=== PATIENT | female | born 1990 | race Caucasian/White ===

== ENCOUNTER → 2017-09-14 08:28 | Outpatient (CLI) | payer BC, SELFPAY ==
[2017-09-21 08:03] LABS: HPV Reflexed? NOT INDICATED
== END ==
PROVIDERS: Visit Provider Obstetrics & Gynecology
DX: Z12.4 Encounter for screening for malignant neoplasm of cervix (principal)
CPT/HCPCS: 88175; G0145

== ENCOUNTER → 2017-10-07 12:00 | Outpatient (CLI) | payer BC, SELFPAY ==
--- NOTE | 2017-10-07 | IMM_PTH ---
PATIENT: XIANG MALDONADO LOC: ANUM U#:[id number] AGE/SX: 34/F ROOM: RE10/07/[address]: Dr. Jesus Ramirez MD : 1990 BED: DIS: SPEC #: [id number] RECD: 10/11/17 11:36 STATUS: JEANNIE RERenetta #: [id number] DEO: 10/07/17 00:[address]: Jesus Ramirez DEPT: IMMUNOHISTOCHEMISTRY RECD BY: Carmen Yang Tissues: A - Uterine cervix, NOS Procedures: p16 (initial) KI-67 (add) Comments: @ Specimen number changed from [id number] to [id number] @ on 10/11/17 at 1149 by [facility]GOOD. PHYSICIAN & INSTITUTION [place] [id number] SPECIMEN INFORMATION: Tissue Source: A ? Cervical biopsy at 10 o?clock Clinical Info: LUCILA Specimen Number: [id number] CPT code: 46676, 98069 METHODOLOGY: Deparaffinized sections of prefer/formalin-fixed tissue or PAP/DQ stained slides are incubated with monoclonal/polyclonal antibodies/oligonucleotide probes. Localization is made via biotin free immunoperoxidase method. Appropriate controls are performed and reacted as expected. Results on target cell population are indicated in the following table: RESULTS: ANTIBODY / CLONE RESULT Block A P16 (E6H4) positive, focal and patchy Ki-67 (30-9) positive, low These tests were developed and their performance characteristics determined by [facility]. They may not have been cleared or approved by the U.S. Food and Drug Administration. The FDA has determined that such clearance or approval is not necessary. INTERPRETATION: A. Cervix at 10 o?clock, biopsy: Mild squamous dysplasia. DANIEL:reshma 10/12/17
--- NOTE | 2017-10-07 | CER_PTH ---
PATIENT: XIANG MALDONADO LOC: ANUM U#:[id number] AGE/SX: 34/F ROOM: RE10/07/[address]: Dr. Jesus Ramirez MD : 1990 BED: DIS: SPEC #: [id number] RECD: 10/07/17 22:12 STATUS: JEANNIE JOHN #: [id number] DEO: 10/07/17 00:[address]: Jesus Ramirez DEPT: SURGICAL PATHOLOGY RECD BY: Marilin Talavera Tissues: A - Uterine cervix, NOS B - Endocervical Procedures: Surgery Specimen Level IV HEADER OPERATION: Colposcopy with biopsy PRE-OP DIAGNOSIS: LGSIL TISSUE SUBMITTED: A. Cervical biopsy at 10 o?clock, B. ECC MICROSCOPIC DIAGNOSIS A. 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 Acute and chronic inflammation and squamous metaplasia. B. ECC: Rare benign endocervical epithelial cells and mucous. A few minute fragments of benign endometrial tissue. DANIEL:reshma 10/11/17 COMMENT A. Immunohistochemistry ([id number]) for surrogate HPV marker (p16) supports the above diagnosis. MICROSCOPIC DESCRIPTION Slides are reviewed. GROSS DESCRIPTION A - Received in fixative is one container labeled with the patient's name and designated 10 o'clock. The specimen consists of one irregular fragment of light mitchell soft tissue that measures 0.5 x 0.2 x 0.1 cm. The specimen is totally submitted in one cassette. B - Received in fixative is one container labeled with the patient's name and designated ECC. The specimen consists of multiple irregular fragments of mitchell mucoid tissue that in aggregate measure 2.5 x 1 x 0.1 cm. The specimen is totally submitted in one cassette. / DANIEL:reshma 10/10/17 TC:5 CPT: 44445 x2
== END ==
PROVIDERS: Visit Provider Obstetrics & Gynecology
DX: R87.612 Low grade squamous intraepithelial lesion on cytologic smear of cervix (LGSIL) (principal)
CPT/HCPCS: 88305; 88341; 88342

== ENCOUNTER 2021-07-25 21:34 | Emergency (ER) | payer SELFPAY ==
[2021-07-25 21:35] VITALS: BP 154/86; PULSE 92; RESP 14; TEMP 36; O2SAT 96; BMI 34.6
--- NOTE | 2021-07-25 22:39 | EDS_ITS ---
HPI History of Present Illness Chief Complaint: Rash Informant: patient Onset/Context/Timing Onset: Month(s) (4) Context: Gradual Onset Timing: Continuous Quality: itchy, burning on hands Location: hands, abd, legs Current Severity: Moderate Maximum Severity: Moderate Worsened by: see below Narrative Narrative: Patient presented with a rash that has been present for 4 months. She is not sure what to do anymore. This is the first time she has been to this emergency department, but she has been to the emergency department in [place] multiple times for this, she states she has been prescribed 4 courses of prednisone to take orally, none of them have done anything. She has been prescribed creams; initially she tried what they gave her which was clobetasol cream, she tried that for 1 week. For the first couple days it seemed to improve things, and then when she stopped it, everything became extremely worse where she was putting it, mostly in her hands. For the last 2 weeks since then, her fingers been swollen, they are splitting open as a result, she is having trouble bending them, and where they are split they are really sore. She is now gotten lesions on her legs, her abdomen, they are mostly itchy but her hands are hurting. No systemic symptoms or fevers. She did go back to the ER there and was given clotrimazole that she has put on her hands but it did nothing for a week. No scalp lesions. Nothing on her face. She was referred to a layer off in [place] who is not taking any new patients until after the new year. [facility] Medical History no medical history Home Medications clotrimazole-betamethasone 1 applic TOPICAL PRN PRN 07/25/21 [History Last Taken Unknown] Allergy/AdvReac Type Severity Reaction Status Date / Time amoxicillin Allergy Rash Verified 07/25/21 21:35 cefotetan disodium Allergy Rash Verified 07/25/21 21:35 [From Cefotan] erythromycin base Allergy Rash Verified 07/25/21 21:35 Sulfa (Sulfonamide Allergy Rash Verified 07/25/21 21:35 Antibiotics) Social History Smoking Status: Never smoker ROS ROS ED Constitutional Constitutional ED: Denies chills or fever(s) Eyes Eyes: Denies change in vision or diplopia ENT ENT ED: Denies rhinorrhea or sore throat Cardiovascular Cardiovascular: Denies chest pain or palpitations Respiratory/Chest Respiratory/Chest: Denies cough or dyspnea Gastrointestinal Gastrointestinal: Denies abdominal pain, diarrhea, nausea or vomiting Genitourinary Genitourinary ED: Denies dysuria or hematuria Musculoskeletal Musculoskeletal: Denies back pain or neck pain Integumentary Reports as per HPI, rash and skin swelling; Denies abscess Neurologic Neurologic: Denies headache(s), paresthesias or weakness Psychiatric Psychiatric: Denies anxiety or suicidal thoughts EXAM Physical Exam Const Vital Signs: 07/25/21 21:35 Temperature 96.8 F L Temperature Source Temporal Pulse Rate 92 Respiratory Rate 14 Blood Pressure 154/86 H Blood Pressure Mean 108 Pulse Ox 96 Oxygen Delivery Method Room Air Positive well nourished and well developed General Appearance ED: well developed and NAD HEENT Reports moist mucous membranes normocephalic and atraumatic Eyes PERRL and EOMs intact bilaterally Neck full ROM and supple Resp normal respiratory effort and clear to auscultation bilaterally Cardio regular rate, regular rhythm and no murmurs GI non-tender and non-distended Auscultation: normoactive bowel sounds Palpation: soft Back/Spine no CVA tenderness General Back: other FROM Extremity Extremity Narrative: Hands and fingers are erythematous, her fingers are swollen, she has limited flexion because of this, and she has multiple splits in skin mostly dorsally that appears to be related to dryness and swelling, they are trying to heal and not appear to be infected but they are sore to palpate due to being open. No active discharge or bleeding from any of them. General Extremety ED: Yes tenderness; Negative for pulses abnormal General Extremity: Negative for pulses abnormal Neuro oriented x3, CN's II-XII intact bilaterally and no sensory deficits noted Sensorium / Orientation: awake and alert Motor Exam: strength 5/5 throughout Skin Skin Narrative: Scattered dried mostly well-circumscribed circular lesions on abdomen and forearms mostly, but coalescent on hands with swelling and healing open wounds on fingers, none of which appear to be infected. Positive Nikolsky sign on forearms. MDM MDM MDM Narrative Medical decision making narrative: This patient presents on on a weekend for a rash that appears to be atopic dermatitis but appears to be chronically relapsing, and I agree that she needs to see dermatology. I offered getting some labs here, they are noted as below, and of interest is the eosinophilia which has been seen commonly in atopic dermatitis which is what this rash mainly resembles. I do not think putting her on more steroids would necessarily be beneficial. She may be a candidate for targeted biologic therapy and I certainly think referred her to dermatology is appropriate. She was given contact information for dermatology here in [place], and I think the main thin g we can help her with is the painful skin splits in her fingers. I do not think she needs systemic antibiotics, but we discussed topical solutions to try to allow these to heal and prevent further injury. She is understanding, discharged in stable condition. Lab Data Attestation: I reviewed the patient's lab results. Labs: Laboratory Results - last 24 hr 07/25/21 07/25/21 22:48 22:48 WBC 8.2 RBC 4.66 Hgb 14.3 Hct 40.9 MCV 87.8 MCH 30.7 MCHC 35.0 RDW Std Deviation 38.5 RDW Coeff of Jie 12.0 Plt Count 265 MPV 9.6 Immature Gran % (Auto) 0.500 Neut % (Auto) 50.5 Lymph % (Auto) 35.5 Stanley % (Auto) 7.2 Eos % (Auto) 5.8 H Baso % (Auto) 0.5 Absolute Neuts (auto) 4.2 Absolute Lymphs (auto) 2.92 Nucleated RBC % 0 ESR 4 Sodium 140 Potassium 3.8 Chloride 110 H Carbon Dioxide 25.0 Anion Gap 5 BUN 15 Creatinine 0.80 Estim Creat Clear Calc 90.41 Est GFR (MDRD) Af Amer 110 Est GFR (MDRD) Non-Af 91 BUN/Creatinine Ratio 18.8 Glucose 95 Calcium 8.6 C-React Prot Ext Range < 2.90 Discharge Plan Triage Chief Complaint: Rash ED Provider: Rodrigo Anderson Dx/Rx/DC Orders Clinical Impression: Dermatitis, atopic Instructions: ED Atopic Dermatitis (Adult) Prescriptions: No Action clotrimazole-betamethasone 1-0.05 % cream 1 applic TOPICAL PRN PRN (Reason: Rash) RF: 0 Primary Care Provider: Care Physician,No Primary Referrals: Cornelio Vazquez MD [STAFF PHYSICIAN] - As soon as possible (Call for appointment) Care Physician,No Primary [Primary Care Provider] - Disposition Disposition: Home, Self Care
[2021-07-25 22:57] LABS: Absolute Lymphocyte Count 2.92 X10^3/uL (0.83-4.51); Absolute Neutrophil Count 4.2 X10^3/uL (2.0-7.7); Basophil# 0.04 X10^3/uL; Basophil% 0.5 % (0-1); Eosinophil# 0.48 X10^3/uL; Eosinophils% 5.8 % (0-5); Hematocrit 40.9 % (37-47); Hemoglobin 14.3 g/dL (12.0-15.0); Lymphocyte # 2.92 X10^3/ul (0.83-4.51); Lymphocyte % 35.5 % (19-41); Mean Corpuscular Hgb 30.7 pg (27.0-32.0); Mean Corpuscular Volume 87.8 fL (81-99); Mean Platelet Vol. 9.6 fl (6.2-12.0); Monocyte# 0.59 X10^3/uL; Monocyte% 7.2 % (0-10); NRBC Flagged by Analyzer 0 % (0-5); Neutrophil # 4.15 X10^3/uL (2.7-7.7); Neutrophil % 50.5 % (47-70); Platelet Count 265 K/mm3 (150-450); RBC Distribution Width SD 38.5 fl (35.1-43.9); Red Blood Count 4.66 M/mm3 (4.2-5.4); White Blood Count 8.2 K/mm3 (4.4-11.0)
[2021-07-25 23:03] LABS: Erythrocyte Sedimentation Rate 4 mm/hr (0-30)
[2021-07-25 23:16] LABS: Anion Gap 5 (5-15); BUN 15 mg/dL (7-18); BUN/Creat Ratio 18.8 RATIO (10-20); CRP < 2.90 mg/L (0.0-3.0); Calcium,Total 8.6 mg/dL (8.5-10.1); Chloride 110 mmol/L (98-107); EST Glomerular Filtration Rate 91 mL/min (>60); Est Glom Filt Rate - Afr Amer 110 mL/min (>60); Estimated Creatinine Clearance 90.41 ml/min; Glucose 95 mg/dL (74-106); Potassium 3.8 mmol/L (3.5-5.1); Sodium Level 140 mmol/L (136-145)
== END 2021-07-26 00:09 | disposition home or self-care (01) ==
PROVIDERS: Emergency Provider Emergency Medicine
DX: L20.9 Atopic dermatitis, unspecified (principal)
CPT/HCPCS: 36415; 80048; 85025; 85652; 86140; 99282

== ENCOUNTER 2023-06-29 20:23 | Emergency (ER) | payer SELFPAY ==
[2023-06-29 20:24] VITALS: BP 145/96; PULSE 97; RESP 18; TEMP 36.6; O2SAT 100; BMI 34.5
[2023-06-29] MEDS: Oxycodone/Apap 5/325 Tablet PO ×2 (20:37→21:13)
--- NOTE | 2023-06-29 21:05 | EDS_ITS ---
HPI <KATJA Watkins - Last Filed: 06/29/23 21:15> History of Present Illness Chief Complaint: Abscess Narrative Narrative: Patient is a 32-year-old female with no significant medical history presents to the emergency department with complaints of a cyst to her lower back, upper buttocks. Patient was seen for this on Tuesday, diagnosed with pilonidal cyst. Placed on clindamycin. No intervention was completed. Patient states that she is continued having fevers, chills, she states that the pain is getting worse and she is here for evaluation. PFSH <KATJA Watkins - Last Filed: 06/29/23 21:15> [facility] Home Medications clotrimazole-betamethasone 1 %-0.05 % topical cream 1 applic topical PRN PRN Rash 07/25/21 [History Last Taken Unknown] doxycycline hyclate 100 mg capsule 100 mg PO BID #20 caps 06/29/23 [Rx Last Taken Unknown] oxycodone-acetaminophen 5 mg-325 mg tablet (Percocet) 1 tab PO Q8H PRN pain 3 days #12 tabs 06/29/23 [Rx Last Taken Unknown] Allergy/AdvReac Type Severity Reaction Status Date / Time amoxicillin Allergy Rash Verified 06/29/23 20:27 cefotetan disodium Allergy Rash Verified 06/29/23 20:27 [From Cefotan] erythromycin base Allergy Rash Verified 06/29/23 20:27 Sulfa (Sulfonamide Allergy Rash Verified 06/29/23 20:27 Antibiotics) Social History Smoking Status: Never smoker ROS <KATJA Watkins - Last Filed: 06/29/23 21:15> ROS ED ROS Narrative Constitutional: Negative for fever, chills, weight loss, weakness Eyes: Negative for vision loss, vision change, double vision ENT: Negative for any sore throat, ear pain, congestion Cardiovascular: Negative for any chest pain, tightness, palpitations Respiratory: Negative for any cough, sputum production, hemoptysis, dyspnea, dyspnea on exertion, orthopnea Gastrointestinal: Negative for any abdominal pain, nausea, vomiting, diarrhea, constipation, blood in stool, blood in vomit : Negative for any urinary frequency, dysuria, retention, blood in urine Muscle skeletal: Negative for any myalgias, arthralgias, neck pain, back pain Neurological: Negative for any headache, syncope, numbness or tingling, dizziness Skin: Negative for any rashes, lumps, itching, abrasions, lacerations. Positive for abscess to the upper buttocks. Psychiatric: Negative for any depression, anxiety, stress, suicidal ideation, homicidal ideation Hematologic: Negative for any easy bruising, excessive bruising, easy bleeding Allergies: Negative for any eczema, hives, rash EXAM <KATJA Watkins - Last Filed: 06/29/23 21:15> Physical Exam Narrative Exam Narrative: Vital signs reviewed. HEET: Head normocephalic atraumatic, TMs clear bilaterally. Posterior pharynx is clear, moist mucous membranes. Nares clear bilaterally. Neck: Supple with no lymphadenopathy or tenderness. No signs of meningismus. Cardiac: Regular rate and rhythm no murmurs gallops or rubs, equal peripheral pulses bilaterally. Respiratory: Lungs clear to auscultation bilaterally. No chest tenderness. Abdomen: Soft, nontender, nondistended. No abdominal bruit or pulsatile masses. No hepatosplenomegaly Extremities: No peripheral edema, no signs of gross trauma or deformity. Active full range of motion of all extremities. Neuro: Cranial nerves II through XII intact, no focal neurological deficits. Skin: Clean dry and intact with no rash, purpura, petechiae, vesicles or pustules. Patient has erythema, cellulitis, tenderness to the upper buttocks. This is consistent with pilonidal cyst. Patient's most pain and indurated areas are to the medial upper glutes. There is significant induration at this area. Patient has minimal pain, fluctuance to the initial start of the fold. No drainage noted. There is no pain along the rectal area. Backs/flank: No CVA tenderness, no midline spinal tenderness, no deformity. Psych: Normal mood and affect. No SI, HI or acute psychosis. Const Vital Signs: 06/29/23 20:24 Temperature 97.8 F Temperature Source Temporal Pulse Rate 97 Respiratory Rate 18 Blood Pressure 145/96 H Blood Pressure Mean 112 Pulse Ox 100 Oxygen Delivery Method Room Air <Gregorio Kuo MD - Last Filed: 06/29/23 22:16> Physical Exam Const Vital Signs: 06/29/23 20:24 Temperature 97.8 F Temperature Source Temporal Pulse Rate 97 Respiratory Rate 18 Blood Pressure 145/96 H Blood Pressure Mean 112 Pulse Ox 100 Oxygen Delivery Method Room Air [facility] <KATJA Watkins - Last Filed: 06/29/23 21:15> [facility] Treatment and Re-Evaluation :: Patient appears to be in no distress, vital signs are stable, patient presents to the emergency department with complaints of upper buttock pain concerning for pilonidal cyst. Differential diagnosis includes pilonidal cyst, abscess formation, cellulitis. Patient is on clindamycin. The area was cleaned with ChloraPrep. I was able to use lidocaine with epinephrine, using 11 blade and made 1 cm incisions on each of the medial aspect of the upper gluteus. There is no significant gross drainage. I was able to use forceps to break up loculations. Patient tolerated well. Patient will continue to use warm compress. I will add doxycycline to the patient's regimen as well as Percocet. I will give her referral to surgery, she understands that she has a follow-up. She was given strict return precaution to return for any worsening pain, fever chills nausea vomiting. Patient stable for discharge. <Gregorio Kuo MD - Last Filed: 06/29/23 22:16> [facility] Narrative Medical decision making narrative: Dr. Kuo: I have personally performed a face to face assessment of the patient and have reviewed the KVNG Note. I performed a substantive portion of the visit including all aspects of the following. My milner findings include: History is bilateral buttocks pain and swelling with erythema. On clindamycin from outside facility for the last 4 days. Exam is afebrile. Vital signs noted. Nontoxic-appearing. Positive indurated area at bilateral top of gluteal fold. Medical Decision Making: Incision and drainage. No purulent return. Continue antibiotics and follow-up as an outpatient with surgery. Oral analgesics. Discharge. Other additions or changes: [None] Discharge Plan Triage Chief Complaint: Abscess ED Midlevel Provider: Myron Morse ED Provider: Gregorio Kuo Dx/Rx/DC Orders Clinical Impression: Cyst, pilonidal, with abscess Prescriptions: New doxycycline hyclate 100 mg capsule 100 mg PO BID Qty: 20 0RF oxycodone-acetaminophen [Percocet] 5-325 mg tablet 1 tab PO Q8H PRN (Reason: pain) 3 Days Qty: 12 0RF No Action clotrimazole-betamethasone 1-0.05 % cream 1 applic TOPICAL PRN PRN (Reason: Rash) Patient Comments: Apply topically to affected area 2 times a day Primary Care Provider: Care Physician,No Primary Referrals: Dawna Mcdonald MD [Med Staff - Active Staff] - Care Physician,No Primary [Primary Care Provider] - Activity Restrictions/Additional Instructions: Please use warm compresses. You may use sitz bath's. Please take the Percocet, doxycycline. You need to follow-up with surgery. Of course return here for worsening pain fever chills nausea vomiting Disposition Disposition: Home, Self Care Discharge Date/Time: 06/29/23 21:20
[2023-06-29] MEDS: Doxycycline 100 MG CAPSULE PO (21:13)
[2023-06-29] MEDS: Lidocaine 1% /Epi 1:100 (20ml) 20 ML Vial INFILT (21:14)
== END 2023-06-29 21:20 | disposition home or self-care (01) ==
PROVIDERS: Emergency Provider Emergency Medicine; Visit Provider Emergency Medicine
DX: L05.01 Pilonidal cyst with abscess (principal)
CPT/HCPCS: 99283

== ENCOUNTER 2024-02-16 18:21 | Emergency (ER) | payer SELFPAY ==
[2024-02-16 18:22] VITALS: BP 151/97; PULSE 95; RESP 16; TEMP 36.6; O2SAT 99; BMI 36.2
--- NOTE | 2024-02-16 19:01 | EDS_ITS ---
HPI History of Present Illness Chief Complaint: Abscess Informant: patient Narrative Narrative: 33-year-old female presenting to the emergency room with a chief complaint of pilonidal cyst. Patient states that this is the second recurrence of a cyst. She states she was seen in the past had incision and drainage. She notes that symptoms have been present for about 2 days. She notes a lot of pressure/pain when she goes to sit. No drainage in the area. No rectal pain PFSH PFSH Home Medications ?Medication ?Instructions ?Recorded ?Last Taken ?Type clotrimazole-betamethasone 1 1 applic topical PRN PRN Rash 07/25/21 Unknown History %-0.05 % topical cream doxycycline hyclate 100 mg capsule 100 mg PO BID #20 caps 06/29/23 Unknown Rx oxycodone-acetaminophen 5 mg-325 1 tab PO Q8H PRN pain 3 days #12 06/29/23 Unknown Rx mg tablet (Percocet) tabs doxycycline monohydrate 100 mg 100 mg PO BID #20 CAPSULES 02/16/24 Unknown Rx capsule oxycodone-acetaminophen 5 mg-325 1 tab PO Q6H PRN PRN Pain 3 days 02/16/24 Unknown Rx mg tablet #12 TABLETS Allergy/AdvReac Type Severity Reaction Status Date / Time amoxicillin Allergy Rash Verified 02/16/24 18:22 cefotetan disodium (From Allergy Rash Verified 02/16/24 18:22 Cefotan) erythromycin base Allergy Rash Verified 02/16/24 18:22 Sulfa (Sulfonamide Allergy Rash Verified 02/16/24 18:22 Antibiotics) Social History Smoking Status: Never smoker ROS ROS ED Constitutional Constitutional ED: Denies chills, fever(s) or weight loss Eyes Eyes: Denies change in vision or diplopia ENT ENT ED: Denies ear pain, rhinorrhea or sore throat Cardiovascular Cardiovascular: Denies chest pain, orthopnea, palpitations or racing heartbeat Respiratory/Chest Respiratory/Chest: Denies cough, dyspnea or orthopnea Gastrointestinal Gastrointestinal: Denies abdominal pain, diarrhea, nausea or vomiting Genitourinary Genitourinary ED: Denies dysuria, hematuria or urinary frequency Musculoskeletal Musculoskeletal: Denies arthralgias or myalgias Integumentary Reports abscess and other; Denies rash Neurologic Neurologic: Denies headache(s) or weakness Psychiatric Psychiatric: Denies anxiety, depression, suicidal ideation or suicidal thoughts Endocrine Endocrinology: Denies polydipsia, polyphagia or polyuria Allergic/Immunologic Allergic/Immunologic ED: Denies mouth swelling, tongue swelling or urticaria EXAM Physical Exam Const Vital Signs: 02/16/24 18:22 Temperature 97.8 F Temperature Source Temporal Pulse Rate 95 Respiratory Rate 16 Blood Pressure 151/97 H Blood Pressure Mean 115 Pulse Ox 99 Oxygen Delivery Method Room Air Positive well nourished and well developed General Appearance ED: well developed HEENT Reports normocephalic, head/scalp atraumatic and moist mucous membranes Eyes PERRL and EOMs intact bilaterally Neck no lymphadenopathy, supple and no JVD Resp normal respiratory effort and clear to auscultation bilaterally Cardio regular rate, regular rhythm and no murmurs GI normal to inspection, nondistended, normoactive bowel sounds and non-tender Palpation: soft Back/Spine no CVA tenderness and normal ROM Extremity normal to inspection General Extremety ED: Negative for edema General Extremity: Negative for edema Neuro oriented x3 and CN's II-XII intact bilaterally Sensorium / Orientation: alert Motor Exam: strength 5/5 throughout Psych mental status grossly normal Mood & Affect: Negative for depressed or tearful Skin Skin Narrative: There is a 2 cm area of erythema on the left medial gluteal skin fold the top of the midline. There is a well-healed incision of this area. There is also a healed incision on the right just crossed the gluteal fold from this. It has minimal erythema. MDM MDM MDM Narrative Medical decision making narrative: Differential diagnosis includes pilonidal cyst, abscess, phlegmon, developing abscess cellulitis Using bedside ultrasound I see some minimal fluid in this area and subcutaneous tissue I do not see a large collection. Let was used to locally anesthetized the skin topically. Betadine was used to wash the area and allowed to dry. Then 1% lidocaine was used to anesthetize deeper. Once adequate anesthesia was achieved an 11 blade was used to make an incision along the previous incision. The wound was probed for loculations. Minimal pus was removed. This was not a deep abscess and I did not find significant loculations. Therefore no packing was placed. Home I will be placing the patient on doxycycline and have her do warm baths and as well as some pain medication. We talked about return instruc tions as well as follow-up. She I will give her local surgery but she was advised that this becomes a recurrent issue she may need to see colorectal surgery. History & Record Review Discussion w/independent historian: Patient Discharge Plan Triage Chief Complaint: Abscess ED Provider: Jozef Ahn Dx/Rx/DC Orders Clinical Impression: Pilonidal abscess Instructions: ED Pilonidal Cyst Infec I&D Prescriptions: New oxycodone-acetaminophen 5-325 mg tablet 1 tab PO Q6H PRN PRN (Reason: Pain) 3 Days Qty: 12 0RF doxycycline monohydrate 100 mg capsule 100 mg PO BID Qty: 20 0RF No Action clotrimazole-betamethasone 1-0.05 % cream 1 applic TOPICAL PRN PRN (Reason: Rash) Patient Comments: Apply topically to affected area 2 times a day doxycycline hyclate 100 mg capsule 100 mg PO BID Qty: 20 0RF oxycodone-acetaminophen [Percocet] 5-325 mg tablet 1 tab PO Q8H PRN (Reason: pain) 3 Days Qty: 12 0RF Primary Care Provider: Care Physician,No Primary Referrals: Dawna Mcdonald MD [Med Staff - Active Staff] - 3-5 Days if not improving Care Physician,No Primary [Primary Care Provider] - Print Language: Turkish Disposition Disposition: Home, Self Care
[2024-02-16] MEDS: Lidocaine/Epi/Tetracaine 50 ML 1 APPLIC TOPICAL (19:22)
[2024-02-16] MEDS: Lidocaine 1% (20 ml mdv) 20 ML Vial INFILT (19:23)
[2024-02-16 20:28] VITALS: PULSE 68; RESP 16; TEMP 36.6; O2SAT 98
== END 2024-02-16 20:28 | disposition home or self-care (01) ==
PROVIDERS: Emergency Provider Emergency Medicine; Visit Provider Emergency Medicine
DX: L05.01 Pilonidal cyst with abscess (principal)
CPT/HCPCS: 10080; 10060; 99284

== ENCOUNTER 2024-05-10 20:41 | Emergency (ER) | payer SELFPAY ==
[2024-05-10 20:42] VITALS: BP 139/94; PULSE 74; RESP 16; TEMP 36.8; O2SAT 100; BMI 35.6
--- NOTE | 2024-05-10 20:51 | CT_ITS ---
EXAM: CT ABDOMEN AND PELVIS WITH INTRAVENOUS CONTRAST CLINICAL INDICATION: RLQ, Rovsing sign, tenderness near McBurney''s poin -- Last normal menstrual period April 20 TECHNIQUE: Helically acquired images were obtained of the abdomen and pelvis with intravenous contrast. This CT exam was performed using one or more of the following dose reduction techniques: automated exposure control, adjustment of the mA and/or kV according to patient size, and/or use of iterative reconstruction technique. CONTRAST: IV 100mL Isovue-370 RADIATION DOSE: CTDIvol = 18.01 mGy, DLP = 1221.35 mGy-cm COMPARISON: No relevant prior studies available. FINDINGS: LOWER THORAX: Unremarkable. Lung bases are clear. No cardiomegaly. No significant pericardial effusion. ABDOMEN: LIVER: Follicle homogeneously hyperdense-enhancing and subcapsular 1 cm nodule at the inferior-posterior left lobe of the liver, suspected hemangioma. Hepatomegaly and low-attenuation fatty liver, the right lobe is 20.2 cm craniocaudal. GALLBLADDER AND BILE DUCTS: Unremarkable. No calcified gallstones. No gallbladder distention or wall edema. No intra- or extrahepatic biliary ductal dilation. PANCREAS: Unremarkable. No focal cystic or solid mass. SPLEEN: Borderline splenomegaly, 12.7 cm craniocaudal. ADRENALS: Unremarkable. No nodules. KIDNEYS AND URETERS: Unremarkable. Normal renal size and position. No hydronephrosis. STOMACH AND BOWEL: Mild stool in the proximal right colon and mild scattered gas in most of the colon. No dilated small bowel loops. No focal inflammatory change. PELVIS: APPENDIX: Mildly prominent and gasless appendix. It measures 7 mm at its origin on sagittal image #69 7 mm at its midportion the right iliac vessels, with slightly smaller tapering tip, 5.3 mm on axial image #89. It is 7.3 mm maximum diameter on coronal image #63. No surrounding soft tissue stranding. BLADDER: Unremarkable. REPRODUCTIVE: Apparent dominant follicle in the left ovary, well-circumscribed and roughly 1.5 cm x 1.9 cm x 2.2 cm. ABDOMEN and PELVIS: INTRAPERITONEAL SPACE: Unremarkable. No free air. No free fluid. BONES/JOINTS: Unremarkable. No suspicious lytic or blastic abnormality. SOFT TISSUES: Unremarkable. No discrete abdominal or pelvic wall hernia. VASCULATURE: Unremarkable. Abdominal aorta is non-dilated. LYMPH NODES: Minimal mesenteric adenopathy including a right lower quadrant mesenteric lymph node of 1.3 cm x 9 cm, which chronicity. CT/Abdomen/Pelvis W IV Cont ONLY IMPRESSION: 1. Gasless and borderline thickened 7.3 mm maximum diameter appendix. Suspicious for very early acute appendicitis in the appropriate clinical setting. No surrounding soft tissue stranding or visible appendicolith. 2. No free air, free fluid or abscess. 3. Dominant 2.2 cm left ovarian follicle. 4. Minimal mesenteric adenopathy, uncertain chronicity. 5. Hepatosplenomegaly and low-attenuation fatty liver. 6. 1 cm subcapsular hyperdense-homogeneously enhancing nodule in the left lobe of liver. Considerations include benign hemangioma and multiple other hypervascular lesions such as focal nodular hyperplasia, adenoma, hypervascular metastases. 7. RECOMMENDATIONS: Prior exams would be useful if available. Otherwise consider MRI characterization for the liver lesion. Electronically Signed: Suzan Block MD at 22:34 EDT ,
--- NOTE | 2024-05-10 20:53 | EDS_ITS ---
HPI <Dr. Mayo Domingo MD - Last Filed: 05/11/24 23:32> HPI - GI History of Present Illness Chief Complaint: Abd Pain Detail of Chief Complaint: Periumbilical pain to right lower quadrant Informant: patient Abdominal Pain/Flank Pain Onset: Today Context: Sudden Onset Timing: Continuous Quality: - (Pain) Location: - (Umbilicus right lower quadrant) Current Severity: Mild Maximum Severity: Moderate Worsened by: Car ride Relieved by: Nothing Nausea/Vomiting/Emesis GI Symptom: Positive for Nausea; Negative for Vomiting Diarrhea/Melena/Hematochezia GI Symptom: Negative for Diarrhea, Melena or Hematochezia Associated Symptoms Associated Symptoms: Negative for Dysuria, Frequency, Hematuria or Urgency LMP: April 20, 2024 Narrative Narrative: Patient is a 33-year-old female whose last normal menstrual period was April 20, 2024. She does not use any form of control. She presents because of periumbilical pain that radiates to the proximity of McBurney's point. She does endorse nausea. She last ate at 1800. She had a glass of water 1 hour prior to presentation. She denies fever but does endorse chills. She does have history of ovarian cyst. She denies dysuria, frequency, urgency or hematuria. She denies any viral symptoms or upper respiratory symptoms. Prior similar symptoms: No Recent Illness/Hospitalization: No PFSH <Dr. Mayo Domingo MD - Last Filed: 05/11/24 23:32> PFSH Home Medications ?Medication ?Instructions ?Recorded ?Last Taken ?Type clotrimazole-betamethasone 1 1 applic topical PRN PRN Rash 07/25/21 Unknown History %-0.05 % topical cream doxycycline hyclate 100 mg capsule 100 mg PO BID #20 caps 06/29/23 Unknown Rx oxycodone-acetaminophen 5 mg-325 1 tab PO Q8H PRN pain 3 days #12 06/29/23 Unknown Rx mg tablet (Percocet) tabs doxycycline monohydrate 100 mg 100 mg PO BID #20 CAPSULES 02/16/24 Unknown Rx capsule oxycodone-acetaminophen 5 mg-325 1 tab PO Q6H PRN PRN Pain 3 days 02/16/24 Unknown Rx mg tablet #12 TABLETS Allergy/AdvReac Type Severity Reaction Status Date / Time amoxicillin Allergy Rash Verified 05/10/24 20:56 cefotetan disodium (From Allergy Rash Verified 05/10/24 20:56 Cefotan) erythromycin base Allergy Rash Verified 05/10/24 20:56 Sulfa (Sulfonamide Allergy Rash Verified 05/10/24 20:56 Antibiotics) Surgical History Hx of tonsillectomy Social History (Updated 05/10/24 @ 20:[address] Mayo Domingo MD) household members: significant other and children Smoking Status: Never smoker ROS <Dr. Mayo Domingo MD - Last Filed: 05/11/24 23:32> ROS ED Constitutional Constitutional ED: Reports chills; Denies fever(s), subjective or sweats ENT ENT ED: Denies ear pain, rhinorrhea or sore throat Cardiovascular Cardiovascular: Denies chest pain or palpitations Respiratory/Chest Respiratory/Chest: Denies cough, dyspnea or dyspnea on exertion Gastrointestinal Gastrointestinal: Reports abdominal pain and nausea; Denies constipation, diarrhea, melena or vomiting Genitourinary Genitourinary ED: Denies dysuria, hematuria or urinary frequency Musculoskeletal Musculoskeletal: Denies arthralgias, back pain or myalgias Integumentary Denies rash Neurologic Neurologic: Denies headache(s) Hematologic/Lymphatic Hematologic/Lymphatic: Denies easy bleeding or easy bruising EXAM <Dr. Mayo Domingo MD - Last Filed: 05/11/24 23:32> Physical Exam Const Vital Signs: 05/11/24 01:22 05/11/24 01:28 05/11/24 01:46 Temperature 97.2 F L 97.2 F L Temperature Source Oral Oral Pulse Rate 75 75 75 Respiratory Rate 18 18 18 Blood Pressure 116/75 116/75 Blood Pressure Mean 88 88 Pulse Ox 97 95 95 Oxygen Delivery Method Room Air Room Air Room Air 05/11/24 02:53 Temperature 98.7 F Temperature Source Pulse Rate 84 Respiratory Rate 16 Blood Pressure 129/77 H Blood Pressure Mean 94 Pulse Ox 99 Oxygen Delivery Method Positive well nourished and well developed General Appearance ED: well developed and NAD; Negative for pallor HEENT Reports moist mucous membranes normocephalic and atraumatic Eyes PERRL and EOMs intact bilaterally General Eye ED: Negative for pale conjunctiva or scleral icterus Neck no lymphadenopathy, supple and no JVD Resp normal respiratory effort and clear to auscultation bilaterally Cardio regular rate, regular rhythm, S1 normal heart sound, S2 normal heart sound and no murmurs GI non-distended and no masses; Negative for non-tender Inspection: Negative for abdominal distention Auscultation: hypoactive bowel sounds Palpation: soft and tender RLQ, McBurney's point and Rovsing's sign; Negative for mass, pulsatile mass or rebound tenderness present Narrative: There is no inguinal mass or augusto lymphadenopathy. Back/Spine no CVA tenderness Extremity full ROM General Extremety ED: Negative for edema or tenderness General Extremity: Negative for edema Neuro CN's II-XII intact bilaterally and moves all extremities Sensorium / Orientation: alert Psych mental status grossly normal and thought process normal Skin no wounds General Skin Exam: Negative for jaundice or pallor Lesions: no lesions Rashes: no rashes <Dr. Jozef Ahn DO - Last Filed: 05/11/24 02:48> Physical Exam Const Vital Signs: 05/11/24 01:22 05/11/24 01:28 05/11/24 01:46 Temperature 97.2 F L 97.2 F L Temperature Source Oral Oral Pulse Rate 75 75 75 Respiratory Rate 18 18 18 Blood Pressure 116/75 116/75 Blood Pressure Mean 88 88 Pulse Ox 97 95 95 Oxygen Delivery Method Room Air Room Air Room Air 05/11/24 02:53 Temperature 98.7 F Temperature Source Pulse Rate 84 Respiratory Rate 16 Blood Pressure 129/77 H Blood Pressure Mean 94 Pulse Ox 99 Oxygen Delivery Method [facility] <Dr. Mayo Domingo MD - Last Filed: 05/11/24 23:32> [facility] Narrative Medical decision making narrative: Differential diagnoses abdominal pain of unknown etiology, obstipation, mesenteric adenitis, regional enteritis, appendicitis. Will obtain test since patient is exact with no use of control. CBC, electrolyte panel and serum hCG. Will obtain CT of the abdomen since patient has tenderness in the proximity McBurney's point with a positive Rovsing sign and guarding r ight lower quadrant. Lab Data Attestation: I reviewed the patient's lab results. Lab results narrative: CBC is normal. UA is unremarkable. It is a contaminated specimen. Labs: Laboratory Results - last 24 hr 05/10/24 05/10/24 20:57 20:58 WBC 8.8 RBC 4.39 Hgb 13.2 Hct 37.9 MCV 86.3 MCH 30.1 MCHC 34.8 RDW Std Deviation 37.4 RDW Coeff of Jie 11.9 Plt Count 228 MPV 10.3 Immature Gran % (Auto) 0.200 Neut % (Auto) 53.8 Lymph % (Auto) 37.7 Loving % (Auto) 4.8 Eos % (Auto) 3.0 Baso % (Auto) 0.5 Absolute Neuts (auto) 4.7 Absolute Lymphs (auto) 3.32 Nucleated RBC % 0 Sodium 139 Potassium 3.4 L Chloride 105 Carbon Dioxide 28.0 Anion Gap 6 BUN 12 Creatinine 0.91 Estim Creat Clear Calc 99.78 Est GFR (MDRD) Af Amer 93 Est GFR (MDRD) Non-Af 77 BUN/Creatinine Ratio 13.2 Glucose 124 H Calcium 9.5 Serum , Qual NEGATIVE Urine Color Yellow Urine Clarity Sl. Cloudy Urine pH 6.0 Ur Specific [place] 1.025 Urine Protein 15 H Urine Glucose (UA) Normal Urine Ketones Negative Urine Occult Blood Negative Urine Nitrite Negative Urine Bilirubin Negative Urine Urobilinogen Normal Ur Leukocyte Esterase Negative Urine RBC 0 SEEN Urine WBC 0-5 SEEN Ur Squamous Epith Cells 5-10 SEEN Urine Bacteria RARE Urine Mucus 0 SEEN Radiography Diagnostic Testing: Clinical Impression(s) from Imaging Studies Abdomen/Pelvis CT 05/10/24 20:51 IMPRESSION: 1. Gasless and borderline thickened 7.3 mm maximum diameter appendix. Suspicious for very early acute appendicitis in the appropriate clinical setting. No surrounding soft tissue stranding or visible appendicolith. 2. No free air, free fluid or abscess. 3. Dominant 2.2 cm left ovarian follicle. 4. Minimal mesenteric adenopathy, uncertain chronicity. 5. Hepatosplenomegaly and low-attenuation fatty liver. 6. 1 cm subcapsular hyperdense-homogeneously enhancing nodule in the left lobe of liver. Considerations include benign hemangioma and multiple other hypervascular lesions such as focal nodular hyperplasia, adenoma, hypervascular metastases. 7. RECOMMENDATIONS: Prior exams would be useful if available. Otherwise consider MRI characterization for the liver lesion. Electronically Signed: Suzan Block MD at 22:34 EDT , Abdomen CT 05/11/24 23:07 IMPRESSION: Fatty infiltration of the liver. No acute abnormality of the abdomen and pelvis. Normal appendix. Electronically Signed: Hanny Peraza MD at 2:24 EDT Reading Location ID and State: [facility] / [place] Tel , Service support , CT of the abdomen pelvis IV contrast was reviewed by me at 2155. The liver and spleen appear normal. The gallbladder appears normal. Kidneys appear normal. There is no inflammatory changes noted. In my opinion the CT is unremarkable. Awaiting formal read by radiologist. Management Discussion w/another healthcare provider: Channel Lip Stiffener Insoles (Spoke with Dr. Dogulass who is on-call for surgery. She requested CT of the abdomen pelvis with p.o. contrast. She will crush them to be delayed. She would like called once results are available.) Treatment and Re-Evaluation :: Patient disposition to be made by the evening physician once CAT scan has been performed and interpreted. CT of the abdomen reveals Mildly prominent and gasless appendix measuring 7 mm at its origin and its midportion. There is slight tapering at the tip measuring 5.3 mm. Maximum diameter is 7.3 on coronal image #63. There is no surrounding soft tissue swelling. There is no surrounding stranding or visible appendicolith. <Dr. Jozef Ahn, DO - Last Filed: 05/11/24 02:48> [facility] Narrative Medical decision making narrative: Differential diagnoses abdominal pain of unknown etiology, obstipation, mesenteric adenitis, regional enteritis, appendicitis. Will obtain test since patient is exact with no use of control. CBC, electrolyte panel and serum hCG. Will obtain CT of the abdomen since patient has tenderness in the proximity McBurney's point with a positive Rovsing sign and guarding right lower quadrant. Lab Data Labs: Laboratory Results - last 24 hr 05/10/24 05/10/24 20:57 20:58 WBC 8.8 RBC 4.39 Hgb 13.2 Hct 37.9 MCV 86.3 MCH 30.1 MCHC 34.8 RDW Std Deviation 37.4 RDW Coeff of Jie 11.9 Plt Count 228 MPV 10.3 Immature Gran % (Auto) 0.200 Neut % (Auto) 53.8 Lymph % (Auto) 37.7 Loving % (Auto) 4.8 Eos % (Auto) 3.0 Baso % (Auto) 0.5 Absolute Neuts (auto) 4.7 Absolute Lymphs (auto) 3.32 Nucleated RBC % 0 Sodium 139 Potassium 3.4 L Chloride 105 Carbon Dioxide 28.0 Anion Gap 6 BUN 12 Creatinine 0.91 Estim Creat Clear Calc 99.78 Est GFR (MDRD) Af Amer 93 Est GFR (MDRD) Non-Af 77 BUN/Creatinine Ratio 13.2 Glucose 124 H Calcium 9.5 Serum , Qual NEGATIVE Urine Color Yellow Urine Clarity Sl. Cloudy Urine pH 6.0 Ur Specific [place] 1.025 Urine Protein 15 H Urine Glucose (UA) Normal Urine Ketones Negative Urine Occult Blood Negative Urine Nitrite Negative Urine Bilirubin Negative Urine Urobilinogen Normal Ur Leukocyte Esterase Negative Urine RBC 0 SEEN Urine WBC 0-5 SEEN Ur Squamous Epith Cells 5-10 SEEN Urine Bacteria RARE Urine Mucus 0 SEEN Radiography Diagnostic Testing: Clinical Impression(s) from Imaging Studies Abdomen/Pelvis CT 05/10/24 20:51 IMPRESSION: 1. Gasless and borderline thickened 7.3 mm maximum diameter appendix. Suspicious for very early acute appendicitis in the appropriate clinical setting. No surrounding soft tissue stranding or visible appendicolith. 2. No free air, free fluid or abscess. 3. Dominant 2.2 cm left ovarian follicle. 4. Minimal mesenteric adenopathy, uncertain chronicity. 5. Hepatosplenomegaly and low-attenuation fatty liver. 6. 1 cm subcapsular hyperdense-homogeneously enhancing nodule in the left lobe of liver. Considerations include benign hemangioma and multiple other hypervascular lesions such as focal nodular hyperplasia, adenoma, hypervascular metastases. 7. RECOMMENDATIONS: Prior exams would be useful if available. Otherwise consider MRI characterization for the liver lesion. Electronically Signed: Suzan Block MD at 22:34 EDT , Abdomen CT 05/11/24 23:07 IMPRESSION: Fatty infiltration of the liver. No acute abnormality of the abdomen and pelvis. Normal appendix. Electronically Signed: Hanny Peraza MD at 2:24 EDT , Treatment and Re-Evaluation :: Patient disposition to be made by the evening physician once CAT scan has been performed and interpreted. CT of the abdomen reveals Mildly prominent and gasless appendix measuring 7 mm at its origin and its midportion. There is slight tapering at the tip measuring 5.3 mm. Maximum diameter is 7.3 on coronal image #63. There is no surrounding soft tissue swelling. There is no surrounding stranding or visible appendicolith. Update 0248 hrs.: Repeat CT shows normal-appearing appendix. No other significant intra-abdominal pathology to explain her pain was noted. I again discussed the case with Dr. Mcdonald. Patient will be discharged home return if worsening or concerns or not improving in 24 to 48 hours or she can follow-up with primary care if not improving Discharge Plan Triage Chief Complaint: Abd Pain ED Provider: Mayo Domingo Dx/Rx/DC Orders Clinical Impression: Abdominal pain Instructions: Abdominal Pain Prescriptions: No Action clotrimazole-betamethasone 1-0.05 % cream 1 applic TOPICAL PRN PRN (Reason: Rash) Patient Comments: Apply topically to affected area 2 times a day doxycycline hyclate 100 mg capsule 100 mg PO BID Qty: 20 0RF oxycodone-acetaminophen [Percocet] 5-325 mg tablet 1 tab PO Q8H PRN (Reason: pain) 3 Days Qty: 12 0RF oxycodone-acetaminophen 5-325 mg tablet 1 tab PO Q6H PRN PRN (Reason: Pain) 3 Days Qty: 12 0RF doxycycline monohydrate 100 mg capsule 100 mg PO BID Qty: 20 0RF Primary Care Provider: Care Physician,No Primary Referrals: Valdo Doyle MD [Med Staff - Education Rn] - 1-2 Days if not improving Care Physician,No Primary [Primary Care Provider] - Print Language: British Disposition Disposition: Home, Self Care Discharge Date/Time: 05/11/24 02:54
[2024-05-10] MEDS: Morphine 4 MG/ML Syringe IV (21:03)
[2024-05-10] MEDS: Ondansetron 4 MG/2 ML Vial IV (21:03)
[2024-05-10 21:06] LABS: Color, Urine Yellow (Yellow); Glucose, Dipstick Normal (Normal); Ketone-Dipstick Negative (Negative); Leukocyte Esterase-Dipstick Negative /ul (Negative); Mucous, Urine 0 SEEN /hpf (<or=2+); Nitrite-Dipstick Negative (Negative); Occult Blood-Urine Negative /ul (Negative); Protein-Dipstick 15 mg/dl (Negative); Red Blood Cells-Urine 0 SEEN /hpf (0-5); Specific Gravity, Urine 1.025 (1.002-1.030); Urine Bilirubin Dipstick Negative (Negative); Urine Clarity Sl. Cloudy (Clear); Urine Urobilinogen Normal (Normal)
[2024-05-10 21:07] LABS: Absolute Lymphocyte Count 3.32 X10^3/uL (0.83-4.51); Absolute Neutrophil Count 4.7 X10^3/uL (2.0-7.7); Basophil# 0.04 X10^3/uL; Basophil% 0.5 % (0-1); Eosinophil# 0.26 X10^3/uL; Hematocrit 37.9 % (37-47); Hemoglobin 13.2 g/dL (12.0-15.0); Lymphocyte # 3.32 X10^3/ul (0.83-4.51); Lymphocyte % 37.7 % (19-41); Mean Corp Hgb Conc 34.8 g/dL (32-36); Mean Corpuscular Hgb 30.1 pg (27.0-32.0); Mean Corpuscular Volume 86.3 fL (81-99); Mean Platelet Vol. 10.3 fl (6.2-12.0); Monocyte# 0.42 X10^3/uL; Monocyte% 4.8 % (0-10); NRBC Flagged by Analyzer 0 % (0-5); Neutrophil # 4.74 X10^3/uL (2.7-7.7); Neutrophil % 53.8 % (47-70); Platelet Count 228 K/mm3 (150-450); RBC Distribution Width CV 11.9 % (11.6-14.6); RBC Distribution Width SD 37.4 fl (35.1-43.9); Red Blood Count 4.39 M/mm3 (4.2-5.4); White Blood Count 8.8 K/mm3 (4.4-11.0)
[2024-05-10 21:12] LABS: Bacteria RARE /hpf (None Seen); Squamous Epithelial Cells - UA 5-10 SEEN /hpf (5-10); White Blood Cells 0-5 SEEN /hpf (0-5)
[2024-05-10 21:21] LABS: Anion Gap 6 (5-15); BUN 12 mg/dL (7-18); BUN/Creat Ratio 13.2 RATIO (10-20); Calcium,Total 9.5 mg/dL (8.5-10.1); Chloride 105 mmol/L (98-107); Creatinine, Serum 0.91 mg/dL (0.55-1.02); EST Glomerular Filtration Rate 77 mL/min (>60); Est Glom Filt Rate - Afr Amer 93 mL/min (>60); Estimated Creatinine Clearance 99.78 ml/min; Glucose 124 mg/dL (74-106); Potassium 3.4 mmol/L (3.5-5.1); Sodium Level 139 mmol/L (136-145)
[2024-05-10 21:37] LABS: Internal QC Validated? YES +Cl - CLEAR BKGD; Pregnancy, Serum, hCG Quali. NEGATIVE Negative
[2024-05-10 22:41] VITALS: PULSE 65; RESP 18; O2SAT 97
[2024-05-11 01:22] VITALS: PULSE 75; RESP 18; O2SAT 97
[2024-05-11 01:28] VITALS: BP 116/75; PULSE 75; RESP 18; TEMP 36.2; O2SAT 95
[2024-05-11] MEDS: Morphine 4 MG/ML Syringe IV (01:31)
[2024-05-11 01:46] VITALS: BP 116/75; PULSE 75; RESP 18; TEMP 36.2; O2SAT 95
[2024-05-11 02:53] VITALS: BP 129/77; PULSE 84; RESP 16; TEMP 37.1; O2SAT 99
--- NOTE | 2024-05-11 23:07 | CT_ITS ---
INDICATION: Right lower quadrant pain with abnormal appendix EXAMINATION: CT ABDOMEN AND PELVIS WITHOUT CONTRAST - CT Abdomen And Pelvis W/O Contrast Injection TECHNIQUE: Helically acquired images were obtained of the abdomen and pelvis without oral or IV contrast. The protocol utilizes one or more of the following dose reduction techniques: automated exposure control, adjustment of mA and/or kV according to patient size,and/or use of iterative reconstruction technique. IV Contrast dosage and agent: None. Oral contrast: None. RADIATION DOSAGE (If Supplied By Facility): CTDIvol = ( 11.32 ) mGy, DLP = ( 625.23 ) mGycm COMPARISON: CT Abdomen/PelvisOct 2023 9:44pm FINDINGS: LOWER CHEST: Lung bases are clear. No cardiomegaly or pericardial effusion. LIVER: Fatty infiltration of the liver. 1 cm subcapsular hyperdense nodule in the left lobe of liver. Considerations include benign hemangioma. GALLBLADDER AND BILIARY TREE: No calcified gallstones. No gallbladder distension or wall edema. No intra- or extrahepatic biliary ductal dilation. PANCREAS: No focal cystic or solid mass. SPLEEN: Normal size without focal cystic or solid mass. ADRENAL GLANDS: No nodules. KIDNEYS AND URETERS: Normal renal size and position. No hydronephrosis. PERITONEUM: No ascites or free air. No other fluid collection. BOWEL: No evidence of acute appendicitis. No stomach or bowel distension. No focal inflammatory change. LYMPH NODES: No enlarged mesenteric or retroperitoneal lymph nodes. VESSELS: Aorta is non-dilated. URINARY BLADDER: Unremarkable. REPRODUCTIVE ORGANS: No pelvic masses. ABDOMINAL WALL: No discrete abdominal or pelvic wall hernia. BONES: No lytic or blastic abnormality. CT/Abdomen/Pel W ORAL Cont Only IMPRESSION: Fatty infiltration of the liver. No acute abnormality of the abdomen and pelvis. Normal appendix. Electronically Signed: Hanny Peraza MD at 2:24 EDT ,
== END 2024-05-11 02:54 | disposition home or self-care (01) ==
PROVIDERS: Emergency Provider Emergency Medicine; Visit Provider Emergency Medicine
DX: R10.9 Unspecified abdominal pain (principal)
CPT/HCPCS: 74176; 74177; 80048; 81001; 84703; 85025; 96374; 96375; 99283; Q9967; A4216; J2405

== ENCOUNTER 2024-10-27 21:47 | Emergency (ER) | payer BC, SELFPAY ==
[2024-10-27 21:48] VITALS: BP 140/102; PULSE 102; RESP 16; TEMP 36.4; O2SAT 99; BMI 38.1
--- NOTE | 2024-10-27 22:05 | RAD_ITS ---
EXAM: EXAM DATE: 10/27/2024 10:22 pm PROCEDURE: TIBIA FIBULA 2 VIEWS CLINICAL HISTORY: INJURY COMPARISON: None TECHNIQUE: Two views of the right tibia and fibula FINDINGS: No acute fracture or dislocation. No soft tissue abnormality. RAD/Tibia & Fibula 2 Views IMPRESSION: 1. No acute osseous abnormality. Reading Location: [facility]
--- NOTE | 2024-10-27 22:05 | RAD_ITS ---
PROCEDURE: CERV SPINE 2 OR 3 VIEWS 10/27/2024 REASON FOR EXAM: INJURY TECHNIQUE: 3 views of the cervical spine. COMPARISON: None FINDINGS: No acute fracture or malalignment.The prevertebral soft tissues are unremarkable. No significant degenerative changes are identified. RAD/Cerv Spine 2 or 3 Views IMPRESSION: 1. No acute findings of the cervical spine. Reading Location: [facility]
--- NOTE | 2024-10-27 22:06 | EX.ED.GENINJ ---
HPI History of Present Illness Chief Complaint: Head Injury Informant: patient and spouse/S.O. Narrative Narrative: Presents with significant other for evaluation injuries while playing soccer. This was recreational. Around 7 PM, soccer ball kicked and hit her in the face. She did not lose consciousness. Headache. No nausea or vomiting. No anticoagulation medicines. States half hour later she was kicked in the right hale. She is able to ambulate. Allergies to antibiotics. Reports neck pain. No chest or abdominal pain. Denies any history of concussions. Prior similar symptoms: No PFSH PFSH Medical History no medical history Home Medications ?Medication ?Instructions ?Recorded ?Last Taken ?Type NK 10/27/24 Unknown History Allergy/AdvReac Type Severity Reaction Status Date / Time amoxicillin Allergy Rash Verified 10/27/24 21:48 cefotetan disodium (From Allergy Rash Verified 10/27/24 21:48 Cefotan) erythromycin base Allergy Rash Verified 10/27/24 21:48 Sulfa (Sulfonamide Allergy Rash Verified 10/27/24 21:48 Antibiotics) Surgical History Hx of tonsillectomy Social History household members: significant other and children Smoking Status: Never smoker ROS ROS ED Constitutional Constitutional ED: Denies chills, fever(s) or sweats ENT ENT ED: Denies sore throat Cardiovascular Cardiovascular: Denies chest pain, leg edema, palpitations or racing heartbeat Respiratory/Chest Respiratory/Chest: Denies cough, dyspnea or dyspnea on exertion Gastrointestinal Gastrointestinal: Denies abdominal pain, diarrhea, nausea or vomiting Genitourinary Genitourinary ED: Denies dysuria, hematuria or urinary frequency Musculoskeletal Musculoskeletal: Reports extremity pain and neck pain; Denies back pain Integumentary Denies rash or wounds Neurologic Neurologic: Reports headache(s); Denies paresthesias or weakness EXAM Physical Exam Const Vital Signs: 10/27/24 21:48 10/27/24 22:01 Temperature 97.6 F L Temperature Source Temporal Pulse Rate 102 H Respiratory Rate 16 Respiratory Effort Normal Respiratory Pattern Normal Blood Pressure 140/102 H Blood Pressure Mean 114 Pulse Ox 99 Oxygen Delivery Method Room Air Room Air Positive well nourished and well developed Constitutional Narrative: GCS 15. General Appearance ED: well developed and NAD HEENT Reports moist mucous membranes normocephalic and atraumatic Eyes General Eye ED: Yes normal appearance of both eyes Neck full ROM Neck Narrative: Midline tenderness without any step-offs lower cervical spine. Chest Wall inspection of chest normal and palpation of chest normal Chest: Negative for tenderness Resp normal respiratory effort and normal air movement Effort and Inspection: symmetric chest movement; Negative for respiratory distress Cardio regular rate, regular rhythm and no murmurs Peripheral Pulses: pulses 2+ throughout GI normal to inspection, nondistended, normoactive bowel sounds and non-tender Palpation: Negative for guarding or rebound tenderness present Extremity normal to inspection and full ROM Extremity Narrative: Right lower extremity: There is a mid anterior hale contusion skin intact tender palpation no deformities. Soft compartments. Neuro vas intact distally. Upper extremities: Full range of motion without tenderness. General Extremety ED: Yes tenderness; Negative for edema General Extremity: Negative for edema Neuro oriented x3, CN's II-XII intact bilaterally and no sensory deficits noted Sensorium / Orientation: awake and alert Skin no rashes or lesions noted and no wounds MDM MDM MDM Narrative Medical decision making narrative: Interventions / MDM: Differential diagnosis: Concussion, neck strain, contusion Diagnosis considered but do not suspect: Intracranial hemorrhage however Nexus CT head criteria negative. Fracture however x-ray negative. My EKG interpretation: N/A Imaging independently reviewed and interpreted by myself: Right tib-fib 2 views: No fracture noted. Cervical spine 3 views: No fracture noted. Also read by radiology. External documents reviewed: N/A Test considered but not ordered:N/A ED course: Patient presented to injuries, show head injury with concussion. Nexus CT head criteria negative. Risk and benefits with radiation from CTs discussed with the patient. Shared decision made, will hold off on CT. Will start with Tylenol. X-ray cervical spine and right tib-fib for further evaluation. Ice was placed. 2300: X-rays negative. Concussion precautions discussed. Patient declines any Ke wrap for contusion. Tylenol every 6 hours as needed. Outpatient follow-up given. All questions were answered. Re-evaluation: stable Disposition discussed with patient/family/significant other: Patient and significant other Case discussed with consulting clinician: N/A This note was generated with [employer] software. It may contain incorrect words, spelling, and punctuation that were not noted in checking the note before signing. Radiography Diagnostic Testing: Clinical Impression(s) from Imaging Studies Cervical Spine X-Ray 10/27/24 22:05 IMPRESSION: 1. No acute findings of the cervical spine. Reading Location: [facility] Tibia/Fibula X-Ray 10/27/24 22:05 IMPRESSION: 1. No acute osseous abnormality. Reading Location: [facility] Discharge Plan Triage Chief Complaint: Head Injury Other Complaint: Lower Extremity Injury ED Provider: Nathan Conley Dx/Rx/DC Orders Clinical Impression: Concussion, Acute strain of neck muscle, Contusion of leg, right Instructions: Concussion Dc, ED Soft Tissue Contusion, ED Neck Sprain or Strain Prescriptions: No Action NK Primary Care Provider: Care Physician,No Primary Referrals: Care Physician,No Primary [Primary Care Provider] - Maritza aBrba DO Giovana [[facility]] - 1-2 Weeks Activity Restrictions/Additional Instructions: X-ray of your right leg and cervical spine negative. Continue Tylenol up to 1 g every 6 hours as needed. Print Language: Albanian Disposition Disposition: Home, Self Care Discharge Date/Time: 10/27/24 23:09
[2024-10-27] MEDS: Acetaminophen 500 MG Tablet 1000 MG PO (22:13)
== END 2024-10-27 23:09 | disposition home or self-care (01) ==
PROVIDERS: Emergency Provider Emergency Medicine; Visit Provider Emergency Medicine
DX: S06.0X0A Concussion without loss of consciousness, initial encounter (principal); S16.1XXA Strain of muscle, fascia and tendon at neck level, initial encounter; S80.11XA Contusion of right lower leg, initial encounter; Y93.66 Activity, soccer; W21.02XA Struck by soccer ball, initial encounter
CPT/HCPCS: 72040; 73590; 99283

== ENCOUNTER 2025-06-09 17:30 | Emergency (ER) | payer BC, SELFPAY ==
[2025-06-09 17:30] VITALS: BP 149/95; PULSE 98; RESP 16; TEMP 36.8; O2SAT 98; BMI 38.6
--- NOTE | 2025-06-09 19:22 | EDS_ITS ---
HPI History of Present Illness Chief Complaint: Abscess Narrative Narrative: Chief complaint and HPI: 34-year-old female presents for evaluation of pilonidal cyst. Patient states she has a history of a pilonidal cyst. Intermittently becomes infected in which she needs incision and drainage. Patient states she has never seen a surgeon to discuss removing the cyst. Patient states 2 days ago she developed pain and redness in the area. She denies any fever, chills, nausea, vomiting. Review of systems: See HPI Medications: As listed on the chart Allergies: As listed on the chart PFSH: Per chart Vital signs: As listed on the chart. Reviewed. Physical exam: Gen: A&O x3, NAD ENT: Moist mucous membranes CV: Regular rate Resp: Nonlabored respirations GI: Abd soft, non-distended, non-tender, no r/r/g, at the superior portion of the gluteal cleft patient has an area 0.5 cm on each side of the cleft that is mildly erythematous, warm, tender to palpation. The area is indurated without fluctuance or purulence. No drainage. You can see where the previous I&D's were performed due to scarring. Psych: Cooperative, appropriate mood and affect PFSH PFSH Medical History no medical history Home Medications Medication Instructions Recorded Last Taken Type NK 10/27/24 Unknown History Allergy/AdvReac Type Severity Reaction Status Date / Time amoxicillin Allergy Rash Verified 06/09/25 17:33 cefotetan disodium (From Allergy Rash Verified 06/09/25 17:33 Cefotan) erythromycin base Allergy Rash Verified 06/09/25 17:33 Sulfa (Sulfonamide Allergy Rash Verified 06/09/25 17:33 Antibiotics) Surgical History Hx of tonsillectomy Social History household members: significant other and children Smoking Status: Never smoker EXAM Physical Exam Const Vital Signs: 06/09/25 17:30 Temperature 98.2 F Temperature Source Oral Pulse Rate 98 Respiratory Rate 16 Blood Pressure 149/95 H Blood Pressure Mean 113 Pulse Ox 98 Oxygen Delivery Method Room Air MDM MDM MDM Narrative Medical decision making narrative: 34-year-old female presents for evaluation of pilonidal cyst. Patient states she has a history of a pilonidal cyst. Intermittently becomes infected in which she needs incision and drainage. Patient states she has never seen a surgeon to discuss removing the cyst. Patient states 2 days ago she developed pain and redness in the area. She denies any fever, chills, nausea, vomiting. On presentation, patient no acute distress. Vitals are stable. See physical exam findings. I suspect early infected pilonidal cyst. No fluctuance/abscess for incision and drainage. Area is only indurated. Will start on antibiotics and follow-up with primary care physician and general surgeon. Return precautions explained. She confirmed understand the plan. Patient has multiple allergies to penicillins and sulfa antibiotics therefore clindamycin will be ordered. First dose given here. Tylenol Motrin as needed for pain. Impression: 1. Early infected pilonidal cyst without abscess for incision and drainage Discharge Plan Triage Chief Complaint: Abscess ED Provider: Thomas Mccoy Dx/Rx/DC Orders Prescriptions: No Action NK Primary Care Provider: Care Physician,No Primary Referrals: Care Physician,No Primary [Primary Care Provider, Medical] Print Language: Kosovan
[2025-06-09 19:32] VITALS: BP 145/78; PULSE 88; RESP 16; TEMP 36.7; O2SAT 99
--- OUTSIDE RECORDS SUMMARY | 2025-06-09 19:33 | XMS RPT_ITS | CCD ---
Author Organization [facility] Care Team Providers Care Bench Scientist Name Role Phone Amanda Schmidt Unavailable [phone] Zappa, Shannon Unavailable Unavailable Zappa, Shannon Unavailable Unavailable MAO CHIU II Attending UnavailAMANDA Lares Attending Unavailable ROXANA, AMANDA BYRD Primary Care Unavailable ZAPPATTI, SHANNON KOCH Attending Unavailabl harsha SCHMIDT, AMANDA BYRD Primary Care Unavailable FAWN PEÑA Attending Unavailable AMANDA SCHMIDT Primary Care Unavailable AMANDA SCHMIDT Attending Unavailable KARISHMA OSBORNE Attending Unavailable AMANDA SCHMIDT Primary Care Unavailable DUSTIN GALLEGOS Attending Unavailable AMANDA SCHMIDT Primary Care Unavailable Amanda Schmidt Primary Care Unavailable Ivanauskas, Saulius Admitting Unavailable Ivanauskas, Saulius Attending Unavailable Zappa, Shannon Admitting Unavailable Zappa, Shannon Attending Unavailable Amanda Schmidt Primary Care Unavailable Gahlawat, Deborah Attending Unavailable Amanda Schmidt Primary Care Unavailable Gahlawat, Deborah Admitting Unavailable Gahlawat, Deborah Admitting Unavailable Gahlawat, Deborah Attending Unavailable No Doctor Assigned, Nodr Primary Care Unavail able Gahlawat, Deborah Attending Unavailable Amanda Schmidt Referring Unavailable Amanda Schmidt Primary Care Unavailable Gahlawat, Deborah Admitting Unavailable Gahlawat, Deborah Attending Unavailable Gahlawat, Deborah Admitting Unavailable No Doctor Assigned, Nodr Primary Care Unavail able Gahlawat, Deborah Admitting Unavailable Gahlawat, Deborah Attending Unavailable No Doctor Assigned, Nodr Primary Care Unavail able Gahlawat, Deborah Admitting Unavailable Gahlawat, Deborah Attending Unavailable Zappa, Shannon Primary Care Unavailable Gahlawat, Deborah Attending Unavailable Gahlawat, Deborah Admitting Unavailable Zappa, Shannon Primary Care Unavailable Shubham Garcia Attending Unavailable Shannon Aguilera Primary Care Unavailable Unavailable Primary Care Provider Unavailabl e No, Physician Primary Care Provider Unavailabl e Roxana Amanda Marquis Unavailable Wang Betancourt I Unavailable Unavailable Anette Bardales Unavailable Unavailabl e Ovidio Nichole Unavailable Amanda Ralph Unavailable Unavailable DEANA CAMARENA Attending Unavailable NO, PHYSICIAN Primary Care Unavailable LUÍS XIE Attending Unava ilable NO, PHYSICIAN Primary Care Unavailable SHEEBA CARRERO Attending Unavailab le NO, PHYSICIAN Primary Care Unavailable MAYANK CALDERON Attending Unavail able NO, PHYSICIAN Primary Care Unavailable Unavailable Primary Care Provider Unavailabl e NO, PHYSICIAN Primary Care Unavailable Generic Provider MD, No Assigned Pcp Primary Car e Provider Unavailable CLAYTON BELLO Attending Unavailable CLAYTON BELLO Referring Unavailable MERLIN RAMSEY Attending Unavailable MATHEW WADDELL Attending Unavailable Care Physician, No Primary Primary Care Provider Unavailable Dr. Nathan Conley DO Emergency Provider [phone] Jozef Ahn Attending Unavailable Care Physician, No Primary Primary Care Unava ilable Mayo Domingo Attending Unavailable Care Physician, No Primary Primary Care Unava ilable Care Physician, No Primary Primary Care Unava ilable Nathan Conley Attending Unavailable Allergies Allergy Classification Reported Allergen(s) Allergy Type Date of Onset Reaction(s) Facility Cephalosporins (antibiotic) (1 source) Cefuroxime Drug Allergy Rash [facility] Macrolides (antibiotic) (1 source) Erythromycin Drug Allergy Rash [facility] Penicillins (antibiotic) (1 source) Amoxicillin Drug Allergy Rash [facility] Sulfonamides (antibiotic) (1 source) Sulfamethoxazole Drug Allergy Rash [facility] (20 sources) amoxicillin; Translations: [AMOXICILLIN] Drug Allergy 03-03-20 16 Rash, Hives [facility] Work Phone: (7 sources) cefuroxime; Translations: [CEFUROXIME AXETIL] Drug Allergy 03-03-20 16 Rash [facility] Work Phone: (20 sources) erythromycin; Translations: [ERYTHROMYCIN] Drug Allergy 03-03-20 16 [facility] Work Phone: (12 sources) Honey; Translations: [HONEY] Propensity to adverse reactions to drug 03-03-20 [facility] Work Phone: (7 sources) Penicillins; Translations: [PENICILLINS] Propensity to adverse reactions to drug 03-03-20 [facility] Work Phone: (10 sources) Sulfonamides (Antibiotic); Translations: [SULFA (SULFONAMIDE ANTIBIOTICS)] Propensity to adverse reactions to drug 03-03-20 Hives, [facility] Work Phone: (1 source) Cefuroxime; Translations: [Ceftin] Drug Allergy [facility] (1 source) Sulfonamides (Antibiotic); Translations: [sulfa drugs] Propensity to adverse reactions to drug (disorder) [facility] Rep[facility] (4 sources) Cefuroxime Drug Allergy Rash [facility] (4 sources) Sulfamethoxazole Drug Allergy Rash [facility] (2 sources) SUMAtriptan; Translations: [SUMATRIPTAN] Drug Allergy 08-08-19 [facility] Repository (6 sources) Azithromycin; Translations: [AZITHROMYCIN] Drug Allergy 06-26-20 [facility] Work Phone: (6 sources) Sulfamethoxazole / Trimethoprim; Translations: [SULFAMETHOXAZOLE-TR IMETHOPRIM] Drug Allergy 06-26-20 [facility] Work Phone: (5 sources) Sulfonamides (Antibiotic) Propensity to adverse reactions 06-26-20 [facility] Work Phone: (3 sources) cefoTEtan; Translations: [cefotetan disodium] Drug Allergy 06-29-20 [facility] (1 source) Amoxicillin Drug Allergy 10-28-19 [facility] Repository (1 source) Erythromycin Drug Allergy 10-28-19 [facility] Rep[facility] (1 source) Sulfonamides (Antibiotic) Drug allergy (disorder) 10-28-19 [facility] Repository Medications Current Medications Medication Drug Class(es) Dates Sig (Normalized) Sig (Original) betamethasone 0.5 mg/ml topical cream (1 source) Corticosteroid Start: 02-02-2022 End: 02-15-2022 betamethasone dipropionate 0.05% topical cream ; Apply topically to affected area 2 times a day Quantity: 15 Refills: 0 Ordered: 01-Feb-2022 Ovidio Nichole Start: 01-Feb-2022 End: 14-Feb-2022 Generic Substitution Allowed Comments: For external use only. Comment on above: For external use onl y. cephalexin 500 mg oral capsule (1 source) Cephalosporin Antibacterial Start: 06-26-2023 End: 07-06-2023 take 1 capsule by mouth four times daily cephalexin (Keflex) 500 mg capsule Indications: Infected pilonidal cyst Take 1 capsule (500 mg) by mouth 4 times a day for 10 days. 40 capsule 0 06/26/2023 07/06/2023 Active dicyclomine hydrochloride 20 mg oral tablet (3 sources) Anticholinergic Start: 09-21-2023 End: 09-26-2023 take 1 tablet by mouth four times daily before mealtime dicyclomine (Bentyl) 20 mg tablet Indications: Right lower quadrant abdominal pain Take 1 tablet (20 mg) by mouth 4 times a day before meals for 5 days. 20 tablet 0 09/21/2023 09/26/2023 Active Start: 08-11-2018 End: 08-11-2019 take 1 capsule by mouth four times daily before mealtime dicyclomine (BENTYL) 10 MG capsule Indications: Irritable bowel syndrome, unspecified type , Right upper quadrant abdominal pain Take 1 (one) capsule (10 mg total) by mouth 4 (four) times a day before meals and nightly . 120 capsule 11 08/11/2018 Active fluticasone propionate 0.05 mg/actuat metered dose nasal spray (3 sources) Corticosteroid Start: 03-03-2016 take 1 spray(s) nasal route twice daily fluticasone (FLONASE) 50 mcg/actuation nasal spray 1 spray into each nostril 2 (two) times a day. 16 g 12 03/03/2016 Active gentamicin 0.003 mg/mg ophthalmic ointment (1 source) Start: 10-07-2020 End: 11-06-2020 gentamicin (GARAMYCIN) 0.3 % (3 mg/gram) ophthalmic ointment Administer 0.5 inches to the right eye 3 (three) times a day . 1 g 1 10/07/2020 11/06/2020 Active Vitamin With Calcium No.72-Iron 27 Mg-Folic Acid 1 Mg Tablet (3 sources) take 1 tablet by mouth once daily vitamin with Ca-Iron-FA 27-1 mg Tab Take 1 tablet by mouth daily. Active levoFLOXacin 500 mg oral tablet (5 sources) Quinolone Antimicrobial Start: 05-26-2020 take 1 tablet by mouth once daily levoFLOXacin 500 mg oral tablet ; 1 tab(s) orally everyday Quantity: 7 Refills: 0 Ordered: 26-May-2020 Jozef Wilkinson Start: 26-May-2020 Generic Substitution Allowed Comments: Avoid prolonged or excessive exposure to direct and/or artificial sunlight while taking this medication.Do not take dairy products, antacids, or iron preparations within one hour of this medication.Finish all this medication unless otherwise directed by prescriber.May cause drowsiness or dizziness.Medicati on should be taken with plenty of water. Comment on above: Avoid prolonged or e xcessive exposure to direct and/or artificial sunlight while taking this medication.Do not take dairy products, antacids, or iron preparations within one hour of this medication.Finish all this medication unless otherwise directed by prescriber.May cause drowsiness or dizziness.Medication should be taken with plenty of water. [place] (Nk) (1 source) Start: 10-27-2024 [place] (Nk) Active October 27, 2024 12:00am omeprazole 20 mg delayed release oral capsule (3 sources) Proton Pump Inhibitor Start: 02-23-2017 End: 02-23-2018 take 1 capsule by mouth once daily omeprazole (PRILOSEC) 20 MG capsule Take 1 (one) capsule (20 mg total) by mouth daily. 90 capsule 3 02/23/2017 02/23/2018 Active Start: 02-21-2017 End: 02-21-2018 take 1 tablet by mouth once daily omeprazole (PRILOSEC OTC) 20 MG tablet Take 1 (one) tablet (20 mg total) by mouth daily. 30 tablet 11 02/21/2017 02/21/2018 Active oseltamivir 75 mg oral capsule (4 sources) Neuraminidase Inhibitor Start: 09-20-2023 End: 09-25-2023 take 1 capsule by mouth every twelve hours oseltamivir (Tamiflu) 75 mg capsule Indications: Influenza Take 1 capsule (75 mg) by mouth every 12 hours for 5 days. 10 capsule 0 09/20/2023 09/25/2023 Active polyethylene glycol 3350 [id number] mg powder for oral solution (4 sources) Osmotic Laxative Start: 02-21-2017 polyethylene glycol (MIRALAX) 17 gram powder Take 17 (seventeen) g by mouth daily To maintain stool the consistency of toothpaste. 30 g 11 02/21/2017 Active predniSONE 10 mg oral tablet (4 sources) Start: 02-02-2022 End: 02-13-2022 take 1 tablet by mouth once daily at mealtime predniSONE 10 mg oral tablet ; 1 tab(s) orally -Take 40 mg daily for 3 days, then take 30 mg daily for 3 days, then take 20 mg daily for 3 days, then take 10 mg daily for 3 days. Quantity: 30 Refills: 0 Ordered: 01-Feb-2022 Ovidio Nichole Start: 01-Feb-2022 End: 12-Feb-2022 Generic Substitution Allowed Comments: It is very important that you take or use this exactly as directed. Do not skip doses or discontinue unless directed by your doctor.Obtain medical advice before taking any non-prescription drugs as some may affect the action of this medication.Take with food or milk. Start: 06-06-2021 End: 06-10-2021 take 2 tablets by mouth once daily at mealtime predniSONE 20 mg oral tablet ; 2 tab(s) orally once a day Quantity: 10 Refills: 0 Ordered: 06-Jun-2021 Ovidio Nichole Start: 06-Jun-2021 End: 10-Jun-2021 Generic Substitution Allowed Comments: It is very important that you take or use this exactly as directed. Do not skip doses or discontinue unless directed by your doctor.Obtain medical advice before taking any non-prescription drugs as some may affect the action of this medication.Take with food or milk. Comment on above: It is very important that you take or use this exactly as directed. Do not skip doses or discontinue unless directed by your doctor.Obtain medical advice before taking any non-prescription drugs as some may affect the action of this medication.Take with food or milk. vitamin with Ca-Iron-FA 27-1 mg Tab (1 source) take 1 tablet by mouth once daily vitamin with Ca-Iron-FA 27-1 mg Tab Take 1 tablet by mouth daily. 0 Active 1000 ml sodium chloride 9 mg/ml injection (2 sources) Start: sodium chloride 0.9% infusion Start: 09-21-2023 End: 09-21-2023 sodium chloride 0.9 % bolus 1,000 mL Completed/Discontinued Medications Medication Drug Class(es) Dates Sig (Normalized) Sig (Original) acetaminophen 325 mg oral tablet (1 source) Start: 09-20-2023 End: 09-20-2023 acetaminophen (Tylenol) tablet 650 mg acetaminophen 325 mg / oxyCODONE hydrochloride 5 mg oral tablet (3 sources) Opioid Agonist Start: 02-16-2024 End: 10-27-2024 Oxycodone-Acetaminop hen 5-325 mg tablet Discontinued 1 {tbl} PO EVERY 6 HOURS NEEDED as needed for Pain 12 February 16, 2024 October 27, 2024 10:04pm Start: 06-29-2023 End: 10-27-2024 Oxycodone-Acetaminophen (Per cocet) 5-325 mg tablet Discontinued 1 {tbl} PO Q8H as needed for pain 12 June 29, 2023 October 27, 2024 10:04pm betamethasone 0.5 mg/ml / clotrimazole 10 mg/ml topical cream (5 sources) Azole Antifungal, Corticosteroid Start: 07-25-2021 End: 10-27-2024 Clotrimazole-Betamethasone 1-0.05 % cream Discontinued 1 NMA TOPICAL NEEDED as needed for Rash July 25, 2021 1:00am October 27, 2024 10:04pm Start: 07-25-2021 Clotrimazole-B etamethasone Active 1 APPLIC TOPICAL NEEDED July 25, 2021 12:00am Start: 06-06-2021 Lotrisone 1%-0 .05% topical cream ; Apply topically to affected area 2 times a day Quantity: 1 Refills: 0 Ordered: 06-Jun-2021 Ovidio Nichole Start: 06-Jun-2021 Generic Substitution Allowed Comments: For external use only. Comment on above: For external use onl y. clindamycin 300 mg oral capsule (14 sources) Lincosamide Antibacterial Start: 03-31-20 21 End: 04-09-20 21 take 1 capsule by mouth every six hours clindamycin 300 mg oral capsule ; 1 cap(s) orally every 6 hours x 10 days Quantity: 40 Refills: 0 Ordered: 31-Mar-2021 Anette Bardales Start: 31-Mar-2021 End: 09-Apr-2021 Generic Substitution Allowed Comments: Finish all this medication unless otherwise directed by prescriber.Medicatio n should be taken with plenty of water. Start: 05-26-2020 clindamycin 30 0 mg oral capsule ; 21 cap(s) orally every 8 hours Quantity: 21 Refills: 0 Ordered: 26-May-2020 Jozef Wilkinson Start: 26-May-2020 Generic Substitution Allowed Comments: Finish all this medication unless otherwise directed by prescriber.Medication should be taken with plenty of water. Start: 05-22-2020 End: 05-31-2020 take 1 capsule by mouth every eight hours Cleocin HCl 300 mg oral capsule ; 1 cap(s) orally every 8 hours Quantity: 30 Refills: 0 Ordered: 22-May-2020 Hadley Mohan Start: 22-May-2020 End: 31-May-2020 Generic Substitution Allowed Comments: Finish all this medication unless otherwise directed by prescriber.Medication should be taken with plenty of water. Comment on above: Finish all this medi cation unless otherwise directed by prescriber.Medication should be taken with plenty of water. doxycycline monohydrate 100 mg oral capsule (3 sources) Tetracycline-class Drug Start: 024 End: 025 take 1 capsule by mouth twice daily Doxycycline Monohydrate 100 mg capsule Discontinued 100 mg PO TWICE A DAY February 16, 2024 12:00am October 27, 2024 10:04pm Start: 06-29-2023 End: 10-27-2024 take 1 capsule by mouth twice daily Doxycycline Hyclate 100 mg capsule Discontinued 100 mg PO TWICE A DAY June 29, 2023 1:00am October 27, 2024 10:04pm famotidine 40 mg oral tablet (1 source) Histamine-2 Receptor Antagonist Start: 03-03-2016 End: 03-03-2017 take 1 tablet by mouth once daily famotidine (PEPCID) 40 MG tablet Take 1 tablet (40 mg total) by mouth daily. 30 tablet 11 03/03/2016 03/03/2017 ibuprofen 600 mg oral tablet (2 sources) Nonsteroidal Anti-inflammatory Drug Start: 06-14-2021 End: 06-23-2021 take 1 tablet by mouth three times daily at mealtime IBU 600 mg oral tablet ; 1 tab(s) orally 3 times a day Quantity: 30 Refills: 0 Ordered: 14-Jun-2021 Amanda Ralph Start: 14-Jun-2021 End: 23-Jun-2021 Generic Substitution Allowed Comments: Do not take this drug if you are .It is very important that you take or use this exactly as directed. Do not skip doses or discontinue unless directed by your doctor.May cause drowsiness or dizziness.Obtain medical advice before taking any non-prescription drugs as some may affect the action of this medication.Take with food or milk. Comment on above: Do not take this jenny g if you are .It is very important that you take or use this exactly as directed. Do not skip doses or discontinue unless directed by your doctor.May cause drowsiness or dizziness.Obtain medical advice before taking any non-prescription drugs as some may affect the action of this medication.Take with food or milk. iohexol (OMNIPaque) 350 mg iodine/mL solution 69 mL (1 source) Start: 09-21-2023 End: 09-21-2023 iohexol (OMNIPaque) 350 mg iodine/mL solution 69 mL 1 ml ketorolac tromethamine 30 mg/ml injection (2 sources) Nonsteroidal Anti-inflammatory Drug, Cyclooxygenase Inhibitor Start: 06-26-2023 End: 06-26-2023 ketorolac (Toradol) injection 15 mg Start: 06-26-2023 End: 07-01-2023 take 1 tablet by mouth every six hours for pain ketorolac (Toradol) 10 mg tablet Indications: Infected pilonidal cyst Take 1 tablet (10 mg) by mouth every 6 hours if needed for moderate pain (4 - 6) for up to 5 days. 20 tablet 0 06/26/2023 07/01/2023 Active levocetirizine dihydrochloride 5 mg oral tablet (1 source) Histamine-1 Receptor Antagonist Start: 03-03-2016 End: 03-03-2017 take 1 tablet by mouth once daily in the evening levocetirizine (XYZAL) 5 MG tablet Take 1 tablet (5 mg total) by mouth every evening. 30 tablet 11 03/03/2016 03/03/2017 1 ml morphine sulfate 4 mg/ml prefilled syringe (1 source) Opioid Agonist Start: 09-21-2023 End: 09-21-2023 morphine injection 4 mg 2 ml ondansetron 2 mg/ml injection (5 sources) Serotonin-3 Receptor Antagonist Start: 09-21-2023 End: 09-21-2023 ondansetron (Zofran) injection 4 mg Start: 09-21-2023 End: 09-24-2023 take 1 tablet by mouth every eight hours for nausea ondansetron ODT (Zofran-ODT) 8 mg disintegrating tablet Indications: Right lower quadrant abdominal pain Take 1 tablet (8 mg) by mouth every 8 hours if needed for nausea or vomiting for up to 3 days. 9 tablet 0 09/21/2023 09/24/2023 Active take 1 tablet by ronald th every eight hours as needed ondansetron (ZOFRAN) 4 MG tablet Take 4 mg by mouth every 8 (eight) hours as needed for nausea. 0 Active proparacaine hydrochloride 5 mg/ml ophthalmic solution (1 source) Local Anesthetic Start: 10-07-2020 End: 10-07-2020 proparacaine (ALCAINE) 0.5 % ophthalmic solution 1 drop vancomycin in dextrose 5 % (Vancocin) IVPB 1,000 mg (1 source) Start: 06-26-2023 End: 06-26-2023 vancomycin in dextrose 5 % (Vancocin) IVPB 1,000 mg Problems Active Problems Problem Classification Problem Date Documented Da te Episodic/Chronic Allergic reactions (2 sources) Atopic dermatitis; Translations: [Atopic dermatitis, unspecified] 08-03-2021 Chronic Disorders of teeth and jaw (4 sources) Toothache; Translations: [Unspecified disorder of the teeth and supporting structures] 03-31-2021 Episodic Comment on above: DENTAL PAIN Influenza (3 sources) Influenza; Translations: [Influenza due to unidentified influenza virus with other respiratory manifestations] Onset: 09-20-2023 09-20-2023 Episodic Intracranial injury (1 source) Concussion injury of body structure; Translations: [Concussion] 10-27-2024 Episodic Mycoses (1 source) Dermal mycosis; 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, unspecified] 06-06-2021 Episodic Open wounds of extremities (2 sources) Laceration without foreign body of left hand, initial encounter; Translations: [Laceration without foreign body of left hand, initial encounter] Onset: 03-11-2023 Episodic Other gastrointestinal disorders (3 sources) Irritable bowel syndrome; Translations: [Irritable bowel syndrome, unspecified type] Onset: 08-11-2018 08-11-2018 Chronic Other gastrointestinal disorders (2 sources) Irritable bowel syndrome without diarrhea; Translations: [Irritable bowel syndrome without diarrhea] Onset: 08-11-2018 Chronic Other injuries and conditions due to external causes (1 source) Unspecified injury of head, initial encounter; Translations: [Unspecified injury of head, initial encounter] Onset: 10-31-2024 Episodic Other skin disorders (1 source) Eruption; Translations: [Rash and other nonspecific skin eruption] 02-02-2022 Episodic Other upper respiratory disease (4 sources) Allergic rhinitis; Translations: [Allergic rhinitis] Onset: 03-03-2016 03-03-2016 Chronic Ovarian cyst (2 sources) Cyst of ovary; Translations: [Other and unspecified ovarian cyst] 06-14-2021 Episodic Spondylosis; intervertebral disc disorders; other back problems (1 source) Backache Onset: 06-29-2023 Episodic Sprains and strains (2 sources) Sprain of ankle; Translations: [Sprain of ankle, unspecified site] 12-18-2020 Episodic Superficial injury; contusion (4 sources) Corneal abrasion; Translations: [Contusion of right foot, initial encounter] Onset: 08-08-2022 Episodic Unclassified (2 sources) LEFT ANKLE INJURY 12-17-2020 Comment on above: LEFT ANKLE INJURY Unclassified (1 source) Sprain of ankle, left 12-18-2020 Unclassified (2 sources) SWELLING TO LT. HAND 06-06-2021 Comment on above: SWELLING TO LT. HAND Unclassified (1 source) Fungal dermatitis 06-06-2021 Unclassified (1 source) Acute bilateral lower abdominal pain 06-14-2021 Unclassified (2 sources) BODY PHILIP, SWELLING, VERY ITCHY 02-02-2022 Comment on above: BODY PHILIP, SWELLING, VERY ITCHY Unclassified (1 source) Rash 02-02-2022 Past or Other Problems Problem Classification Problem Date Documented Da te Episodic/Chronic Abdominal pain (14 sources) Right upper quadrant pain; Translations: [Right upper quadrant pain] Onset: 08-11-2018 08-11-2018 Episodic Comment on above: LOWER ABDOMINAL PAIN Bacterial infection; unspecified site (4 sources) Methicillin resistant Staphylococcus aureus infection; Translations: [MRSA (methicillin resistant Staphylococcus aureus)] Onset: 03-03-2016 Resolved: 03-03-2016 03-03-2016 Episodic Essential hypertension (4 sources) Hypertensive disorder; Translations: [Hypertension] Onset: 03-03-2016 Resolved: 03-03-2016 03-03-2016 Chronic Gastritis and duodenitis (5 sources) Gastritis; Translations: [Gastritis] Onset: 03-03-2016 03-03-2016 Episodic Inflammation; infection of eye (except that caused by tuberculosis or sexually transmitteddisease) (2 sources) Hordeolum externum left lower eyelid; Translations: [Hordeolum externum left lower eyelid] Onset: 06-13-2022 Episodic Other gastrointestinal disorders (5 sources) Constipation; Translations: [Constipation] Onset: 02-21-2017 02-21-2017 Episodic Skin and subcutaneous tissue infections (7 sources) Pilonidal cyst; Translations: [Pilonidal cyst without abscess] Onset: 06-26-2023 06-26-2023 Episodic Unclassified (1 source) ERRONEOUS ENCOUNTER--DISREGARD Unclassified (1 source) LOWERR ADOMINAL PAINS 06-14-2021 Comment on above: LOWERR ADOMINAL PAIN S Viral infection (2 sources) Viral infection, unspecified; Translations: [Viral infection, unspecified] Onset: 07-21-2022 Episodic Results Test Name Value Interpretation Reference Range Facility Cerv Spine 2 or 3 Viewson Cerv Spine 2 or 3 Views [facility] Services [address] [place] [address] Cerv Spine 2 or 3 Views MR#: [id number] Acct: [id number] Name: UNIQUE HOGAN Rep #: [id number] : 1990 F 33 From: Eva Saleh MD PCP: Care Physician,No Primary Status: REG ER Study: Cerv Spine 2 or 3 Views Date of Exam: 10/27/24 Exam# [id number] Ordering Dr: Nathan Conley DO PROCEDURE: CERV SPINE 2 OR 3 VIEWS 10/27/2024 REASON FOR EXAM: INJURY TECHNIQUE: 3 views of the cervical spine. COMPARISON: None FINDINGS: No acute fracture or malalignment.The prevertebral soft tissues are unremarkable. No significant degenerative changes are identified. RAD/Cerv Spine 2 or 3 Views IMPRESSION: 1. No acute findings of the cervical spine. Reading Location: [facility] CC: Dr. Nathan Conley DO; No Primary Care Physician Credit Rating Checker: Signed Normal [facility] Emergency Department Summary on 10-27-2024 Emergency Department Summary [facility] [facility] Medical Records Department [address] [place] [id number] Emergency Department Summary 10/27/24 MR#: [id number] Acct: [id number] Name: UNIQUE HOGAN Rep #: [id number] : 1990 33 From: Nathan Bucio PCP: Care Physician,No Primary Status:DEP ER Location: ED HPI History of Present Illness Chief Complaint: Head Injury Informant: patient and spouse/S.O. Narrative Narrative: Presents with significant other for evaluation injuries while playing soccer. This was recreational. Around 7 PM, soccer ball kicked and hit her in the face. She did not lose consciousness.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 18:22 cefotetan disodium (From Allergy Rash Verified 02/16/24 18:22 Cefotan) erythromycin base Allergy Rash Verified 02/16/24 18:22 Sulfa (Sulfonamide Allergy Rash Verified 02/16/24 18:22 Antibiotics) Social History Smoking Status: Never smoker ROS ROS ED Constitutional Constitutional ED: Denies chills, fever(s) or weight loss Eyes Eyes: Denies change in vision or diplopia ENT ENT ED: Denies ear pain, rhinorrhea or sore throat Cardiovascular Cardiovascular: Denies chest pain, orthopnea, palpitations or racing heartbeat Respiratory/Chest Respiratory/Chest: Denies cough, dyspnea or orthopnea Gastrointestinal Gastrointestinal: Denies abdominal pain, diarrhea, nausea or vomiting Genitourinary Genitourinary ED: Denies dysuria, hematuria or urinary frequency Musculoskeletal Musculoskeletal: Denies arthralgias or myalgias Integumentary Reports abscess and other; Denies rash Neurologic Neurologic: Denies headache(s) or weakness Psychiatric Psychiatric: Denies anxiety, depression, suicidal ideation or suicidal thoughts Endocrine Endocrinology: Denies polydipsia, polyphagia or polyuria Allergic/Immunologic Allergic/Immunologic ED: Denies mouth swelling, tongue swelling or urticaria EXAM Physical Exam Const Vital Signs: 02/16/24 18:22 Temperature 97.8 F Temperature Source Temporal Pulse Rate 95 Respiratory Rate 16 Blood Pressure 151/97 H Blood Pressure Mean 115 Pulse Ox 99 Oxygen Delivery Method Room Air Positive well nourished and well developed General Appearance ED: well developed HEENT Reports normocephalic, head/scalp atraumatic and moist mucous membranes Eyes PERRL and EOMs intact bilaterally Neck no lymphadenopathy, supple and no JVD Resp normal respiratory effort and clear to auscultation bilaterally Cardio regular rate, regular rhythm and no murmurs GI normal to inspection, nondistended, normoactive bowel sounds and non-tender Palpation: soft Back/Spine no CVA tenderness and normal ROM Extremity normal to inspection General Extremety ED: Negative for edema General Extremity: Negative for edema Neuro oriented x3 and CN's II-XII intact bilaterally Sensorium / Orientation: alert Motor Exam: strength 5/5 throughout Psych mental status grossly normal Mood Affect: Negative for depressed or tearful Skin Skin Narrative: There is a 2 cm area of erythema on the left medial gluteal skin fold the top of the midline. There is a well-healed incision of this area. There is also a healed incision on the right just crossed the gluteal fold from this. It has minimal erythema. MDM MDM MDM Narrative Medical decision making narrative: Differential diagnosis includes pilonidal cyst, abscess, phlegmon, developing abscess cellulitis Using bedside ultrasound I see some minimal fluid in this area and subcutaneous tissue I do not see a large collection. Let was used to locally anesthetized the skin topically. Betadine was used to wash the area and allowed to dry. Then 1% lidocaine was used to anesthetize deeper. Once adequate anesthesia was achieved an 11 blade was used to make an incision along the previous incision. The wound was probed for loculations. Minimal pus was laurel (more content not included)... Normal [facility] CBC W Auto Differential pane l (Bld)on 09-21-2023 Basophils (Bld) [#/Vol] 0.01 x10*3/uL Normal 0.00-0.10 [facility] Comment on above: Performed By: #### 5 7021-8 #### LUCIANO LOVING ([id number]) [facility] ([facility]) [address] [place] [address]27[address] Basophils/100 WBC (Bld) 0.2 % Normal 0.0-2.0 [facility] Comment on above: Performed By: #### 5 7021-8 #### LUCIANO LOVING ([id number]) [facility] ([facility]) [facility] [place] [address] Eosinophils (Bld) [#/Vol] 0.01 x10*3/uL Normal 0.00-0.70 [facility] Comment on above: Performed By: #### 5 7021-8 #### LUCIANO LOVING ([id number]) [facility] ([facility]) [address] [place] [address] 83899 Eosinophils/100 WBC (Bld) 0.2 % Normal 0.0-6.0 [facility] Comment on above: Performed By: #### 5 7021-8 #### LUCIANO LOVING ([id number]) [facility] ([facility]) [address] [place] [address] 18504 Erythrocyte distribution width (RBC) [Ratio] 11.9 % Normal 11.5-14.5 [facility] Comment on above: Performed By: #### 5 7021-8 #### LUCIANO LOVING ([id number]) [facility] ([facility]) [address] [place] [address] 68555 Hematocrit (Bld) [Volume fraction] 40.0 % Normal 36.0-46.0 [facility] Comment on above: Performed By: #### 5 7021-8 #### LUICANO LOVING ([id number]) [facility] ([facility]) [address] [place] [address] 14721 Hemoglobin (Bld) [Mass/Vol] 14.3 g/dL Normal 12.0-16.0 [facility] Comment on above: Performed By: #### 5 7021-8 #### LUCIANO LOVING ([id number]) [facility] ([facility]) [address] [place] [address] 87805 Immature granulocytes (Bld) [#/Vol] 0.01 x10*3/uL Normal 0.00-0.70 [facility] Comment on above: Performed By: #### 5 7021-8 #### LUCIANO LOVING ([id number]) [facility] ([facility]) [address] [place] [address] 049[address] Immature granulocytes/100 WBC (Bld) 0.2 % Normal 0.0-0.9 [facility] Comment on above: Result Comment: Brooklynn ture Granulocyte Count (IG) includes promyelocytes, myelocytes and metamyelocytes but does not include bands. Percent differential counts (%) should be interpreted in the context of the absolute cell counts (cells/UL). Performed By: #### 5 7021-8 #### LUCIANO LOVING ([id number]) [facility] ([facility]) [address] [place] [address] Lymphocytes (Bld) [#/Vol] 1.24 x10*3/uL Normal 1.20-4.80 [facility] Comment on above: Performed By: #### 7021-8 #### LUCIANO LOVING ([id number]) [facility] ([facility]) [address] [place] [address] Lymphocytes/100 WBC (Bld) 21.9 % Normal 13.0-44.0 [facility] Comment on above: Performed By: #### 5 7021-8 #### LUCIANO LOVING ([id number]) [facility] ([facility]) [address] [place] [address] MCH (RBC) [Entitic mass] 30.6 pg Normal 26.0-34.0 [facility] Comment on above: Performed By: #### 5 7021-8 #### LUICANO LOVING ([id number]) [facility] ([facility]) [address] [place] [address] MCHC (RBC) [Mass/Vol] 35.8 g/dL Normal 32.0-36.0 [facility] Comment on above: Performed By: #### 5 7021-8 #### LUCIANO LOVING ([id number]) [facility] ([facility]) [address] [place] [address] MCV (RBC) [Entitic vol] 86 fL Normal 80-100 [facility] Comment on above: Performed By: #### 5 7021-8 #### LUCIANO LOVING ([id number]) [facility] ([facility]) [address] [place] [address] Monocytes (Bld) [#/Vol] 0.64 x10*3/uL Normal 0.10-1.00 [facility] Comment on above: Performed By: #### 5 7021-8 #### LUCIANO LOVING ([id number]) [facility] ([facility]) [address] [place] [address] 26090 Monocytes/100 WBC (Bld) 11.3 % Normal 2.0-10.0 [facility] Comment on above: Performed By: #### 5 7021-8 #### LUCIANO LOVING ([id number]) [facility] ([facility]) [address] [place] [address] 18515 Neutrophils (Bld) [#/Vol] 3.76 x10*3/uL Normal 1.20-7.70 [facility] Comment on above: Result Comment: Perc ent differential counts (%) should be interpreted in the context of the absolute cell counts (cells/uL). Performed By: #### 5 7021-8 #### LUCIANO LOVING ([id number]) [facility] ([facility]) [address] [place] [address] 21575 Neutrophils/100 WBC (Bld) 66.2 % Normal 40.0-80.0 [facility] Comment on above: Performed By: #### 5 7021-8 #### LUCIANO LOVING ([id number]) [facility] ([facility]) [address] [place] [address] 25773 Nucleated RBC/100 WBC (Bld) [Ratio] 0.0 /100 WBCs Normal 0.0-0.0 [facility] Comment on above: Performed By: #### 5 7021-8 #### LUCIANO LOVING ([id number]) [facility] ([facility]) [address] [place] [address] 01512 Platelets (Bld) [#/Vol] 173 x10*3/uL Normal 150-450 [facility] Comment on above: Performed By: #### 5 7021-8 #### LUCIANO LOVING ([id number]) [facility] ([facility]) [address] [place] [address] 51177 RBC (Bld) [#/Vol] 4.68 x10*6/uL Normal 4.00-5.20 [facility] Comment on above: Performed By: #### 5 7021-8 #### LUCIANO MTZLI ([id number]) [facility] ([facility]) [address] [place] [address] WBC (Bld) [#/Vol] 5.7 x10*3/uL Normal 4.4-11.3 [facility] Comment on above: Performed By: #### 5 7021-8 #### WOLF FABIENNE ([id number]) [facility] ([facility]) [address] [place] [address] Basophils (Bld) [#/Vol] 0.01 10*3/uL [facility] Basophils/100 WBC (Bld) 0.2 % 0.0 - 2.0 % [facility] Eosinophils (Bld) [#/Vol] 0.01 10*3/uL [facility] Eosinophils/100 WBC (Bld) 0.2 % 0.0 - 6.0 % [facility] Erythrocyte distribution width (RBC) [Ratio] 11.9 % 11.5 - 14.5 % [facility] Hematocrit (Bld) [Volume fraction] 40.0 % 36.0 - 46.0 % [facility] Hemoglobin (Bld) [Mass/Vol] 14.3 g/dL 12.0 - 16.0 g/dL [facility] Immature granulocytes (Bld) [#/Vol] 0.01 10*3/uL [facility] Immature granulocytes/100 WBC (Bld) 0.2 % 0.0 - 0.9 % [facility] Comment on above: Immature Granulocyte Count (IG) includes promyelocytes, myelocytes and metamyelocytes but does not include bands. Percent differential counts (%) should be interpreted in the context of the absolute cell counts (cells/UL). Lymphocytes (Bld) [#/Vol] 1.24 10*3/uL [facility] Lymphocytes/100 WBC (Bld) 21.9 % 13.0 - 44.0 % [facility] MCH (RBC) [Entitic mass] 30.6 pg 26.0 - 34.0 pg [facility] MCHC (RBC) [Mass/Vol] 35.8 g/dL 32.0 - 36.0 g/dL [facility] MCV (RBC) [Entitic vol] 86 fL 80 - 100 fL [facility] Monocytes (Bld) [#/Vol] 0.64 10*3/uL [facility] Monocytes/100 WBC (Bld) 11.3 % 2.0 - 10.0 % [facility] Neutrophils (Bld) [#/Vol] 3.76 10*3/uL [facility] Comment on above: Percent differential counts (%) should be interpreted in the context of the absolute cell counts (cells/uL). Neutrophils/100 WBC (Bld) 66.2 % 40.0 - 80.0 % [facility] Nucleated RBC/100 WBC (Bld) [Ratio] 0.0 % [facility] Platelets (Bld) [#/Vol] 173 10*3/uL [facility] RBC (Bld) [#/Vol] 4.68 10*6/uL [facility] WBC (Bld) [#/Vol] 5.7 10*3/uL [facility] CT ABDOMEN PELVIS W IV CONTR Sandra 09-21-2023 CT ABDOMEN PELVIS W IV CONTRAST Interpreted By: Emily Foster, STUDY: CT ABDOMEN PELVIS W IV CONTRAST; 09/21/2023 6:05 pm INDICATION: 32 y/o F with Signs/Symptoms:RLQ abdominal pain. LIMITATIONS: None. ACCESSION NUMBER(S): [id number] ORDERING CLINICIAN: MERLIN RAMSEY TECHNIQUE: After the administration of IV iodonated contrast, spiral axial images were obtained from the xiphoid down through the symphysis pubis. Sagittal and coronal reconstruction images were generated. COMPARISON: 06/14/2021 FINDINGS: Lower Chest: Streaky bibasilar atelectasis. Small hiatal hernia. Liver: Stable enhancing lesion in the left hepatic lobe measuring 13 mm. Gallbladder and Biliary: Unremarkable. Pancreas: No abnormality identified in the pancreas. Spleen: No abnormality identified in the spleen. Adrenals: No abnormality identified in either adrenal gland. Urinary: No parenchymal abnormality identified in either kidney. No hydronephrosis. Gastrointestinal/Peritone um: No small or large bowel obstruction in the visualized abdomen. In the abdomen, there is no extraluminal air. No significant free fluid. No evidence of acute appendicitis. Vascular: Abdominal aorta is normal in caliber. Lymphatics: No enlarged lymph nodes by size criteria. MSK/Body Wall: No aggressive bony lesion identified. IMPRESSION: No acute abnormality in the abdomen and pelvis. Signed by: Emily Foster 09/21/2023 6:29 PM Dictation workstation: [id number] [facility] CT Abdomen and Pelvis W cont rast New 09-21-2023 No acute abnormality in the abdomen and pelvis. Signed by: Emily Foster 09/21/2023 6:29 PM Dictation workstation: [id number] MMODAL Interpreted By: Emily Lopez, STUDY: CT ABDOMEN PELVIS W IV CONTRAST; 09/21/2023 6:05 pm INDICATION: 32 y/o F with Signs/Symptoms:RLQ abdominal pain. LIMITATIONS: None. ACCESSION NUMBER(S): [id number] ORDERING CLINICIAN: MERLIN RAMSEY TECHNIQUE: After the administration of IV iodonated contrast, spiral axial images were obtained from the xiphoid down through the symphysis pubis. Sagittal and coronal reconstruction images were generated. COMPARISON: 06/14/2021 FINDINGS: Lower Chest: Streaky bibasilar atelectasis. Small hiatal hernia. Liver: Stable enhancing lesion in the left hepatic lobe measuring 13 mm. Gallbladder and Biliary: Unremarkable. Pancreas: No abnormality identified in the pancreas. Spleen: No abnormality identified in the spleen. Adrenals: No abnormality identified in either adrenal gland. Urinary: No parenchymal abnormality identified in either kidney. No hydronephrosis. Gastrointestinal/Peritone um: No small or large bowel obstruction in the visualized abdomen. In the abdomen, there is no extraluminal air. No significant free fluid. No evidence of acute appendicitis. Vascular: Abdominal aorta is normal in caliber. Lymphatics: No enlarged lymph nodes by size criteria. MSK/Body Wall: No aggressive bony lesion identified. MMODAL Emily Foster MD - 09/21/2023 Interpreted By: Emily Foster, STUDY: CT ABDOMEN PELVIS W IV CONTRAST; 09/21/2023 6:05 pm INDICATION: 32 y/o F with Signs/Symptoms:RLQ abdominal pain. LIMITATIONS: None. ACCESSION NUMBER(S): [id number] ORDERING CLINICIAN: MERLIN RAMSEY TECHNIQUE: After the administration of IV iodonated contrast, spiral axial images were obtained from the xiphoid down through the symphysis pubis. Sagittal and coronal reconstruction images were generated. COMPARISON: 06/14/2021 FINDINGS: Lower Chest: Streaky bibasilar atelectasis. Small hiatal hernia. Liver: Stable enhancing lesion in the left hepatic lobe measuring 13 mm. Gallbladder and Biliary: Unremarkable. Pancreas: No abnormality identified in the pancreas. Spleen: No abnormality identified in the spleen. Adrenals: No abnormality identified in either adrenal gland. Urinary: No parenchymal abnormality identified in either kidney. No hydronephrosis. Gastrointestinal/Peritone um: No small or large bowel obstruction in the visualized abdomen. In the abdomen, there is no extraluminal air. No significant free fluid. No evidence of acute appendicitis. Vascular: Abdominal aorta is normal in caliber. Lymphatics: No enlarged lymph nodes by size criteria. MSK/Body Wall: No aggressive bony lesion identified. IMPRESSION: No acute abnormality in the abdomen and pelvis. Signed by: Emily Foster 09/21/2023 6:29 PM Dictation workstation: [id number] [facility] Work Phone: Radiology Study observation (narrative) [facility] Work Phone: CT Abdomen and Pelvis W cont rast IVOrdered By: Emily Foster on 09-21-2023 [facility] Work Phone: Choriogonadotropin.beta subu niton 09-21-2023 HCG.beta subunit Qn m[IU]/mL Normal <5 [facility] Comment on above: Order Comment: Venip uncture immediately after or during the administration of Metamizole may lead to falsely low results. Testing should be performed immediately prior to Metamizole dosing. Performed By: #### 2 524-7 #### WOLF FABIENNE ([id number]) [facility] ([facility]) [address] [place] [address] Comprehensive metabolic 2000 panelon 09-21-2023 Albumin BCP dye [Mass/Vol] 4.6 g/dL Normal 3.4-5.0 [facility] Comment on above: Performed By: #### 2 524-7 #### LUCIANO LOVING ([id number]) [facility] ([facility]) [address] [place] [address] 16528 ALP [Catalytic activity/Vol] 46 U/L Normal 33-110 [facility] Comment on above: Performed By: #### 2 524-7 #### LUCIANO LOVING ([id number]) [facility] ([facility]) [address] [place] [address] 60580 ALT With P-5'-P [Catalytic activity/Vol] 26 U/L Normal 7-45 [facility] Comment on above: Result Comment: Nedra ents treated with Sulfasalazine may generate falsely decreased results for ALT. Performed By: #### 2 524-7 #### LUCIANO LOVING ([id number]) [facility] ([facility]) [address] [place] [address] 35377 Anion gap [Moles/Vol] 12 mmol/L Normal 10-20 [facility] Comment on above: Performed By: #### 2 524-7 #### LUCIANO LOVING ([id number]) [facility] ([facility]) [address] [place] [address] 34742 AST With P-5'-P [Catalytic activity/Vol] 19 U/L Normal 9-39 [facility] Comment on above: Performed By: #### 2 524-7 #### LUCIANO LOVING ([id number]) [facility] ([facility]) [address] [place] [address] 66015 Bilirubin [Mass/Vol] 0.5 mg/dL Normal 0.0-1.2 [facility] Comment on above: Performed By: #### 2 524-7 #### LUCIANO LOVING ([id number]) [facility] ([facility]) [address] [place] [address] 56302 Calcium [Mass/Vol] 8.9 mg/dL Normal 8.6-10.3 [facility] Comment on above: Performed By: #### 2 524-7 #### LUCIANO LOVING ([id number]) [facility] ([facility]) [facility] [place] [address] Chloride [Moles/Vol] 101 mmol/L Normal 98-107 [facility] Comment on above: Performed By: #### 2 524-7 #### LUCIANO LOVING ([id number]) [facility] ([facility]) [address] [place] [address] 63861 CO2 [Moles/Vol] 27 mmol/L Normal 21-32 [facility] Comment on above: Performed By: #### 2 524-7 #### LUCIANO LOVING ([id number]) [facility] ([facility]) [address] [place] [address] 50551 Creatinine [Mass/Vol] 0.97 mg/dL Normal 0.50-1.05 [facility] Comment on above: Performed By: #### 2 524-7 #### LUCIANO LOVING ([id number]) [facility] ([facility]) [address] [place] [address] 24020 Glomerular filtration rate/1.73 sq M.predicted 81 mL/min/1.73m*2 Normal >60 [facility] Comment on above: Result Comment: Calc ulations of estimated GFR are performed using the 2020 CKD-EPI Study Refit equation without the race variable for the IDMS-Traceable creatinine methods. https://jasn.asnjournals.org/content//ASN.668177349 8 Performed By: #### 2 524-7 #### LUCIANO LOVING ([id number]) [facility] ([facility]) [address] [place] [address] 72020 Glucose [Mass/Vol] 87 mg/dL Normal 74-99 [facility] Comment on above: Performed By: #### 2 524-7 #### LUCIANO LOVING ([id number]) [facility] ([facility]) [facility] [place] [address] Potassium [Moles/Vol] 3.5 mmol/L Normal 3.5-5.3 [facility] Comment on above: Performed By: #### 2 524-7 #### LUCIANO LOVING ([id number]) [facility] ([facility]) [address] [place] [address] 52288 Protein [Mass/Vol] 7.6 g/dL Normal 6.4-8.2 [facility] Comment on above: Performed By: #### 2 524-7 #### LUCIANO LOVING ([id number]) [facility] ([facility]) [address] [place] [address] 29989 Sodium [Moles/Vol] 136 mmol/L Normal 136-145 [facility] Comment on above: Performed By: #### 2 524-7 #### LUCIANO LOVING ([id number]) [facility] ([facility]) [address] [place] [address] 15868 Urea nitrogen [Mass/Vol] 6 mg/dL Normal 6-23 [facility] Comment on above: Performed By: #### 2 524-7 #### LUCIANO LOVING ([id number]) [facility] ([facility]) [address] [place] [address] 04222 Albumin BCP dye [Mass/Vol] 4.6 g/dL 3.4 - 5.0 g/dL [facility] ALP [Catalytic activity/Vol] 46 U/L 33 - 110 U/L [facility] ALT With P-5'-P [Catalytic activity/Vol] 26 U/L 7 - 45 U/L [facility] Comment on above: Patients treated wit h Sulfasalazine may generate falsely decreased results for ALT. Anion gap [Moles/Vol] 12 mmol/L 10 - 20 mmol/L [facility] AST With P-5'-P [Catalytic activity/Vol] 19 U/L 9 - 39 U/L [facility] Bilirubin [Mass/Vol] 0.5 mg/dL 0.0 - 1.2 mg/dL [facility] Calcium [Mass/Vol] 8.9 mg/dL 8.6 - 10. 3 mg/dL [facility] Chloride [Moles/Vol] 101 mmol/L 98 - 107 mmol/L [facility] CO2 [Moles/Vol] 27 mmol/L 21 - 32 mmol/L [facility] Creatinine [Mass/Vol] 0.97 mg/dL 0.50 - 1.05 mg/dL [facility] GFR/1.73 sq M.predicted among non-blacks MDRD (S/P/Bld) [Vol rate/Area] 81 mL/min/{1.73_m2} - PINF [facility] Comment on above: Calculations of terra mated GFR are performed using the 2020 CKD-EPI Study Refit equation without the race variable for the IDMS-Traceable creatinine methods. https://jasn.asnjournals.org/content//ASN.575468569 8 Glucose [Mass/Vol] 87 mg/dL 74 - 99 mg/dL [facility] Interpretation and review of laboratory results Normal [facility] Potassium [Moles/Vol] 3.5 mmol/L 3.5 - 5.3 mmol/L [facility] Protein [Mass/Vol] 7.6 g/dL 6.4 - 8.2 g/dL [facility] Sodium [Moles/Vol] 136 mmol/L 136 - 145 mmol/L [facility] Urea nitrogen [Mass/Vol] 6 mg/dL 6 - 23 mg/dL [facility] HCG.beta subunit Qnon 2023 Interpretation and review of laboratory results Normal [facility] Total HCG measuremen t is performed using the Carly Yelena Access Immunoassay which detects intact HCG and free beta HCG subunit. This test is not indicated for use as a tumor marker. HCG testing is performed using a different test methodology at [facility] than other [facility]. Direct result comparison should only be made within the same method. [facility] Human Chorionic Gonadotropin , Serum Quantitativeon 09-21-2023 HCG.beta subunit Qn NINF [facility] Lactateon 09-21-2023 Lactate [Moles/Vol] 0.7 mmol/L Normal 0.4-2.0 [facility] Comment on above: Order Comment: Venip uncture immediately after or during the administration of Metamizole may lead to falsely low results. Testing should be performed immediately prior to Metamizole dosing. Performed By: #### 2 524-7 #### LUCIANO LOVING ([id number]) [facility] ([facility]) [facility] [place] [address] Lactate [Moles/Vol] 0.7 mmol/L 0.4 - 2.0 mmol/L [facility] Lactate [Moles/Vol]on 2023 Interpretation and review of laboratory results Normal [facility] Venipuncture immedia tely after or during the administration of Metamizole may lead to falsely low results. Testing should be performed immediately prior to Metamizole dosing. [facility] Lipaseon 09-21-2023 Lipase [Catalytic activity/Vol] 25 U/L U/L [facility] Lipase [Catalytic activity/V ol]on 09-21-2023 Interpretation and review of laboratory results Normal [facility] Venipuncture immedia tely after or during the administration of Metamizole may lead to falsely low results. Testing should be performed immediately prior to Metamizole dosing. [facility] Triacylglycerol lipaseon Lipase [Catalytic activity/Vol] 25 U/L Normal [facility] Comment on above: Order Comment: Venip uncture immediately after or during the administration of Metamizole may lead to falsely low results. Testing should be performed immediately prior to Metamizole dosing. Performed By: #### 2 524-7 #### LUCIANO LOVING ([id number]) [facility] ([facility]) [address] [place], [place] [id number] Urinalysis complete W Reflex Culture panel (U)on 09-21-2023 Appearance (U) Clear Normal Clear [facility] Comment on above: Performed By: #### 5 8077-9 #### LUCIANO LOVING ([id number]) [facility] ([facility]) [facility] [place] [address] Bilirubin (U) [Mass/Vol] Negative Normal NEGATIVE [facility] Comment on above: Performed By: #### 5 8077-9 #### LUCIANO LOVING ([id number]) [facility] ([facility]) [address] [place] [address] 96714 Color (U) Yellow Normal Straw, Yellow [facility] Comment on above: Performed By: #### 5 8077-9 #### LUCIANO LOVING ([id number]) [facility] ([facility]) [address] [place] [address] 07591 Glucose Auto test strip (U) [Mass/Vol] Negative Normal NEGATIVE [facility] Comment on above: Performed By: #### 5 8077-9 #### LUCIANO LOVING ([id number]) [facility] ([facility]) [address] [place] [address] 49571 Ketones (U) [Mass/Vol] Negative Normal NEGATIVE [facility] Comment on above: Performed By: #### 5 8077-9 #### LUCIANO LOVING ([id number]) [facility] ([facility]) [address] [place] [address] 11099 Leukocyte esterase Auto test strip Ql (U) Negative Normal NEGATIVE [facility] Comment on above: Performed By: #### 5 8077-9 #### LUCIANO LOVING ([id number]) [facility] ([facility]) [address] [place] [address] 17378 Nitrite Auto test strip Ql (U) Negative Normal NEGATIVE [facility] Comment on above: Performed By: #### 5 8077-9 #### LUCIANO LOVING ([id number]) [facility] ([facility]) [address] [place] [address] 91377 pH (U) 6.0 [pH] Normal 5.0, 5.5, 6.0, 6.5, 7.0, 7.5, 8.0 [facility] Comment on above: Performed By: #### 5 8077-9 #### LUCIANO LOVING ([id number]) [facility] ([facility]) [address] [place] [address] 07708 Protein (U) [Mass/Vol] Negative Normal NEGATIVE [facility] Comment on above: Performed By: #### 5 8077-9 #### LUCIANO LOVING ([id number]) [facility] ([facility]) [address] [place] [address] 70111 RBC (U) [#/Vol] Negative Normal NEGATIVE [facility] Comment on above: Performed By: #### 5 8077-9 #### LUCIANO LOVING ([id number]) [facility] ([facility]) [address] [place] [address] Specific gravity (U) [Rel density] 1.012 Normal 1.005-1.035 [facility] Comment on above: Performed By: #### 5 8077-9 #### LUCIANO LOVING ([id number]) [facility] ([facility]) [address] [place] [address] 56918 Urobilinogen (U) [Mass/Vol] mg/dL Normal <2.0 [facility] Comment on above: Performed By: #### 5 8077-9 #### LUCIANO LOVING ([id number]) [facility] ([facility]) [address] [place] [address] Appearance (U) Clear Clear [facility] Bilirubin (U) [Mass/Vol] Negative NEGATIVE [facility] Color (U) Yellow Straw, Yellow [facility] Glucose Auto test strip (U) [Mass/Vol] Negative NEGATIVE mg/dL [facility] Interpretation and review of laboratory results Normal [facility] Ketones (U) [Mass/Vol] Negative NEGATIVE mg/dL [facility] Leukocyte esterase Auto test strip Ql (U) Negative NEGATIVE [facility] Nitrite Auto test strip Ql (U) Negative NEGATIVE [facility] pH (U) 6.0 [pH] 5.0, 5.5, 6.0, 6.5, 7.0, 7.5, 8.0 [facility] Protein (U) [Mass/Vol] Negative NEGATIVE mg/dL [facility] RBC (U) [#/Vol] Negative NEGATIVE [facility] Specific gravity (U) [Rel density] 1.012 1.005 - 1.035 [facility] Urobilinogen (U) [Mass/Vol] mg/dL NINF - 2.0 mg/dL [facility] ECG 12-LEADon 09-20-2023 ECG 12-LEAD Ventricular Rate 100 Atrial Rate 100 P-R Interval 138 QRS Duration 76 Q-T Interval 344 QTC Calculation(Bazett) 443 P Juda 47 R Juda 73 T Juda 14 QRS Count 17 Q Onset 224 P Onset 155 P Offset 201 T Offset 396 QTC Fredericia 408 Diagnosis Normal sinus rhythm Normal ECG No previous ECGs available See ED provider note for full interpretation and clinical correlation Confirmed by Almita Fink ([id number]) on 09/24/2023 8:04:13 PM Normal [facility] FLUAV and FLUBV RNA CLIFFORD+prob e Nom (Unsp spec)on 09-20-2023 FLUAV RNA CLIFFORD+probe Ql (Resp) Not detected Normal Not Detected [facility] Comment on above: Order Comment: This assay is an in vitro diagnostic multiplex nucleic acid amplification test for the detection and discrimination of Influenza A & B from nasopharyngeal specimens, and has been validated for use at [facility]. Negative results do not preclude Influenza A/B infections, and should not be used as the sole basis for diagnosis, treatment, or other management decisions. If Influenza A/B and RSV PCR results are negative, testing for Parainfluenza virus, Adenovirus and Metapneumovirus is routinely performed for [facility] [place] and [place] in[place], and is available on other patients by placing an add-on request. Performed By: #### 4 8509-4 #### LUCIANO LOVING ([id number]) [facility] ([facility]) [address] [place] [address] FLUBV RNA CLIFFORD+probe Ql (Resp) Detected Abnormal Not Detected [facility] Comment on above: Order Comment: This assay is an in vitro diagnostic multiplex nucleic acid amplification test for the detection and discrimination of Influenza A & B from nasopharyngeal specimens, and has been validated for use at [facility]. Negative results do not preclude Influenza A/B infections, and should not be used as the sole basis for diagnosis, treatment, or other management decisions. If Influenza A/B and RSV PCR results are negative, testing for Parainfluenza virus, Adenovirus and Metapneumovirus is routinely performed for [facility] [place] and intensive care in[place], and is available on other patients by placing an add-on request. Performed By: #### 4 8509-4 #### LUCIANO LOVING ([id number]) [facility] ([facility]) [address] [place] [address] FLUAV RNA CLIFFORD+probe Ql (Resp) Not detected Not Detected [facility] FLUBV RNA CLIFFORD+probe Ql (Resp) Detected Abnormal Not Detected [facility] Interpretation and review of laboratory results Abnormal [facility] This assay is an in vitro diagnostic multiplex nucleic acid amplification test for the detection and discrimination of Influenza A & B from nasopharyngeal specimens, and has been validated for use at [facility]. Negative results do not preclude Influenza A/B infections, and should not be used as the sole basis for diagnosis, treatment, or other management decisions. If Influenza A/B and RSV PCR results are negative, testing for Parainfluenza virus, Adenovirus and Metapneumovirus is routinely performed for [facility] [place] and intensive care in[place], and is available on other patients by placing an add-on request. [facility] No Panel Informationon 09-20 Interpretation and review of laboratory results Normal [facility] RSV PCRon 09-20-2023 RSV RNA CLIFFORD+probe Ql (Resp) Not detected Not Detected [facility] RSV RNA CLIFFORD+probe Ql (Resp)o n 09-20-2023 This assay is an FDA-cleared, in vitro diagnostic nucleic acid amplification test for the detection of RSV from nasopharyngeal specimens, and has been validated for use at [facility]. Negative results do not preclude RSV infections, and should not be used as the sole basis for diagnosis, treatment, or other management decisions. If Influenza A/B and RSV PCR results are negative, testing for Parainfluenza virus, Adenovirus and Metapneumovirus is routinely performed for pediatric oncology and intensive care inpatients at [facility], and is available on other patients by placing an add-on request. [facility] Respiratory syncytial virus RNAon 09-20-2023 RSV RNA CLIFFORD+probe Ql (Resp) Not detected Normal Not Detected [facility] Comment on above: Order Comment: This assay is an FDA-cleared, in vitro diagnostic nucleic acid amplification test for the detection of RSV from nasopharyngeal specimens, and has been validated for use at [facility]. Negative results do not preclude RSV infections, and should not be used as the sole basis for diagnosis, treatment, or other management decisions. If Influenza A/B and RSV PCR results are negative, testing for Parainfluenza virus, Adenovirus and Metapneumovirus is routinely performed for pediatric oncology and intensive care inpatients at [facility], and is available on other patients by placing an add-on request. Performed By: #### 9 2131-2 #### LUCIANO LOVING ([id number]) [facility] ([facility]) [address] [place] [address] 78061 SARS coronavirus 2 RNAon SARS-CoV-2 (COVID-19) RNA CLIFFORD+probe Ql (Resp) Not detected Normal Not Detected [facility] Comment on above: Order Comment: This assay has received FDA Emergency Use Authorization (EUA) and is only authorized for the duration of time that circumstances exist to justify the authorization of the emergency use of in vitro diagnostic tests for the detection of SARS-CoV-2 virus and/or diagnosis of COVID-19 infection under section 564(b)(1) of the Act, 21 U.S.C. 360bbb-3(b)(1). This assay is an in vitro diagnostic nucleic acid amplification test for the qualitative detection of SARS-CoV-2 from nasopharyngeal specimens and has been validated for use at [facility]. Negative results do not preclude COVID-19 infections and should not be used as the sole basis for diagnosis, treatment, or other management decisions. Performed By: #### 9 4500-6 #### LUCIANO LOVING ([id number]) [facility] ([facility]) [address] [place] [address] 97369 SARS-CoV-2 (COVID-19) RNA NA A+probe Ql (Resp)on 09-20-2023 This assay has recei saurabh FDA Emergency Use Authorization (EUA) and is only authorized for the duration of time that circumstances exist to justify the authorization of the emergency use of in vitro diagnostic tests for the detection of SARS-CoV-2 virus and/or diagnosis of COVID-19 infection under section 564(b)(1) of the Act, 21 U.S.C. 360bbb-3(b)(1). This assay is an in vitro diagnostic nucleic acid amplification test for the qualitative detection of SARS-CoV-2 from nasopharyngeal specimens and has been validated for use at [facility]. Negative results do not preclude COVID-19 infections and should not be used as the sole basis for diagnosis, treatment, or other management decisions. [facility] Sars-CoV-2 PCRon 09-20-2023 SARS-CoV-2 (COVID-19) RNA CLIFFORD+probe Ql (Resp) Not detected Not Detected [facility] Streptococcus pyogenes DNAon 09-20-2023 S. pyogenes DNA CLIFFORD+probe Ql (Throat) Streptococcus pyogenes DNA Not Detected This assay is an FDA-cleared, real-time PCR test for the qualitative detection of Group A Streptococcus bacterial DNA from throat swabs that have not undergone a nucleic acid extraction. Negative results do not require confirmation by culture. [facility] Comment on above: Performed By: #### 6 0489-2 #### WOLF FABIENNE ([id number]) [facility] ([facility]) [address] [place] [address] XR CHEST 1 VIEWon 09-20-2023 XR CHEST 1 VIEW Interpreted By: Tono Bermeo, STUDY: XR CHEST 1 VIEW; 09/20/2023 6:00 pm INDICATION: Signs/Symptoms:cp. COMPARISON: June 14, 2021 CT abdomen and pelvis, and October 25, 2012 chest radiograph. ACCESSION NUMBER(S): [id number] ORDERING CLINICIAN: CLAYTON BELLO FINDINGS: AP radiograph of the chest was provided. CARDIOMEDIASTINAL SILHOUETTE: Stable cardiomediastinal silhouette allowing for difference in patient position. LUNGS: Minor platelike density left base lateral compatible with minimal platelike atelectasis. No evident consolidative pneumonia, edema, or effusion. ABDOMEN: No remarkable upper abdominal findings. Metallic density overlaps the left abdomen likely overlapping body wall although attention recommended on clinical assessment. BONES: No acute osseous changes. IMPRESSION: 1. Minor platelike atelectasis or scar left base. 2. Metallic density likely overlapping the left sided body wall. Attention recommended on clinical assessment. MACRO: None Signed by: Tono Bermeo 09/20/2023 6:23 PM Dictation workstation: [id number] [facility] XR Chest Single viewon 09-20 1. Minor platelike atelectasis or scar left base. 2. Metallic density likely overlapping the left sided body wall. Attention recommended on clinical assessment. MACRO: None Signed by: Tono Bermeo 09/20/2023 6:23 PM Dictation workstation: [id number] Interpreted By: Tono Bermeo, STUDY: XR CHEST 1 VIEW; 09/20/2023 6:00 pm INDICATION: Signs/Symptoms:cp. COMPARISON: June 14, 2021 CT abdomen and pelvis, and October 25, 2012 chest radiograph. ACCESSION NUMBER(S): [id number] ORDERING CLINICIAN: CLAYTON BELLO FINDINGS: AP radiograph of the chest was provided. CARDIOMEDIASTINAL SILHOUETTE: Stable cardiomediastinal silhouette allowing for difference in patient position. LUNGS: Minor platelike density left base lateral compatible with minimal platelike atelectasis. No evident consolidative pneumonia, edema, or effusion. ABDOMEN: No remarkable upper abdominal findings. Metallic density overlaps the left abdomen likely overlapping body wall although attention recommended on clinical assessment. BONES: No acute osseous changes. MMODAL Tono Bermeo MD - 09/20/2023 Interpreted By: Tono Bermeo, STUDY: XR CHEST 1 VIEW; 09/20/2023 6:00 pm INDICATION: Signs/Symptoms:cp. COMPARISON: June 14, 2021 CT abdomen and pelvis, and October 25, 2012 chest radiograph. ACCESSION NUMBER(S): [id number] ORDERING CLINICIAN: CLAYOTN BELLO FINDINGS: AP radiograph of the chest was provided. CARDIOMEDIASTINAL SILHOUETTE: Stable cardiomediastinal silhouette allowing for difference in patient position. LUNGS: Minor platelike density left base lateral compatible with minimal platelike atelectasis. No evident consolidative pneumonia, edema, or effusion. ABDOMEN: No remarkable upper abdominal findings. Metallic density overlaps the left abdomen likely overlapping body wall although attention recommended on clinical assessment. BONES: No acute osseous changes. IMPRESSION: 1. Minor platelike atelectasis or scar left base. 2. Metallic density likely overlapping the left sided body wall. Attention recommended on clinical assessment. MACRO: None Signed by: Tono Bermeo 09/20/2023 6:23 PM Dictation workstation: [id number] [facility] Work Phone: Radiology Study observation (narrative) [facility] Work Phone: XR Chest Single viewOrdered By: Tono Bermeo on 09-20-2023 [facility] Work Phone: CBC W Auto Differential pane l (Bld)on 06-26-2023 Basophils (Bld) [#/Vol] 0.05 x10*3/uL Normal 0.00-0.10 [facility] Comment on above: Performed By: #### 5 7021-8 #### LUCIANO LOVING ([id number]) [facility] ([facility]) [address] [place] [address] 71965 Basophils/100 WBC (Bld) 0.5 % Normal 0.0-2.0 [facility] Comment on above: Performed By: #### 5 7021-8 #### LUCIANO LOVING ([id number]) [facility] ([facility]) [address] [place] [address] 58643 Eosinophils (Bld) [#/Vol] 0.26 x10*3/uL Normal 0.00-0.70 [facility] Comment on above: Performed By: #### 5 7021-8 #### LUCIANO LOVING ([id number]) [facility] ([facility]) [address] [place] [address] 75504 Eosinophils/100 WBC (Bld) 2.5 % Normal 0.0-6.0 [facility] Comment on above: Performed By: #### 5 7021-8 #### LUCIANO LOVING ([id number]) [facility] ([facility]) [address] [place] [address] 75285 Erythrocyte distribution width (RBC) [Ratio] 11.8 % Normal 11.5-14.5 [facility] Comment on above: Performed By: #### 5 7021-8 #### LUCIANO LOVING ([id number]) [facility] ([facility]) [address] [place] [address] 07825 Hematocrit (Bld) [Volume fraction] 37.4 % Normal 36.0-46.0 [facility] Comment on above: Performed By: #### 5 7021-8 #### LUCIANO LOVING ([id number]) [facility] ([facility]) [address] [place] [address] 36639 Hemoglobin (Bld) [Mass/Vol] 13.4 g/dL Normal 12.0-16.0 [facility] Comment on above: Performed By: #### 5 7021-8 #### LUCIANO LOVING ([id number]) [facility] ([facility]) [address] [place] [address] 64773 Immature granulocytes (Bld) [#/Vol] 0.04 x10*3/uL Normal 0.00-0.70 [facility] Comment on above: Performed By: #### 5 7021-8 #### LUCIANO LOVING ([id number]) [facility] ([facility]) [address] [place] [address] 42459 Immature granulocytes/100 WBC (Bld) 0.4 % Normal 0.0-0.9 [facility] Comment on above: Result Comment: Brooklynn ture Granulocyte Count (IG) includes promyelocytes, myelocytes and metamyelocytes but does not include bands. Percent differential counts (%) should be interpreted in the context of the absolute cell counts (cells/UL). Performed By: #### 5 7021-8 #### LUCIANO LOVING ([id number]) [facility] ([facility]) [address] [place] [address] 56760 Lymphocytes (Bld) [#/Vol] 2.87 x10*3/uL Normal 1.20-4.80 [facility] Comment on above: Performed By: #### 5 7021-8 #### LUCIANO LOVING ([id number]) [facility] ([facility]) [address] [place] [address] 39254 Lymphocytes/100 WBC (Bld) 27.5 % Normal 13.0-44.0 [facility] Comment on above: Performed By: #### 5 7021-8 #### LUCIANO LOVING ([id number]) [facility] ([facility]) [address] [place] [address] 32746 MCH (RBC) [Entitic mass] 30.7 pg Normal 26.0-34.0 [facility] Comment on above: Performed By: #### 5 7021-8 #### LUCIANO LOVING ([id number]) [facility] ([facility]) [address] [place] [address] 21641 MCHC (RBC) [Mass/Vol] 35.8 g/dL Normal 32.0-36.0 [facility] Comment on above: Performed By: #### 5 7021-8 #### LUCIANO LOVING ([id number]) [facility] ([facility]) [address] [place] [address] 63229 MCV (RBC) [Entitic vol] 86 fL Normal 80-100 [facility] Comment on above: Performed By: #### 5 7021-8 #### LUCIANO LOVING ([id number]) [facility] ([facility]) [address] [place] [address] 14749 Monocytes (Bld) [#/Vol] 0.58 x10*3/uL Normal 0.10-1.00 [facility] Comment on above: Performed By: #### 5 7021-8 #### LUCIANO LOVING ([id number]) [facility] ([facility]) [address] [place] [address] 35304 Monocytes/100 WBC (Bld) 5.6 % Normal 2.0-10.0 [facility] Comment on above: Performed By: #### 5 7021-8 #### LUCIANO LOVING ([id number]) [facility] ([facility]) [address] [place] [address] 61043 Neutrophils (Bld) [#/Vol] 6.64 x10*3/uL Normal 1.20-7.70 [facility] Comment on above: Result Comment: Perc ent differential counts (%) should be interpreted in the context of the absolute cell counts (cells/uL). Performed By: #### 5 7021-8 #### LUCIANO LOVING ([id number]) [facility] ([facility]) [address] [place] [address] 26409 Neutrophils/100 WBC (Bld) 63.5 % Normal 40.0-80.0 [facility] Comment on above: Performed By: #### 5 7021-8 #### LUCIANO LOVING ([id number]) [facility] ([facility]) [address] [place] [address] 09391 Nucleated RBC/100 WBC (Bld) [Ratio] 0.0 /100 WBCs Normal 0.0-0.0 [facility] Comment on above: Performed By: #### 5 7021-8 #### LUCIANO LOVING ([id number]) [facility] ([facility]) [address] [place] [address] 28982 Platelets (Bld) [#/Vol] 221 x10*3/uL Normal 150-450 [facility] Comment on above: Performed By: #### 5 7021-8 #### LUCIANO LOVING ([id number]) [facility] ([facility]) [address] [place] [address] 79696 RBC (Bld) [#/Vol] 4.36 x10*6/uL Normal 4.00-5.20 [facility] Comment on above: Performed By: #### 5 7021-8 #### LUCIANO LOVING ([id number]) [facility] ([facility]) [address] [place] [address] 65973 WBC (Bld) [#/Vol] 10.4 x10*3/uL Normal 4.4-11.3 [facility] Comment on above: Performed By: #### 5 7021-8 #### LUCIANO LOVING ([id number]) [facility] ([facility]) [address] [place] [address] 40618 Basophils (Bld) [#/Vol] 0.05 10*3/uL [facility] Basophils/100 WBC (Bld) 0.5 % 0.0 - 2.0 % [facility] Eosinophils (Bld) [#/Vol] 0.26 10*3/uL [facility] Eosinophils/100 WBC (Bld) 2.5 % 0.0 - 6.0 % [facility] Erythrocyte distribution width (RBC) [Ratio] 11.8 % 11.5 - 14.5 % [facility] Hematocrit (Bld) [Volume fraction] 37.4 % 36.0 - 46.0 % [facility] Hemoglobin (Bld) [Mass/Vol] 13.4 g/dL 12.0 - 16.0 g/dL [facility] Immature granulocytes (Bld) [#/Vol] 0.04 10*3/uL [facility] Immature granulocytes/100 WBC (Bld) 0.4 % 0.0 - 0.9 % [facility] Comment on above: Immature Granulocyte Count (IG) includes promyelocytes, myelocytes and metamyelocytes but does not include bands. Percent differential counts (%) should be interpreted in the context of the absolute cell counts (cells/UL). Lymphocytes (Bld) [#/Vol] 2.87 10*3/uL [facility] Lymphocytes/100 WBC (Bld) 27.5 % 13.0 - 44.0 % [facility] MCH (RBC) [Entitic mass] 30.7 pg 26.0 - 34.0 pg [facility] MCHC (RBC) [Mass/Vol] 35.8 g/dL 32.0 - 36.0 g/dL [facility] MCV (RBC) [Entitic vol] 86 fL 80 - 100 fL [facility] Monocytes (Bld) [#/Vol] 0.58 10*3/uL [facility] Monocytes/100 WBC (Bld) 5.6 % 2.0 - 10.0 % [facility] Neutrophils (Bld) [#/Vol] 6.64 10*3/uL [facility] Comment on above: Percent differential counts (%) should be interpreted in the context of the absolute cell counts (cells/uL). Neutrophils/100 WBC (Bld) 63.5 % 40.0 - 80.0 % [facility] Nucleated RBC/100 WBC (Bld) [Ratio] 0.0 % [facility] Platelets (Bld) [#/Vol] 221 10*3/uL [facility] RBC (Bld) [#/Vol] 4.36 10*6/uL [facility] WBC (Bld) [#/Vol] 10.4 10*3/uL [facility] Comprehensive metabolic 2000 panelon 06-26-2023 Albumin BCP dye [Mass/Vol] 4.4 g/dL Normal 3.4-5.0 [facility] Comment on above: Performed By: #### 2 4323-8 #### LUCIANO LOVING ([id number]) [facility] ([facility]) [address] [place] [address] 00022 ALP [Catalytic activity/Vol] 45 U/L Normal 33-110 [facility] Comment on above: Performed By: #### 2 4323-8 #### LUCIANO LOVING ([id number]) [facility] ([facility]) [address] [place] [address] 97656 ALT With P-5'-P [Catalytic activity/Vol] 22 U/L Normal 7-45 [facility] Comment on above: Result Comment: Nedra ents treated with Sulfasalazine may generate falsely decreased results for ALT. Performed By: #### 2 4323-8 #### LUCIANO LOVING ([id number]) [facility] ([facility]) [facility] [place] [address] Anion gap [Moles/Vol] 12 mmol/L Normal 10-20 [facility] Comment on above: Performed By: #### 2 4323-8 #### LUCIANO LOVING ([id number]) [facility] ([facility]) [address] [place] [address] 43165 AST With P-5'-P [Catalytic activity/Vol] 13 U/L Normal 9-39 [facility] Comment on above: Performed By: #### 2 4323-8 #### LUCIANO LOVING ([id number]) [facility] ([facility]) [address] [place] [address] 75134 Bilirubin [Mass/Vol] 0.4 mg/dL Normal 0.0-1.2 [facility] Comment on above: Performed By: #### 2 4323-8 #### LUCIANO LOVING ([id number]) [facility] ([facility]) [address] [place] [address] 71272 Calcium [Mass/Vol] 9.3 mg/dL Normal 8.6-10.3 [facility] Comment on above: Performed By: #### 2 4323-8 #### LUCIANO LOVING ([id number]) [facility] ([facility]) [facility] [place] [address] Chloride [Moles/Vol] 104 mmol/L Normal 98-107 [facility] Comment on above: Performed By: #### 2 4323-8 #### LUCIANO LOVING ([id number]) [facility] ([facility]) [address] [place] [address] 71188 CO2 [Moles/Vol] 26 mmol/L Normal 21-32 [facility] Comment on above: Performed By: #### 2 4323-8 #### LUCIANO LOVING ([id number]) [facility] ([facility]) [address] [place] [address] 56210 Creatinine [Mass/Vol] 0.79 mg/dL Normal 0.50-1.05 [facility] Comment on above: Performed By: #### 2 4323-8 #### LUCIANO LOVING ([id number]) [facility] ([facility]) [address] [place] [address] 52718 GFR/1.73 sq M.predicted MDRD (S/P/Bld) [Vol rate/Area] mL/min/{1.73_m2} Normal >60 [facility] Comment on above: Result Comment: Calc ulations of estimated GFR are performed using the 2020 CKD-EPI Study Refit equation without the race variable for the IDMS-Traceable creatinine methods. https://jasn.asnjournals.org/content//ASN.548420542 8 Performed By: #### 2 4323-8 #### LUCIANO LOVING ([id number]) [facility] ([facility]) [facility] [place] [address] Glucose [Mass/Vol] 94 mg/dL Normal 74-99 [facility] Comment on above: Performed By: #### 2 4323-8 #### LUCIANO LOVING ([id number]) [facility] ([facility]) [facility] [place] [address] Potassium [Moles/Vol] 3.6 mmol/L Normal 3.5-5.3 [facility] Comment on above: Performed By: #### 2 4323-8 #### LUCIANO LOVING ([id number]) [facility] ([facility]) [address] [place] [address] 97710 Protein [Mass/Vol] 6.7 g/dL Normal 6.4-8.2 [facility] Comment on above: Performed By: #### 2 4323-8 #### LUCIANO LOVING ([id number]) [facility] ([facility]) [address] [place] [address] 42847 Sodium [Moles/Vol] 138 mmol/L Normal 136-145 [facility] Comment on above: Performed By: #### 2 4323-8 #### LUCIANO LOVING ([id number]) [facility] ([facility]) [address] [place] [address] 33674 Urea nitrogen [Mass/Vol] 13 mg/dL Normal 6-23 [facility] Comment on above: Performed By: #### 2 4323-8 #### LUCIANO LOVING ([id number]) [facility] ([facility]) [address] [place] [address] 70614 Albumin BCP dye [Mass/Vol] 4.4 g/dL 3.4 - 5.0 g/dL [facility] ALP [Catalytic activity/Vol] 45 U/L 33 - 110 U/L [facility] ALT With P-5'-P [Catalytic activity/Vol] 22 U/L 7 - 45 U/L [facility] Comment on above: Patients treated wit h Sulfasalazine may generate falsely decreased results for ALT. Anion gap [Moles/Vol] 12 mmol/L 10 - 20 mmol/L [facility] AST With P-5'-P [Catalytic activity/Vol] 13 U/L 9 - 39 U/L [facility] Bilirubin [Mass/Vol] 0.4 mg/dL 0.0 - 1.2 mg/dL [facility] Calcium [Mass/Vol] 9.3 mg/dL 8.6 - 10. 3 mg/dL [facility] Chloride [Moles/Vol] 104 mmol/L 98 - 107 mmol/L [facility] CO2 [Moles/Vol] 26 mmol/L 21 - 32 mmol/L [facility] Creatinine [Mass/Vol] 0.79 mg/dL 0.50 - 1.05 mg/dL [facility] GFR/1.73 sq M.predicted MDRD (S/P/Bld) [Vol rate/Area] - PINF [facility] Comment on above: Calculations of terra mated GFR are performed using the 2020 CKD-EPI Study Refit equation without the race variable for the IDMS-Traceable creatinine methods. https://jasn.asnjournals.org/content//ASN.278738092 8 Glucose [Mass/Vol] 94 mg/dL 74 - 99 mg/dL [facility] Interpretation and review of laboratory results Normal [facility] Potassium [Moles/Vol] 3.6 mmol/L 3.5 - 5.3 mmol/L [facility] Protein [Mass/Vol] 6.7 g/dL 6.4 - 8.2 g/dL [facility] Sodium [Moles/Vol] 138 mmol/L 136 - 145 mmol/L [facility] Urea nitrogen [Mass/Vol] 13 mg/dL 6 - 23 mg/dL [facility] Lactateon 06-26-2023 Lactate [Moles/Vol] 0.9 mmol/L Normal 0.4-2.0 [facility] Comment on above: Order Comment: Venip uncture immediately after or during the administration of Metamizole may lead to falsely low results. Testing should be performed immediately prior to Metamizole dosing. Performed By: #### 2 524-7 #### WOLF FABIENNE ([id number]) [facility] ([facility]) [address] [place] [address] Lactate [Moles/Vol] 0.9 mmol/L 0.4 - 2.0 mmol/L [facility] Lactate [Moles/Vol]on 2022 Interpretation and review of laboratory results Normal [facility] Venipuncture immedia tely after or during the administration of Metamizole may lead to falsely low results. Testing should be performed immediately prior to Metamizole dosing. [facility] XR HAND LEFT 3+ VIEWS (STAND ANTON)on 03-11-2023 XR HAND LEFT 3+ VIEWS (STANDARD) EXAMINATION: XR HAND LEFT 3+ VIEWS (STANDARD) 03/11/2023, 11:52 AM HISTORY: ORDERING SYSTEM PROVIDED HISTORY: 5th metacarpal lac/injury. TECHNOLOGIST PROVIDED HISTORY: Injury/Trauma. Reason for exam: Pt dropped a bread knife at work today and has lac over 5th metacarpal /MTP joint. Cancer History: No. Surgery, Radiation History: No. Encounter Type: Initial. Mechanism of injury: Laceration. FINDINGS: Three views of the left hand were obtained. No acute fracture or dislocation is evident. No radiopaque foreign body is identified. The laceration described in the clinical history is not well visualized radiographically. Joint spaces are maintained. There is no osseous erosion. IMPRESSION: No radiopaque foreign body or acute fracture. The laceration described in the clinical history is not well defined by radiographs. [employer] Workstation ID: [id number] Dictated by: AMANDA DOBSON on TueMar 11, 2023 1:17:47 PM EDT Transcribed by: BERKLEY MOCK on TueMar 11, 2023 1:36:39 PM EDT Finalized by: AMANDA DOBSON on TueMar 11, 2023 1:47:41 PM EDT [facility] Comment on above: Order Comment: Injur y/Trauma or Illness?:Injury/Trauma How long have you had these symptoms (acute/chronic)?:Acute Reason for exam?:Pt dropped a bread knife at work today and has lac over 5th metacarpal /MTPjoint History of cancer?:no Surgeries, chemotherapy, or radiation?:no Type of Exam?:Initial Mechanism of injury?:laceration XR FOOT RIGHT 3+ VIEWS (CAPRI DARD)on 08-08-2022 XR FOOT RIGHT 3+ VIEWS (STANDARD) EXAMINATION: XR FOOT RIGHT 3+ VIEWS (STANDARD) 08/08/2022 9:45 am HISTORY: ORDERING SYSTEM PROVIDED HISTORY: injury, TECHNOLOGIST PROVIDED HISTORY: Injury/Trauma Reason for exam: R foot pain Cancer History: no Surgery, RadiationHistory: no Encounter Type: Initial Mechanism of injury: Injured R foot playing soccer last night ORDERING SYSTEM PROVIDED DIAGNOSIS CODES: PROCEDURE: AP, lateral, oblique radiographs of the foot labeled right FINDINGS: Hallux valgus. Overlying soft tissue swelling. No acute fracture or dislocation. Normal mineralization. No radiopaque foreign body. IMPRESSION: 1. No acute osseous abnormality. 2. Hallux valgus. 3. Soft tissue swelling about the medial aspect of the foot. Workstation ID: [id number] Dictated by: EUGENIA COLORADO on TueAug 08, 2022 10:31:13 AM EST Transcribed by: EUGENIA COLORADO on TueAug 08, 2022 10:31:13 AM EST Finalized by: EUGENIA COLORADO on TueAug 08, 2022 10:31:13 AM EST [facility] Comment on above: Order Comment: Injur y/Trauma or Illness?:Injury/Trauma How long have you had these symptoms (acute/chronic)?:Acute Reason for exam?:R foot pain History of cancer?:no Surgeries, chemotherapy, or radiation?:no Type of Exam?:Initial Mechanism of injury?:Injured R foot playing soccer last night Provider Note - ED v3on 07-0 Provider Note - ED v3 Provider Note: Chart Review: ED NOTES ED NOTES: HPI: Patient is a 31-year-old female chief complaint of rash since Tuesday which was 5 days ago. It is gradually worsening. She has had this rash before. Complains of an itchy rash in both hands and left wrist. Denies any changes in soap or gloves or clothing. ROS: All systems are negative other than as noted in HPI. Physical Exam I have reviewed the triage vital signs. Const: Well nourished, well developed, appears stated age, no acute distress Eyes: PERRL, EOM intact, no conjunctival injection, vision grossly normal HENT: Neck supple without meningismus , Moist mucous membranes, no pharyengeal swelling or exudate CV: Regular rate and rhythm, Warm, well-perfused extremities. Chest non tender RESP: Lungs clear bilaterally, Unlabored respiratory effort GI: soft, non-tender, non-distended, no masses : MSK: No gross deformities appreciated Skin: Warm, dry. Patient has a rash left and right hand primarily palmar aspect in between the fingers as well as in the proximal left forearm. The left is worse than the right. Rash is identical. It is maculopapular with small papules that are pruritic. Nonvesicular. Neuro: Alert and oriented x4, GCS 15 , charge entry II-XII grossly intact. Sensation and motor function of extremities grossly intact. Psych: Appropriate mood and affect. HISTORY OF PRESENTING ILLNESS UNIQUE is a 31 year old Female and was seen by me at 01-Feb-2022 23:26 for a chief complaint of rash (Pt complaint of rash to bilateral arms starting tuesday.)(1). Triage Information: Most recent Vital Sign Value Date Temp (F): 98.1 02-01-2022 23:22 Temp (C): 36.7 02-01-2022 23:22 Heart Rate (beats/min): 85 02-01-2022 23:22 Respirations (breaths/min): 16 02-01-2022 23:22 SpO2 (%): 97 02-01-2022 23:22 BP Systolic (mm Hg): 145 02-01-2022 23:22 BP Diastolic (mm Hg): 90 02-01-2022 23:22 PAST MEDICAL HISTORY ALLERGIES/INTOLERANCES: Allergy Allergen: amoxicillin Type: Drug Reaction: Rash Allergen: erythromycin Type: Drug Reaction: Rash Allergen: sulfamethoxazole Type: Drug Reaction: Rash Allergen: cefuroxime Type: Drug Reaction: Rash Allergen: Honey Type: Food Reaction: Rash HEALTH HISTORY: No documented data. OUTPATIENT MEDICATIONS: Home Medications Review Status for Reconciliation: Not Done Med Status: Patient Currently Takes Medications Drug Name: Cleocin HCl 300 mg oral capsule Instructions: 1 cap(s) orally every 8 hours Drug Name: levoFLOXacin 500 mg oral tablet Instructions: 1 tab(s) orally everyday Drug Name: clindamycin 300 mg oral capsule Instructions: 21 cap(s) orally every 8 hours Drug Name: clindamycin 300 mg oral capsule Instructions: 1 cap(s) orally every 6 hours x 10 days Drug Name: Lotrisone 1%-0.05% topical cream Instructions: Apply topically to affected area 2 times a day Drug Name: predniSONE 20 mg oral tablet Instructions: 2 tab(s) orally once a day Drug Name: IBU 600 mg oral tablet Instructions: 1 tab(s) orally 3 times a day Drug Name: betamethasone dipropionate 0.05% topical cream Instructions: Apply topically to affected area 2 times a day SIGNIFICANT EVENTS: No documented data. DISPOSITION Diagnosis/Annotation: ED Dx Name:Rash Code:R21 Disposition: discharged Type: home CONSULT CRITICAL CARE TIME Is this a critically ill patient: no Electronic Signatures: Ovidio Nichole) (Signed 01-Feb-2022 23:44) Authored: ED Notes, HPI, PMH, PE, Clinical Impression, Attestation, Chart Review, Scores Last Updated: 01-Feb-2022 23:44 by Ovidio Nichole) References: 1. Data Referenced From "Triage - ED" 01-Feb-2022 23:22 [facility] Risk Screen - Adult Emergenc yon 02-02-2022 Risk Screen - Adult Emergency Preferred Language: Preferred Language: Preferred Language for Discussing Health Care (patient/designee)Bur[place]ian Advanced Directives: Advance Directive/DNRno Family Violence Adult: Abuse Screen: Are you or have you been threatened or abused physically, emotionally, or sexually by anyoneno Learning Assessment (Patient): Learning Assessment (Patient): Patient is Able to be Assessed for Learningyes Factors Influencing Readiness to Learnacuteness of illness Factors that Impact Ability to Learnnone Devices/Methods Used to Communicatenone Learning Preferencesaudio Cultural Considerationsnone Developmental Considerationsnone Tenriism Considerationsnone Learning Assessment (Other Learner): Learning Assessment (Other Learner): Other learner availableno Pressure Injury/TB/Substance: Pressure Injury: Pressure Injury Present on Admissionno Do you have a coughno Smoking Statusmoderate user (uses 11-30 cig/day, OR 0.5-1.5 ppd, OR 2-3 cans/pouches loose leaf tobacco per week, OR 0.5-1.5 vape pods per day) Tobacco Cessation Education (provide if tobacco use within the last 12 mos) patient declined Alcohol Usedenies Drug Usedenies Drug 2 Usedenies Admission Risk Screen: Significant IndicatorsComplete CAGE: CAGE: [place] an [place] a [place] [place]/ [place] no Electronic Signatures: Suyapa Toro) (Signed 01-Feb-2022 23:24) Authored: Preferred Language, Advanced Directives, Family Violence Adult, Learning Assessment (Patient), Learning Assessment (Other Learner), Pressure Injury/TB/Substance, Pressure Injury, CAGE Last Updated: 01-Feb-2022 23:24 by Suyapa Toro (RN) [facility] Triage - EDon 02-02-2022 Triage - ED Quick Triage: Are You no Have You Given In The Last 6 Weeksno Are You Currently Breastfeedingno Chart Review: PRIMARY ASSESSMENT UNIQUE HOGAN'skylar primary assessment is Within Defined Limits. The airway is open and patent. Breathing spontaneous and unlabored with clear breath sounds bilaterally. Circulation is normal with good peripheral pulses. Skin is warm and dry and color is normal for race. ARRIVAL INFORMATION Means of Arrival: Ambulatory Mode of Arrival: private vehicle Arrival From: home Accompanied By: self Language: Spoken Language Preferred: [place]ian Reading Language Preferred: [place] Dietitian Teacher Requested: no hourly sign language interpreter was requested MDRO: History of MDRO: no Present on Arrival: Device Present on Arrival to ED: no Pressure Ulcer Present on Arrival to ED: no CHIEF COMPLAINT UNIQUE HOGAN is a Female patient with a chief complaint of rash (Pt complaint of rash to bilateral arms starting tuesday.). Triage Date/Time: 01-Feb-2022 23:22 MOISÉS: 4 Pain Rating (0-10): 0 = None Vital Signs: Temperature: 98.1F ( 36.7C) taken forehead Blood Pressure: 145/90 Mean: Heart Rate: 85 Respiratory Rate: 16 Pulse Oximetry: 97% on room air, no respiratory support. Height: 5 feet 4.00 inches. 162.5 CM Weight: 185.1 pounds. Calculated 84.0 kg. (stated) Calculated BMI (kg/m2): 31.810 Calculated BSA (m2) 1.95 Kadi Coma Scale: Best Eye Response: (E4) spontaneous Best Motor Response: (M6) obeys commands Best Verbal Response: (V5) oriented Kadi Score: 15 Cough lasting greater than 3 weeks: no Allergies: yes Mask applied: yes Patient has homicidal thoughts: no Symptoms Are POSITIVE For: itching and redness. Symptoms Are Negative For: dyspnea, fever, blistering, headache, pain (describe) and tingling. Risk Screens Suicide Risk Screen In the Past Month: Have you wished you were or wished you could go to sleep and not wake up no In the Past Month: Have you had any actual thoughts of killing yourself no In Your Lifetime: Have you ever done anything, started to do anything, or prepared to do anything to end your life no Interventions: Feliz Fall Interventions: LOW INTERVENTIONS: *patient oriented to surroundings and call system, * patient/family falls education completed and documented, *patients fall status communicated during bedside handoff, *whiteboard updated, *mode of toileting discussed with patient, *bed in low position with brakes locked, *call light in reach, * non-skid footwear PAST MEDICAL HISTORY Immunization History: Last Known Tetanus Immunization: Unknown TRAVEL HISTORY Travel History Coronavirus Screening: no exposure or symptoms Travel Exposure History: NO travel to International locations in the past 30 days PAIN Pain Scale Used: ROBERT Pain Rating (0-10): 0 = None Past Medical History: Past Medical History Reviewedyes Electronic Signatures: Suyapa Toro (ERIKA) (Signed 01-Feb-2022 23:24) Entered: Risk Screens, Pain, Arrival, ABCD, Immunizations, Travel History, Chart Review, Scores, Past Medical History Authored: Quick Triage, Risk Screens, Pain, Arrival, ABCD, Immunizations, Travel History, Chart Review, Scores, Past Medical History Last Updated: 01-Feb-2022 23:24 by Suyapa Toro (ERIKA) Normal [facility] BASIC METABOLIC PANELon 11-1 Anion gap [Moles/Vol] 12 mmol/L Normal 10 - 20 [facility] Comment on above: Performed By: #### B MP ####[address] [address] Calcium [Mass/Vol] 9.0 mg/dL Normal 8.6 - 10.3 [facility] Comment on above: Performed By: #### B MP ####[address] [address] Chloride [Moles/Vol] 107 mmol/L Normal 98 - 107 [facility] Comment on above: Performed By: #### B MP ####[address] [address] Creatinine [Mass/Vol] 0.83 mg/dL Normal 0.50 - 1.05 [facility] Comment on above: Performed By: #### B MP ####[address] [address] GFR- AM. >60 Normal >60 [facility] Comment on above: Result Comment: CALC ULATIONS OF ESTIMATED GFR ARE PERFORMED USING THE MDRD STUDY EQUATION FOR THE IDMS-TRACEABLE CREATININE METHODS. CLIN CHEM 2007;53:766-72 Performed By: #### B MP ####[address] [address] GFR-NON AM. >60 Normal >60 [facility] Comment on above: Performed By: #### B MP ####[place] [id number] Glucose [Mass/Vol] 129 mg/dL High 74 - 99 [facility] Comment on above: Performed By: #### B MP ####[place] [id number] HCO3 (Bld) [Moles/Vol] 24 mmol/L Normal 21 - 32 [facility] Comment on above: Performed By: #### B MP ####[address] [address] Potassium [Moles/Vol] 3.7 mmol/L Normal 3.5 - 5.3 [facility] Comment on above: Performed By: #### B MP ####[address] [address] Sodium [Moles/Vol] 139 mmol/L Normal 136 - 145 [facility] Comment on above: Performed By: #### B MP ####[address] [address] Urea nitrogen [Mass/Vol] 16 mg/dL Normal 6 - 23 [facility] Comment on above: Performed By: #### B MP ####[address] [address] CBC AND DIFFERENTIALon 06-14 Basophils (Bld) [#/Vol] 0.10 10*3/uL Normal 0.00 - 0.10 [facility] Comment on above: Performed By: #### C BCDF #### [address] [address] Basophils/100 WBC (Bld) 0.9 % Normal 0.0 - 2.0 [facility] Comment on above: Performed By: #### C BCDF #### [address] [address] Eosinophils (Bld) [#/Vol] 0.30 10*3/uL Normal 0.00 - 0.70 [facility] Comment on above: Performed By: #### C BCDF #### [address] [address] Eosinophils/100 WBC (Bld) 3.6 % Normal 0.0 - 6.0 [facility] Comment on above: Performed By: #### C BCDF #### [address] [address] Erythrocyte distribution width (RBC) [Ratio] 13.0 % Normal 11.5 - 14.5 [facility] Comment on above: Performed By: #### C BCDF #### [address] [address] Hematocrit (Bld) [Volume fraction] 44.7 % Normal 36.0 - 46.0 [facility] Comment on above: Performed By: #### C BCDF #### [address] [address] Hemoglobin (Bld) [Mass/Vol] 15.1 g/dL Normal 12.0 - 16.0 [facility] Comment on above: Performed By: #### C BCDF #### [address] [address] Lymphocytes (Bld) [#/Vol] 2.30 10*3/uL Normal 1.20 - 4.80 [facility] Comment on above: Performed By: #### C BCDF #### [address] [address] Lymphocytes/100 WBC (Bld) 26.5 % Normal 13.0 - 44.0 [facility] Comment on above: Performed By: #### C BCDF #### [address] [address] MCHC (RBC) [Mass/Vol] 33.8 g/dL Normal 32.0 - 36.0 [facility] Comment on above: Performed By: #### C BCDF #### [address] [address] MCV (RBC) [Entitic vol] 90 fL Normal 80 - 100 [facility] Comment on above: Performed By: #### C BCDF #### [address] [address] Monocytes (Bld) [#/Vol] 0.40 10*3/uL Normal 0.10 - 1.00 [facility] Comment on above: Performed By: #### C BCDF #### [address] [address] Monocytes/100 WBC (Bld) 4.4 % Normal 2.0 - 10.0 [facility] Comment on above: Performed By: #### C BCDF #### [address] [address] Neutrophils (Bld) [#/Vol] 5.50 10*3/uL Normal 1.20 - 7.70 [facility] Comment on above: Result Comment: Perc ent differential counts (%) should be interpreted in the context of the absolute cell counts (cells/L). Performed By: #### C BCDF #### [address] [address] Neutrophils/100 WBC (Bld) 64.6 % Normal 40.0 - 80.0 [facility] Comment on above: Performed By: #### C BCDF #### [address] [address] Platelets (Bld) [#/Vol] 253 10*3/uL Normal 150 - 450 [facility] Comment on above: Performed By: #### C BCDF #### [address] [address] RBC 4.95 x10E12/L Normal 4.00 - 5.20 [facility] Comment on above: Performed By: #### C BCDF #### [facility] [address] [place] [address] WBC (Bld) [#/Vol] 8.6 10*3/uL Normal 4.4 - 11.3 [facility] Comment on above: Performed By: #### C BCDF #### [place] [id number] [place] [address] CT ABDOMEN AND PELVIS W IV C [facility] 06-14-2021 CT ABDOMEN AND PELVIS W IV CONTRAST Patient Name: UNIQUE HOGAN STUDY: CT ABDOMEN AND PELVIS W IV CONTRAST; 06/14/2021 10:56 am INDICATION: LOWER ABD PAIN R/O APPENDICITIS/OVARIAN CYST . COMPARISON: CT abdomen pelvis 11/08/2018 ACCESSION NUMBER(S): [id number] ORDERING CLINICIAN: AMANDA RALPH TECHNIQUE: CT of the abdomen and pelvis was performed. Standard contiguous axial images were obtained at 3 mm slice thickness through the abdomen and pelvis. Coronal and sagittal reconstructions at 3 mm slice thickness were performed. 90 ml of contrast Omnipaque 350 were administered intravenously without immediate complication. FINDINGS: LOWER CHEST: Streaky dependent bilateral airspace opacities suggestive atelectatic change. Similar distribution of findings from CT abdomen pelvis 11/08/2018. ABDOMEN: LIVER: Mild relative low attenuation liver suggestive of hepatic steatosis. Region of presumed focal fatty infiltration adjacent to the falciform ligament. BILE DUCTS: No significant biliary dilatation. GALLBLADDER: No calcified gallstone. PANCREAS: Unremarkable SPLEEN: Unremarkable. ADRENAL GLANDS: Unremarkable. KIDNEYS AND URETERS: The bilateral kidneys enhance symmetrically. No hydroureteronephrosis or nephroureterolithiasis is identified. PELVIS: BLADDER: Unremarkable. REPRODUCTIVE ORGANS: Intrauterine device present. Probable 2.7 x 1.4 cm right ovarian cyst or follicle. Mild right adnexal varices, nonspecific. BOWEL: No abnormal bowel wall thickening no pathologic distention of large or small bowel. Imaged portions of the appendix are unremarkable in caliber (series 5 images 38-46) without evidence of adjacent inflammation. VESSELS: Atherosclerotic calcifications noted about the aortoiliac axis without evidence of aneurysm. PERITONEUM/RETROPERITONEU M/LYMPH NODES: No ascites or free air, no fluid collection. No enlarged mesenteric lymph nodes. BONES AND ABDOMINAL WALL: No acute osseous abnormality. Multilevel spondylosis throughout the imaged spine. IMPRESSION: 1. Unremarkable appendix. 2. Probable small cyst or prominent follicle the right ovary measuring up to 1.4 cm in short axis. 3. Mild right adnexal varices, nonspecific. Findings may be seen with sequela of pelvic congestion syndrome. 4. Intrauterine device present. 5. Dependent bibasilar airspace opacification likely reflecting atelectatic change. Electronically signed by: PAULO HART MD Normal [facility] HCG,URINEon 06-14-2021 Beta HCG ( test) Ql (U) Negative Normal Negative [facility] Comment on above: Performed By: #### H CGU ####[place] [address] HEPATIC FUNCTION PANELon Albumin [Mass/Vol] 4.4 g/dL Normal 3.4 - 5.0 [facility] Comment on above: Performed By: #### H EPFP #### [place] [address] ALP [Catalytic activity/Vol] 57 U/L Normal 33 - 110 [facility] Comment on above: Performed By: #### H EPFP #### [address] [address] ALT [Catalytic activity/Vol] 29 U/L Normal 7 - 45 [facility] Comment on above: Result Comment: Nedra ents treated with Sulfasalazine may generate falsely decreased results for ALT. Performed By: #### H EPFP #### [place] [address] AST [Catalytic activity/Vol] 16 U/L Normal 9 - 39 [facility] Comment on above: Performed By: #### H EPFP #### [address] [address] Bilirubin [Mass/Vol] 0.7 mg/dL Normal 0.0 - 1.2 [facility] Comment on above: Performed By: #### H EPFP #### [address] [address] Bilirubin.indirect [Mass/Vol] 0.1 mg/dL Normal 0.0 - 0.3 [facility] Comment on above: Performed By: #### H EPFP #### [address] [address] Protein [Mass/Vol] 7.0 g/dL Normal 6.4 - 8.2 [facility] Comment on above: Performed By: #### H EPFP #### [address] [address] LIPASEon 06-14-2021 Lipase [Catalytic activity/Vol] 20 U/L Normal 9 - 82 [facility] Comment on above: Result Comment: Marilia puncture immediately after or during the administration of Metamizole may lead to falsely low results. Testing should be performed immediately prior to Metamizole dosing. A-lcvgkf-u-benzoquinone imine (metabolite of Acetaminophen) will generate erroneously low results in samples for patients that have taken toxic doses of acetaminophen. Performed By: #### L IPAS #### [address] [address] Provider Note - ED v2on 06-01 Provider Note - ED v2 Provider Note - ED v2: Chart Review: ED NOTES ED NOTES: CC=ABD PAIN HPI= this the patient complains of lower abdominal pain is rather sharp that woke her up at 5 AM. She complains of some nausea but no vomiting she denies any fever chills denies any vaginal discharge or bleeding. Her last period was in September but she is on IUD currently and has irregular periods. She is a is a 8-year-old at home. She denies any dysuria frequency flank pain otherwise. SH-denies smoking or alcohol consumption PM HX-also for in the past HISTORY OF PRESENTING ILLNESS UNIQUE is a 30 year old Female and was seen by me at 14-Jun-2021 08:53 for a chief complaint of abdominal pain (Pt C/c of lower abdominal pain since this AM. Pt woke with pain. Pt denies urinary or bowel symptoms.)(1). Triage Information: Most recent Vital Sign Value Date Temp (F): 97.9 06-14-2021 09:03 Temp (C): 36.6 06-14-2021 09:03 Heart Rate (beats/min): 81 06-14-2021 09:03 Respirations (breaths/min): 15 06-14-2021 09:03 SpO2 (%): 98 06-14-2021 09:03 BP Systolic (mm Hg): 128 06-14-2021 09:03 BP Diastolic (mm Hg): 91 06-14-2021 09:03 PAST MEDICAL HISTORY ATTESTATION: I have reviewed and confirmed nurse's/medic's notes for patient's medications, allergies, and medical, surgical, family and social history ALLERGIES/INTOLERANCES: Allergy Allergen: amoxicillin Type: Drug Reaction: Rash Allergen: erythromycin Type: Drug Reaction: Rash Allergen: sulfamethoxazole Type: Drug Reaction: Rash Allergen: cefuroxime Type: Drug Reaction: Rash Allergen: Honey Type: Food Reaction: Rash HEALTH HISTORY: No documented data. OUTPATIENT MEDICATIONS: Home Medications Review Status for Reconciliation: N/A Med Status: Patient Currently Takes Medications Drug Name: Cleocin HCl 300 mg oral capsule Instructions: 1 cap(s) orally every 8 hours Drug Name: levoFLOXacin 500 mg oral tablet Instructions: 1 tab(s) orally everyday Drug Name: clindamycin 300 mg oral capsule Instructions: 21 cap(s) orally every 8 hours Drug Name: clindamycin 300 mg oral capsule Instructions: 1 cap(s) orally every 6 hours x 10 days Drug Name: Lotrisone 1%-0.05% topical cream Instructions: Apply topically to affected area 2 times a day Drug Name: predniSONE 20 mg oral tablet Instructions: 2 tab(s) orally once a day SIGNIFICANT EVENTS: No documented data. WIRE FRAME LAMP SHADE MAKER: Is : no(1) Is : no(1) REVIEW OF SYSTEMS CONSTITUTIONAL: POSITIVE for: malaise Negative for: chills and fever EYES: Negative for: redness ENMT Ears: Negative for: pain Nose: Negative for: congestion and discharge Throat/Neck: Negative for: throat lesions, neck pain and neck stiffness CARDIOVASCULAR: Negative for: chest pain and edema RESPIRATORY: Negative for: cough and dyspnea GASTROINTESTINAL: POSITIVE for: abdominal pain and nausea; Negative for: vomiting; hematochezia and melena GENITOURINARY: Negative for: dysuria, frequency and hematuria; MUSCULOSKELETAL: Negative for: back pain and neck pain INTEGUMENTARY: Negative for: rash NEUROLOGICAL: Negative for: dizziness and headache; HEME/LYMPH: Negative for: anemia and easy bleeding All other systems reviewed and are negative RESULTS/VITAL SIGNS RESULTS: Recent Lab Results: I have reviewed these laboratory results: Hepatic Function Panel 14-Jun-2021 09:29:00 ResultValue Aspartate Transaminase, Serum 16 ALB 4.4 T Bili 0.7 Bilirubin, Serum Direct - Conjugated 0.1 ALKP 57 Alanine Aminotransferase, Serum 29 T Pro 7.0 Complete Blood Count + Differential 14-Jun-2021 09:29:00 ResultValue White Blood Cell Count 8.6 Red Blood Cell Count 4.95 HGB 15.1 HCT 44.7 MCV 90 MCHC 33.8 PLT 253 RDW-CV 13.0 Neutrophil % 64.6 Lymphocyte % 26.5 Monocyte % 4.4 Eosinophil % 3.6 Basophil % 0.9 Neutrophil Count 5.50 Lymphocyte Count 2.30 Monocyte Count 0.40 Eosinophil Count 0.30 Basophil Count 0.10 Basic Metabolic Panel 14-Jun-2021 09:29:00 ResultValue Glucose, Serum 129 H NA 139 K 3.7 CL 107 Bicarbonate, Serum 24 Anion Gap, Serum 12 BUN 16 CREAT 0.83 GFR-Non >60 GFR- >60 Calcium, Serum 9.0 Lipase, Serum 14-Jun-2021 09:29:00 ResultValue Lipase, Serum 20 Urine Test 14-Jun-2021 09:08:00 ResultValue HCG, Urine NEGATIVE Urinalysis 14-Jun-2021 09:08:00 ResultValue Color, Urine Yellow Reference Range: STRAW,YELLOW Appearance, Urine CLEAR Specific [place], Urine 1.020 pH, Urine 5.0 Protein, Urine NEGATIVE Glucose, Urine NEGATIVE Blood, Urine NEGATIVE Ketones, Urine NEGATIVE Bilirubin, Urine NEGATIVE Urobilinogen, Urine <2.0 Nitrite, Urine Negative Leukocyte Esterase, Urine NEGATIVE Radiology Results: Impression: 1. Unremarkable appendix. 2. Probablesmall cyst or prominent folli (more content not included)... Normal [facility] Triage - EDon 06-14-2021 Triage - ED Quick Triage: Are You no Have You Given In The Last 6 Weeksno Are You Currently Breastfeedingno The patient and/or guardian verbally acknowledges placement for services into the following (when Urgent Care Service hours are operating):emergency department Chart Review: ARRIVAL INFORMATION Mode of Arrival: private vehicle CHIEF COMPLAINT UNIQUE HOGAN is a Female patient with a chief complaint of abdominal pain (Pt C/c of lower abdominal pain since this AM. Pt woke with pain. Pt denies urinary or bowel symptoms.). Triage Date/Time: 14-Jun-2021 09:03 MOISÉS: 3 Pain location: lower abdomen Vital Signs: Temperature: 97.9F ( 36.6C) taken temporal Blood Pressure: 128/91 Mean: Heart Rate: 81 Respiratory Rate: 15 Pulse Oximetry: 98% on room air, no respiratory support. Height: 5 feet 4.00 inches. 162.5 CM Weight: 196.4 pounds. Calculated 89.1 kg. (stated) Calculated BMI (kg/m2): 33.742 Calculated BSA (m2) 2.01 Kadi Coma Scale: Best Eye Response: (E4) spontaneous Best Motor Response: (M6) obeys commands Best Verbal Response: (V5) oriented Kadi Score: 15 Cough lasting greater than 3 weeks: no Allergies: yes Mask applied: yes Patient has homicidal thoughts: no Symptoms Are Negative For: anorexia, constipation, diaphoresis, diarrhea, distention, fever, nausea, rectal blood and vomiting. Risk Screens Suicide Risk Screen In the Past Month: Have you wished you were or wished you could go to sleep and not wake up no In the Past Month: Have you had any actual thoughts of killing yourself no In Your Lifetime: Have you ever done anything, started to do anything, or prepared to do anything to end your life no Feliz Fall Scale Screening Has the patient fallen before (or is the patient in the ED as a result of a fall) has not had a fall Does the patient have an impaired gait does not have impaired gait Is the patient cognitively impaired not cognitively impaired Interventions: Feliz Fall Interventions: LOW INTERVENTIONS: *patient oriented to surroundings and call system, * patient/family falls education completed and documented, *patients fall status communicated during bedside handoff, *whiteboard updated, *mode of toileting discussed with patient, *bed in low position with brakes locked, *call light in reach, * non-skid footwear TRAVEL HISTORY Travel History Coronavirus Screening: no exposure or symptoms Travel Exposure History: NO travel to International locations in the past 30 days PAIN Pain Scale Used: ROBERT Past Medical History: Past Medical History Reviewedyes Electronic Signatures: Sherry Maldonado (ERIKA) (Signed 14-Jun-2021 09:14) Authored: Quick Triage, Chart Review Hadley Louis (EMT-P) (Signed 14-Jun-2021 09:08) Entered: Risk Screens, Pain, Travel History, Chart Review, Scores, Past Medical History Authored: Quick Triage, Risk Screens, Pain, Travel History, Chart Review, Scores, Past Medical History Last Updated: 14-Jun-2021 09:14 by Sherry Maldonado (ERIKA) Normal [facility] URINALYSISon 06-14-2021 Appearance (U) CLEAR Normal CLEAR [facility] Comment on above: Performed By: #### U A ####[place] [address] Bilirubin Ql (U) Negative Normal NEGATIVE [facility] Comment on above: Performed By: #### U A ####[place] [address] Color (U) Yellow Normal STRAW,YELLOW [facility] Comment on above: Performed By: #### U A ####[place] [address] Glucose Ql (U) Negative Normal NEGATIVE [facility] Comment on above: Performed By: #### U A ####[place] [address] Hemoglobin Ql (U) Negative [facility] Comment on above: Performed By: #### U A ####[place] [address] Ketones Ql (U) Negative Normal NEGATIVE [facility] Comment on above: Performed By: #### U A ####[place] [address] Leukocyte esterase Test strip Ql (U) Negative Normal NEGATIVE [facility] Comment on above: Performed By: #### U A ####[place] [address] Nitrite Ql (U) Negative Normal NEGATIVE [facility] Comment on above: Performed By: #### U A ####[place] [address] pH (U) 5.0 [pH] Normal 5.0 - 8.0 [facility] Comment on above: Performed By: #### U A ####[address] [address] Protein Ql (U) Negative Normal NEGATIVE [facility] Comment on above: Performed By: #### U A ####[address] [address] Specific gravity (U) [Rel density] 1.020 Normal 1.005 - 1.035 [facility] Comment on above: Performed By: #### U A ####[address] [address] Urobilinogen (U) [Mass/Vol] mg/dL Normal 0.0 - 1.9 [facility] Comment on above: Performed By: #### U A ####[address] [address] Provider Note - ED v2on 11-0 Provider Note - ED v2 Provider Note - ED v2: Chart Review: ED NOTES ED NOTES: HPI: Patient is a 30-year-old female complains of a rash primarily on her left hand but now since is starting to be on the right hand as well. Started on the right hand just a couple days ago. The left hand it started approximately 4 weeks ago. She was using a Benadryl cream and it started to clear up. And then it gradually returned. It progressed to the point where her left hand primarily dorsal in the areas of the fifth and sixth rays and those same digits are starting to swell flake and become painful. ROS: All systems are negative other than as noted in HPI. Physical Exam I have reviewed the triage vital signs. Const: Well nourished, well developed, appears stated age, no acute distress Eyes: PERRL, EOM intact, no conjunctival injection, vision grossly normal HENT: Neck supple without meningismus , Moist mucous membranes, no pharyengeal swelling or exudate CV: Regular rate and rhythm, Warm, well-perfused extremities. Chest non tender RESP: Lungs clear bilaterally, Unlabored respiratory effort GI: soft, non-tender, non-distended, no masses : MSK: No gross deformities appreciated Skin: Patient has a dry flaky cracked skin in rash with some swelling primarily on the fifth digit of the left hand but also on the fourth digit and then going up into the hand in the same area with some redness and swelling. She has some increased redness as well between all of the digits of the left hand. And some redness kind of diffusely throughout as well. Small patch of the rash is also made its way to the right hand. Believe this rash is most consistent with a fungal skin rash. Neuro: Alert and oriented x4, GCS 15 , charge entry II-XII grossly intact. Sensation and motor function of extremities grossly intact. Psych: Appropriate mood and affect. HISTORY OF PRESENTING ILLNESS UNIQUE is a 30 year old Female and was seen by me at 06-Jun-2021 20:10 for a chief complaint of swelling . Other complaints include: pt c/o right hand rash and swelling for a couple of days, today, it is difficult to bend her finger and fluid is leaking from her fingers. (1). Triage Information: Most recent Vital Sign Value Date Temp (F): 97.7 06-06-2021 20:08 Temp (C): 36.5 06-06-2021 20:08 Heart Rate (beats/min): 99 06-06-2021 20:08 Respirations (breaths/min): 16 06-06-2021 20:08 SpO2 (%): 88 06-06-2021 20:08 BP Systolic (mm Hg): 135 06-06-2021 20:08 BP Diastolic (mm Hg): 86 06-06-2021 20:08 PAST MEDICAL HISTORY ATTESTATION: I have reviewed and confirmed nurse's/medic's notes for patient's medications, allergies, and medical, surgical, family and social history ALLERGIES/INTOLERANCES: Allergy Allergen: amoxicillin Type: Drug Reaction: Rash Allergen: erythromycin Type: Drug Reaction: Rash Allergen: sulfamethoxazole Type: Drug Reaction: Rash Allergen: cefuroxime Type: Drug Reaction: Rash Allergen: Honey Type: Food Reaction: Rash HEALTH HISTORY: No documented data. OUTPATIENT MEDICATIONS: Home Medications Review Status for Reconciliation: N/A Med Status: Patient Currently Takes Medications Drug Name: Cleocin HCl 300 mg oral capsule Instructions: 1 cap(s) orally every 8 hours Drug Name: levoFLOXacin 500 mg oral tablet Instructions: 1 tab(s) orally everyday Drug Name: clindamycin 300 mg oral capsule Instructions: 21 cap(s) orally every 8 hours Drug Name: clindamycin 300 mg oral capsule Instructions: 1 cap(s) orally every 6 hours x 10 days SIGNIFICANT EVENTS: No documented data. WIRE FRAME LAMP SHADE MAKER: Is : no(1) Is : no(1) RESULTS/VITAL SIGNS VITAL SIGNS: T PRBP SpO2O2(LPM) %FiO2 Method 06-Jun-2021 20:08:[id number] 88 room air, no respiratory support MEDICAL DECISION MAKING/ED COURSE MDM/ED COURSE: We will treat with a short course of oral steroids and an antifungal steroid cream as well. CLINICAL IMPRESSION Diagnosis/Annotation: ED Dx Name:Fungal dermatitis Code:B36.9 Disposition: discharged Type: home ATTESTATION CRITICAL CARE TIME Is this a critically ill patient: no Electronic Signatures: Ovidio Nichole) (Signed 06-Jun-2021 20:50) Authored: ED Notes, HPI, PMH, PE, Results/Vital Signs, MDM/ED Course, Clinical Impression, Attestation, Chart Review, Scores Last Updated: 06-Jun-2021 20:50 by Ovidio Nichole () References: 1. Data Referenced From "Triage - ED" 06-Jun-2021 20:08 [facility] Triage - EDon 06-06-2021 Triage - ED Quick Triage: Are You no Have You Given In The Last 6 Weeksno Are You Currently Breastfeedingno Chart Review: ARRIVAL INFORMATION Mode of Arrival: private vehicle CHIEF COMPLAINT UNIQUE HOGAN is a Female patient with a chief complaint of swelling. Other Complaints: pt c/o right hand rash and swelling for a couple of days, today, it is difficult to bend her finger and fluid is leaking from her fingers. Triage Date/Time: 06-Jun-2021 20:08 MOISÉS: 3V Vital Signs: Temperature: 97.7F ( 36.5C) Blood Pressure: 135/86 Mean: Heart Rate: 99 Respiratory Rate: 16 Pulse Oximetry: 88% on room air, no respiratory support. Height: 5 feet 7.00 inches. 170.1 CM Weight: 180.7 pounds. Calculated 82.0 kg. (stated) Calculated BMI (kg/m2): 28.340 Calculated BSA (m2) 1.97 Holstein Coma Scale: Best Eye Response: (E4) spontaneous Best Motor Response: (M6) obeys commands Best Verbal Response: (V5) oriented Kadi Score: 15 Allergies: yes Last menstrual period: unknown [employer] History: control Patient has homicidal thoughts: no Risk Screens Suicide Risk Screen In the Past Month: Have you wished you were or wished you could go to sleep and not wake up no In the Past Month: Have you had any actual thoughts of killing yourself no In Your Lifetime: Have you ever done anything, started to do anything, or prepared to do anything to end your life no Feliz Fall Scale Screening Has the patient fallen before (or is the patient in the ED as a result of a fall) has not had a fall Does the patient have an impaired gait does not have impaired gait Is the patient cognitively impaired not cognitively impaired Interventions: Feliz Fall Interventions: LOW INTERVENTIONS: *patient oriented to surroundings and call system, * patient/family falls education completed and documented, *patients fall status communicated during bedside handoff, *whiteboard updated, *mode of toileting discussed with patient, *bed in low position with brakes locked, *call light in reach, * non-skid footwear TRAVEL HISTORY Travel History Coronavirus Screening: no exposure or symptoms Travel Exposure History: NO travel to International locations in the past 30 days PAIN Pain Scale Used: ROBERT Past Medical History: Past Medical History Reviewedyes Electronic Signatures: Charo Gimenez (ERIKA) (Signed 06-Jun-2021 20:15) Entered: Risk Screens, Pain, Travel History, Chart Review, Past Medical History Authored: Quick Triage, Risk Screens, Pain, Travel History, Chart Review, Past Medical History Last Updated: 06-Jun-2021 20:15 by Charo Gimenez (ERIKA) [facility] Provider Note - ED v3on 08-3 Provider Note - ED v3 Provider Note: Chart Review: HISTORY OF PRESENTING ILLNESS UNIQUE is a 30 year old Female and was seen by me at 31-Mar-2021 21:16 for a chief complaint of dental pain/injury (PT TO ED WITH C/O "I BROKE A TOOTH ON MY LEFT LOWER JAW ON TUESDAY AND NOW I HAVE SOME SWELLING AND INCREASED PAIN")(1). Triage Information: Most recent Vital Sign Value Date Temp (F): 98.7 03-31-2021 21:19 Temp (C): 37 03-31-2021 21:19 Heart Rate (beats/min): 73 03-31-2021 21:19 Respirations (breaths/min): 16 03-31-2021 21:19 SpO2 (%): 98 03-31-2021 21:19 BP Systolic (mm Hg): 173 03-31-2021 21:19 BP Diastolic (mm Hg): 109 03-31-2021 21:19 PAST MEDICAL HISTORY ALLERGIES/INTOLERANCES: Allergy Allergen: amoxicillin Type: Drug Reaction: Rash Allergen: erythromycin Type: Drug Reaction: Rash Allergen: sulfamethoxazole Type: Drug Reaction: Rash Allergen: cefuroxime Type: Drug Reaction: Rash Allergen: Honey Type: Food Reaction: Rash HEALTH HISTORY: No documented data. OUTPATIENT MEDICATIONS: Home Medications Review Status for Reconciliation: Not Done Med Status: Patient Currently Takes Medications Drug Name: Cleocin HCl 300 mg oral capsule Instructions: 1 cap(s) orally every 8 hours Drug Name: levoFLOXacin 500 mg oral tablet Instructions: 1 tab(s) orally everyday Drug Name: clindamycin 300 mg oral capsule Instructions: 21 cap(s) orally every 8 hours Drug Name: clindamycin 300 mg oral capsule Instructions: 1 cap(s) orally every 6 hours x 10 days SIGNIFICANT EVENTS: No documented data. MDM MDM/ED COURSE: PMH: Reviewed PSH: Reviewed Social History: Reviewed. Allergies reviewed. HPI: This is a 30 year old female history of dental abscess who presents to the ED today with complaints of dental pain. She states that she had recently broken her left lower front tooth and has a dental appointment in 5 days. States the pain worsened today after she took a bite and think she broke it some more. She has been using Orajel without relief. PHYSICAL EXAM: GENERAL: Vitals noted, no distress. Alert and oriented x 3. Non-toxic. HEAD: Normocephalic, atraumatic. Pupils equally round and reactive to light. EOMI. overall poor dentition with multiple fractured teeth. No gumline abscess. No trismus noted. NECK: Supple. No midline or paraspinal tenderness through full range of motion. CARDIAC: Regular rate, rhythm. No murmurs or rubs. RESPIRATORY: Lungs clear and equal bilaterally. No respiratory distress. MUSCULOSKELETAL & SKIN: Warm, dry, and intact. No rash/lesions. No peripheral edema. NEURO: No focal neurologic deficits, acting appropriately. ED COURSE: This patient was seen and examined by myself independently. Patient will be started on clindamycin. Referred to her dentist which she has an appointment in 5 days. Continue to use Orajel as needed. She is discharged home in a stable condition with computer instructions given and is encouraged to return to the ER for any new or worsening symptoms. DIAGNOSTIC IMPRESSION: #1 dental pain DISPOSITION Diagnosis/Annotation: ED Dx Name:Toothache Code:K08.89 Disposition: discharged Type: home CONSULT CRITICAL CARE TIME Is this a critically ill patient: no Electronic Signatures: Anette Bardales (RUBBER INSULATOR-CARTRIDGE FEEDER) (Signed 31-Mar-2021 21:39) Authored: HPI, PMH, MDM/ED Course, Clinical Impression, Attestation, Chart Review, Scores Last Updated: 31-Mar-2021 21:39 by Anette Bardales (RUBBER INSULATOR-CARTRIDGE FEEDER) References: 1. Data Referenced From "Triage - ED" 31-Mar-2021 21:19 [facility] Risk Screen - Adult Emergenc yon 03-31-2021 Risk Screen - Adult Emergency Preferred Language: Preferred Language: Preferred Language for Discussing Health Care (patient/designee)Burundian Advanced Directives: Advance Directive/DNRno Family Violence Adult: Abuse Screen: Are you or have you been threatened or abused physically, emotionally, or sexually by anyoneno Learning Assessment (Patient): Learning Assessment (Patient): Patient is Able to be Assessed for Learningyes Factors Influencing Readiness to Learnacuteness of illness; information requested Factors that Impact Ability to Learnnone Devices/Methods Used to Communicatenone Learning Preferencesverbal instruction; written material Cultural Considerationsnone Developmental Considerationsnone Tenriism Considerationsnone Learning Assessment (Other Learner): Learning Assessment (Other Learner): Other learner availableno Pressure Injury/TB/Substance: Pressure Injury: Do you have a coughno Smoking Statuslight user (uses <10 cig/day, OR <0.5 ppd, OR 1 can/pouch loose leaf tobacco per week, OR <0.5 vape pods per day) Tobacco Cessation Education (provide if tobacco use within the last 12 mos) patient declined Alcohol Usedenies Drug Usedenies Drug 2 Usedenies Admission Risk Screen: Significant IndicatorsComplete CAGE: CAGE: [place] an [place] [place]/ [place] no Electronic Signatures: Erika Alanis (RN) (Signed 31-Mar-2021 21:23) Authored: Preferred Language, Advanced Directives, Family Violence Adult, Learning Assessment (Patient), Learning Assessment (Other Learner), Pressure Injury/TB/Substance, Pressure Injury, CAGE Last Updated: 31-Mar-2021 21:23 by Erika Alanis (RN) [facility] Triage - EDon 03-31-2021 Triage - ED Quick Triage: Are You no Have You Given In The Last 6 Weeksno Are You Currently Breastfeedingno The patient and/or guardian verbally acknowledges placement for services into the following (when Urgent Care Service hours are operating):emergency department Chart Review: PRIMARY ASSESSMENT UNIQUE HOGAN'skylar primary assessment is Within Defined Limits. The airway is open and patent. Breathing spontaneous and unlabored with clear breath sounds bilaterally. Circulation is normal with good peripheral pulses. Skin is warm and dry and color is normal for race. ARRIVAL INFORMATION Means of Arrival: Ambulatory Mode of Arrival: private vehicle Arrival From: home Accompanied By: self Language: Spoken Language Preferred: Burundian Reading Language Preferred: Burundian Dietitian Teacher Requested: no hourly sign language interpreter was requested MDRO: History of MDRO: no Present on Arrival: Device Present on Arrival to ED: no CHIEF COMPLAINT UNIQUE HOGAN is a Female patient with a chief complaint of dental pain/injury (PT TO ED WITH C/O "I BROKE A TOOTH ON MY LEFT LOWER JAW ON TUESDAY AND NOW I HAVE SOME SWELLING AND INCREASED PAIN"). Triage Date/Time: 31-Mar-2021 21:10 MOISÉS: 4 Pain Rating (0-10): 9 = Severe Pain location: JAW Vital Signs: Temperature: 98.7F ( 37.0C) taken oral Blood Pressure: 173/109 Mean: Heart Rate: 73 Respiratory Rate: 16 Pulse Oximetry: 98% on room air, no respiratory support. Height: 5 feet 4 inches. 162.5 CM Weight: 200.6 pounds. Calculated 91.0 kg. Calculated BMI (kg/m2): 34.461 Calculated BSA (m2) 2.03 Holstein Coma Scale: Best Eye Response: (E4) spontaneous Best Motor Response: (M6) obeys commands Best Verbal Response: (V5) oriented Kadi Score: 15 Cough lasting greater than 3 weeks: no Patient immunocompromised related to: N/A Allergies: yes W[employer]KER History: control Patient has homicidal thoughts: no Symptoms Are POSITIVE For: jaw pain, pain (describe) and toothache. Symptoms Are Negative For: bleeding, earache, facial pain, fever, headache, mouth sores and tooth loss. Risk Screens Suicide Risk Screen In the Past Month: Have you wished you were or wished you could go to sleep and not wake up no In the Past Month: Have you had any actual thoughts of killing yourself no In Your Lifetime: Have you ever done anything, started to do anything, or prepared to do anything to end your life no Feliz Fall Scale Screening Has the patient fallen before (or is the patient in the ED as a result of a fall) has not had a fall Does the patient have an impaired gait does not have impaired gait Is the patient cognitively impaired not cognitively impaired Interventions: Feliz Fall Interventions: LOW INTERVENTIONS: *patient oriented to surroundings and call system, * patient/family falls education completed and documented, *patients fall status communicated during bedside handoff, *whiteboard updated, *mode of toileting discussed with patient, *bed in low position with brakes locked, *call light in reach, * non-skid footwear PAST MEDICAL HISTORY Immunization History: Last Known Tetanus Immunization: Unknown TRAVEL HISTORY Travel History Coronavirus Screening: no exposure or symptoms Travel Exposure History: NO travel to International locations in the past 30 days PAIN Pain Scale Used: ROBERT Pain Rating (0-10): 9 = Severe Past Medical History: Past Medical History Reviewedyes Electronic Signatures: Erika Alanis (ERIKA) (Signed 31-Mar-2021 21:22) Entered: Risk Screens, Pain, Arrival, ABCD, Immunizations, Travel History, Chart Review, Scores, Past Medical History Authored: Quick Triage, Risk Screens, Pain, Arrival, ABCD, Immunizations, Travel History, Chart Review, Scores, Past Medical History Last Updated: 31-Mar-2021 21:22 by Erika Alanis (RN) [facility] CT Abdomen/Pelvis w/ Contras ton 11-08-2018 CT Abdomen/Pelvis w/ Contrast Exam Date/Time: 11/08/2018 08:47 EDT Reason for Exam: ABD PAIN;Pain Report STUDY: CT Abdomen/Pelvis w/ Contrast; 11/08/2018 8:47 am INDICATION: Pain COMPARISON: No available comparisons. ACCESSION NUMBER(S): [id number] ORDERING CLINICIAN: Deborah Loaiza TECHNIQUE: CT of the abdomen and pelvis was performed with IV contrast. 119 mL of Omnipaque was administered intravenously. Coronal and sagittal reformatted images were obtained. FINDINGS: ABDOMEN: LIVER: Hepatic steatosis. SPLEEN: No focal splenic lesions. PANCREAS: No focal pancreatic lesions. ADRENALS: Within normal limits. GALLBLADDER: No gallbladder wall thickening. BILE DUCTS: No biliary ductal dilation KIDNEYS/URETERS: Symmetric nephrograms bilaterally without hydronephrosis. VESSELS: Aorta and IVC are normal in caliber. BOWEL: No bowel obstruction. Normal appendix. Small hiatal hernia. PERITONEUM/RETROPERITONEU M/LYMPH NODES: No lymphadenopathy by CT size criteria. No ascites or free air. PELVIS: REPRODUCTIVE ORGANS: IUD within the endometrial canal. BLADDER: Within normal limits. Exam Date/Time: 11/08/2018 08:47 EDT Report ABDOMINAL WALL: Within normal limits. BONES: No aggressive osseous lesions. LOWER CHEST: Linear bands of atelectasis in the lower lobes. IMPRESSION: No acute process in the abdomen or pelvis. Hepatic steatosis. FINAL REPORT Dictated: 11/08/2018 6:42 pm Marv Bright MD Signed (Electronic Signature): 11/08/2018 6:42 pm Signed by: Marv Bright MD Technologist: [facility] Miscellaneouson 10-20-19 19 Status See Ref Lab Report [facility] Comment on above: Performed By: #### [id number] #### [employer] [address] [place] [address] NM Hepatobiliary Duct System Imaging w/EFon 10-18-2018 NM Hepatobiliary Duct System Imaging w/EF Exam Date/Time: 10/18/2018 13:06 EDT Reason for Exam: RIGHT UPPER QUADRANT PAIN;Abdominal pain Report STUDY: NM Hepatobiliary Duct System Imaging w/EF; 10/18/2018 1:06 pm INDICATION: Abdominal pain. 5.6 COMPARISON: ACCESSION NUMBER(S): [id number] ORDERING CLINICIAN: Deborah Loaiza TECHNIQUE: DIVISION OF NUCLEAR MEDICINE HEPATOBILIARY SCAN (HIDA), QUANTITATIVE The patient received an intravenous dose of 5.6 mCi of Tc-99m mebrofenin (Choletec). Sequential images of the upper abdomen were then acquired over the next 60 minutes. An intravenous infusion of the cholecystokinin (CCK) analogue, Sincalide, was then administered followed by an additional period of imaging. Computer quantification of gallbladder emptying was also performed FINDINGS: There is prompt accumulation of activity within the liver and normal subsequent excretion via the biliary ductal system into the small bowel. The gallbladder first visualizes at about 18 minutes after radiopharmaceutical injection and progressively fills. After Sincalide administration, there is prompt contraction of the gallbladder with further anterograde transit of activity into the small bowel. The gallbladder ejection fraction is calculated to be 72 % (normal above 38%). IMPRESSION: Normal hepatobiliary imaging with no sign of cystic duct obstruction or biliary dyskinesia. This study was interpreted at [facility]. FINAL REPORT Dictated: 10/18/2018 1:36 pm Scarlet Howe MD Signed (Electronic Signature): 10/18/2018 1:36 pm Signed by: Scarlet Howe MD Technologist: CORDELIA Normal [facility] Lab Miscellaneouson 10-17-19 Test Name Celiac panel [facility] Comment on above: Performed By: #### 2 [id number] #### [employer] [address] [place] [address] PROGRESSon 09-25-2018 Protein mass conc HNO ID: [id number] Author: Mao Chiu II Service: (none) Author Type: REGISTRAR MUSEUM Type: Progress Notes Filed: 09/25/2018 4:27 PM Note Text: Assessment and Plan H52.03 Hyperopia, bilateral (primary encounter diagnosis) H52.223 Regular astigmatism, bilateral Comment: Recommend update of glasses strength. Eyestrain from uncorrected refractive error most likely cause of vision complaints. Otherwise good ocular health. Recheck in one year. I have confirmed and edited as necessary the relevant ophthalmic history, ROS, and the neuro exam findings as obtained by others. I have seen and examined Unique Hogan. I have discussed the case and the management of this patient's care with the Resident/Fellow, if applicable. I also have reviewed and agree with the assessment and plan as stated above and agree with all of its relevant components. Mao Chiu, II, OD Normal [facility] US Abdomen, Limitedon 2018 US Abdomen, Limited Exam Date/Time: 08/14/2018 07:26 EST Reason for Exam: BILIARY COLIC Report STUDY: US Abdomen, Limited 08/14/2018 7:26 am INDICATION: 27 y/o F with BILIARY COLIC. COMPARISON: None. ACCESSION NUMBER(S): [id number] ORDERING CLINICIAN: Shannon Aguilera TECHNIQUE: Routine ultrasound of the right upper quadrant was performed. Static images were obtained for remote interpretation. FINDINGS: LIVER: The hepatic parenchyma is coarsened and hyperechoic. It is difficult to penetrate the liver with the ultrasound beam. Liver appears enlarged, measuring up to 18.8 cm in greatest sagittal dimension. No focal intrahepatic mass lesion is identified on the provided images. BILE DUCTS: No intrahepatic biliary dilatation. Common bile duct is within normal limits, measuring 5 mm in diameter. GALLBLADDER: No gallbladder wall thickening or pericholecystic fluid is observed. No shadowing gallstones are identified. PANCREAS: The pancreas is inadequately evaluated secondary to significant shadowing from overlying bowel gas. RIGHT KIDNEY: Visible portions of the right kidney appears sonographically unremarkable. PERITONEAL FLUID: None seen in the right upper quadrant. IMPRESSION: Exam Date/Time: 08/14/2018 07:26 EST Report Coarsened and hyperechoic hepatic parenchyma, compatible with steatosis or hepatocellular disease. Unremarkable sonographic appearance of the gallbladder. FINAL REPORT Dictated: 08/14/2018 8:32 am Huber Peña MD Signed (Electronic Signature): 08/14/2018 8:32 am Signed by: Huber Peña MD Technologist: ROBINSON [facility] Amylaseon 08-11-2018 Amylase enzyme act/vol 32 U/L Normal 25-115 [facility] Comment on above: Performed By: #### L IPASE, CBCDIF, ERIKA, CMET ####Unless otherwise noted, all testing performed by [address], [place] [phone]: [id number] Director: Natanael Martin M.D. CBC with Diffon 08-11-2018 Basophils Auto #/vol (Bld) 0.1 K/mcL Normal 0-0.2 [facility] Comment on above: Performed By: #### L IPASE, CBCDIF, ERIKA, CMET ####Unless otherwise noted, all testing performed by [address] [phone]: [id number] Director: Natanael Martin M.D. Basophils/100 WBC Auto (Bld) 1.4 % Normal [facility] Comment on above: Performed By: #### L IPASE, CBCDIF, ERIKA, CMET ####Unless otherwise noted, all testing performed by [address] [phone]: [id number] Director: Natanael Martin M.D. Eosinophils Auto #/vol (Bld) 0.4 K/mcL Normal 0-0.5 [facility] Comment on above: Performed By: #### L IPASE, CBCDIF, ERIKA, CMET ####Unless otherwise noted, all testing performed by [address] [phone]: [id number] Director: Natanael Martin M.D. Eosinophils/100 WBC Auto (Bld) 6.7 % Normal [facility] Comment on above: Performed By: #### L IPASE, CBCDIF, ERIKA, CMET ####Unless otherwise noted, all testing performed by [address] [phone]: [id number] Director: Natanael Martin M.D. Erythrocyte distribution width Auto Ratio (RBC) 12.7 % Normal 10.0-14.4 [facility] Comment on above: Performed By: #### L IPASE, CBCDIF, ERIKA, CMET ####Unless otherwise noted, all testing performed by [address] [phone]: [id number] Director: Natanael Martin M.D. Hematocrit Auto Volume Fraction (Bld) 45.3 % High 34.4-44.8 [facility] Comment on above: Performed By: #### L IPASE, CBCDIF, ERIKA, CMET ####Unless otherwise noted, all testing performed by [address] [phone]: [id number] Director: Natanael Martin M.D. Hemoglobin mass conc (Bld) 15.6 g/dL High 11.6-15.4 [facility] Comment on above: Performed By: #### L IPASE, CBCDIF, ERIKA, CMET ####Unless otherwise noted, all testing performed by [address] [phone]: [id number] Director: Natanael Martin M.D. Lymphocytes Auto #/vol (Bld) 2.0 K/mcL Normal 1.0-3.7 [facility] Comment on above: Performed By: #### L IPASE, CBCDIF, ERIKA, CMET ####Unless otherwise noted, all testing performed by [address] [phone]: [id number] Director: Natanael Martin M.D. Lymphocytes/100 WBC Auto (Bld) 33.4 % Normal [facility] Comment on above: Performed By: #### L IPASE, CBCDIF, ERIKA, CMET ####Unless otherwise noted, all testing performed by [address] [phone]: [id number] Director: Natanael Martin M.D. MCH Auto Entitic mass (RBC) 30.5 pg Normal 27.9-33.9 [facility] Comment on above: Performed By: #### L IPASE, CBCDIF, ERIKA, CMET ####Unless otherwise noted, all testing performed by [place] [phone]: [id number] Director: Natanael Martin M.D. MCHC Auto mass conc (RBC) 34.3 g/dL Normal 33.1-35.1 [facility] Comment on above: Performed By: #### L IPASE, CBCDIF, ERIKA, CMET ####Unless otherwise noted, all testing performed by [place] [phone]: [id number] Director: Natanael Martin M.D. MCV Auto Entitic volume (RBC) 88.8 fL Normal 82.6-98.9 [facility] Comment on above: Performed By: #### L IPASE, CBCDIF, ERIKA, CMET ####Unless otherwise noted, all testing performed by [address] [phone]: [id number] Director: Natanael Martin M.D. Monocytes Auto #/vol (Bld) 0.4 K/mcL Normal 0.1-0.6 [facility] Comment on above: Performed By: #### L IPASE, CBCDIF, ERIKA, CMET ####Unless otherwise noted, all testing performed by [address] [phone]: [id number] Director: Natanael Martin M.D. Monocytes/100 WBC Auto (Bld) 6.1 % Normal [facility] Comment on above: Performed By: #### L IPASE, CBCDIF, ERIKA, CMET ####Unless otherwise noted, all testing performed by [address]: [id number] Director: Natanael Martin M.D. Neutrophils Auto #/vol (Bld) 3.2 K/mcL Normal 1.2-6.9 [facility] Comment on above: Performed By: #### L IPASE, CBCDIF, ERIKA, CMET ####Unless otherwise noted, all testing performed by [address]8509[address]IA: [id number] Director: Natanael Martin M.D. Platelet mean volume Auto Entitic volume (Bld) 9.3 fL Normal 7.0-10.6 [facility] Comment on above: Performed By: #### L IPASE, CBCDIF, ERIKA, CMET ####Unless otherwise noted, all testing performed by [address]8509[address]: [id number] Director: Natanael Martin M.D. Platelets Auto #/vol (Bld) 229 K/mcL Normal 162-402 [facility] Comment on above: Performed By: #### L IPASE, CBCDIF, ERIKA, CMET ####Unless otherwise noted, all testing performed by [address] [phone]: [id number] Director: Natanael Martin M.D. RBC Auto #/vol (Bld) 5.11 M/mcL High 3.7-5.0 [facility] Comment on above: Performed By: #### L IPASE, CBCDIF, ERIKA, CMET ####Unless otherwise noted, all testing performed by [address] [phone]: [id number] Director: Natanael Martin M.D. Segmented Neut % 52.4 % Normal [facility] Comment on above: Performed By: #### L IPASE, CBCDIF, ERIKA, CMET ####Unless otherwise noted, all testing performed by [address] [phone]: [id number] Director: Natanael Martin M.D. WBC Auto #/vol (Bld) 6.1 K/mcL Normal 3.4-10.6 [facility] Comment on above: Performed By: #### L IPASE, CBCDIF, ERIKA, CMET ####Unless otherwise noted, all testing performed by [address] [phone]: [id number] Director: Natanael Martin M.D. Comprehensive Metabolic Pane [facility] 08-11-2018 Albumin mass conc 4.1 g/dL Normal 3.2-5.2 [facility] Comment on above: Performed By: #### L IPASE, CBCDIF, ERIKA, CMET ####Unless otherwise noted, all testing performed by [address] [phone]: [id number] Director: Natanael Martin M.D. ALP enzyme act/vol 82 U/L Normal 40-140 [facility] Comment on above: Performed By: #### L IPASE, CBCDIF, ERIKA, CMET ####Unless otherwise noted, all testing performed by [phone]: [id number] Director: Natanael Martin M.D. ALT enzyme act/vol 53 U/L Normal 14-65 [facility] Comment on above: Result Comment: This test result might be falsely depressed or falsely elevated onsamples drawn from patients taking Sulfasalazine and Sulfapyridine.Venipuncture should occur prior to taking either of these drugs. Performed By: #### L IPASE, CBCDIF, ERIKA, CMET ####Unless otherwise noted, all testing performed by [address] [phone]: [id number] Director: Natanael Martin M.D. AST enzyme act/vol 21 U/L Normal 0-45 [facility] Comment on above: Result Comment: This test result might be falsely depressed or falsely elevated onsamples drawn from patients taking Sulfasalazine and Sulfapyridine.Venipuncture should occur prior to taking either of these drugs. Performed By: #### L IPASE, CBCDIF, ERIKA, CMET ####Unless otherwise noted, all testing performed by [address] [phone]: [id number] Director: Natanael Martin M.D. Bilirubin mass conc 0.9 mg/dL Normal 0.3-1.2 [facility] Comment on above: Performed By: #### L IPASE, CBCDIF, ERIKA, CMET ####Unless otherwise noted, all testing performed by [address]8509CLIA: [id number] Director: Natanael Martin M.D. Calcium mass conc 9.2 mg/dL Normal 8.4-10.2 [facility] Comment on above: Performed By: #### L IPASE, CBCDIF, ERIKA, CMET ####Unless otherwise noted, all testing performed by [address]8509CLIA: [id number] Director: Natanael Martin M.D. Chloride molar conc 106 mmol/L Normal 98-108 [facility] Comment on above: Performed By: #### L IPASE, CBCDIF, ERIKA, CMET ####Unless otherwise noted, all testing performed by [address]8509CLIA: [id number] Director: Natanael Martin M.D. CO2 molar conc 30 mmol/L Normal 21-32 [facility] Comment on above: Performed By: #### L IPASE, CBCDIF, ERIKA, CMET ####Unless otherwise noted, all testing performed by [address]8509CLIA: [id number] Director: Natanael Martin M.D. Creatinine mass conc 0.97 mg/dL Normal 0.40-1.10 [facility] Comment on above: Performed By: #### L IPASE, CBCDIF, ERIKA, CMET ####Unless otherwise noted, all testing performed by [address] [phone]: [id number] Director: Natanael Martin M.D. GFR/1.73 sq M predicted among blacks MDRD vol rate/area (S/P/Bld) mL/min/{1.73_m2} Normal [facility] Comment on above: Result Comment: Afri can Romanian GFR Calc Performed By: #### L IPASE, CBCDIF, ERIKA, CMET ####Unless otherwise noted, all testing performed by [address] [phone]: [id number] Director: Natanael Martin M.D. GFR/1.73 sq M predicted among non-blacks MDRD vol rate/area (S/P/Bld) mL/min/{1.73_m2} Normal [facility] Comment on above: Result Comment: Non- GFR CalceGFR is an estimated Glomerular Filtration Rate based on the valueof the patient's serum creatinine. In outpatients, eGFR should be usedas a helpful tool in screening for CKD. In inpatients or patients withacute renal failure, eGFR represents the GFR at the moment of the drawand should be used with caution. Performed By: #### L IPASE, CBCDIF, ERIKA, CMET ####Unless otherwise noted, all testing performed by [address] [phone]: [id number] Director: Natanael Martin M.D. Glucose mass conc 81 mg/dL Normal 70-99 [facility] Comment on above: Result Comment: This test result might be falsely depressed or falsely elevated onsamples drawn from patients taking Sulfasalazine and Sulfapyridine.Venipuncture should occur prior to taking either of these drugs. Performed By: #### L IPASE, CBCDIF, ERIKA, CMET ####Unless otherwise noted, all testing performed by [address] [phone]: [id number] Director: Natanael Martin M.D. Potassium molar conc 4.5 mmol/L Normal 3.5-5.1 [facility] Comment on above: Performed By: #### L IPASE, CBCDIF, ERIKA, CMET ####Unless otherwise noted, all testing performed by [address] [phone]: [id number] Director: Natanael Martin M.D. Protein mass conc 7.7 g/dL Normal 6.0-8.0 [facility] Comment on above: Performed By: #### L IPASE, CBCDIF, ERIKA, CMET ####Unless otherwise noted, all testing performed by [address] [phone]: [id number] Director: Natanael Martin M.D. Sodium molar conc 139 mmol/L Normal 135-145 [facility] Comment on above: Performed By: #### L IPASE, CBCDIF, ERIKA, CMET ####Unless otherwise noted, all testing performed by [address] [phone]: [id number] Director: Natanael Martin M.D. Urea nitrogen mass conc 11 mg/dL Normal 8-25 [facility] Comment on above: Performed By: #### L IPASE, CBCDIF, ERIKA, CMET ####Unless otherwise noted, all testing performed by [address], [place] [phone]: [id number] Director: Natanael Martin M.D. Culture, Urineon 08-11-2018 Culture, Urine Test Name: Culture, Urine Culture Status: Final Culture Report: No significant growth. Micro Source: Urine Normal [facility] Comment on above: Performed By: #### U RCUL ####Unless otherwise noted, all testing performed by [address] [phone]: [id number] Director: Natanael Martin M.D. Lipaseon 08-11-2018 Lipase enzyme act/vol 88 U/L Normal 73-393 [facility] Comment on above: Performed By: #### L IPASE, CBCDIF, ERIKA, CMET ####Unless otherwise noted, all testing performed by [address] [phone]: [id number] Director: Natanael Martin M.D. POC , Urineon 08-11 HCG ( test) Ql (U) Negative Invalid Interpretation Code Negative [facility] Internal Control Pass Invalid Interpretation Code [facility] Interpretation and review of laboratory results Normal Invalid Interpretation Code [facility] Specific gravity Relative Density (U) Invalid Interpretation Code [facility] POC Urinalysis Dipstickon Bilirubin Ql (U) Small Abnormal Negative [facility] th Glucose Ql (U) Negative Invalid Interpretation Code Normal, Negative mg/dL [facility] Hemoglobin Test strip Ql (U) Negative Invalid Interpretation Code Negative [facility] Interpretation and review of laboratory results Abnormal Invalid Interpretation Code [facility] Ketones Ql (U) Negative Invalid Interpretation Code Negative mg/dL [facility] Leukocyte esterase Test strip Ql (U) Negative Invalid Interpretation Code Negative [facility] Nitrite Test strip Ql (U) Negative Invalid Interpretation Code Negative [facility] pH Test strip (U) 6.0 [pH] Invalid Interpretation Code [facility] Protein Test strip Ql (U) 100 Abnormal Negative mg/dL [facility] Specific gravity Relative Density (U) 1.030 Abnormal [facility] Urobilinogen Test strip Qn (U) 0.2 mg/dL Invalid Interpretation Code <2.0, 0.2, Normal, Negative, 1.0, 2.0, <1.0 [facility] .Manual Abson 07-17-2018 Basophil Abs Man 0.0 10x3/ Normal 0.0-0.2 [facility] Comment on above: Order Comment: Order Added by Discern Expert. Performed By: #### 3 [id number] #### [facility] [address] [place] [address] Eos Abs Man 0.1 10x3/ Normal 0.0-0.5 [facility] Comment on above: Order Comment: Order Added by Dagoberto Expert. Performed By: #### 3 [id number] #### [facility] Rem[facility]emo [address] [place] [address] Lymphocytes #/vol (Bld) 0.6 10x3/ Low 1.2-3.4 [facility] Comment on above: Order Comment: Order Added by Dagoberto Expert. Performed By: #### 3 [id number] #### [facility] Rem[facility] [address] [place] [address] O[place] Abs Man 0.1 10x3/ Normal 0.0-0.7 [facility] Comment on above: Order Comment: Order Added by Dagoberto Expert. Performed By: #### 3 [id number] #### [facility] Rem[facility] [address] [place] [address] Segs Abs Man 10.3 10x3/ High 1.4-6.5 [facility] Comment on above: Order Comment: Order Added by Dagoberto Expert. Performed By: #### 3 [id number] #### [facility] Rem[facility]emo [address] [place] [address] BMPon 07-17-2018 Anion gap molar conc 10 mmol/L Normal 10-20 [facility] Comment on above: Performed By: #### 2 [id number] #### [facility] [employer] [address] [place] [address] Calcium mass conc 9.7 mg/dL Normal 8.6-10.3 [facility] Comment on above: Performed By: #### 2 [id number] #### [facility] [employer] [address] [place] [address] Chloride molar conc 104 mmol/L Normal 98-107 [facility] Comment on above: Performed By: #### 2 [id number] #### [facility] [employer] [address] [place] [address] CO2 molar conc 27.0 mmol/L Normal 21.0-32.0 [facility] Comment on above: Performed By: #### 2 [id number] #### [facility] [employer] [address] [place] [address] Creatinine mass conc 0.8 mg/dL Normal 0.5-1.1 [facility] Comment on above: Performed By: #### 2 [id number] #### [facility] [employer] [address] [place] [address] Glucose mass conc 88 mg/dL Normal 70-99 [facility] Comment on above: Performed By: #### 2 [id number] #### [facility] [employer] [address] [place] [address] Potassium molar conc 4.0 mmol/L Normal 3.5-5.3 [facility] Comment on above: Performed By: #### 2 757718 #### [facility] [employer] [address] [place] [address] Sodium molar conc 137 mmol/L Normal 136-145 [facility] Comment on above: Performed By: #### 2 984249 #### [facility] [employer] [address] [place] [address] Urea nitrogen mass conc 11 mg/dL Normal 6-23 [facility] Comment on above: Performed By: #### 2 [id number] #### [facility] [employer] [address] [place] [address] Urea nitrogen/Creatinin e mass ratio 13.8 ratio Normal 5.4-30.0 [facility] Comment on above: Performed By: #### 2 865001 #### [facility] [employer] [address] [place] [address] CBC w/ Auto Diffon 8 Erythrocyte distribution width Ratio (RBC) 12.4 % Normal 11.5-14.5 [facility] Comment on above: Performed By: #### 2 949290 #### [facility] [address] [place] [address] Hematocrit Volume Fraction (Bld) 46.8 % Normal 36.0-48.0 [facility] Comment on above: Performed By: #### 2 285510 #### [facility] [address] [place] [address] Hemoglobin mass conc (Bld) 16.3 g/dL High 12.0-16.0 [facility] Comment on above: Performed By: #### 2 282972 #### [facility] [address] [place] [address] MCH Entitic mass (RBC) 31.1 pg High 27.0-31.0 [facility] Comment on above: Performed By: #### 2 [id number] #### [facility] [address] [place] [id number] MCHC mass conc (RBC) 34.8 g/dL Normal 33.0-37.0 [facility] Comment on above: Performed By: #### 2 [id number] #### [facility] [employer] [address] [place], [place] [address] MCV Entitic volume (RBC) 89.5 fL Normal 78.0-100.0 [facility] Comment on above: Performed By: #### 2 057888 #### [facility] Nogueira[facility]emo [address] [place] [address] Platelet mean volume Entitic volume (Bld) 8.6 fL Normal 7.4-11.0 [facility] Comment on above: Performed By: #### 2 604117 #### [facility] [address] [place] [address] Platelets #/vol (Bld) 241 E3/mcL Normal 130-400 [facility] Comment on above: Performed By: #### 2 752757 #### [facility] [address] [place] [address] RBC #/vol (Bld) 5.24 E6/mcL Normal 3.90-5.40 [facility] Comment on above: Performed By: #### 2 433205 #### [facility] [address] [place] [address] WBC #/vol (Bld) 11.3 E3/mcL High 3.6-11.0 [facility] Comment on above: Performed By: #### 2 639164 #### [facility] [employer] [address] [place], [place] [address] Hep Func Panelon 07-17-2018 Albumin mass conc 5.0 g/dL Normal 3.4-5.0 [facility] Comment on above: Performed By: #### 2 109973 #### [facility] [employer] [address] [place], [place] [address] Albumin/Globulin mass ratio 2.1 {ratio} High 1.1-1.9 [facility] Comment on above: Performed By: #### 2 226787 #### [facility] [employer] [address] [place], [place] [address] Alk Phos 84 Int._Unit/L Normal 33-110 [facility] Comment on above: Performed By: #### 2 [id number] #### [facility] [employer] [address] [place] [address] ALT enzyme act/vol 36 Int._Unit/L Normal 7-[address] [facility] Comment on above: Performed By: #### 2 905338 #### [facility] [employer] [address] [place] [address] AST enzyme act/vol 16 Int._Unit/L Normal 9-[address] [facility] Comment on above: Performed By: #### 2 033425 #### [facility] [employer] [address] [place] [address] Bili Direct 0.08 mg/dL Normal 0.00-0.30 [facility] Comment on above: Performed By: #### 2 940235 #### [facility] [employer] [address] [place] [address] Bili Indirect 0.76 mg/dL Normal [facility] Comment on above: Result Comment: No e stablished ranges available for the indirect bilirubin Performed By: #### 2 978622 #### [facility] [employer] [address] [place] [address] Bili Total 0.84 mg/dL Normal 0.00-1.20 [facility] Comment on above: Performed By: #### 2 189009 #### [facility] [employer] [address] [place] [address] Globulin mass conc (S) 2.0 g/dL Normal 2.0-4.0 [facility] Comment on above: Performed By: #### 2 993292 #### [facility] [employer] [address] [place] [address] Protein mass conc 7.4 g/dL Normal 6.4-8.2 [facility] Comment on above: Performed By: #### 2 794361 #### [facility] [employer] [address] [place] [address] Lipase Levelon 07-17-2018 Lipase Lvl 10 Int._Unit/L Normal 9-82 [facility] Comment on above: Performed By: #### 2 [id number] #### [facility] [employer] [address] [place] [address] Manual Diffon 07-17-2018 Band form neutrophils/100 WBC (Bld) 2 High 0-1 [facility] Comment on above: Order Comment: Order Added by Discern Expert. Performed By: #### 2 [id number] #### [facility] [employer] [address] [place] [address] Basophils/100 WBC (Bld) 0 % Normal 0-1 [facility] Comment on above: Order Comment: Order Added by Discern Expert. Performed By: #### 2 326394 #### [facility] [address] [place] [address] Eosinophils/100 WBC (Bld) 1 % Normal 0-5 [facility] Comment on above: Order Comment: Order Added by Discern Expert. Performed By: #### 2 237974 #### [facility] [address] [place] [address] Lymphocytes/100 WBC (Bld) 5 % Low 14-48 [facility] Comment on above: Order Comment: Order Added by Discern Expert. Performed By: #### 2 512091 #### [facility] [address] [place] [address] Monocytes/100 WBC (Bld) 1 % Normal 1-11 [facility] Comment on above: Order Comment: Order Added by Discern Expert. Performed By: #### 2 980081 #### [facility] [address] [place] [address] RBC morphology finding Nom (Bld) NORMAL Normal [facility] Comment on above: Order Comment: Order Added by Discern Expert. Performed By: #### 2 910781 #### [facility] [address] [place] [address] Segs Man 91 % High 37-75 [facility] Comment on above: Order Comment: Order Added by Discern Expert. Performed By: #### 2 981249 #### [facility] [address] [place] [address] UA Completeon 07-17-2018 Color Nom (U) Yellow Normal Yellow [facility] Comment on above: Performed By: #### 8 [id number] #### [facility] Urinal[facility] [place] [address] Glucose mass conc (U) Negative Normal Negative [facility] Comment on above: Performed By: #### 8 [id number] #### [facility]inal[facility] [place] [address] Ketones Ql (U) Negative Normal Negative [facility] Comment on above: Performed By: #### 8 [id number] #### [facility]inal[facility] [place] [address] UA Blood Negative Normal Negative [facility] Comment on above: Performed By: #### 8 [id number] #### [facility] [place] [address] UA Amorph Shannan 3+ /HPF Abnormal None [facility] Comment on above: Performed By: #### 8 [id number] #### [facility]inal[facility] [place] [address] UA Clarity SltCloudy Abnormal Clear [facility] Comment on above: Performed By: #### 8 [id number] #### [facility] [place] [address] UA Leuk Est Negative Normal Negative [facility] Comment on above: Performed By: #### 8 [id number] #### [facility]inal[facility] [place] [address] UA Nitrite Negative Normal Negative [facility] Comment on above: Performed By: #### 8 [id number] #### [facility] Urinalysis [facility] [place] [address] UA pH 5.5 Normal 4.6-8.0 [facility] Comment on above: Performed By: #### 8 [id number] #### [facility] Urinalysis [facility] [place] [address] UA Protein 1+ Abnormal Negative [facility] Comment on above: Performed By: #### 8 [id number] #### [facility] Urinal[facility] [place] [address] UA Spec Grav >1.030 Normal 1.003-1.030 [facility] Comment on above: Performed By: #### 8 [id number] #### [facility]inal[facility] [employer] [employer] [address] [place] [address] UA Squam Epithelial 0-5 Normal 0-5 [facility] Comment on above: Performed By: #### 8 [id number] #### [facility]inal[facility] [employer] [employer] [address] [place] [address] UA Urobilinogen Negative Normal [facility] Comment on above: Result Comment: Due to a manufacturing issue, low positive urobilinogen results may be fasely positive. Correlate with urine bilirubin and additional clinical/laboratory findings to assess the risk of hemolytic anemia or liver disease. If clinically indicated, repeat testing with an alternate method is available by contacting the laboratory within 24 hours. Performed By: #### 8 [id number] #### [facility] [address] [place] [address] Urobilinogen Qn (U) Negative Normal Negative [facility] Comment on above: Performed By: #### 8 [id number] #### [facility] [employer] [employer] [address] [place] [address] eGFRon 07-17-2018 GFR/1.73 sq M predicted among non-blacks MDRD vol rate/area (S/P/Bld) mL/min/{1.73_m2} Normal [facility] Comment on above: Order Comment: Order added by Discern Expert. Performed By: #### 1 [id number] #### [facility] [employer] [address] [place] [address] zzplt morphon 07-17-2018 Platelet morphology finding Nom (Bld) NORMAL Normal [facility] Comment on above: Performed By: #### 9 [id number] #### [facility] [address] [place] [address] Platelets #/vol (Bld) NORMAL Normal [facility] Comment on above: Performed By: #### 9 [id number] #### [facility] [address] [place] [id number] POC Urinalysis Dipstickon Bilirubin Ql (U) Negative Negative mg/dL [employer] Work Phone: Glucose Ql (U) Negative Normal, Negative mg/dL [employer] Work Phone: Hemoglobin Ql (U) Negative Negative RBC/uL [employer] Work Phone: Interpretation and review of laboratory results Abnormal [employer] Work Phone: Ketones Ql (U) Negative Negative mg/dL [employer] Work Phone: Leukocyte esterase Test strip Ql (U) Negative Negative WBC/uL [employer] Work Phone: Nitrite Ql (U) Negative Negative [employer] Work Phone: pH (U) 6.0 [pH] 5.0 - 7.0 [employer] Work Phone: Protein Ql (U) Negative Negative mg/dL [employer] Work Phone: Specific gravity Relative Density (U) 1.030 1 Abnormal 1.005 - 1.025 [employer] Work Phone: Urobilinogen Qn (U) 0.2 mg/dL <2.0, 0.2, Normal, Negative, 1.0, 2.0, <1.0 [employer] Work Phone: Vital Signs Date Time Vital Sign Value Performing Clinician Facility 10-27-2024 21:48-0400 Body height 162.56 cm No Primary Care Physician [facility] 10-27-2024 21:48-0400 Body mass index (BMI) [Ratio] 38.1 kg/m2 No Primary Care Physician [facility] 10-27-2024 21:48-0400 Body temperature 97.6 [degF] No Primary Care Physician [facility] 10-27-2024 21:48-0400 Body weight 100.74 kg No Primary Care Physician [facility] 10-27-2024 21:48-0400 Diastolic blood pressure 102 mm[Hg] No Primary Care Physician [facility] 10-27-2024 21:48-0400 Heart rate 102 /min No Primary Care Physician [facility] 10-27-2024 21:48-0400 Respiratory rate 16 /min No Primary Care Physician [facility] 10-27-2024 21:48-0400 SaO2% (BldA) [Mass fraction] 99 % No Primary Care Physician [facility] 10-27-2024 21:48-0400 Systolic blood pressure 140 mm[Hg] No Primary Care Physician [facility] 09-21-2023 18:30-0500 Diastolic blood pressure 87 mm[Hg] Merlin Ramsey DO Work Phone: [facility] 09-21-2023 18:30-0500 Heart rate 80 /min Merlin Ramsey DO Work Phone: [facility] 09-21-2023 18:30-0500 Respiratory rate 17 /min Merlin Ramsey DO Work Phone: [facility] 09-21-2023 18:30-0500 SaO2% (BldA) [Mass fraction] 97 % Merlin Ramsey DO Work Phone: [facility] 09-21-2023 18:30-0500 Systolic blood pressure 121 mm[Hg] Merlin Ramsey DO Work Phone: [facility] 09-21-2023 16:00-0500 Body height 162.6 cm Merlin Ramsey DO Work Phone: [facility] 09-21-2023 16:00-0500 Body mass index (BMI) [Ratio] 31.76 kg/m2 Merlin Ramsey DO Work Phone: [facility] 09-21-2023 16:00-0500 Body temperature 98.71 [degF] Merlin Ramsey DO Work Phone: [facility] 09-21-2023 16:00-0500 Body weight 83.92 kg Merlin Ramsey DO Work Phone: [facility] 09-20-2023 17:43-0500 SaO2% (BldA) [Mass fraction] 99 % Clayton Bello DO Work Phone: [facility] [facility] 09-20-2023 17:39-0500 Body height 162.6 cm Clayton Bello DO Work Phone: [facility] 09-20-2023 17:39-0500 Body mass index (BMI) [Ratio] 31.76 kg/m2 Clayton Bello DO Work Phone: [facility] 09-20-2023 17:39-0500 Body temperature 99 [degF] Clayton Bello DO Work Phone: [facility] 09-20-2023 17:39-0500 Body weight 83.92 kg Clayton Bello DO Work Phone: [facility] 09-20-2023 17:39-0500 Diastolic blood pressure 85 mm[Hg] Clayton Bello DO Work Phone: [facility] 09-20-2023 17:39-0500 Heart rate 109 /min Clayton Bello DO Work Phone: [facility] 09-20-2023 17:39-0500 Respiratory rate 16 /min Clayton Bello DO Work Phone: [facility] 09-20-2023 17:39-0500 Systolic blood pressure 152 mm[Hg] Clayton Bello DO Work Phone: [facility] 06-29-2023 20:24-0500 Body height 162.56 cm [facility] 06-29-2023 20:24-0500 Body mass index (BMI) [Ratio] 34.5 kg/m2 [facility] 06-29-2023 20:24-0500 Body temperature 97.8 [degF] [facility] 06-29-2023 20:24-0500 Body weight 91.31 kg [facility] 06-29-2023 20:24-0500 Diastolic blood pressure 96 mm[Hg] [facility] 06-29-2023 20:24-0500 Heart rate 97 /min [facility] 06-29-2023 20:24-0500 Respiratory rate 18 /min [facility] 06-29-2023 20:24-0500 SaO2% (BldA) [Mass fraction] 100 % [facility] 06-29-2023 20:24-0500 Systolic blood pressure 145 mm[Hg] [facility] 06-26-2023 21:33-0500 Diastolic blood pressure 72 mm[Hg] Mathew Waddell DO Work Phone: 7(679)340-212948 [place] [address] 06-26-2023 21:33-0500 Heart rate 70 /min Mathew Waddell DO Work Phone: 2(686)772-243448 [place] [address] 06-26-2023 21:33-0500 Respiratory rate 16 /min Mathew Waddell DO Work Phone: 5(736)[phone] [place] [address] 06-26-2023 21:33-0500 SaO2% (BldA) [Mass fraction] 98 % Mathew Waddell DO Work Phone: 5(431)744-162948 [place] [address] 06-26-2023 21:33-0500 Systolic blood pressure 132 mm[Hg] Mathew Waddell DO Work Phone: 8(837)[phone] [place] [address] 06-26-2023 19:46-0500 Body height 162.6 cm Mathew Waddell DO Work Phone: 9(112)967-031548 [place] [address] 06-26-2023 19:46-0500 Body mass index (BMI) [Ratio] 31.76 kg/m2 Mathew Waddell DO Work Phone: 3(152)[phone] [place] [address] 06-26-2023 19:46-0500 Body temperature 98.2 [degF] Mathew Waddell DO Work Phone: [facility] 06-26-2023 19:46-0500 Body weight 83.92 kg Mathew Waddell DO Work Phone: [facility] 02-02-2022 01:22-0400 Body height 162.5 cm Amanda Roxana Other Phone: [facility] 02-02-2022 01:22-0400 Body temperature 98.06 [degF] Amanda Roxana Other Phone: [facility] 02-02-2022 01:22-0400 Body weight 84 kg Amanda Roxana Other Phone: [facility] 02-02-2022 01:22-0400 Diastolic blood pressure 90 mm[Hg] Amanda Schmidt Other Phone: [facility] 02-02-2022 01:22-0400 Heart rate 85 /min Amanda Roxana Other Phone: [facility] 02-02-2022 01:22-0400 Respiratory rate 16 /min Amanda Roxana Other Phone: [facility] 02-02-2022 01:22-0400 SaO2% (BldA) [Mass fraction] 97 % Amanda Roxana Other Phone: [facility] 02-02-2022 01:22-0400 Systolic blood pressure 145 mm[Hg] Amanda Schmidt Other Phone: [facility] 06-14-2021 13:53-0500 Diastolic blood pressure 97 mm[Hg] Amanda Schmidt Other Phone: [facility] 06-14-2021 13:53-0500 Heart rate 71 /min Amanda Schmidt Other Phone: [facility] 06-14-2021 13:53-0500 Respiratory rate 16 /min Amanda Schmidt Other Phone: [facility] 06-14-2021 13:53-0500 SaO2% (BldA) [Mass fraction] 96 % Amanda Schmidt Other Phone: [facility] 06-14-2021 13:53-0500 Systolic blood pressure 119 mm[Hg] Amanda Schmidt Other Phone: [facility] 06-14-2021 11:03-0500 Body height 162.5 cm Amanda Schmidt Other Phone: [facility] 06-14-2021 11:03-0500 Body temperature 97.88 [degF] Amanda Schmidt Other Phone: [facility] 06-14-2021 11:03-0500 Body weight 89.1 kg Amanda Schmidt Other Phone: [facility] 06-06-2021 22:08-0400 Body height 170.1 cm Amanda Schmidt Other Phone: [facility] 06-06-2021 22:08-0400 Body temperature 97.7 [degF] Amanda Schmidt Other Phone: [facility] 06-06-2021 22:08-0400 Body weight 82 kg Amanda Schmidt Other Phone: [facility] 06-06-2021 22:08-0400 Diastolic blood pressure 86 mm[Hg] Amanda Schmidt Other Phone: [facility] 06-06-2021 22:08-0400 Heart rate 99 /min Amanda Schmidt Other Phone: [facility] 06-06-2021 22:08-0400 Respiratory rate 16 /min Amanda Schmidt Other Phone: [facility] 06-06-2021 22:08-0400 SaO2% (BldA) [Mass fraction] 88 % Amanda Schmidt Other Phone: [facility] 06-06-2021 22:08-0400 Systolic blood pressure 135 mm[Hg] Amanda Schmidt Other Phone: [facility] 03-31-2021 23:19-0400 Body height 162.5 cm Amanda Schmidt Other Phone: [facility] 03-31-2021 23:19-0400 Body temperature 98.6 [degF] Amanda Schmidt Other Phone: [facility] 03-31-2021 23:19-0400 Body weight 91 kg Amanda Schmidt Other Phone: [facility] 03-31-2021 23:19-0400 Diastolic blood pressure 109 mm[Hg] Amanda Schmidt Other Phone: [facility] 03-31-2021 23:19-0400 Heart rate 73 /min Amanda Schmidt Other Phone: [facility] 03-31-2021 23:19-0400 Respiratory rate 16 /min Amanda Schmidt Other Phone: [facility] 03-31-2021 23:19-0400 SaO2% (BldA) [Mass fraction] 98 % Amanda Schmidt Other Phone: [facility] 03-31-2021 23:19-0400 Systolic blood pressure 173 mm[Hg] Amanda Schmidt Other Phone: [facility] 12-18-2020 00:40-0400 Diastolic blood pressure 82 mm[Hg] Amanda Schmidt Other Phone: [facility] 12-18-2020 00:40-0400 Heart rate 90 /min Amanda Roxana Other Phone: [facility] 12-18-2020 00:40-0400 Respiratory rate 18 /min Amanda Salgadona Other Phone: [facility] 12-18-2020 00:40-0400 SaO2% (BldA) [Mass fraction] 97 % Amanda Schmidt Other Phone: [facility] 12-18-2020 00:40-0400 Systolic blood pressure 128 mm[Hg] Amanda Schmidt Other Phone: [facility] 12-17-2020 23:26-0400 Body height 154.9 cm Amanda Salgadona Other Phone: [facility] 12-17-2020 23:26-0400 Body temperature 98.42 [degF] Amanda Schmidt Other Phone: [facility] 12-17-2020 23:26-0400 Body weight 93 kg Amanda Schmidt Other Phone: [facility] 10-07-2020 10:30-0500 BMI (Body Mass Index) 36.05 kg/m2 [facility] 10-07-2020 10:30-0500 Body Temperature 98.1 [degF] [facility] 10-07-2020 10:30-0500 Body weight 95.25 kg [facility] 10-07-2020 10:30-0500 BP Diastolic 107 mm[Hg] [facility] 10-07-2020 10:30-0500 BP Systolic 146 mm[Hg] [facility] 10-07-2020 10:30-0500 Height 162.6 cm [facility] 10-07-2020 10:30-0500 Pulse (Heart Rate) 83 /min [facility] 10-07-2020 10:30-0500 Pulse Oximetry 98 % [facility] 10-07-2020 10:30-0500 Respiratory Rate 15 /min [facility] 08-11-2018 08:04-0500 BMI (Body Mass Index) 29.6 kg/m2 Shannon Aguilera [facility] 08-11-2018 08:04-0500 Body Temperature 98.29 [degF] Shannon Aguilera [facility] 08-11-2018 08:04-0500 BP Diastolic 86 mm[Hg] Shannon Aguilera [facility] 08-11-2018 08:04-0500 BP Systolic 117 mm[Hg] Shannon Aguilera [facility] 08-11-2018 08:04-0500 Height 170.2 cm Shannon Aguilera [facility] 08-11-2018 08:04-0500 Pulse (Heart Rate) 88 /min Shannon Aguilera [facility] 08-11-2018 08:04-0500 Pulse Oximetry 97 % Shannon Aguilera [facility] 08-11-2018 08:04-0500 Respiratory Rate 18 /min Shannon Aguilera [facility] 08-11-2018 08:04-0500 Weight 85.73 kg Shannon Aguilera [facility] 02-21-2017 13:08-0400 BMI (Body Mass Index) 31.01 kg/m2 Amanda Schmidt [facility] Work Phone: 02-21-2017 13:08-0400 Body Temperature 98.6 [degF] Amanda Schmidt [facility] Work Phone: 02-21-2017 13:08-0400 BP Diastolic 94 mm[Hg] Amanda Schmidt [facility] Work Phone: 02-21-2017 13:08-0400 BP Systolic 132 mm[Hg] Amanda Schmidt [facility] Work Phone: 02-21-2017 13:08-0400 Height 170.2 cm Amanda Schmidt [facility] Work Phone: 02-21-2017 13:08-0400 Pulse (Heart Rate) 79 /min Amanda Schmidt [facility] Work Phone: 02-21-2017 13:08-0400 Pulse Oximetry 98 % Amanda Schmidt [facility] Work Phone: 02-21-2017 13:08-0400 Respiratory Rate 16 /min Amanda Schmidt [facility] Work Phone: 02-21-2017 13:08-0400 Weight 89.81 kg Amanda Schmidt [facility] Work Phone: Encounters Encounter Date Encounter Type Care Provider Facility Start: 10-27-2024 End: 10-27-2024 Emergency department patient visit No Primary Care Physician -Emergency Department Work Phone: Start: 05-10-2024 End: 05-11-2024 Emergency department patient visit Mayo Domingo Facility:[facility] Start: 02-16-2024 End: 02-16-2024 Emergency department patient visit Jozef Ahn Facility:[facility] Start: 09-21-2023 End: 09-21-2023 Emergency department patient visit MERLIN RAMSEY [facility] Start: 09-21-2023 End: 09-21-2023 Emergency department patient visit Merlin Ramsey DO Work Phone: [facility] Comment on above: Right lower quadrant abdominal pain (Primary Dx) Start: 09-21-2023 End: 09-21-2023 ambulatory CLAYTON Wills [facility] Start: 09-20-2023 End: 09-20-2023 Emergency department patient visit LCAYTON Wills [facility] Start: 09-20-2023 End: 09-20-2023 Subsequent hospital visit by physician Jonnie Castañeda [facility] Comment on above: Arrived Start: 09-20-2023 End: 09-20-2023 Emergency department patient visit Clayton Bello DO Work Phone: [facility] Comment on above: Influenza (Primary D x) Start: 06-29-2023 End: 06-29-2023 Emergency department patient visit [facility] Work Phone: Start: 06-26-2023 End: 06-26-2023 Emergency department patient visit MATHEW WADDELL [facility] Start: 06-26-2023 End: 06-26-2023 Emergency department patient visit Mathew Waddell DO Work Phone: [facility] Comment on above: Infected pilonidal c yst (Primary Dx) Start: 03-11-2023 End: 03-11-2023 Emergency department patient visit MAYANK CALDERON [facility] Start: 08-08-2022 End: 08-08-2022 Emergency department patient visit SHEEBA CARRERO [facility] Start: 07-21-2022 End: 07-21-2022 Emergency department patient visit DEANA CAMARENA [facility] Start: 06-13-2022 End: 06-13-2022 Emergency department patient visit LUÍS LAWSON ANNE-MARIE [facility] Start: 02-02-2022 End: 02-02-2022 Emergency department patient visit Ovidio Nichole [facility] Emergency 10 Start: 06-14-2021 End: 06-14-2021 Emergency department patient visit Amanda Ralph [facility] Emergency 14 Start: 06-06-2021 End: 06-06-2021 Emergency department patient visit Ovidio Nichole [facility] Emergency 13 Start: 03-31-2021 End: 04-01-2021 Emergency department patient visit Anette Jeffy [facility] Emergency 07 Start: 12-17-2020 End: 12-18-2020 Emergency department patient visit Wang Betancourt [facility] Emergency 11 Start: 10-07-2020 End: 10-07-2020 Emergency department patient visit Marleen Nikki Gonsalez Work Phone: [facility] Emergency Department Start: 11-15-2018 End: 11-16-2018 [facility] Start: 11-08-2018 End: 11-09-2018 Patient encounter procedure [facility] Facility:[facility] Start: 10-19-2018 End: 10-20-2018 Patient encounter procedure [facility] Facility:[facility] Start: 10-18-2018 End: 10-19-2018 Patient encounter procedure [facility] Facility:[facility] Start: 10-16-2018 End: 10-17-2018 Patient encounter procedure [facility] Facility:[facility] Start: 10-11-2018 Patient encounter procedure DUSTIN GALLEGOS [facility] Start: 10-10-2018 End: 10-10-2018 [facility] Facility[facility] Start: 09-25-2018 Encounter for genera l adult medical examination without abnormal findings MAO CHIU II [facility] Start: 09-25-2018 End: 09-26-2018 Patient encounter procedure MAO CHIU II [facility] Start: 09-21-2018 End: 09-22-2018 Patient encounter procedure Deborah Loaiza Facility:[facility] Start: 08-25-2018 Patient encounter procedure KARISHMA OSBORNE [facility] Start: 08-21-2018 Patient encounter procedure FAWN PEÑA [facility] Start: 08-14-2018 End: 08-15-2018 Patient encounter procedure Shannon Aguilera Facility:[facility] Start: 08-11-2018 End: 08-15-2018 Patient encounter procedure Shannon Aguilera Facility:[place] Start: 08-11-2018 End: 08-11-2018 Office outpatient visit 25 minutes Shannon Aguilera Work Phone: [facility] Primary Care Physicians Comment on above: Right upper quadrant abdominal pain (Primary Dx); Irritable bowel syndrome, unspecified type Start: 07-18-2018 Patient encounter procedure AMANDA SCHMIDT [facility] Start: 07-17-2018 End: 07-17-2018 Emergency department patient visit Amanda Schmidt Facility:[facility] Start: 05-24-2017 ERRONEOUS ENCOUNTER-DISREGARD Amanda Schmidt Work Phone: [facility] Primary Care Physicians Start: 02-21-2017 End: 02-21-2017 Office outpatient visit 25 minutes Amanda Schmidt Work Phone: [facility] Primary Care Physicians Comment on above: Abdominal pain, unsp ecified location (Primary Dx);Gastritis, presence of bleeding unspecified, unspecified chronicity, unspecified gastritis type;Constipation, unspecified constipation type Procedures Date Procedure Procedure Detail Performing Clinician Start: 10-27-2024 Plain X-ray of tibia and fibula No Primary Care Physician Start: 10-27-2024 X-ray of cervical spine No Primary Care Physician Start: 09-21-2023 DISCHARGE PATIENT CLAYTON BELLO Start: 09-21-2023 CT ABDOMEN PELVIS W IV CONTRAST CLAYTON BELLO Start: 09-21-2023 EXTRA URINE LEMONS TUBE CLAYTON BELLO Start: 09-21-2023 URINALYSIS WITH REFLEX CULTURE AND MICROSCOPIC CLAYTON BELLO Start: 09-21-2023 CBC W Auto Differential panel - Blood CLAYTON BELLO Start: 09-21-2023 Comprehensive metabolic 2000 panel - Serum or Plasma CLAYTON BELLO Start: 09-21-2023 HUMAN CHORIONIC GONADOTROPIN, SERUM QUANTITATIVE CLAYTON BELLO Start: 09-21-2023 Lactate [Moles/volume] in Serum or Plasma CLAYTON BELLO Start: 09-21-2023 Lipase [Enzymatic activity/volume] in Serum or Plasma CLAYTON BELLO Start: 09-21-2023 Ct abdomen & pelvis w/contrast material Merlin Ramsey DO Work Phone: Start: 09-21-2023 Urnls dip stick/tablet rgnt auto w/o microscopy Merlin Ramsey DO Work Phone: Start: 09-21-2023 Comprehensive metabolic panel Merlin Ramsey DO Work Phone: Start: 09-20-2023 ECG 12-LEAD CLAYTON BELLO Start: 09-20-2023 XR CHEST 1 VIEW CLAYTON BELLO Start: 09-20-2023 GROUP A STREPTOCOCCUS, PCR CLAYTON Tim Start: 09-20-2023 INFLUENZA A AND B PCR CLAYTON BELLO Start: 09-20-2023 RSV PCR CLAYTON BELLO Start: 09-20-2023 SARS-COV-2 PCR CLAYTON BELLO Start: 09-20-2023 INITIATE DROPLET PLUS ISOLATION CLAYTON BELLO Start: 09-20-2023 Ecg routine ecg w/least 12 lds trcg only w/o i&r Clayton Bello DO Work Phone: Start: 09-20-2023 Radiologic exam chest single view Clayton Bello DO Work Phone: Start: 09-20-2023 Influenza virus A and B RNA [Identifier] in Unspecified specimen by CLIFFORD with probe detection Clayton Bello DO Work Phone: Start: 09-20-2023 Respiratory syncytial virus RNA [Presence] in Respiratory specimen by CLIFFORD with probe detection Clayton Bello DO Work Phone: Start: 09-20-2023 SARS-CoV-2 (COVID-19) RNA [Presence] in Respiratory specimen by CLIFFORD with probe detection Clayton Bello DO Work Phone: Start: 06-26-2023 CBC W Auto Differential panel - Blood CLAYTON BELLO Start: 06-26-2023 Comprehensive metabolic 2000 panel - Serum or Plasma CLAYTON BELLO Start: 06-26-2023 Lactate [Moles/volume] in Serum or Plasma CLAYTON BELLO Start: 06-26-2023 Comprehensive metabolic panel Mathew Temple Swi ft DO Work Phone: Start: 09-25-2018 Ophthalmic examination and evaluation Marleen Gonsalez Start: 08-11-2018 End: 08-11-2018 Choriogonadotropin ( test) [Presence] in Urine Shannon Aguilera Work Phone: Start: 08-11-2018 End: 08-11-2018 Urinalysis macro (dipstick) panel - Urine Shannon Aguilera Work Phone: Plan of Treatment Date Care Activity Detail Author Start: 2042 Zoster Vaccines (1 of 2) Zoste r Vaccines (1 of 2) [facility] Start: 10-27-2024 [facility] Start: 04-01-2023 Influenza vaccination Influenza Vacc ine (#1) [facility] Start: 04-01-2020 Influenza vaccinatio n given Sequential Influenza Vaccine (#1) [facility] Start: 02-12-2020 DTaP/Tdap/Td Vaccine s (6 - Td or Tdap) DTaP/Tdap/Td Vaccines (6 - Td or Tdap) [facility] Start: 02-12-2020 [facility] Work Phone: Start: 09-25-2019 Ophthalmic examinati on and evaluation Ophthalmology Exam [facility] Start: 04-01-2018 Influenza vaccinatio n given SEQUENTIAL INFLUENZA VACCINE (#1) [facility] Start: 05-24-2017 Ambulatory 05/24/2017 Off ice Visit Primary Care Amanda Schmidt MD [address] [place] [id number] [phone] [facility] Primary Care Physicians Start: 04-01-2017 Influenza vaccination SEQUENTI AL INFLUENZA VACCINE (#1) [facility] Work Phone: Start: 04-01-2017 SEQUENTIAL INFLUENZA VACCINE (#1) SEQUENTIAL INFLUENZA VACCINE (#1) [facility] Work Phone: Start: 2013 Screening for malign ant neoplasm of cervix [facility] Start: 2010 Hepatitis C antibody , confirmatory test Hepatitis C Screening [facility] Start: 2010 Hepatitis C screening Hepatitis C [facility] Start: 04-08-2010 HPV VACCINES (2 of 3 - Female 3 Dose Series) HPV VACCINES (2 of 3 - Female 3 Dose Series) [facility] Work Phone: Start: 04-08-2010 Vaccination for prince n papillomavirus [facility] Work Phone: Start: 03-11-2010 HPV Vaccines (2 - 3- dose series) HPV Vaccines (2 - 3-dose series) [facility] Start: 2008 COVID-19 Vaccine (1 of 2) COVID-19 Vaccine (1 of 2) [facility] Start: 12-16-2007 HIV screening HIV Screening [facility] Start: 2004 Adolescent depressio n screening assessment Depression Screening (PHQ9) [facility] Start: 12-16-1995 History and physical examination, annual for health maintenance Wellness Visit [facility] Start: 07-07-1994 Varicella vaccination Varicell a Vaccines (1 of 2 - 2-dose childhood series) [facility] Start: 06-17-1993 COVID-19 Vaccine (#1) COVID-19 Vacci ne (#1) [facility] Start: 1992 HIV screening HIV Screening [facility] Start: 1992 Lipid panel Lipid Panel [facility] Start: 1992 Microscopic observat ion Cyto stain Nom (Cvx) PAP SMEAR [facility] Work Phone: Start: 1992 Screening for malign ant neoplasm of cervix PAP SMEAR [facility] Work Phone: Start: 1992 TETANUS EVERY 10 YR TETANUS EVERY 10 YR [facility] Work Phone: Start: 1992 Yearly Adult Physical Yearly Adult P hysical [facility] End: 08-11-2019 Amylase measurement, body fluid Amylase Routine Right upper quadrant abdominal pain 1 Occurrences starting 08/11/2018 until 08/11/2019 [facility] Comment on above: 1 Occurrences starti ng 08/11/2018 until 08/11/2019 End: 08-11-2019 Bacteria identified Aer cx Nom (Unsp spec) Urine Aerobic Culture Routine Right upper quadrant abdominal pain 1 Occurrences starting 08/11/2018 until 08/11/2019 [facility] Comment on above: 1 Occurrences starti ng 08/11/2018 until 08/11/2019 End: 08-11-2019 Complete blood count with white cell differential, manual CBC and Differential Routine Right upper quadrant abdominal pain 1 Occurrences starting 08/11/2018 until 08/11/2019 [facility] Comment on above: 1 Occurrences starti ng 08/11/2018 until 08/11/2019 End: 08-11-2019 Comprehensive metabolic 2000 panel Comprehensive Metabolic Panel Routine Right upper quadrant abdominal pain 1 Occurrences starting 08/11/2018 until 08/11/2019 [facility] Comment on above: 1 Occurrences starti ng 08/11/2018 until 08/11/2019 End: 09-20-2023 ECG 12 [facility] Work Phone: Comment on above: Once for 1 Occurrenc es starting 09/20/2023 until 09/20/2023 End: 09-21-2023 Extra Urine Lemons Tube [facility] Work Phone: Comment on above: Once for 1 Occurrenc es starting 09/21/2023 until 09/21/2023 End: 08-11-2019 Lipase enzyme act/vol Lipase Routine Right upper quadrant abdominal pain 1 Occurrences starting 08/11/2018 until 08/11/2019 [facility] Comment on above: 1 Occurrences starti ng 08/11/2018 until 08/11/2019 Patient Education Concussion Dc ED Soft Tissue Contusion ED Neck Sprain or Strain [facility] Work Phone: Patient referral [facility] Work Phone: End: 09-20-2023 Streptococcus pyogenes [Presence] in Throat by Organism specific culture [facility] Service Area Work Phone: Comment on above: STAT (Lab) for 1 Occ urrences starting 09/20/2023 until 09/20/2023 End: 09-21-2023 Urinalysis complete W Reflex Culture panel - Urine [facility] Service Area Work Phone: Comment on above: STAT (Lab) for 1 Occ urrences starting 09/21/2023 until 09/21/2023 Immunizations Immunization Date Immunization Notes Care Provider Claudette sánchez 02-11-2010 human papilloma viru s vaccine, quadrivalent [facility] Work Phone: 02-11-2010 meningococcal ACWY vaccine, unspecified formulation [facility] Work Phone: 02-11-2010 meningococcal polysaccharide (groups A, C, Y and W-135) diphtheria toxoid conjugate vaccine (MCV4P) [facility] 02-11-2010 tetanus toxoid, redu eduard diphtheria toxoid, and acellular pertussis vaccine, adsorbed [facility] Work Phone: 02-11-2010 HPV, unspecified formulation [facility] Work Phone: 03-14-1996 diphtheria, tetanus toxoids and acellular pertussis vaccine [facility] Work Phone: 03-14-1996 trivalent poliovirus vaccine, live, oral [facility] Work Phone: 06-09-1994 haemophilus influenz ae type b vaccine, PRP-T conjugate [facility] Work Phone: 06-09-1994 measles, mumps and r ubella virus vaccine [facility] Work Phone: 03-24-1994 hepatitis B vaccine, pediatric or pediatric/adolescent dosage [facility] Work Phone: 07-08-1993 diphtheria, tetanus toxoids and acellular pertussis vaccine [facility] Work Phone: 07-08-1993 haemophilus influenz ae type b vaccine, PRP-T conjugate [facility] Work Phone: 06-17-1993 hepatitis B vaccine, pediatric or pediatric/adolescent dosage [facility] Work Phone: 04-29-1993 diphtheria, tetanus toxoids and acellular pertussis vaccine [facility] Work Phone: 04-29-1993 haemophilus influenz ae type b vaccine, PRP-T conjugate [facility] Work Phone: 04-29-1993 trivalent poliovirus vaccine, live, oral [facility] Work Phone: 03-25-1993 hepatitis B vaccine, pediatric or pediatric/adolescent dosage [facility] Work Phone: 02-25-1993 diphtheria, tetanus toxoids and acellular pertussis vaccine [facility] Work Phone: 02-25-1993 haemophilus influenz ae type b vaccine, PRP-T conjugate [facility] Work Phone: 02-25-1993 trivalent poliovirus vaccine, live, oral [facility] Work Phone: Payers Date Payer Category Payer Self-pay [id number] 2023 Worker's Compensation [id number] 2018 Unknown 2016 Medicaid [id number] 2.16. [id number] 2015 Unknown [id number] 2. [id number] 2015 Unknown [id number] 1992 Unknown [id number] 2.16.8 40.1.633091.3.579.2. 1992 Unknown [id number] 2.16.8 40.1.486223.3.579.2. 1992 Unknown [id number] 2.16.8 40.1.815506.3.579.2. 1992 Unknown [id number] 2.16.8 40.1.336640.3.579.2. 1992 Unknown [id number] 2.16.8 40.1.196481.3.579.2.903 1992 Unknown [id number] 2.16.8 40.1.313401.3.579.2.903 1992 Unknown [id number] 2.16.84 0.1.658946.3.579.2. 1992 Unknown [id number] 2.16.84 0.1.517652.3.579.2. 1992 Unknown [id number] 2.16.84 0.1.323643.3.579.2. 1992 Unknown [id number] 2.16.84 0.1.422375.3.579.2. 1992 Unknown [id number] 2.16.84 0.1.309153.3.579.2. 1992 Unknown [id number] 2.16.84 0.1.155592.3.579.2. 1992 Unknown [id number] 2.16.84 0.1.110460.3.579.2. 1992 Unknown [id number] 2.16.84 0.1.457765.3.579.2. 1992 Unknown [id number] 2.16.84 0.1.294572.3.579.2. 1992 Unknown [id number] 2.16.84 0.1.839366.3.579.2. 1992 Unknown [id number] 2.16. 840.1.051923.3.579.2.902 Unknown [id number] 2.16.8 40.1.521597.3.579.2.462 Unknown [id number] 2.16.8 40.1.978052.3.579.2.462 Unknown [id number] 2.16.8 40.1.197159.3.579.2.462 Social History Date Type Detail Facility Start: 07-10-2017 End: 12-17-2020 Tobacco smoking status PRIS Current every day smoker [employer] Phone: History of tobacco use Cigarette Smoker [facility] Work Phone: Start: 07-10-2017 End: 06-26-2023 Cigarettes smoked current (pack per day) - Reported [facility] Work Phone: Start: 1990 Sex Assigned At Not on file [facility] Work Phone: Start: 10-07-2020 End: 06-26-2023 Tobacco use and exposure Never used [facility] Start: 10-07-2020 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) [facility] Start: 06-16-2023 End: 09-21-2023 Exposure to SARS-CoV-2 (event) Not sure [facility] Start: 06-29-2023 Tobacco smokin g consumption unknown [facility] Start: 06-26-2023 End: 10-27-2024 Tobacco smoking status NHIS Never smoked tobacco [facility] Work Phone: Start: 06-26-2023 Alcohol intake Lifetime non-d shauna (finding) [facility] Work Phone: Start: 06-26-2023 Tobacco use panel [facility] Work Phone: Start: 1990 Sex Assigned At Female [facility] Start: 10-27-2024 Sex Female (finding) [facility] Medical Equipment Procedure Code Equipment Code Equipment Origin al Text Equipment Identifier Dates fluorescein ophthalmic strip 1 strip [id number] Start: 10-07-2020 End: 10-07-2020 Clinical Notes 06-26-2023 to 10-27-2024 Consultation (Routine) - Authorized Note Date & Type Note Facility 10-27-2024 Radiology Diagnostic study note [facility] Imaging Services [address] [address] Cerv Spine 2 or 3 Views MR#: [id number] Acct: [id number] Name: JOELUNIQUE FOFANAE Rep #: [id number] : 1990 F 33 From: Lisandra Saleh MD PCP: Care Physician,No Primary Status: REG ER Study:Cerv Spine 2 or 3 Views Date of Exam: 10/27/24 Exam# [id number] Ordering Dr: Nathan Conley DO PROCEDURE: CERV SPINE 2 OR 3 VIEWS 10/27/2024 REASON FOR EXAM: INJURY TECHNIQUE: 3 views of the cervical spine. COMPARISON: None FINDINGS: No acute fracture or malalignment.The prevertebral soft tissues are unremarkable. No significant degenerative changes are identified. RAD/Cerv Spine 2 or 3 Views IMPRESSION: 1. No acute findings of the cervical spine. Reading Location: [facility] CC: Dr. Nathan Conley DO; No Primary Care Physician ~ Credit Rating Checker: Signed [facility] 10-27-2024 Radiology Diagnostic study note [facility] Imaging Services [address] [place], [place] [id number] Tibia & Fibula 2 Views MR#: [id number] Acct: [id number] Name: UNIQUE HOGAN Rep #: [id number] : 1990 F 33 From: Lisandra Saleh MD PCP: Care Physician,No Primary Status: REG ER Study:Tibia & Fibula 2 Views Date of Exam: 10/27/24 Exam# [id number] Ordering Dr: Nathan Conley DO EXAM: EXAM DATE: 10/27/2024 10:22 pm PROCEDURE: TIBIA FIBULA 2 VIEWS CLINICAL HISTORY: INJURY COMPARISON: None TECHNIQUE: Two views of the right tibia and fibula FINDINGS: No acute fracture or dislocation. No soft tissue abnormality. RAD/Tibia & Fibula 2 Views IMPRESSION: 1. No acute osseous abnormality. Reading Location: [facility] CC: Dr. Nathan Conley DO; No Primary Care Physician ~ Credit Rating Checker: Signed [facility] 09-21-2023 Reason for referr al (narrative) Specialty Diagnoses / Procedures Referred By Marga t Referred To Contact Family Medicine / Primary Care Merlin Ramsey, [address] [place] [address] Referral ID Status Reason Start Date Expiration Date Visits Requested Visits Authorized [id number] Authorized Specialty Services Required 09/21/2023 09/20/2024 1 1 [facility] Work Phone: 1(105) 140-963902-20-2024 Emergency department Note* Clayton Bello DO - 09/20/2023 5:32 PM EST HPI Chief Complaint Patient presents with Sore Throat Sore throat, cough, sore ears, chest pain when coughing and talking, 01/08 Patient presents to the emergency department with a chief complaint of sore throat. Secondary complaints include bilateral ear pain, nasal congestion, fatigue, malaise, cough, shortness of breath, and chest pain. History provided by: Patient educational interpreter used: No No data recorded Patient History No past medical history on file. No past surgical history on file. No family history on file. Social History Tobacco Use Smoking status: Never Smokeless tobacco: Never Vaping Use Vaping Use: Never used Substance Use Topics Alcohol use: Never Drug use: Not Currently Physical Exam ED Triage Vitals [09/20/23 1739] Temperature Heart Rate Respirations BP 37.2 C (99 F) (!) 109 16 152/85 Pulse Ox Temp Source Heart Rate Source Patient Position 99 % Temporal Monitor Sitting BP Location FiO2 (%) Left arm -- Physical Exam Vitals and nursing note reviewed. Constitutional: General: She is not in acute distress. Appearance: Normal appearance. She is normal weight. She is not ill-appearing, toxic-appearing or diaphoretic. Comments: Patient has a slightly hoarse voice but is able to speak in full sentences. She is not tripoding or drooling and she appears well. HENT: Head: Normocephalic and atraumatic. Right Ear: Tympanic membrane and ear canal normal. Left Ear: Tympanic membrane and ear canal normal. Nose: Nose normal. No rhinorrhea. Mouth/Throat: Mouth: Mucous membranes are moist. No oral lesions. Pharynx: Oropharynx is clear. No pharyngeal swelling, oropharyngeal exudate, posterior oropharyngeal erythema or uvula swelling. Neck: Comments: Trachea is midline Cardiovascular: Rate and Rhythm: Regular rhythm. Tachycardia present. Heart sounds: No murmur heard. Pulmonary: Effort: Pulmonary effort is normal. Breath sounds: Normal breath sounds. No wheezing. Abdominal: General: Abdomen is flat. Bowel sounds are normal. There is no distension. Palpations: Abdomen is soft. Tenderness: There is no abdominal tenderness. Musculoskeletal: General: Normal range of motion. Cervical back: Normal range of motion. Skin: General: Skin is warm and dry. Findings: No rash. Neurological: General: No focal deficit present. Mental Status: She is alert and oriented to person, place, and time. Mental status is at baseline. Psychiatric: Mood and Affect: Mood normal. Behavior: Behavior normal. Thought Content: Thought content normal. Judgment: Judgment normal. ED Course & MDM Diagnoses as of 09/20/231846 Influenza Medical Decision Making Twelve-lead EKG was interpreted by myself and this was noted to contribute directly to patient care. Studies noted reveal normal sinus rhythm at 100 bpm, normal axis, normal R wave progression, no acute ischemic changes, no S1 Q3 T3 is identified. Patient symptoms have been present for 2 days therefore I will start her on Tamiflu. She was educated about supportive care measures and instructed to follow-up with her private physician. Return at anytime if worse. Procedure Procedures Clayton Bello DO 09/20/231846 [facility] Work Phone: 1(674) 971-109802-20-2024 Physician Emergency department Note* Clayton Bello DO - 09/20/2023 5:32 PM EST HPI Chief Complaint Patient presents with Sore Throat Sore throat, cough, sore ears, chest pain when coughing and talking, 01/08 Patient presents to the emergency department with a chief complaint of sore throat. Secondary complaints include bilateral ear pain, nasal congestion, fatigue, malaise, cough, shortness of breath, and chest pain. History provided by: Patient educational interpreter used: No No data recorded Patient History No past medical history on file. No past surgical history on file. No family history on file. Social History Tobacco Use Smoking status: Never Smokeless tobacco: Never Vaping Use Vaping Use: Never used Substance Use Topics Alcohol use: Never Drug use: Not Currently Physical Exam ED Triage Vitals [09/20/23 1739] Temperature Heart Rate Respirations BP 37.2 C (99 F) (!) 109 16 152/85 Pulse Ox Temp Source Heart Rate Source Patient Position 99 % Temporal Monitor Sitting BP Location FiO2 (%) Left arm -- Physical Exam Vitals and nursing note reviewed. Constitutional: General: She is not in acute distress. Appearance: Normal appearance. She is normal weight. She is not ill-appearing, toxic-appearing or diaphoretic. Comments: Patient has a slightly hoarse voice but is able to speak in full sentences. She is not tripoding or drooling and she appears well. HENT: Head: Normocephalic and atraumatic. Right Ear: Tympanic membrane and ear canal normal. Left Ear: Tympanic membrane and ear canal normal. Nose: Nose normal. No rhinorrhea. Mouth/Throat: Mouth: Mucous membranes are moist. No oral lesions. Pharynx: Oropharynx is clear. No pharyngeal swelling, oropharyngeal exudate, posterior oropharyngeal erythema or uvula swelling. Neck: Comments: Trachea is midline Cardiovascular: Rate and Rhythm: Regular rhythm. Tachycardia present. Heart sounds: No murmur heard. Pulmonary: Effort: Pulmonary effort is normal. Breath sounds: Normal breath sounds. No wheezing. Abdominal: General: Abdomen is flat. Bowel sounds are normal. There is no distension. Palpations: Abdomen is soft. Tenderness: There is no abdominal tenderness. Musculoskeletal: General: Normal range of motion. Cervical back: Normal range of motion. Skin: General: Skin is warm and dry. Findings: No rash. Neurological: General: No focal deficit present. Mental Status: She is alert and oriented to person, place, and time. Mental status is at baseline. Psychiatric: Mood and Affect: Mood normal. Behavior: Behavior normal. Thought Content: Thought content normal. Judgment: Judgment normal. ED Course & MDM Diagnoses as of 09/20/231846 Influenza Medical Decision Making Twelve-lead EKG was interpreted by myself and this was noted to contribute directly to patient care. Studies noted reveal normal sinus rhythm at 100 bpm, normal axis, normal R wave progression, no acute ischemic changes, no S1 Q3 T3 is identified. Patient symptoms have been present for 2 days therefore I will start her on Tamiflu. She was educated about supportive care measures and instructed to follow-up with her private physician. Return at anytime if worse. Procedure Procedures Clayton Bello DO 09/20/231846 [facility] Work Phone: 1(122) 873-110811-26-2023 Emergency department Note* Mathew WaddellDO - 06/26/2023 7:42 PM EST HPI Chief Complaint Patient presents with Back Pain Pt comes in for pain on her tail bone x 3 days 32-year-old female presents with lesion upper buttocks on the left for the last several days. Patient states this is her third time this is occurred. Patient states 2 previous times it went away on its own. I have indicated to her that she has early signs of a pilonidal cyst. Patient will be given a gram of IV vancomycin. The patient will be given Toradol 15 mg IV. Patient will be instructed to follow-up with Dr. Elias this week and if symptoms worsen return to ED. History provided by: Patient Holstein Coma Scale Score: 15 Patient History History reviewed. No pertinent past medical history. History reviewed. No pertinent surgical history. No family history on file. Social History Tobacco Use Smoking status: Never Smokeless tobacco: Never Vaping Use Vaping Use: Never used Substance Use Topics Alcohol use: Never Drug use: Not Currently Physical Exam ED Triage Vitals [06/26/231945] Temp Heart Rate Resp BP 36.8 C (98.2 F) 84 18 133/88 SpO2 Temp Source Heart Rate Source Patient Position 99 % Temporal Monitor Sitting BP Location FiO2 (%) Left arm -- Physical Exam Vitals and nursing note reviewed. Constitutional: General: She is not in acute distress. Appearance: She is well-developed. HENT: Head: Normocephalic and atraumatic. Eyes: Conjunctiva/sclera: Conjunctivae normal. Cardiovascular: Rate and Rhythm: Normal rate and regular rhythm. Heart sounds: No murmur heard. Pulmonary: Effort: Pulmonary effort is normal. No respiratory distress. Breath sounds: Normal breath sounds. Abdominal: Palpations: Abdomen is soft. Tenderness: There is no abdominal tenderness. Musculoskeletal: General: No swelling. Cervical back: Neck supple. Skin: General: Skin is warm and dry. Capillary Refill: Capillary refill takes less than 2 seconds. Comments: Small subcutaneous erythematous area consistent with pilonidal cyst proximal medial aspect of left buttocks. Area is tender to touch but no active flocculence or drainage. Neurological: Mental Status: She is alert. Psychiatric: Mood and Affect: Mood normal. Labs Reviewed COMPREHENSIVE METABOLIC PANEL - Normal Result Value Glucose 94 Sodium 138 Potassium 3.6 Chloride 104 Bicarbonate 26 Anion Gap 12 Urea Nitrogen 13 Creatinine 0.79 eGFR >90 Calcium 9.3 Albumin 4.4 Alkaline Phosphatase 45 Total Protein 6.7 AST 13 Bilirubin, Total 0.4 ALT 22 LACTATE - Normal Lactate 0.9 Narrative: Venipuncture immediately after or during the administration of Metamizole may lead to falsely low results. Testing should be performed immediately prior to Metamizole dosing. CBC WITH AUTO DIFFERENTIAL WBC 10.4 nRBC 0.0 RBC 4.36 Hemoglobin 13.4 Hematocrit 37.4 MCV 86 MCH 30.7 MCHC 35.8 RDW 11.8 Platelets 221 Neutrophils % 63.5 Immature Granulocytes %, Automated 0.4 Lymphocytes % 27.5 Monocytes % 5.6 Eosinophils % 2.5 Basophils % 0.5 Neutrophils Absolute 6.64 Immature Granulocytes Absolute, Automated 0.04 Lymphocytes Absolute 2.87 Monocytes Absolute 0.58 Eosinophils Absolute 0.26 Basophils Absolute 0.05 ED Course & MDM Diagnoses as of 06/26/232103 Infected pilonidal cyst Medical Decision Making Take medication as prescribed. Warm moist compresses to the area. Follow-up with in 1-2days, if worse return to the ED. Follow-up with 1 to 2 days. Procedure Procedures Mathew Waddell DO 06/26/232103 * NIDA Saenz - 06/26/2023 7:42 PM EST Pt comes in for pain at her tail bone region. Pt states that she has been having this pain for the last 3-4 days. Pt denies any injury to the area, but states that this happened a few weeks ago and went away on its own. Pt state that it seem to correlate with the start of her menstrual cycle. [facility]: 1(969) 435-532911-26-2023 Emergency department Triage note* Shubham Aguero, EMT - 06/26/2023 7:42 PM EST Pt comes in for pain at her tail bone region. Pt states that she has been having this pain for the last 3-4 days. Pt denies any injury to the area, but states that this happened a few weeks ago and went away on its own. Pt state that it seem to correlate with the start of her menstrual cycle. [facility] Work Phone: 1(508) 282-857811-26-2023 Physician Emergency department Note* Mathew Temple Chantale, - 06/26/2023 7:42 PM EST HPI Chief Complaint Patient presents with Back Pain Pt comes in for pain on her tail bone x 3 days 32-year-old female presents with lesion upper buttocks on the left for the last several days. Patient states this is her third time this is occurred. Patient states 2 previous times it went away on its own. I have indicated to her that she has early signs of a pilonidal cyst. Patient will be given a gram of IV vancomycin. The patient will be given Toradol 15 mg IV. Patient will be instructed to follow-up with Dr. Elias this week and if symptoms worsen return to ED. History provided by: Patient Holstein Coma Scale Score: 15 Patient History History reviewed. No pertinent past medical history. History reviewed. No pertinent surgical history. No family history on file. Social History Tobacco Use Smoking status: Never Smokeless tobacco: Never Vaping Use Vaping Use: Never used Substance Use Topics Alcohol use: Never Drug use: Not Currently Physical Exam ED Triage Vitals [06/26/231945] Temp Heart Rate Resp BP 36.8 C (98.2 F) 84 18 133/88 SpO2 Temp Source Heart Rate Source Patient Position 99 % Temporal Monitor Sitting BP Location FiO2 (%) Left arm -- Physical Exam Vitals and nursing note reviewed. Constitutional: General: She is not in acute distress. Appearance: She is well-developed. HENT: Head: Normocephalic and atraumatic. Eyes: Conjunctiva/sclera: Conjunctivae normal. Cardiovascular: Rate and Rhythm: Normal rate and regular rhythm. Heart sounds: No murmur heard. Pulmonary: Effort: Pulmonary effort is normal. No respiratory distress. Breath sounds: Normal breath sounds. Abdominal: Palpations: Abdomen is soft. Tenderness: There is no abdominal tenderness. Musculoskeletal: General: No swelling. Cervical back: Neck supple. Skin: General: Skin is warm and dry. Capillary Refill: Capillary refill takes less than 2 seconds. Comments: Small subcutaneous erythematous area consistent with pilonidal cyst proximal medial aspect of left buttocks. Area is tender to touch but no active flocculence or drainage. Neurological: Mental Status: She is alert. Psychiatric: Mood and Affect: Mood normal. Labs Reviewed COMPREHENSIVE METABOLIC PANEL - Normal Result Value Glucose 94 Sodium 138 Potassium 3.6 Chloride 104 Bicarbonate 26 Anion Gap 12 Urea Nitrogen 13 Creatinine 0.79 eGFR >90 Calcium 9.3 Albumin 4.4 Alkaline Phosphatase 45 Total Protein 6.7 AST 13 Bilirubin, Total 0.4 ALT 22 LACTATE - Normal Lactate 0.9 Narrative: Venipuncture immediately after or during the administration of Metamizole may lead to falsely low results. Testing should be performed immediately prior to Metamizole dosing. CBC WITH AUTO DIFFERENTIAL WBC 10.4 nRBC 0.0 RBC 4.36 Hemoglobin 13.4 Hematocrit 37.4 MCV 86 MCH 30.7 MCHC 35.8 RDW 11.8 Platelets 221 Neutrophils % 63.5 Immature Granulocytes %, Automated 0.4 Lymphocytes % 27.5 Monocytes % 5.6 Eosinophils % 2.5 Basophils % 0.5 Neutrophils Absolute 6.64 Immature Granulocytes Absolute, Automated 0.04 Lymphocytes Absolute 2.87 Monocytes Absolute 0.58 Eosinophils Absolute 0.26 Basophils Absolute 0.05 ED Course & MDM Diagnoses as of 06/26/232103 Infected pilonidal cyst Medical Decision Making Take medication as prescribed. Warm moist compresses to the area. Follow-up with in 1-2days, if worse return to the ED. Follow-up with 1 to 2 days. Procedure Procedures Mathew Waddell DO 06/26/232103 [facility] Work Phone: Evaluation note* Diagnosis Infected pilonidal cyst- Primary Pilonidal cyst without mention of abscess documented in this encounter [facility] Work Phone: Evaluation noteNo assessment information available [facility] Work Phone: Evaluation note* Diagnosis Influenza- Primary Influenza with other respiratory manifestations documented in this encounter [facility] Work Phone: Evaluation note* Diagnosis Right lower quadrant abdominal pain- Primary documented in this encounter [facility] Work Phone: Hospital Discharge instructions Additional Instructions Please use warm compresses. You may use sitz bath's. Please take the Percocet, doxycycline. You need to follow-up with surgery. Of course return here for worsening pain fever [facility]ills [facility] Work Phone: Hospital Discharge instructions Additional Instructions X-ray of your right leg and cervical spine negative. Continue Tylenol up to 1 g every 6 hours as needed.[facility] Work Phone: Reason for referral (narrative)No reason for referral information availableWMar[facility] Work Phone: Assessments Diagnosis ERRONEOUS ENCOUNTER--DISREGA RD - Primary Diagnosis Right upper quadrant abdominal pain- Primary Irritable bowel syndrome, unspecified type Diagnosis Abdominal pain, unspecified location - Primary Gastritis, presence of bleed ing unspecified, unspecified chronicity, unspecified gastritis type Constipation, unspecified co nstipation type Diagnosis Corneal abrasion, unspecified laterality, initial encounter- Primary Instructions * Patient Instructions - Shannon Aguilera PA-C - 08/11/2018 8:49 AM EST Formatting of this note may be different from the original. Abdominal Pain: Care Instructions Your Care Instructions Abdominal pain has many possible causes. Some aren't serious and get better on their own in a few days. Others need more testing and treatment. If your pain continues or gets worse, you need to be rechecked and may need more tests to find out what is wrong. You may need surgery to correct the problem. Don't ignore new symptoms, such as fever, nausea and vomiting, urination problems, pain that gets worse, and dizziness. These may be signs of a more serious problem. Your doctor may have recommended a follow-up visit in the next 8 to 12 hours. If you are not getting better, you may need more tests or treatment. The doctor has checked you carefully, but problems can develop later. If you notice any problems ornew symptoms, get medical treatment right away. Follow-up care is a milner part of your treatment and safety. Be sure to make and go to all appointments, and call your doctor if you are having problems. It's also a good idea to know your test resultsand keep a list of the medicines you take. How can you care for yourself at home? Rest until you feel better. To prevent dehydration, drink plenty of fluids, enough so that your urine is light yellow or clear like water. Choose water and other caffeine-free clear liquids until you feel better. If you have kidney, heart, or liver disease and have to limit fluids, talk with your doctor before you increase the amount of fluids you drink. If your stomach is upset, eat mild foods, such as rice, dry toast or crackers, bananas, and applesauce. Try eating several small meals instead of two or three large ones. Wait until 48 hours after all symptoms have gone away before you have spicy foods, alcohol, and drinks that contain caffeine. Do not eat foods that are high in fat. Avoid anti-inflammatory medicines such as aspirin, ibuprofen (Advil, Motrin), and naproxen (Aleve).These can cause stomach upset. Talk to your doctor if you take daily aspirin for another health problem. When should you call for help? Call 911 anytime you think you may need emergency care. For example, call if: You passed out (lost consciousness). You pass maroon or very bloody stools. You vomit blood or what looks like coffee grounds. You have new, severe belly pain. Call your doctor now or seek immediate medical care if: Your pain gets worse, especially if it becomes focused in one area of your belly. You have a new or higher fever. Your stools are black and look like tar, or they have streaks of blood. You have unexpected vaginal bleeding. You have symptoms of a urinary tract infection. These may include: ? Pain when you urinate. ? Urinating more often than usual. ? Blood in your urine. You are dizzy or lightheaded, or you feel like you may faint. Watch closely for changes in your health, and be sure to contact your doctor if: You are not getting better after 1 day (24 hours). Where can you learn more? Log into your personal health record on [email or web address] and enter E907 in the "Education" box to learn more about "Abdominal Pain: Care Instructions." Current as of: April 23, 2018 Content Version: .20052803-7898 [employer]. Care instructions adapted under license by your healthcare professional. If you have questions about a medical condition or this instruction, always ask your healthcare professional. [employer] disclaims any warranty or liability for your use of this information. Constipation: Care Instructions Your Care Instructions Constipation means that you have a hard time passing stools (bowel movements). People pass stools from 3 times a day to once every 3 days. What is normal for you may be different. Constipation may occur with pain in the rectum and cramping. The pain may get worse when you try to pass stools. Sometimes there are small amounts of bright red blood on toilet paper or the surface of stools. This is because of enlarged veins near the rectum (hemorrhoids). A few changes in your diet and lifestyle may help you avoid ongoing constipation. Your doctor may also prescribe medicine to help loosen your stool. Some medicines can cause constipation. These include pain medicines and antidepressants. Tell your doctor about all the medicines you take. Your doctor may want to make a medicine change to ease yoursymptoms. Follow-up care is a milner part of your treatment and safety. Be sure to make and go to all appointments, and call your doctor if you are having problems. It's also a good idea to know your test resultsand keep a list of the medicines you take. How can you care for yourself at home? Drink plenty of fluids, enough so that your urine is light yellow or clear like water. If you have kidney, heart, or liver disease and have to limit fluids, talk with your doctor before you increase the amount of fluids you drink. Include high-fiber foods in your diet each day. These include fruits, vegetables, beans, and whole grains. Get at least 30 minutes of exercise on most days of the week. Walking is a good choice. You also may want to do other activities, such as running, swimming, cycling, or playing tennis or team sports. Take a fiber supplement, such as Citrucel or Metamucil, every day. Read and follow all instructionson the label. Schedule time each day for a bowel movement. A daily routine may help. Take your time having your bowel movement. Support your feet with a small step stool when you sit on the toilet. This helps flex your hips andplaces your pelvis in a squatting position. Your doctor may recommend an aveg-ida-wxwqlsd laxative to relieve your constipation. Examples are Milk of Magnesia and MiraLax. Read and follow all instructions on the label. Do not use laxatives on a long-term basis. When should you call for help? Call your doctor now or seek immediate medical care if: You have new or worse belly pain. You have new or worse nausea or vomiting. You have blood in your stools. Watch closely for changes in your health, and be sure to contact your doctor if: Your constipation is getting worse. You do not get better as expected. Where can you learn more? Log into your personal health record on [email or web address] and enter P343 in the "Education" box to learn more about "Constipation: Care Instructions." Current as of: April 23, 2018 Content Version: 06.09-2018 [employer]. Care instructions adapted under license by your healthcare professional. If you have questions about a medical condition or this instruction, always ask your healthcare professional. [employer] disclaims any warranty or liability for your use of this information. Gastritis: Care Instructions Your Care Instructions Gastritis is a sore and upset stomach. It happens when something irritates the stomach lining. Manythings can cause it. These include an infection such as the flu or something you ate or drank. Medicines or a sore on the lining of the stomach (ulcer) also can cause it. Your belly may bloat and ache. You may belch, vomit, and feel sick to your stomach. You should be able to relieve the problem by taking medicine. And it may help to change your diet. If gastritis lasts, your doctor may prescribe medicine. Follow-up care is a milner part of your treatment and safety. Be sure to make and go to all appointments, and call your doctor if you are having problems. It's also a good idea to know your test resultsand keep a list of the medicines you take. How can you care for yourself at home? If your doctor prescribed antibiotics, take them as directed. Do not stop taking them just because you feel better. You need to take the full course of antibiotics. Be safe with medicines. If your doctor prescribed medicine to decrease stomach acid, take it as directed. Call your doctor if you think you are having a problem with your medicine. Do not take any other medicine, including iupc-irr-militpf pain relievers, without talking to your doctor first. If your doctor recommends uxlq-jqq-idadnbc medicine to reduce stomach acid, such as Pepcid AC, Prilosec, Tagamet HB, or Zantac 75, follow the directions on the label. Drink plenty of fluids (enough so that your urine is light yellow or clear like water) to prevent dehydration. Choose water and other caffeine-free clear liquids. If you have kidney, heart, or liver disease and have to limit fluids, talk with your doctor before you increase the amount of fluids youdrink. Limit how much alcohol you drink. Avoid coffee, tea, cola drinks, chocolate, and other foods with caffeine. They increase stomach acid. When should you call for help? Call 911 anytime you think you may need emergency care. For example, call if: You vomit blood or what looks like coffee grounds. You pass maroon or very bloody stools. Call your doctor now or seek immediate medical care if: You start breathing fast and have not produced urine in the last 8 hours. You cannot keep fluids down. Watch closely for changes in your health, and be sure to contact your doctor if: You do not get better as expected. Where can you learn more? Log into your personal health record on [email or web address] and enter Z536 in the "Education" box to learn more about "Gastritis: Care Instructions." Current as of: October 25, 2017 Content Version: 11.9 0039-2355 [employer]. Care instructions adapted under license by your healthcare professional. If you have questions about a medical condition or this instruction, always ask your healthcare professional. [employer] disclaims any warranty or liability for your use of this information. Learning About Acute Cholecystitis What is cholecystitis? Cholecystitis (say "lsq-ooe-gja-TY-tus") is inflammation of the gallbladder. The gallbladder storesbile. Bile helps the body digest food. Normally, the bile flows from the gallbladder to the small intestine. A gallstone stuck in the cystic duct is most often the cause of sudden (acute) cholecystitis. The cystic duct is the tube that carries the bile out of the gallbladder. The gallstone blocks the bile from leaving the gallbladder. This results in an irritated and swollen gallbladder. The disease can also be caused by infection or trauma, such as an injury from a car accident. Cholecystitis has to be treated right away. You will probably have to go to the hospital. Surgery is the usual treatment. What are the symptoms? Symptoms include: Steady and severe pain in the upper right part of belly. This is the most common symptom. The pain can sometimes move to your back or right shoulder blade. It may last for more than 6 hours. Nausea or vomiting. A fever. How is it treated? The main way to treat this disease is surgery to remove the gallbladder. This surgery can often be done through small cuts (incisions) in the belly. This is called a laparoscopic cholecystectomy. In some cases, you may need a more extensive surgery. You may need surgery as soon as possible. The doctor may try to reduce swelling and irritation in the gallbladder before removing it. You may be given fluids and antibiotics through an IV. You may also be given pain medicine. Follow-up care is a milner part of your treatment and safety. Be sure to make and go to all appointments, and call your doctor if you are having problems. It's also a good idea to know your test resultsand keep a list of the medicines you take. Where can you learn more? Log into your personal health record on [email or web address] and enter T940 in the "Education" box to learn more about "Learning About Acute Cholecystitis." Current as of: October 25, 2017 Content Version: .20058960-5269 [employer]. Care instructions adapted under license by your healthcare professional. If you have questions about a medical condition or this instruction, always ask your healthcare professional. [employer] disclaims any warranty or liability for your use of this information. Low-Fat Diet for Gallbladder Disease: Care Instructions Your Care Instructions When you eat, the gallbladder releases bile, which helps you digest the fat in food. If you have aninflamed gallbladder, this may cause pain. A low-fat diet may give your gallbladder a rest so you can start to heal. Your doctor and dietitian can help you make an eating plan that does not irritate your digestive system. Always talk with your doctor or dietitian before you make changes in your diet. Follow-up care is a milner part of your treatment and safety. Be sure to make and go to all appointments, and call your doctor if you are having problems. It's also a good idea to know your test resultsand keep a list of the medicines you take. How can you care for yourself at home? Eat many small meals and snacks each day instead of three large meals. Choose lean meats. ? Eat no more than 5 to 6 ounces of meat a day. ? Cut off all fat you can see. ? Eat chicken and turkey without the skin. ? Many types of fish, such as salmon, horne trout, tuna, and jacobo, provide healthy omega-3 fat. But, avoid fish canned in oil, such as sardines in olive oil. ? Bake, broil, or grill meats, poultry, or fish instead of frying them in butter or fat. Drink or eat nonfat or low-fat milk, yogurt, cheese, or other milk products each day. ? Read the labels on cheeses, and choose those with less than 5 grams of fat an ounce. ? Try fat-free sour cream, cream cheese, or yogurt. ? Avoid cream soups and cream sauces on pasta. ? Eat low-fat ice cream, frozen yogurt, or sorbet. Avoid regular ice cream. Eat whole-grain cereals, breads, crackers, rice, or pasta. Avoid high-fat foods such as croissants,scones, biscuits, waffles, doughnuts, muffins, granola, and high-fat breads. Flavor your foods with herbs and spices (such as basil, tarragon, or mint), fat- free sauces, or lemon juice instead of butter. You can also use butter substitutes, fat-free mayonnaise, or fat-free dressing. Try applesauce, prune puree, or mashed bananas to replace some or all of the fat when you bake. Limit fats and oils, such as butter, margarine, mayonnaise, and salad dressing, to no more than 1 tablespoon a meal. Avoid high-fat foods, such as: ? Chocolate, whole milk, ice cream, and processed cheese. ? Fried or buttered foods. ? Sausage, salami, and asencio. ? Cinnamon rolls, cakes, pies, cookies, and other pastries. ? Prepared snack foods, such as potato chips, nut and granola bars, and mixed nuts. ? Coconut and avocado. Learn how to read food labels for serving sizes and ingredients. Fast-food and convenience-food meals often have lots of fat. Where can you learn more? Log into your personal health record on [email or web address] and enter Z797 in the "Education" box to learn more about "Low-Fat Diet for Gallbladder Disease: Care Instructions." Current as of: October 26, 2017 Content Version: .20058556-8156 [employer]. Care instructions adapted under license by your healthcare professional. If you have questions about a medical condition or this instruction, always ask your healthcare professional. [employer] disclaims any warranty or liability for your use of this information. Problem List Items Addressed This Visit Digestive Irritable bowel syndrome You are also experiencing some variation in bowel habits. I would like to start you on Bentyl to help with this as well. We will continue to monitor this. Again, education was provided on ways Note: Antacids lower the absorption of dicyclomine. Do not take this medication at the same time asantacids. If you are taking an antacid, take it after meals and take dicyclomine before meals.to help with IBS. Please do not increase dose without consulting our office. Relevant Medications dicyclomine (BENTYL) 10 MG capsule Other Right upper quadrant abdominal pain - Primary Today we discussed a few of the possibilities that could be causing your weight loss and abdominal pain. The most likely cause is gallbladder disease. You have a strong family history of this and your symptoms fit almost perfectly. Today we will do some blood work to evaluate a little further and we will continue to monitor. After blood work, we will likely proceed with imaging to get a good lookat the gallbladder. In the meantime, I have included some patient education on a low-fat diet to help with the abdominal pain and nausea. I would like to see you back in one week to see how things are progressing. Should anything new arise, I would like to see you back sooner. Relevant Medications dicyclomine (BENTYL) 10 MG capsule Other Relevant Orders POC Urinalysis Dipstick (Completed) POC , Urine (Completed) CBC and Differential Comprehensive Metabolic Panel Amylase Lipase Urine Aerobic Culture Irritable Bowel Syndrome: Care Instructions Your Care Instructions Irritable bowel syndrome, or IBS, is a problem with the intestines that causes belly pain, bloating, gas, constipation, and diarrhea. The cause of IBS is not well known. IBS can last for many years, but it does not get worse over time or lead to serious disease. Most people can control their symptoms by changing their diet and reducing stress. Follow-up care is a milner part of your treatment and safety. Be sure to make and go to all appointments, and call your doctor if you are having problems. It's also a good idea to know your test resultsand keep a list of the medicines you take. How can you care for yourself at home? For constipation: ? Include fruits, vegetables, beans, and whole grains in your diet each day. These foods are high in fiber. ? Drink plenty of fluids, enough so that your urine is light yellow or clear like water. If you have kidney, heart, or liver disease and have to limit fluids, talk with your doctor before you increase the amount of fluids you drink. ? Get some exercise every day. Build up slowly to 30 to 60 minutes a day on 5 or more days of the week. ? Take a fiber supplement, such as Citrucel or Metamucil, every day if needed. Read and follow all instructions on the label. ? Schedule time each day for a bowel movement. Having a daily routine may help. Take your time and do not strain when having a bowel movement. If you often have diarrhea, limit foods and drinks that make it worse. These are different for eachperson but may include caffeine (found in coffee, tea, chocolate, and cola drinks), alcohol, fatty foods, gas-producing foods (such as beans, cabbage, and broccoli), some dairy products, and spicy foods. Do not eat candy or gum that contains sorbitol. Keep a daily diary of what you eat and what symptoms you have. This may help find foods that cause you problems. Eat slowly. Try to make mealtime relaxing. Find ways to reduce stress. Get at least 30 minutes of exercise on most days of the week. Exercise can help reduce tension and prevent constipation. Walking is a good choice. You also may want to do other activities, such as running, swimming, cycling, or playing tennis or team sports. When should you call for help? Call your doctor now or seek immediate medical care if: Your pain is different than usual or occurs with fever. You lose weight without trying, or you lose your appetite and you do not know why. Your symptoms often wake you from sleep. Your stools are black and tarlike or have streaks of blood. Watch closely for changes in your health, and be sure to contact your doctor if: Your IBS symptoms get worse or begin to disrupt your day-to-day life. You become more tired than usual. Your home treatment stops working. Where can you learn more? Log into your personal health record on [email or web address] and enter Y447 in the "Education" box to learn more about "Irritable Bowel Syndrome: Care Instructions." Current as of: October 25, 2017 Content Version: 11.9 6594-9468 [employer]. Care instructions adapted under license by your healthcare professional. If you have questions about a medical condition or this instruction, always ask your healthcare professional. [employer] disclaims any warranty or liability for your use of this information. in this encounter* Patient Instructions - Amanda Schmidt MD - 02/21/2017 2:00 PM EDT Formatting of this note may be different from the original. Problem List Items Addressed This Visit Digestive Gastritis Believe the stomach issue is related to the constipation allowing reflux of the acid up. Need to get moving with the bowel and will also increase the acid suppression. Change to Omeprazole in am am, continue with the famotidine for 5 days and stop. Constipation Constipation is defined by the consistentcy of stool firmer than toothpaste. Add MIralax 1 cap fullonce a day to maintain the frequenxy of stool enough to have the consistentcy of toothpaste Other Visit Diagnoses Abdominal pain, unspecified location - Primary Relevant Orders POC Urinalysis Dipstick (Completed) in this encounter History of Present Illness * Shannon Aguilera PA-C - 08/11/2018 8:12 AM EST Formatting of this note may be different from the original. Subjective Patient ID: Unique Hogan is a 27 y.o. female. Emesis This is a chronic problem. The current episode started more than 1 year ago. The problem occurs 2 to 4 times per day. The problem has been gradually worsening. The emesis has an appearance of stomachcontents and bile. The maximum temperature recorded prior to her arrival was 100.4 - 100.9 F. The fever has been present for less than 1 day. Associated symptoms include abdominal pain, diarrhea and dizziness. Pertinent negatives include no chest pain, coughing, fever or headaches. Associated symptoms comments: Right upper quadrant to epigastric area. Treatments tried: tried zofran with no relief. The treatment provided no relief. The following portions of the patient's history were reviewed and updated as appropriate: allergies, current medications, past family history, past medical history, past social history, past surgicalhistory and problem list. Vitals: 08/11/18 0804 BP: 117/86 BP Location: Left arm Patient Position: Sitting BP Cuff Size: Adult Pulse: 88 Resp: 18 Temp: 98.3 F (36.8 C) TempSrc: Oral SpO2: 97% Weight: 85.7 kg (189 lb) Height: 5' 7" Past Medical History: Diagnosis Date Abdominal pain 05/17/2017 [facility]Asuncion Young MD Contusion, forearm [facility]Trena Coon MD History of hepatomegaly 05/17/2017 [facility]Asuncion Young MD Hypertension During ; childhood MRSA (methicillin resistant Staphylococcus aureus) Has MRSA/staff Retroverted uterus 05/17/2017 [facility]/Asuncion Young MD Ureteral dilatation 05/17/2017 [facility]/Asuncion Young MD Calcification/dilatation Vomiting 05/17/2017 [facility] Asuncion Young MD Past Surgical History: Procedure Laterality Date Glass removal 2011 Has glass removed from head GROWTH PLATE SURGERY Bilateral Left and right hand Staff infection 2010 TONSILLECTOMY Patient's Medications New Prescriptions DICYCLOMINE (BENTYL) 10 MG CAPSULE Take 1 (one) capsule (10 mg total) by mouth 4 (four) times a daybefore meals and nightly . Previous Medications FLUTICASONE (FLONASE) 50 MCG/ACTUATION NASAL SPRAY 1 spray into each nostril 2 (two) times a day. ONDANSETRON (ZOFRAN) 4 MG TABLET Take 4 mg by mouth every 8 (eight) hours as needed for nausea. POLYETHYLENE GLYCOL (MIRALAX) 17 GRAM POWDER Take 17 (seventeen) g by mouth daily To maintain stoolthe consistency of toothpaste. VITAMIN WITH CA-IRON-FA 27-1 MG TAB Take 1 tablet by mouth daily. Modified Medications No medications on file Discontinued Medications No medications on file Allergies as of 08/11/2018 - Reviewed 08/11/2018 Allergen Reaction Noted Honey Rash 03/03/2016 Amoxicillin Hives and Rash 03/03/2016 Ceftin [cefuroxime axetil] Rash 03/03/2016 Erythromycin Rash 03/03/2016 Penicillins Rash 03/03/2016 Sulfa (sulfonamide antibiotics) Hives and Rash 03/03/2016 Review of Systems Constitutional: Positive for appetite change and unexpected weight change. Negative for activity change, diaphoresis, fatigue and fever. HENT: Negative for ear discharge, ear pain, postnasal drip, sinus pain and sinus pressure. Eyes: Negative for pain and discharge. Respiratory: Negative for cough, chest tightness and shortness of breath. Cardiovascular: Negative for chest pain. Gastrointestinal: Positive for abdominal pain, constipation, diarrhea, nausea and vomiting. Neurological: Positive for dizziness. Negative for weakness, numbness and headaches. Objective Physical Exam Constitutional: She is oriented to person, place, and time. She appears well- developed and well-nourished. HENT: Head: Normocephalic and atraumatic. Right Ear: Hearing and tympanic membrane normal. Left Ear: Hearing and tympanic membrane normal. Nose: Nose normal. Mouth/Throat: Uvula is midline, oropharynx is clear and moist and mucous membranes are normal. Eyes: Conjunctivae and EOM are normal. Right eye exhibits no discharge. Left eye exhibits no discharge. Neck: Normal range of motion. Neck supple. Cardiovascular: Normal rate, regular rhythm and normal heart sounds. Pulmonary/Chest: Effort normal and breath sounds normal. Abdominal: Soft. She exhibits no distension and no mass. There is tenderness. There is no rebound and no guarding. Positive Yanes sign, hypoactive bowel sounds in all 4 quadrants. Tenderness over the right upper quadrant and epigastric region, otherwise remarkable Musculoskeletal: Normal range of motion. Neurological: She is alert and oriented to person, place, and time. She has normal reflexes. She exhibits normal muscle tone. Coordination normal. Skin: Skin is warm and dry. Psychiatric: She has a normal mood and affect. Judgment and thought content normal. Assessment/Plan: Problem List Items Addressed This Visit Digestive Irritable bowel syndrome You are also experiencing some variation in bowel habits. I would like to start you on Bentyl to help with this as well. We will continue to monitor this. Again, education was provided on ways Note: Antacids lower the absorption of dicyclomine. Do not take this medication at the same time asantacids. If you are taking an antacid, take it after meals and take dicyclomine before meals.to help with IBS. Please do not increase dose without consulting our office. Relevant Medications dicyclomine (BENTYL) 10 MG capsule Other Right upper quadrant abdominal pain - Primary Today we discussed a few of the possibilities that could be causing your weight loss and abdominal pain. The most likely cause is gallbladder disease. You have a strong family history of this and your symptoms fit almost perfectly. Today we will do some blood work to evaluate a little further and we will continue to monitor. After blood work, we will likely proceed with imaging to get a good lookat the gallbladder. In the meantime, I have included some patient education on a low-fat diet to help with the abdominal pain and nausea. I would like to see you back in one week to see how things are progressing. Should anything new arise, I would like to see you back sooner. Relevant Medications dicyclomine (BENTYL) 10 MG capsule Other Relevant Orders POC Urinalysis Dipstick (Completed) POC , Urine (Completed) CBC and Differential Comprehensive Metabolic Panel Amylase Lipase Urine Aerobic Culture For any new medications prescribed today, patient was educated about indications for the medication, how to take the medication and potential side effects of the medications. .me in this encounter* Amanda Schmidt MD - 02/21/2017 1:09 PM EDT Formatting of this note may be different from the original. Problem List Items Addressed This Visit Digestive Constipation Constipation is defined by the consistentcy of stool firmer than toothpaste. Add MIralax 1 cap fullonce a day to maintain the frequenxy of stool enough to have the consistentcy of toothpaste Gastritis Believe the stomach issue is related to the constipation allowing reflux of the acid up. Need to get moving with the bowel and will also increase the acid suppression. Change to Omeprazole in am am, continue with the famotidine for 5 days and stop. Other Visit Diagnoses Abdominal pain, unspecified location - Primary Relevant Orders POC Urinalysis Dipstick (Completed) Subjective: Patient ID: Unique Hogan is a 26 y.o. female. HPI with abdominal pain. Typically left upper quadrant but also epigastric and right upper quadrantas well. She states she is having increased gas as well as heartburn. The famotidine is helping somewhat but not always effective. She is also having episodes of firm stool may be a relationship between the firmer stool and the belly pain. Denies any burning with urination any fever chills. Sometimes the pain feels like it is mobile. She denies any mucus or blood per stool. The following portions of the patient's history were reviewed and updated as appropriate: allergies, current medications, past family history, past medical history, past social history, past surgicalhistory and problem list. Review of Systems Constitutional: Negative for activity change, appetite change, chills and fever. HENT: Positive for congestion and sinus pressure. Negative for ear discharge, ear pain, hearing loss, tinnitus and trouble swallowing. Tonsillectomy Eyes: Positive for photophobia and visual disturbance. Negative for pain. Episode of visual blurriness in the right eye associated with night driving. Headache is one sided and follws the visual disturbance. Respiratory: Negative for cough and wheezing. Cardiovascular: Negative for chest pain and palpitations. Gastrointestinal: Positive for abdominal pain. Negative for constipation and diarrhea. Left sided sharp in nature, LUQ. Can occur with eating as well as on empty stomach. Episode of increase flatulence. Endocrine: Negative for cold intolerance and heat intolerance. Genitourinary: Negative for dysuria, pelvic pain, vaginal bleeding and vaginal discharge. Musculoskeletal: Negative for arthralgias, back pain and joint swelling. Left lower back and right SI pain. Skin: Negative for color change and rash. Allergic/Immunologic: Negative for environmental allergies. Neurological: Positive for headaches. Negative for dizziness, seizures and syncope. Right sided migraine triggered by night driving, and bright lights. Hematological: Negative for adenopathy. Does not bruise/bleed easily. Psychiatric/Behavioral: Negative for dysphoric mood and suicidal ideas. The patient is not nervous/anxious. Objective: Vitals: 02/21/17 1308 BP: (!) 132/94 BP Location: Left arm Patient Position: Sitting BP Cuff Size: Adult Pulse: 79 Resp: 16 Temp: 98.6 F (37 C) TempSrc: Oral SpO2: 98% Weight: 89.8 kg (198 lb) Height: 5' 7" Physical Exam Constitutional: She is oriented to person, place, and time. She appears well- developed and well-nourished. No distress. HENT: Head: Normocephalic and atraumatic. Right Ear: External ear normal. Left Ear: External ear normal. Mouth/Throat: Oropharynx is clear and moist. No oropharyngeal exudate. Boggy nasal mucosa with turbinate hypertrophy noted 70% or greater obstruction bilaterally. Eyes: EOM are normal. Pupils are equal, round, and reactive to light. Right eye exhibits no discharge. Left eye exhibits no discharge. No scleral icterus. Neck: Normal range of motion. Neck supple. No JVD present. No tracheal deviation present. No thyromegaly present. Cardiovascular: Normal rate, regular rhythm and normal heart sounds. No murmur heard. Pulmonary/Chest: Effort normal and breath sounds normal. No stridor. Abdominal: Soft. There is tenderness. Tenderness in the epigastric region bowel sounds are somewhat hyperactive she is not tender over the gallbladder but more so the gastroesophageal junction. No abnormal masses no hepatosplenomegaly noted. Musculoskeletal: She exhibits no edema or tenderness. Lymphadenopathy: She has no cervical adenopathy. Neurological: She is alert and oriented to person, place, and time. No cranial nerve deficit. Skin: Skin is warm and dry. No rash noted. Psychiatric: She has a normal mood and affect. Her behavior is normal. Judgment and thought contentnormal. Assessment/Plan: Problem List Items Addressed This Visit Digestive Constipation Constipation is defined by the consistentcy of stool firmer than toothpaste. Add MIralax 1 cap fullonce a day to maintain the frequenxy of stool enough to have the consistentcy of toothpaste Gastritis Believe the stomach issue is related to the constipation allowing reflux of the acid up. Need to get moving with the bowel and will also increase the acid suppression. Change to Omeprazole in am am, continue with the famotidine for 5 days and stop. Other Visit Diagnoses Abdominal pain, unspecified location - Primary Relevant Orders POC Urinalysis Dipstick (Completed) in this encounter Summary Purpose Family History No Family History Records FoundNo Family History Records FoundNo Family History Records FoundNo Family History Records FoundNo Family History Records FoundNo Family History Records FoundNo Family History Records FoundNo Family History Records FoundNo Family History Records FoundNo Family History Records Found Advance Directives No Advanced Directives Records FoundDocuments on File Type Date Recorded Patient Programming Coordinator Expl anation Advance Directives and Livin g Will 10/07/2020 10:45 AM Advance Directive Response Recorded Date/ Time Living Will No June 29, 023 8:44pm Power of Media Promoter No June 29, 2023 8:44pm Advance Directive Response Recorded Date/ Time Living Will No October 27, 2024 10:03pm Do you have a Healthcare Power of Media Promoter? No October 27, 2024 10:03pm Discharge Instructions * Instructions* Marleen Gonsalez MD - 10/07/2020 Please go and see and eye doctor today for further evaluation of your symptoms also get the eye ointment and use it to aid with symptoms. Return to the ED if any worsening symptoms for further management. * Attachments The following attachments cannot be sent through Care Everywhere. * Corneal Scratches (Burundian) documented in this encounter Chief Complaint and Reason for Visit Chief Complaint ABSCESS Chief Complaint Admit Date HEADACHE AND HALE PAIN October 27, 2024 9:47pm Additional Source Comments Reason for Visit (unrecogniz ed section and content) Reason Comments Emesis > 2months after eati ng Nausea all the time Diarrhea reports having irreg ular patterns every couple days along with constipation Weight Loss continues to lose we ight since June no appetite Reason Comments Abdominal Pain Reason Comments Eye Problem Reason Comments Back Pain Pt comes in for pain on her tail bone x 3 days Reason Comments Sore Throat Sore throat, cough, sore ears, chest pain when coughing and talking, 6/10 Reason Comments Abdominal Pain Patient to ED refere alexys right sided lower abdominal pain with nausea, body aches, sore throat and hot flashes that started this afternoon, she was at ED last night and tested positive for Flu A & B Assessment & Plan Note - Shannon Aguilera PA-C - 08/11/2018 8:42 AM ESTAssessment & Plan Note - Shannon Aguilera PA-C - 08/11/2018 8:37 AM EST Miscellaneous Notes (unrecog nized section and content) Associated Problem(s): Irritable bowel syndrome You are also experiencing some variation in bowel habits. I would like to start you on Bentyl to help with this as well. We will continue to monitor this. Again, education was provided on ways Note: Antacids lower the absorption of dicyclomine. Do not take this medication at the same time as antacids. If you are taking an antacid, take it after meals and take dicyclomine before meals.to help with IBS. Please do not increase dose without consulting our office. Associated Problem(s): Right upper quadrant abdominal pain Today we discussed a few of the possibilities that could be causing your weight loss and abdominal pain. The most likely cause is gallbladder disease. You have a strong family history of this and your symptoms fit almost perfectly. Today we will do some blood work to evaluate a little further and we will continue to monitor. After blood work, we will likely proceed with imaging to get a good look at the gallbladder. In the meantime, I have included some patient education on a low-fat diet to help with the abdominal pain and nausea. I would like to see you back in one week to see how things are progressing. Should anything new arise, I would like to see you back sooner.in this encounter INFORMATION SOURCE (unrecogn ized section and content) DATE CREATED AUTHOR 08/16/2018 [facility] DATE CREATED AUTHOR AUTHOR'S ORGANIZ ATION 09/26/2018 [facility] DATE CREATED AUTHOR AUTHOR'S ORGANIZ ATION 10/12/2018 [facility] DATE CREATED AUTHOR AUTHOR'S ORGANIZ ATION 11/16/2018 [facility] DATE CREATED AUTHOR AUTHOR'S ORGANIZ ATION 02/05/2022 [facility] DATE CREATED AUTHOR AUTHOR'S ORGANIZ ATION 03/17/2023 [facility] DATE CREATED AUTHOR AUTHOR'S ORGANIZ ATION 07/02/2023 [facility] DATE CREATED AUTHOR AUTHOR'S ORGANIZ ATION 09/28/2023 [facility] DATE CREATED AUTHOR AUTHOR'S ORGANIZ ATION 09/28/2023 [facility] DATE CREATED AUTHOR AUTHOR'S ORGANIZ ATION 11/03/2024 [facility] WallaceMarleen melissa MD - 10/07/2020 10:59 AM Kayla Orellana, CHRISTINE - 10/07/2020 10:33 AM EST ED Notes (unrecognized secti on and content) ED PROVIDER NOTE [facility] EMERGENCY DEPARTMENT NAME: Unique Hogan AGE: 29 y.o. : 1990 VISIT DATE: 10/07/2020 CSN: [id number] PCP: Physician No Chief Complaint Patient presents with Eye Problem HPI Patient present with irritation, tearing to right eye while driving. Does not wear contact lens and no trauma or falls. No loss of vision, no headaches and nausea or vomiting. Vitals in ED blood pressure of 146/107, pulse of 83, pulse ox of 98% on room air and she is afebrile at 98.1 fahrenheit and non-toxic looking. Past Medical History: Diagnosis Date Abdominal pain 05/17/2017 [facility]/Asuncion Young MD Contusion, forearm [facility]/Trena Coon MD Enlarged liver 08/14/2018 [facility]/Huber Peña MD 18.8cm Eye exam, routine 09/25/2018 Info Gained From : [facility] --- Mao Chiu, II, OD History of hepatomegaly 05/17/2017 [facility]/Asuncion Young MD Hyperopia, bilateral 09/25/2018 Info Gained From : [facility] --- Mao Chiu, II, OD (eye exam) Hypertension During ; childhood MRSA (methicillin resistant Staphylococcus aureus) Has MRSA/staff Regular astigmatism, bilateral 09/25/2018 Info Gained From : [facility] --- Mao Chiu, II, OD (eye exam) Retroverted uterus 05/17/2017 [facility]/Asuncion Young MD Ureteral dilatation 05/17/2017 [facility] COELLO/Asuncion Young MD Calcification/dilatation Vomiting 05/17/2017 [facility] Asuncion Young MD Past Surgical History: Procedure Laterality Date COLONOSCOPY 10/10/2018 Dr Cabrera- ESOPHAGOGASTRODUODENOSCOPY [facility] 2011 Has glass removed from head GROWTH PLATE SURGERY Bilateral Left and right hand Staff infection 2010 TONSILLECTOMY Family History Problem Relation Age of Onset Diabetes Mother Cancer Father Asthma Sister Stroke Maternal Grandmother Social History Socioeconomic History Marital status: Single Spouse name: Not on file Number of children: Not on file Years of education: Not on file Highest education level: Not on file Occupational History Not on file Social Needs Financial resource strain: Not on file Food insecurity Worry: Not on file Inability: Not on file Transportation needs Medical: Not on file Non-medical: Not on file Tobacco Use Smoking status: Current Every Day Smoker Packs/day: 0.25 Types: Cigarettes Smokeless tobacco: Never Used Substance and Sexual Activity Alcohol use: No Drug use: No Sexual activity: Not on file Lifestyle Physical activity Days per week: Not on file Minutes per session: Not on file Stress: Not on file Relationships Social connections Talks on phone: Not on file Gets together: Not on file Attends scientology service: Not on file Active member of club or organization: Not on file Attends meetings of clubs or organizations: Not on file Relationship status: Not on file Other Topics Concern Not on file Social History Narrative Not on file Previous Medications Medication Sig dicyclomine (BENTYL) 10 MG capsule Take 1 (one) capsule (10 mg total) by mouth 4 (four) times a day before meals and nightly . fluticasone (FLONASE) 50 mcg/actuation nasal spray 1 spray into each nostril 2 (two) times a day. ondansetron (ZOFRAN) 4 MG tablet Take 4 mg by mouth every 8 (eight) hours as needed for nausea. polyethylene glycol (MIRALAX) 17 gram powder Take 17 (seventeen) g by mouth daily To maintain stool the consistency of toothpaste. vitamin with Ca-Iron-FA 27-1 mg Tab Take 1 tablet by mouth daily. Allergies Allergen Reactions Honey Rash Facial swelling/rash Amoxicillin Hives and Rash Ceftin [Cefuroxime Axetil] Rash Erythromycin Rash Penicillins Rash Sulfa (Sulfonamide Antibiotics) Hives and Rash Review of Systems All other systems reviewed and are negative. Patient Vitals for the past 24 hrs: BP Temp Temp src Pulse Resp SpO2 Height Weight 10/07/20 1030 (!) 146/107 98.1 F (36.7 C) Oral 83 15 98 % 5' 4" 95.3 kg (210 lb) Physical Exam Vitals signs and nursing note reviewed. Constitutional: Appearance: Normal appearance. She is well-developed. HENT: Head: Normocephalic and atraumatic. Eyes: General: Lids are normal. No scleral icterus. Right eye: Discharge present. Left eye: No discharge. Extraocular Movements: Extraocular movements intact. Conjunctiva/sclera: Right eye: Right conjunctiva is injected. No exudate or hemorrhage. Left eye: Left conjunctiva is not injected. No hemorrhage. Comments: Positive uptake on fluorescin stain with eye lashes noted. Neck: Musculoskeletal: Normal range of motion and neck supple. No neck rigidity or muscular tenderness. Cardiovascular: Rate and Rhythm: Normal rate and regular rhythm. Pulmonary: Effort: Pulmonary effort is normal. Breath sounds: Normal breath sounds. Abdominal: General: Bowel sounds are normal. Palpations: Abdomen is soft. Skin: General: Skin is warm and dry. Neurological: General: No focal deficit present. Mental Status: She is alert and oriented to person, place, and time. Psychiatric: Mood and Affect: Mood normal. Laboratory & Radiographic Imaging (if done): No results found for this visit on 10/07/20. No orders to display Procedures MDM Patient with corneal abrasion to right eye. Proparacaine with fluorescin stain with positive uptake, small corneal abrasion with no hemorrhage and no purulent discharge noted. gentamicin ointments prescription outpatient follow-up with ophthalmology today for further evaluation and return to the ED if any worsening symptoms and she express understanding. . Clinical Impression: No diagnosis found. ED Disposition None Follow-up Information Follow-up information has not been specified. Contact information for after-discharge care Follow-up information has not been specified. Marleen Gonsalez MD 10/07/20 9317 Pt c/o right eye irritation, swelling, and tearing starting 2 hours ago while driving home from [place]. Pt denies any injury or trauma. documented in this encounter <item><item><item><item><item> Privacy Markings (unrecogniz ed section and content) Section Author: Alexia Bryan PROHIBITION ON REDISCLOSURE OF CONFIDENTIAL INFORMATION This notice accompanies a disclosure of information concerning a client made to you with the consent of such client. Section Author: Alexia Bryan PROHIBITION ON REDISCLOSURE OF CONFIDENTIAL INFORMATION This notice accompanies a disclosure of information concerning a client made to you with the consent of such client. Section Author: Alexia Bryan PROHIBITION ON REDISCLOSURE OF CONFIDENTIAL INFORMATION This notice accompanies a disclosure of information concerning a client made to you with the consent of such client. Section Author: Alexia Bryan PROHIBITION ON REDISCLOSURE OF CONFIDENTIAL INFORMATION This notice accompanies a disclosure of information concerning a client made to you with the consent of such client. Section Author: Alexia Bryan PROHIBITION ON REDISCLOSURE OF CONFIDENTIAL INFORMATION This notice accompanies a disclosure of information concerning a client made to you with the consent of such client. Scheduled Active and Recently Administ ered Medications (unrecognized section and content) Medication Order 06/24/2023 06/25/2023 06/26/2023 ketorolac (Toradol) injection 15 mg (COMPLETED) 15 mg, intravenous, Once, On 06/26/23 at 0, For 1 dose 2126 (Given - Provid er: Charo Gimenez RN) vancomycin in dextrose 5 % (Vancocin) IVPB 1,000 mg (COMPLETED) 1,000 mg, intravenous, at 250 mL/hr, Administer over 60 Minutes, Once, On 06/26/23 at 2015, For 1 dose, premix bag, Dosing of this medication varies based on severity of illness. Does this patient have sepsis or concern for sepsis (probable or documented infection plus systemic manifestations of infection)? No, Suspected Indication (Select all that apply): Cellulitis, Skin and Soft Tissue 2030 (New Bag - Prov ider: Charo Gimenez RN)2130 (Stopped - Provider: Charo Gimenez RN) Scheduled Medication Order 09/18/2023 09/19/2023 09/20/2023 acetaminophen (Tylenol) tablet 650 mg (COMPLETED) 650 mg, oral, Once, On Tue09/20/23 at 1750, For 1 dose, If ordered PRN for pain, nurse is permitted to administer this medication for higher pain scores based on patient preference? Yes 1813 (Given - Provid er: Tracy Mohan) Scheduled Medication Order 09/19/2023 09/20/2023 09/21/2023 iohexol (OMNIPaque) 350 mg iodine/mL solution 69 mL (COMPLETED) 69 mL, intravenous, Once in imaging, Starting on Tue09/21/23 at 1805, For 1 dose 1756 (Given - Provid er: Jonnie Peter) morphine injection 4 mg (COMPLETED) 4 mg, intravenous, Once, On Tue09/21/23 at 1625, For 1 dose 1655 (Given - Provid er: Phyllis Anderson RN) ondansetron (Zofran) injection 4 mg (COMPLETED) 4 mg, intravenous, Once, On Tue09/21/23 at 1625, For 1 dose, When administering via IV Push, administer over 3-5 minutes. 1655 (Given - Provid er: Phyllis Anderson RN) sodium chloride 0.9 % bolus 1,000 mL (COMPLETED) 1,000 mL, intravenous, at 1,000 mL/hr, Administer over 1 Hours, Once, On Tue09/21/23 at 1625, For 1 dose 1654 (New Bag - Prov ider: Phyllis Anderson RN)1820 (Stopped - Provider: Phyllis Anderson RN) Continuous Medication Order 09/19/2023 09/20/2023 09/21/2023 sodium chloride 0.9% infusion 150 mL/hr, intravenous, Continuous, Starting on Tue09/21/23 at 1625 1820 (New Bag - Prov ider: Phyllis Anderson RN)1856 (Stopped - Provider: Phyllis Anderson RN) Care Teams (unrecognized sec tion and content) Team Status: Active Member Role Status Dates No Primary Care Physician Family Provider Active No Primary Care Physician Primary Care Provider Active Team Status: Inactive Member Role Status Dates No Primary Care Physician Primary Care Provider Active Gregorio Kuo MD Emergency Provider Active Bench Scientist Relationship Specialty Start Date End Date Generic Provider, No Assigned Pcp, MD [address] [place] [address] PCP - General 09/20/23 Bench Scientist Relationship Specialty Start Date End Date Generic Provider, No Assigned PcpMD [address] [place] [address] PCP - General 09/20/23 Bench Scientist Relationship Specialty Start Date End Date Generic Provider, No Assigned PcpMD [address] [place] [address] PCP - General 09/20/23 Team Status: Active Member Role Status Dates No Primary Care Physician Primary Care Provider Active Team Status: Inactive Member Role Status Dates No Primary Care Physician Primary Care Provider Active Start: October 27, 2024 End: October 27, 2024 Dr. Nathan Conley , DO Emergency Provider Active Start : October 27, 2024 End: October 27, 2024 Goals (unrecognized section and content) Goals may be documented in a n alternate sectionGoals may be documented in an alternate section FOR RECORDS PERTAINING TO PATIENTS WHO ARE OR HAVE BEEN ENROLLED IN A CHEMICAL DEPENDENCY/SUBSTANCEABUSE PROGRAM, SOME INFORMATION MAY BE OMITTED. This clinical summary was aggregated from multiple sources. Caution should be exercised in using it in the provision of clinical care. This summary normalizes information from multiple sources, and as a consequence, information in this document may materially change the coding, format and clinical context of patient data. In addition, data may be omitted in some cases. CLINICAL DECISIONS SHOULD BE BASED ON THE PRIMARY CLINICAL RECORDS. [facility]. provides no warranty or guarantee of the accuracy or completeness of information in this document.
== END 2025-06-09 19:33 | disposition home or self-care (01) ==
PROVIDERS: Emergency Provider Surgery; Visit Provider Surgery
DX: L05.91 Pilonidal cyst without abscess (principal)
CPT/HCPCS: 99282

== ENCOUNTER 2025-06-25 07:16 | Day surgery (SDC) | payer BC, SELFPAY ==
[2025-06-25] VITALS (9 sets, daily range): BP systolic 100–132; BP diastolic 61–95; PULSE 75–107; RESP 16–20; TEMP 36.1–36.2; O2SAT 92–97; BMI 38.7
--- OUTSIDE RECORDS SUMMARY | 2025-06-25 07:21 | XMS RPT_ITS | CCD ---
Author Organization [facility] Care Team Providers Care Plumbing Mechanic Name Role Phone Amanda Schmidt Unavailable Zappa, Shannon Unavailable Unavailable Zappa, Shannon Unavailable Unavailable MAO CHIU II Attending UnavailAMANDA Lares Attending Unavailable AMANDA SCHMIDT Primary Care Unavailable ZAPSHANNON ARMSTRONG Attending UnavailAMANDA Lares Primary Care Unavailable FAWN PEÑA Attending Unavailable AMANDA SCHMIDT Primary Care Unavailable AMANDA SCHMIDT Attending Unavailable KARISHMA OSBORNE Attending Unavailable AMANDA SCHMIDT Primary Care Unavailable DUSTIN GALLEGOS Attending Unavailable ROXANA, AMANDA BYRD Primary Care Unavailable Amanda Schmidt Primary Care Unavailable Ivanauskas, Saulius Admitting Unavailable Ivrandi, Saulius Attending Unavailable Zapnyasia, Shannon Admitting Unavailable Zapnyasia Shannon Attending Unavailable Amanda Schmidt Primary Care Unavailable Majorawat, Deborah Attending Unavailable Amanda Schmidt Primary Care [...] Deborah Admitting Unavailable Gahlawat, Deborah Attending Unavailable Zappa Shannon Primary Care Unavailable Gahlawat, Deborah Attending Unavailable Gahlawat, Deborah Admitting Unavailable Zappa, Shannon Primary Care Unavailable Shubham Garcia Attending Unavailable Zappa, Shannon Primary Care Unavailable Unavailable Primary Care Provider Unavailabl e No, Physician Primary Care Provider Unavailabl e RoxanaAmanda Marquis Unavailable Wang Betancourt I Unavailable Unavailable [...] Unavailable Dr. Nathan Conley DO Emergency Provider Nathan Conley Attending Unavailable Care Physician, No Primary Primary Care Unava ilable Thomas Mccoy Attending Unavailabl e Care Physician, No Primary Primary Care Unava ilable Care Physician, No Primary Primary Care Unava ilable Elmer Burdick Attending Unavailable Care Physician, No Primary Primary Care Unava ilable Elmer Burdick Attending Unavailable Care Physician, No Primary Referring Unava ilable Allergies Allergy Classification Reported Allergen(s) Allergy Type Date of Onset Reaction(s) Facility Cephalosporins (antibiotic) (1 source) Cefuroxime Drug Allergy Rash [facility] Macrolides (antibiotic) (1 source) Erythromycin Drug Allergy Rash [facility] Penicillins (antibiotic) (1 source) Amoxicillin Drug Allergy Rash [facility] Sulfonamides (antibiotic) (1 source) Sulfamethoxazole Drug Allergy Rash [facility] (20 sources) amoxicillin; Translations: [AMOXICILLIN] Drug Allergy 03-03-20 16 Elmer Truong [facility] Work Phone: (7 sources) cefuroxime; Translations: [CEFUROXIME AXETIL] Drug Allergy 03-03-20 16 [facility] Work Phone: (20 sources) erythromycin; Translations: [ERYTHROMYCIN] Drug Allergy 03-03-20 [facility] Work Phone: (12 sources) Honey; Translations: [HONEY] Propensity to adverse reactions to drug 03-03-20 [facility] Work Phone: (7 sources) Penicillins; Translations: [PENICILLINS] Propensity to adverse reactions to drug 03-03-20 [facility] Work Phone: (10 sources) Sulfonamides (Antibiotic); Translations: [SULFA (SULFONAMIDE ANTIBIOTICS)] Propensity to adverse reactions to drug 03-03-20 Hives, [facility] Work Phone: (1 source) Cefuroxime; Translations: [Ceftin] Drug Allergy [facility] Repository (1 source) Sulfonamides (Antibiotic); Translations: [sulfa drugs] Propensity to adverse reactions to drug (disorder) [facility] Rep[facility] (4 sources) Cefuroxime Drug Allergy Rash [facility] (4 sources) Sulfamethoxazole Drug Allergy Rash [facility] (2 sources) SUMAtriptan; Translations: [SUMATRIPTAN] Drug Allergy 08-08-19 23 [facility] Repository (6 sources) Azithromycin; Translations: [AZITHROMYCIN] Drug Allergy 06-26-20 [facility] Work Phone: (6 sources) Sulfamethoxazole / Trimethoprim; Translations: [SULFAMETHOXAZOLE-TR IMETHOPRIM] Drug Allergy 06-26-20 [facility] Work Phone: (5 sources) Sulfonamides (Antibiotic) Propensity to adverse reactions 06-26-20 [facility] Work Phone: (3 sources) cefoTEtan; Translations: [cefotetan disodium] Drug Allergy 06-29-20 [facility] (1 source) Amoxicillin Drug Allergy 06-10-20 [facility] Repository (1 source) Erythromycin Drug Allergy 06-10-20 [facility] Repository (1 source) Sulfonamides (Antibiotic) Drug allergy (disorder) 06-10-20 25 [facility] Repository Medications Current Medications Medication Drug Class(es) [...] should be taken with plenty of water. [place] (Nk) (1 source) Start: 10-27-2024 [place] (Nk) Active October 27, 2024 12:00am omeprazole [...] 0 09/20/2023 09/25/2023 Active polyethylene glycol 3350 95232 mg powder for oral solution (4 sources) [...] only. Comment on above: For external use onwin y. clindamycin 300 mg oral capsule (14 sources) Lincosamide Antibacterial Start: 03-31-20 End: 04-09-20 take 1 capsule by mouth every six hours clindamycin 300 mg oral capsule ; 1 cap(s) orally every 6 hours x 10 days Quantity: 40 Refills: 0 Ordered: 31-Mar-2021 [facility] carrine Start: 31-Mar-2021 End: 09-Apr-2021 Generic Substitution Allowed [...] (3 sources) Tetracycline-class Drug Start: 024 End: take 1 capsule by mouth twice daily [...] Date Documented Da te Episodic/Chronic Abdominal pain (13 sources) Right upper quadrant pain; Translations: [Right upper quadrant pain] Onset: 08-11-2018 08-11-2018 Episodic Comment on above: LOWER ABDOMINAL PAIN Allergic reactions (2 sources) Atopic dermatitis; Translations: [...] syndrome without diarrhea] Onset: 08-11-2018 Chronic Other skin disorders (1 source) Eruption; Translations: [Rash and other nonspecific skin eruption] 02-02-2022 Episodic Other upper respiratory disease (4 sources) Allergic rhinitis; Translations: [Allergic rhinitis] Onset: 03-03-2016 03-03-2016 Chronic Ovarian cyst (2 sources) Cyst of ovary; Translations: [Other and unspecified ovarian cyst] 06-14-2021 Episodic Skin and subcutaneous tissue infections (6 sources) Pilonidal cyst; Translations: [Pilonidal cyst without abscess] Onset: 06-26-2023 06-26-2023 Episodic Spondylosis; intervertebral disc disorders; other back [...] Classification Problem Date Documented Da te Episodic/Chronic Bacterial infection; unspecified site (4 sources) Methicillin [...] Constipation; Translations: [Constipation] Onset: 02-21-2017 02-21-2017 Episodic Other injuries and conditions due to external causes (1 source) Unspecified injury of head, initial encounter; Translations: [Unspecified injury of head, initial encounter] Onset: 10-31-2024 Episodic Unclassified (1 source) ERRONEOUS ENCOUNTER--DISREGARD Unclassified (1 source) LOWERR ADOMINAL PAINS 06-14-2021 Comment on above: LOWERR ADOMINAL PAIN S Viral infection (2 sources) Viral infection, unspecified; Translations: [Viral infection, unspecified] Onset: 07-21-2022 Episodic Results Test Name Value Interpretation Reference Range Facility Surgery Visit Reporton 06-10 Surgery Visit Report [facility] [address] [place] [address] OFFICE VISIT Date of Service: 06/10/25 MR#: [id number] Acct: [id number] Name: UNIQUE HOGAN Rep #: [id number] : 1990 Provider: Dr. Elmer garcias MD Age/Sex: 34/F Location: [facility] Status: Signed Intake Vital Signs 06/09/25 17:30 06/10/25 09:59 Height 5 ft 4 in 5 ft 4 in Weight: 230 lb BMI 39.4 BP 123/91 H Blood Pressure Location Lt brachial Position Standing Respiration 18 Pulse 97 Pulse Source Monitor Temp 97.6 F L Temp Source Temporal Pulse Oximetry (%) 99 Oxygen Delivery Method room air Intake Visit Reasons: pilonidal, discuss sx Chief Complaint: pilonidal, discuss surgery Is patient in pain?: Yes (pilonidal area, hurts to sit) Allergies amoxicillin Allergy (Verified 06/10/25 10:00) Rash cefotetan disodium (From Cefotan) Allergy (Verified 06/10/25 10:00) Rash erythromycin base Allergy (Verified 06/10/25 10:00) Rash Sulfa (Sulfonamide Antibiotics) Allergy (Verified 06/10/25 10:00) Rash Medications ???Medication ???Instructions ???Recorded ???Confirmed ???Type clindamycin HCl 300 mg capsule 300 mg PO Q8H 7 days #21 caps 04/2506/10/25 Rx (Cleocin HCl) eltheanine PO 06/10/25 06/10/25 History mecobalamin (vitamin B12) 500 mcg mcg PO 06/10/25 06/10/25 History chewable tablet PFSH Medical History no medical history Surgical History Hx of tonsillectomy Family History (Updated 06/10/25 @ 09:59 by Siria Mcgee) Mother Asthma Diabetes Daughter Asthma Social History (Updated 06/10/25 @ 09:59 by Siria Mcgee) household members: significant other and children Smoking Status: Never smoker alcohol intake: never HPI HPI HPI: The patient is a 34-year-old female who presents today for evaluation of a pilonidal cyst. She has a history of recurring pilonidal cysts with abscesses. She has required multiple prior I D's. She began having pain in the region of the pilonidal cyst and presented to the emergency department yesterday. She was seen evaluate by the ER staff. They did not feel that an abscess was present and prescribed antibiotics. Patient presents today. She states that she still having quite a bit of pain. She is interested in definitive surgery to prevent this from recurring in the future ROS General General: No weight change, appetite, fatigue, colon cancer, breast cancer or weakness HEENT HEENT: No difficulty swallowing, eye injury, eye surgery, swollen glands or hoarseness Endo Endocrine: No thyroid disease, diabetes mellitus, thyroid cancer, Hair loss, heat intolerance or cold intolerance Skin Skin: No rash or changing moles Additional Details: pilonidal cyst Musc Musculoskeletal: No back problems, arthritis, rheumatoid arthritis, gout or joint pain Cardio Cardiovascular: No murmur, pacemaker, heart disease, atrial fibrillation, high blood pressure, heart attack, heart stent, palpitations, shortness of breath with exertion or chest pain Psych Psychiatric: No depression, anxiety or hearing voices Resp Respiratory: No shortness of breath, No sleep apnea, No cough, No COPD, No asthma, No emphysema and No wheezing Gastro Gastrointestinal: No abdominal pain, Yes nausea or vomiting, No diarrhea, Yes constipation, No blood in stool, Yes acid reflux, No hemorrhoids, No ulcers, Yes gallbladder problem and No black,tarry stools Wale Hematologic: No blood thinners, No blood disorders, No bleeding, No anemia and No blood clots Neuro Neurologic: No system reviewed and no additional complaints, except as documented, No as per HPI, No abnormal gait, No abnormal hearing, No abnormal movements, No abnormal speech, No behavioral changes, No burning sensations, No confusion, No convulsions, No disequilibrium, No dizziness, No localized weakness, No frequent falls, No headache(s), No lack of coordination, No loss of vision, No memory loss, No numbness, No other visual disturbances, No radicular pain, No restless legs, No sensory deficit, No syncope, No tingling, No tremor(s), No weakness and No other Exam Const General: cooperative and comfortable HENMT Head: normal to inspection Eyes General: appearance normal, both eyes and all related structures GI Other: Examination of the pilonidal region reveals induration both on the left as well as on the right side of midline. There appears to be some fluctuance on the right side. This seems to be the area of maximal tenderness. I suspect that abscess is more than likely present. I offered I D and she agreed to proceed. This was successfully performed. Please see separate procedure note for details Office Procedures I D Provider Documentation (more content not included)... Normal [facility] Emergency Department Summary on 06-09-2025 Emergency Department Summary [facility] Medical Records Department [address] [place] [address] Emergency Department Summary 06/09/25 MR#: [id number] Acct: [id number] Name: UNIQUE HOGAN Rep #: [id number] : 1990 34 From: Thomas Mccoy DO PCP: Care Physician,No Primary Status:PRE ER Location: ED HPI History of Present Illness Chief Complaint: Abscess Narrative Narrative: Chief complaint and HPI: 34-year-old female presents for evaluation of pilonidal cyst. Patient states she has a history of a pilonidal cyst. Intermittently becomes infected in which she needs incision and drainage. Patient states she has never seen a surgeon to discuss removing the cyst. Patient states 2 days ago she developed pain and redness in the area. She denies any fever, chills, nausea, vomiting. Review of systems: See HPI Medications: As listed on the chart Allergies: As listed on the chart PFSH: Per chart Vital signs: As listed on the chart. Reviewed. Physical exam: Gen: A O x3, NAD ENT: Moist mucous membranes CV: Regular rate Resp: Nonlabored respirations GI: Abd soft, non-distended, non-tender, no r/r/g, at the superior portion of the gluteal cleft patient has an area 0.5 cm on each side of the cleft that is mildly erythematous, warm, tender to palpation. The area is indurated without fluctuance or purulence. No drainage. You can see where the previous I D's were performed due to scarring. Psych: Cooperative, appropriate mood and affect PFSH PFSH Medical History no medical history Home Medications ???Medication ???Instructions ???Recorded ???Last Taken ???Type NK 10/27/24 Unknown History Allergy/AdvReac Type Severity Reaction Status Date / Time amoxicillin Allergy Rash Verified 06/09/25 17:33 cefotetan disodium (From Allergy Rash Verified 06/09/25 17:33 Cefotan) erythromycin base Allergy Rash Verified 06/09/25 17:33 Sulfa (Sulfonamide Allergy Rash Verified 06/09/25 17:33 Antibiotics) Surgical History Hx of tonsillectomy Social History household members: significant other and children Smoking Status: Never smoker EXAM Physical Exam Const Vital Signs: 06/09/25 17:30 Temperature 98.2 F Temperature Source Oral Pulse Rate 98 Respiratory Rate 16 Blood Pressure 149/95 H Blood Pressure Mean 113 Pulse Ox 98 Oxygen Delivery Method Room Air MDM MDM MDM Narrative Medical decision making narrative: 34-year-old female presents for evaluation of pilonidal cyst. Patient states she has a history of a pilonidal cyst. Intermittently becomes infected in which she needs incision and drainage. Patient states she has never seen a surgeon to discuss removing the cyst. Patient states 2 days ago she developed pain and redness in the area. She denies any fever, chills, nausea, vomiting. On presentation, patient no acute distress. Vitals are stable. See physical exam findings. I suspect early infected pilonidal cyst. No fluctuance/abscess for incision and drainage. Area is only indurated. Will start on antibiotics and follow-up with primary care physician and general surgeon. Return precautions explained. She confirmed understand the plan. Patient has multiple allergies to penicillins and sulfa antibiotics therefore clindamycin will be ordered. First dose given here. Tylenol Motrin as needed for pain. Impression: 1. Early infected pilonidal cyst without abscess for incision and drainage Discharge Plan Triage Chief Complaint: Abscess ED Provider: Thomas Mccoy Dx/Rx/DC Orders Prescriptions: No Action NK Primary Care Provider: Care Physician,No Primary Referrals: Care Physician,No Primary [Primary Care Provider, Medical] Print Language: Bhutanese What to do if you have Problems For any increased pain, shortness of breath, bleeding, nausea or vomiting, chest pain, or any unexpected problems, contact your Primary Care Provider. Call [facility] ([phone]) or report to the closest Emergency Room. Call 911 if necessary. 06/09/251923 Cosigner Signature (if applicable): CC: No Primary Care Physician Signed Normal [facility] Cerv Spine 2 or 3 Viewson Cerv Spine 2 or 3 Views [facility] Imaging Services [address] [place] [address] Cerv Spine 2 or 3 Views MR#: [id number] Acct: [id number] Name: UNIQUE HOGAN Rep #: [id number] : 1990 F 33 From: Eva Saleh MD PCP: Care Physician,No Primary Status: REG ER Study: Cerv Spine 2 or 3 Views Date of Exam: 10/27/24 Exam# [id number] Ordering Dr: Nathan Conley DO PROCEDURE: CERV [...] Nathan Conley DO; No Primary Care Physician Project Manager/Team Coach: Signed Normal [facility] Emergency Department Summary on 10-27-2024 Emergency Department Summary [facility] Medical Records Department [address] [place] [address] Emergency Department Summary 10/27/24 MR#: [id number] Acct: [id number] Name: UNIQUE HOGAN Rep #: [id number] : 1990 33 From: Nathan Bucio PCP: [...] the patie (more content not included)... Normal [facility] Tibia Fibula 2 Viewson 10-27 Tibia Fibula 2 Views [facility] Imaging Services [address] [place] [address] Tibia Fibula 2 Views MR#: [id number] Acct: [id number] Name: UNIQUE HOGAN Rep #: [id number] : 1990 F 33 From: Eva Saleh MD PCP: Care Physician,No Primary Status: REG ER Study: Tibia Fibula 2 Views Date of Exam: 10/27/24 Exam# [id number] Ordering Dr: Nathan Conley DO EXAM: EXAM DATE: 10/27/2024 10:22 pm PROCEDURE: TIBIA FIBULA 2 VIEWS CLINICAL HISTORY: INJURY COMPARISON: None TECHNIQUE: Two views of the right tibia and fibula FINDINGS: No acute fracture or dislocation. No soft tissue abnormality. RAD/Tibia Fibula 2 Views IMPRESSION: 1. No acute osseous abnormality. Reading Location: [facility] CC: Dr. Nathan Conley, DO; No Primary Care Physician Project Manager/Team Coach: Signed Normal [facility] CBC W Auto Differential pane l (Bld)on 09-21-2023 Basophils (Bld) [#/Vol] 0.01 x10*3/uL Normal 0.00-0.10 [facility] Comment on above: Performed By: #### 5 7021-8 #### LUCIANO LOVING ([id number]) [facility] ([facility]) [address] [place] [address]32 Basophils/100 WBC (Bld) 0.2 % Normal 0.0-2.0 [facility] Comment on above: Performed By: #### 5 7021-8 #### LUCIANO LOVING ([id number]) [facility] ([facility]) [address] [place] [address] 13564 Eosinophils (Bld) [#/Vol] 0.01 x10*3/uL Normal 0.00-0.70 [facility] Comment on above: Performed By: #### 5 7021-8 #### LUCIANO LOVING ([id number]) [facility] ([facility]) [address] [place] [address] 30588 Eosinophils/100 WBC (Bld) 0.2 % Normal 0.0-6.0 [facility] Comment on above: Performed By: #### 5 7021-8 #### LUCIANO LOVING ([id number]) [facility] ([facility]) [address] [place] [address] 53092 Erythrocyte distribution width (RBC) [Ratio] 11.9 % Normal 11.5-14.5 [facility] Comment on above: Performed By: #### 5 7021-8 #### LUCIANO LOVING ([id number]) [facility] ([facility]) [address] [place] [address] 41548 Hematocrit (Bld) [Volume fraction] 40.0 % Normal 36.0-46.0 [facility] Comment on above: Performed By: #### 5 7021-8 #### LUCIANO LOVING ([id number]) [facility] ([facility]) [address] [place] [address] 10197 Hemoglobin (Bld) [Mass/Vol] 14.3 g/dL Normal 12.0-16.0 [facility] Comment on above: Performed By: #### 5 7021-8 #### LUCIANO LOVING ([id number]) [facility] ([facility]) [address] [place] [address] 53691 Immature granulocytes (Bld) [#/Vol] 0.01 x10*3/uL Normal 0.00-0.70 [facility] Comment on above: Performed By: #### 5 7021-8 #### LUCIANO LOVING ([id number]) [facility] ([facility]) [address] [place] [address] 73812 Immature granulocytes/100 WBC (Bld) 0.2 % Normal 0.0-0.9 [facility] Comment on above: Result Comment: Brooklynn ture Granulocyte Count (IG) includes promyelocytes, myelocytes and metamyelocytes but does not include bands. Percent differential counts (%) should be interpreted in the context of the absolute cell counts (cells/UL). Performed By: #### 5 7021-8 #### LUCIANO LOVING ([id number]) [facility] ([facility]) [address] [place] [address] 59794 Lymphocytes (Bld) [#/Vol] 1.24 x10*3/uL Normal 1.20-4.80 [facility] Comment on above: Performed By: #### 5 7021-8 #### LUCIANO LOVING ([id number]) [facility] ([facility]) [address] [place] [address] 72973 Lymphocytes/100 WBC (Bld) 21.9 % Normal 13.0-44.0 [facility] Comment on above: Performed By: #### 5 7021-8 #### LUCIANO LOVING ([id number]) [facility] ([facility]) [address] [place] [address] 97851 MCH (RBC) [Entitic mass] 30.6 pg Normal 26.0-34.0 [facility] Comment on above: Performed By: #### 5 7021-8 #### LUCIANO LOVING ([id number]) [facility] ([facility]) [address] [place] [address] 28903 MCHC (RBC) [Mass/Vol] 35.8 g/dL Normal 32.0-36.0 [facility] Comment on above: Performed By: #### 5 7021-8 #### LUCIANO LOVING ([id number]) [facility] ([facility]) [address] [place] [address] MCV (RBC) [Entitic vol] 86 fL Normal 80-100 [facility] Comment on above: Performed By: #### 5 7021-8 #### LUCIANO LOVING ([id number]) [facility] ([facility]) [address] [place] [address] 69683 Monocytes (Bld) [#/Vol] 0.64 x10*3/uL Normal 0.10-1.00 [facility] Comment on above: Performed By: #### 5 7021-8 #### LUCIANO LOVING ([id number]) [facility] ([facility]) [address] [place] [address] 62816 Monocytes/100 WBC (Bld) 11.3 % Normal 2.0-10.0 [facility] Comment on above: Performed By: #### 5 7021-8 #### LUCIANO LOVING ([id number]) [facility] ([facility]) [address] [place] [address] 68609 Neutrophils (Bld) [#/Vol] 3.76 x10*3/uL Normal 1.20-7.70 [facility] Comment on above: Result Comment: Perc ent differential counts (%) should be interpreted in the context of the absolute cell counts (cells/uL). Performed By: #### 5 7021-8 #### LUCIANO LOVING ([id number]) [facility] ([facility]) [address] [place] [address] 97610 Neutrophils/100 WBC (Bld) 66.2 % Normal 40.0-80.0 [facility] Comment on above: Performed By: #### 5 7021-8 #### LUCIANO LOVING ([id number]) [facility] ([facility]) [address] [place] [address] 15605 Nucleated RBC/100 WBC (Bld) [Ratio] 0.0 /100 WBCs Normal 0.0-0.0 [facility] Comment on above: Performed By: #### 5 7021-8 #### LUCIANO LOVING ([id number]) [facility] ([facility]) [address] [place] [address] 60024 Platelets (Bld) [#/Vol] 173 x10*3/uL Normal 150-450 [facility] Comment on above: Performed By: #### 5 7021-8 #### LUCIANO LOVING ([id number]) [facility] ([facility]) [address] [place] [address] 51202 RBC (Bld) [#/Vol] 4.68 x10*6/uL Normal 4.00-5.20 [facility] Comment on above: Performed By: #### 5 7021-8 #### LUCIANO LOVING ([id number]) [facility] ([facility]) [address] [place] [address] 13165 WBC (Bld) [#/Vol] 5.7 x10*3/uL Normal 4.4-11.3 [facility] Comment on above: Performed By: #### 5 7021-8 #### LUCIANO LOVING ([id number]) [facility] ([facility]) [address] [place] [address] 78856 Basophils (Bld) [#/Vol] 0.01 10*3/uL [facility] Basophils/100 WBC (Bld) 0.2 % 0.0 - 2.0 % [facility] Eosinophils (Bld) [#/Vol] 0.01 10*3/uL [facility] Eosinophils/100 WBC (Bld) 0.2 % 0.0 - 6.0 % [facility] Erythrocyte distribution width (RBC) [Ratio] 11.9 % 11.5 - 14.5 % [facility] Hematocrit (Bld) [Volume fraction] 40.0 % 36.0 - 46.0 % [facility] Hemoglobin (Bld) [Mass/Vol] 14.3 g/dL 12.0 - 16.0 g/dL [facility] Immature granulocytes (Bld) [#/Vol] 0.01 10*3/uL [facility] Immature granulocytes/100 WBC (Bld) 0.2 % 0.0 - 0.9 % [facility] Comment on above: Immature Granulocyte Count (IG) includes promyelocytes, myelocytes and metamyelocytes but does not include bands. Percent differential counts (%) should be interpreted in the context of the absolute cell counts (cells/UL). Lymphocytes (Bld) [#/Vol] 1.24 10*3/uL [facility] Lymphocytes/100 WBC (Bld) 21.9 % 13.0 - 44.0 % [facility] MCH (RBC) [Entitic mass] 30.6 pg 26.0 - 34.0 pg [facility] MCHC (RBC) [Mass/Vol] 35.8 g/dL 32.0 - 36.0 g/dL [facility] MCV (RBC) [Entitic vol] 86 fL 80 - 100 fL [facility] Monocytes (Bld) [#/Vol] 0.64 10*3/uL [facility] Monocytes/100 WBC (Bld) 11.3 % 2.0 - 10.0 % [facility] Neutrophils (Bld) [#/Vol] 3.76 10*3/uL [facility] Comment on above: Percent differential counts (%) should be interpreted in the context of the absolute cell counts (cells/uL). Neutrophils/100 WBC (Bld) 66.2 % 40.0 - 80.0 % [facility] Nucleated RBC/100 WBC (Bld) [Ratio] 0.0 % [facility] Platelets (Bld) [#/Vol] 173 10*3/uL [facility] RBC (Bld) [#/Vol] 4.68 10*6/uL [facility] WBC (Bld) [#/Vol] 5.7 10*3/uL [facility] CT ABDOMEN PELVIS W IV CONTR Sandra 09-21-2023 CT ABDOMEN PELVIS W IV CONTRAST Interpreted By: Emily Foster, STUDY: CT ABDOMEN PELVIS W IV CONTRAST; 09/21/2023 6:05 pm INDICATION: 32 y/o F with Signs/Symptoms:RLQ abdominal pain. LIMITATIONS: None. ACCESSION NUMBER(S): [id number] ORDERING CLINICIAN: MERLIN RAMSEY TECHNIQUE: After the [...] Emily Foster 09/21/2023 6:29 PM Dictation workstation: [id number] [facility] CT Abdomen and Pelvis W cont rast New 09-21-2023 No acute abnormality in the abdomen and pelvis. Signed by: Emily Foster 09/21/2023 6:29 PM Dictation workstation: [id number] Interpreted By: Emily Lopez, STUDY: CT ABDOMEN PELVIS W IV CONTRAST; 09/21/2023 6:05 pm INDICATION: 32 y/o F with Signs/Symptoms:RLQ abdominal pain. LIMITATIONS: None. ACCESSION NUMBER(S): [id number] ORDERING CLINICIAN: MERLIN RAMSEY TECHNIQUE: After the [...] Signs/Symptoms:RLQ abdominal pain. LIMITATIONS: None. ACCESSION NUMBER(S): [id number] ORDERING CLINICIAN: MERLIN RAMSEY TECHNIQUE: After the [...] Emily Foster 09/21/2023 6:29 PM Dictation workstation: [id number] [facility] Work Phone: Radiology Study observation (narrative) [facility] Work Phone: CT Abdomen and Pelvis W cont rast IVOrdered By: Emily Foster on 09-21-2023 [facility] Work Phone: Choriogonadotropin.beta subu niton 09-21-2023 HCG.beta subunit Qn m[IU]/mL Normal <5 [facility] Comment on above: Order Comment: Venip uncture immediately after or during the administration of Metamizole may lead to falsely low results. Testing should be performed immediately prior to Metamizole dosing. Performed By: #### 2 524-7 #### LUCIANO LOVING ([id number]) [facility] ([facility]) [address] [place] [address] Comprehensive metabolic 2000 panelon 09-21-2023 Albumin BCP dye [Mass/Vol] 4.6 g/dL Normal 3.4-5.0 [facility] Comment on above: Performed By: #### 2 524-7 #### LUCIANO LOVING ([id number]) [facility] ([facility]) [address] [place] [address]63 ALP [Catalytic activity/Vol] 46 U/L Normal 33-110 [facility] Comment on above: Performed By: #### 2 524-7 #### LUCIANO LOVING ([id number]) [facility] ([facility]) [address] [place] [address] ALT With P-5'-P [Catalytic activity/Vol] 26 U/L Normal 7-45 [facility] Comment on above: Result Comment: Nedra ents treated with Sulfasalazine may generate falsely decreased results for ALT. Performed By: #### 2 524-7 #### LUCIANO LOVING ([id number]) [facility] ([facility]) [address] [place] [address] Anion gap [Moles/Vol] 12 mmol/L Normal 10-20 [facility] Comment on above: Performed By: #### 2 524-7 #### LUCIANO LOVING ([id number]) [facility] ([facility]) [address] [place] [address] AST With P-5'-P [Catalytic activity/Vol] 19 U/L Normal 9-39 [facility] Comment on above: Performed By: #### 2 524-7 #### LUCIANO LOVING ([id number]) [facility] ([facility]) [address] [place] [address]185 Bilirubin [Mass/Vol] 0.5 mg/dL Normal 0.0-1.2 [facility] Comment on above: Performed By: #### 2 524-7 #### LUCIANO LOVING ([id number]) [facility] ([facility]) [address] [place] [address] Calcium [Mass/Vol] 8.9 mg/dL Normal 8.6-10.3 [facility] Comment on above: Performed By: #### 2 524-7 #### LUCIANO LOVING ([id number]) [facility] ([facility]) [address] [place] [address] Chloride [Moles/Vol] 101 mmol/L Normal 98-107 [facility] Comment on above: Performed By: #### 2 524-7 #### LUCIANO LOVING ([id number]) [facility] ([facility]) [address] [place] [address] CO2 [Moles/Vol] 27 mmol/L Normal 21-32 [facility] Comment on above: Performed By: #### 2 524-7 #### LUCIANO LOVING ([id number]) [facility] ([facility]) [address] [place] [address] Creatinine [Mass/Vol] 0.97 mg/dL Normal 0.50-1.05 [facility] Comment on above: Performed By: #### 2 524-7 #### LUCIANO LOVING ([id number]) [facility] ([facility]) [address] [place] [address] 64236 Glomerular filtration rate/1.73 sq M.predicted 81 mL/min/1.73m*2 Normal >60 [facility] Comment on above: Result Comment: Calc ulations of estimated GFR are performed using the 2020 CKD-EPI Study Refit equation without the race variable for the IDMS-Traceable creatinine methods. https://jasn.asnjournals.org/content/early//ASN.919720508 8 Performed By: #### 2 524-7 #### LUCIANO LOVING ([id number]) [facility] ([facility]) [address] [place] [address] 26512 Glucose [Mass/Vol] 87 mg/dL Normal 74-99 [facility] Comment on above: Performed By: #### 2 524-7 #### LUCIANO LOVING ([id number]) [facility] ([facility]) [address] [place] [address] 94712 Potassium [Moles/Vol] 3.5 mmol/L Normal 3.5-5.3 [facility] Comment on above: Performed By: #### 2 524-7 #### LUCIANO LOVING ([id number]) [facility] ([facility]) [address] [place] [address] 54255 Protein [Mass/Vol] 7.6 g/dL Normal 6.4-8.2 [facility] Comment on above: Performed By: #### 2 524-7 #### LUCIANO LOVING ([id number]) [facility] ([facility]) [address] [place] [address] 28378 Sodium [Moles/Vol] 136 mmol/L Normal 136-145 [facility] Comment on above: Performed By: #### 2 524-7 #### LUCIANO LOVING ([id number]) [facility] ([facility]) [address] [place] [address] 68636 Urea nitrogen [Mass/Vol] 6 mg/dL Normal 6-23 [facility] Comment on above: Performed By: #### 2 524-7 #### WOLF FABIENNE ([id number]) [facility] ([facility]) [address] [place] [address] Albumin BCP dye [Mass/Vol] 4.6 g/dL 3.4 - 5.0 g/dL [facility] ALP [Catalytic activity/Vol] 46 U/L 33 - 110 U/L [facility] ALT With P-5'-P [Catalytic activity/Vol] 26 U/L 7 - 45 U/L [facility] Comment on above: Patients treated wit h Sulfasalazine may generate falsely decreased results for ALT. Anion gap [Moles/Vol] 12 mmol/L 10 - 20 mmol/L [facility] AST With P-5'-P [Catalytic activity/Vol] 19 U/L 9 - 39 U/L [facility] Bilirubin [Mass/Vol] 0.5 mg/dL 0.0 - 1.2 mg/dL [facility] Calcium [Mass/Vol] 8.9 mg/dL 8.6 - 10. 3 mg/dL [facility] Chloride [Moles/Vol] 101 mmol/L 98 - 107 mmol/L [facility] CO2 [Moles/Vol] 27 mmol/L 21 - 32 mmol/L [facility] Creatinine [Mass/Vol] 0.97 mg/dL 0.50 - 1.05 mg/dL [facility] GFR/1.73 sq M.predicted among non-blacks MDRD (S/P/Bld) [Vol rate/Area] 81 mL/min/{1.73_m2} - PINF [facility] Comment on above: Calculations of terra mated GFR are performed using the 2020 CKD-EPI Study Refit equation without the race variable for the IDMS-Traceable creatinine methods. https://jasn.asnjournals.org/content//ASN.228894009 8 Glucose [Mass/Vol] 87 mg/dL 74 - 99 mg/dL [facility] Interpretation and review of laboratory results Normal [facility] Potassium [Moles/Vol] 3.5 mmol/L 3.5 - 5.3 mmol/L [facility] Protein [Mass/Vol] 7.6 g/dL 6.4 - 8.2 g/dL [facility] Sodium [Moles/Vol] 136 mmol/L 136 - 145 mmol/L [facility] Urea nitrogen [Mass/Vol] 6 mg/dL 6 - 23 mg/dL [facility] HCG.beta subunit Qnon 2023 Interpretation and review of laboratory results Normal [facility] Total HCG measuremen t is performed using the Carly Yelena Access Immunoassay which detects intact HCG and free beta HCG subunit. This test is not indicated for use as a tumor marker. HCG testing is performed using a different test methodology at [facility] than other [facility]. Direct result comparison should only be made within the same method. [facility] Human Chorionic Gonadotropin , Serum Quantitativeon 09-21-2023 HCG.beta subunit Qn NINF [facility] Lactateon 09-21-2023 Lactate [Moles/Vol] 0.7 mmol/L Normal 0.4-2.0 [facility] Comment on above: Order Comment: Venip uncture immediately after or during the administration of Metamizole may lead to falsely low results. Testing should be performed immediately prior to Metamizole dosing. Performed By: #### 2 524-7 #### WOLF FABIENNE ([id number]) [facility] ([facility]) [address] [place] [address] Lactate [Moles/Vol] 0.7 mmol/L 0.4 - 2.0 mmol/L [facility] Lactate [Moles/Vol]on 2023 Interpretation and review of laboratory results Normal [facility] Venipuncture immedia tely after or during the administration of Metamizole may lead to falsely low results. Testing should be performed immediately prior to Metamizole dosing. [facility] Lipaseon 09-21-2023 Lipase [Catalytic activity/Vol] 25 U/L 9 - 82 U/L [facility] Lipase [Catalytic activity/V ol]on 02-21-2024 Interpretation and review of laboratory results Normal [facility] Venipuncture immedia tely after or during the administration of Metamizole may lead to falsely low results. Testing should be performed immediately prior to Metamizole dosing. [facility] Triacylglycerol lipaseon Lipase [Catalytic activity/Vol] 25 U/L Normal 82 [facility] Comment on above: Order Comment: Venip uncture immediately after or during the administration of Metamizole may lead to falsely low results. Testing should be performed immediately prior to Metamizole dosing. Performed By: #### 2 524-7 #### LUCIANO LOVING ([id number]) [facility] ([facility]) [address] [place] [address] 99519 Urinalysis complete W Reflex Culture panel (U)on 09-21-2023 Appearance (U) Clear Normal Clear [facility] Comment on above: Performed By: #### 5 8077-9 #### LUCIANO LOVING ([id number]) [facility] ([facility]) [address] [place] [address] 81873 Bilirubin (U) [Mass/Vol] Negative Normal NEGATIVE [facility] Comment on above: Performed By: #### 5 8077-9 #### LUCIANO LOVING ([id number]) [facility] ([facility]) [address] [place] [address] 72464 Color (U) Yellow Normal Straw, Yellow [facility] Comment on above: Performed By: #### 5 8077-9 #### LUCIANO LOVING ([id number]) [facility] ([facility]) [address] [place] [address] 00215 Glucose Auto test strip (U) [Mass/Vol] Negative Normal NEGATIVE [facility] Comment on above: Performed By: #### 5 8077-9 #### LCUIANO LOVING ([id number]) [facility] ([facility]) [address] [place] [address] 01763 Ketones (U) [Mass/Vol] Negative Normal NEGATIVE [facility] Comment on above: Performed By: #### 5 8077-9 #### LUCIANO LOVING ([id number]) [facility] ([facility]) [address] [place] [address] Leukocyte esterase Auto test strip Ql (U) Negative Normal NEGATIVE [facility] Comment on above: Performed By: #### 5 8077-9 #### LUCIANO LOVING ([id number]) [facility] ([facility]) [address] [place] [address] 48357 Nitrite Auto test strip Ql (U) Negative Normal NEGATIVE [facility] Comment on above: Performed By: #### 5 8077-9 #### LUCIANO LOVING ([id number]) [facility] ([facility]) [address] [place] [address] pH (U) 6.0 [pH] Normal 5.0, 5.5, 6.0, 6.5, 7.0, 7.5, 8.0 [facility] Comment on above: Performed By: #### 5 8077-9 #### LUCIANO LOVING ([id number]) [facility] ([facility]) [address] [place] [address] Protein (U) [Mass/Vol] Negative Normal NEGATIVE [facility] Comment on above: Performed By: #### 5 8077-9 #### LUCIANO LOVING ([id number]) [facility] ([facility]) [address] [place] [address] RBC (U) [#/Vol] Negative Normal NEGATIVE [facility] Comment on above: Performed By: #### 5 8077-9 #### LUCIANO LOVING ([id number]) [facility] ([facility]) [address] [place], [place] [address] Specific gravity (U) [Rel density] 1.012 Normal 1.005-1.035 [facility] Comment on above: Performed By: #### 5 8077-9 #### LUCIANO LOVING ([id number]) [facility] ([facility]) [address] [place], [place] [address] Urobilinogen (U) [Mass/Vol] mg/dL Normal <2.0 [facility] Comment on above: Performed By: #### 5 8077-9 #### LUCIANO BIBICLEMENT ([id number]) [facility] ([facility]) [address] [place] [address] Appearance (U) Clear Clear [facility] Bilirubin (U) [Mass/Vol] Negative NEGATIVE [facility] Color (U) Yellow Straw, Yellow [facility] Glucose Auto test strip (U) [Mass/Vol] Negative NEGATIVE mg/dL [facility] Interpretation and review of laboratory results Normal [facility] Ketones (U) [Mass/Vol] Negative NEGATIVE mg/dL [facility] Leukocyte esterase Auto test strip Ql (U) Negative NEGATIVE [facility] Nitrite Auto test strip Ql (U) Negative NEGATIVE [facility] pH (U) 6.0 [pH] 5.0, 5.5, 6.0, 6.5, 7.0, 7.5, 8.0 [facility] Protein (U) [Mass/Vol] Negative NEGATIVE mg/dL [facility] RBC (U) [#/Vol] Negative NEGATIVE [facility] Specific gravity (U) [Rel density] 1.012 1.005 - 1.035 [facility] Urobilinogen (U) [Mass/Vol] mg/dL NINF - 2.0 mg/dL [facility] ECG 12-LEADon 09-20-2023 ECG 12-LEAD Ventricular Rate 100 Atrial Rate 100 P-R Interval 138 QRS Duration 76 Q-T Interval 344 QTC Calculation(Bazett) 443 P Ozan 47 R Ozan 73 T Ozan 14 QRS Count 17 Q Onset 224 P Onset 155 P Offset 201 T Offset 396 QTC Fredericia 408 Diagnosis Normal sinus rhythm Normal ECG No previous ECGs available See ED provider note for full interpretation and clinical correlation Confirmed by Almita Fink ([id number]) on 09/24/2023 8:04:13 PM Normal [facility] FLUAV and FLUBV RNA CLIFFORD+prob e Nom (Unsp spec)on 09-20-2023 FLUAV RNA CLIFFORD+probe Ql (Resp) Not detected Normal Not Detected [facility] Comment on above: Order Comment: This assay is an in vitro diagnostic multiplex nucleic acid amplification test for the detection and discrimination of Influenza A & B from nasopharyngeal specimens, and has been validated for use at [facility]. Negative results do not preclude Influenza A/B infections, and should not be used as the sole basis for diagnosis, treatment, or other management decisions. If Influenza A/B and RSV PCR results are negative, testing for Parainfluenza virus, Adenovirus and Metapneumovirus is routinely performed for [facility] pediatric oncology and intensive care inpatients, and is available on other patients by placing an add-on request. Performed By: #### 4 8509-4 #### LUCIANO LOVING ([id number]) [facility] ([facility]) [address] [place], [place] [address] FLUBV RNA CLIFFORD+probe Ql (Resp) Detected Abnormal Not Detected [facility] Comment on above: Order Comment: This assay is an in vitro diagnostic multiplex nucleic acid amplification test for the detection and discrimination of Influenza A & B from nasopharyngeal specimens, and has been validated for use at [facility]. Negative results do not preclude Influenza A/B infections, and should not be used as the sole basis for diagnosis, treatment, or other management decisions. If Influenza A/B and RSV PCR results are negative, testing for Parainfluenza virus, Adenovirus and Metapneumovirus is routinely performed for [facility] pediatric oncology and intensive care inpatients, and is available on other patients by placing an add-on request. Performed By: #### 4 8509-4 #### LUCIANO LOVING ([id number]) [facility] ([facility]) [address] [place] [address] 77568 FLUAV RNA CLIFFORD+probe Ql (Resp) Not detected Not Detected [facility] FLUBV RNA CLIFFORD+probe Ql (Resp) Detected Abnormal Not Detected [facility] Interpretation and review of laboratory results Abnormal [facility] This assay is an in vitro diagnostic multiplex nucleic acid amplification test for the detection and discrimination of Influenza A & B from nasopharyngeal specimens, and has been validated for use at [facility]. Negative results do not preclude Influenza A/B infections, and should not be used as the sole basis for diagnosis, treatment, or other management decisions. If Influenza A/B and RSV PCR results are negative, testing for Parainfluenza virus, Adenovirus and Metapneumovirus is routinely performed for [facility] pediatric oncology and intensive care inpatients, and is available on other patients by placing an add-on request. [facility] No Panel Informationon 09-20 Interpretation and review of laboratory results Normal [facility] RSV PCRon 09-20-2023 RSV RNA CLIFFORD+probe Ql (Resp) Not detected Not Detected [facility] RSV RNA CLIFFORD+probe Ql (Resp)o n 09-20-2023 This assay is an FDA-cleared, in vitro diagnostic nucleic acid amplification test for the detection of RSV from nasopharyngeal specimens, and has been validated for use at [facility]. Negative results do not preclude RSV infections, and should not be used as the sole basis for diagnosis, treatment, or other management decisions. If Influenza A/B and RSV PCR results are negative, testing for Parainfluenza virus, Adenovirus and Metapneumovirus is routinely performed for pediatric oncology and intensive care inpatients at [facility], and is available on other patients by placing an add-on request. [facility] Respiratory syncytial virus RNAon 09-20-2023 RSV RNA CLIFFORD+probe Ql (Resp) Not detected Normal Not Detected [facility] Comment on above: Order Comment: This assay is an FDA-cleared, in vitro diagnostic nucleic acid amplification test for the detection of RSV from nasopharyngeal specimens, and has been validated for use at [facility]. Negative results do not preclude RSV infections, and should not be used as the sole basis for diagnosis, treatment, or other management decisions. If Influenza A/B and RSV PCR results are negative, testing for Parainfluenza virus, Adenovirus and Metapneumovirus is routinely performed for pediatric oncology and intensive care inpatients at [facility], and is available on other patients by placing an add-on request. Performed By: #### 9 2131-2 #### WOLF FABIENNE ([id number]) [facility] ([facility]) [address] [place] [address] SARS coronavirus 2 RNAon SARS-CoV-2 (COVID-19) RNA CLIFFORD+probe Ql (Resp) Not detected Normal Not Detected [facility] Comment on above: Order Comment: This assay [...] and has been validated for use at [facility]. Negative results do not preclude COVID-19 infections and should not be used as the sole basis for diagnosis, treatment, or other management decisions. Performed By: #### 9 4500-6 #### LUCIANO LOVING ([id number]) [facility] ([facility]) [address] [place] [address] SARS-CoV-2 (COVID-19) RNA NA A+probe Ql (Resp)on [...] and has been validated for use at [facility]. Negative results do not preclude COVID-19 infections and should not be used as the sole basis for diagnosis, treatment, or other management decisions. [facility] Sars-CoV-2 PCRon 09-20-2023 SARS-CoV-2 (COVID-19) RNA CLIFFORD+probe Ql (Resp) Not detected Not Detected [facility] Streptococcus pyogenes DNAon 09-20-2023 S. pyogenes DNA CLIFFORD+probe Ql (Throat) Streptococcus pyogenes DNA Not Detected This assay is an FDA-cleared, real-time PCR test for the qualitative detection of Group A Streptococcus bacterial DNA from throat swabs that have not undergone a nucleic acid extraction. Negative results do not require confirmation by culture. Normal [facility] Comment on above: Performed By: #### 6 0489-2 #### LUCIANO LOVING ([id number]) [facility] [facility] ([facility]) [address] [place] [address] XR CHEST 1 VIEWon 09-20-2023 XR CHEST 1 VIEW Interpreted By: Tono Bermeo, STUDY: XR CHEST 1 VIEW; 09/20/2023 6:00 pm INDICATION: Signs/Symptoms:cp. COMPARISON: June 14, 2021 CT abdomen and pelvis, and October 25, 2012 chest radiograph. ACCESSION NUMBER(S): [id number] ORDERING CLINICIAN: CLAYTON BELLO FINDINGS: AP radiograph [...] Tono Bermeo 09/20/2023 6:23 PM Dictation workstation: [id number] [facility] XR Chest Single viewon 09-20 1. Minor platelike atelectasis or scar left base. 2. Metallic density likely overlapping the left sided body wall. Attention recommended on clinical assessment. MACRO: None Signed by: Tono Bermeo 09/20/2023 6:23 PM Dictation workstation: [id number] Interpreted By: Tono Bermeo, STUDY: XR CHEST 1 VIEW; 09/20/2023 6:00 pm INDICATION: Signs/Symptoms:cp. COMPARISON: June 14, 2021 CT abdomen and pelvis, and October 25, 2012 chest radiograph. ACCESSION NUMBER(S): [id number] ORDERING CLINICIAN: CLAYTON BELLO FINDINGS: AP radiograph [...] clinical assessment. BONES: No acute osseous changes. [facility]ODAL Tono Bermeo MD - 09/20/2023 Interpreted By: Tono Bermeo, STUDY: XR CHEST 1 VIEW; 09/20/2023 6:00 pm INDICATION: Signs/Symptoms:cp. COMPARISON: June 14, 2021 CT abdomen and pelvis, and October 25, 2012 chest radiograph. ACCESSION NUMBER(S): [id number] ORDERING CLINICIAN: CLAYTON BELLO FINDINGS: AP radiograph [...] Tono Bermeo 09/20/2023 6:23 PM Dictation workstation: [id number] [facility] Work Phone: Radiology Study observation (narrative) [facility] Work Phone: XR Chest Single viewOrdered By: Tono Bermeo on 09-20-2023 [facility] Work Phone: CBC W Auto Differential pane l (Bld)on 06-26-2023 Basophils (Bld) [#/Vol] 0.05 x10*3/uL Normal 0.00-0.10 [facility] Comment on above: Performed By: #### 5 7021-8 #### WOLF FABIENNE ([id number]) [facility] ([facility]) [address] [place] [address] Basophils/100 WBC (Bld) 0.5 % Normal 0.0-2.0 [facility] Comment on above: Performed By: #### 5 7021-8 #### LUCIANO LOVING ([id number]) [facility] ([facility]) [address] [place] [address] Eosinophils (Bld) [#/Vol] 0.26 x10*3/uL Normal 0.00-0.70 [facility] Comment on above: Performed By: #### 5 7021-8 #### LUCIANO LOVING ([id number]) [facility] ([facility]) [address] [place] [address] Eosinophils/100 WBC (Bld) 2.5 % Normal 0.0-6.0 [facility] Comment on above: Performed By: #### 7021-8 #### LUCIANO LOVING ([id number]) [facility] ([facility]) [address] [place] [address] Erythrocyte distribution width (RBC) [Ratio] 11.8 % Normal 11.5-14.5 [facility] Comment on above: Performed By: #### 5 7021-8 #### LUCIANO LOVING ([id number]) [facility] ([facility]) [address] [place] [address] Hematocrit (Bld) [Volume fraction] 37.4 % Normal 36.0-46.0 [facility] Comment on above: Performed By: #### 5 7021-8 #### LUCIANO LOVING ([id number]) [facility] ([facility]) [address] [place], [place] [id number] Hemoglobin (Bld) [Mass/Vol] 13.4 g/dL Normal 12.0-16.0 [facility] Comment on above: Performed By: #### 5 7021-8 #### LUCIANO LOVING ([id number]) [facility] ([facility]) [address] [place] [address] Immature granulocytes (Bld) [#/Vol] 0.04 x10*3/uL Normal 0.00-0.70 [facility] Comment on above: Performed By: #### 5 7021-8 #### LUCIANO LOVING ([id number]) [facility] ([facility]) [address] [place] [address] Immature granulocytes/100 WBC (Bld) 0.4 % Normal 0.0-0.9 [facility] Comment on above: Result Comment: Brooklynn ture Granulocyte Count (IG) includes promyelocytes, myelocytes and metamyelocytes but does not include bands. Percent differential counts (%) should be interpreted in the context of the absolute cell counts (cells/UL). Performed By: #### 5 7021-8 #### LUCIANO LOVING ([id number]) [facility] ([facility]) [address] [place] [address] Lymphocytes (Bld) [#/Vol] 2.87 x10*3/uL Normal 1.20-4.80 [facility] Comment on above: Performed By: #### 5 7021-8 #### LUCIANO LOVING ([id number]) [facility] ([facility]) [address] [place], [place] [address] Lymphocytes/100 WBC (Bld) 27.5 % Normal 13.0-44.0 [facility] Comment on above: Performed By: #### 5 7021-8 #### LUCIANO LOVING ([id number]) [facility] ([facility]) [address] [place] [address] MCH (RBC) [Entitic mass] 30.7 pg Normal 26.0-34.0 [facility] Comment on above: Performed By: #### 5 7021-8 #### LUCIANO LOVING ([id number]) [facility] ([facility]) [address] [place] [address]654 MCHC (RBC) [Mass/Vol] 35.8 g/dL Normal 32.0-36.0 [facility] Comment on above: Performed By: #### 5 7021-8 #### LUCIANO LOVING ([id number]) [facility] ([facility]) [address] [place] [address] 12754 MCV (RBC) [Entitic vol] 86 fL Normal 80-100 [facility] Comment on above: Performed By: #### 5 7021-8 #### LUCIANO LOVING ([id number]) [facility] ([facility]) [address] [place] [address] Monocytes (Bld) [#/Vol] 0.58 x10*3/uL Normal 0.10-1.00 [facility] Comment on above: Performed By: #### 5 7021-8 #### LUCIANO LOVING ([id number]) [facility] ([facility]) [address] [place] [address] 6[address] Monocytes/100 WBC (Bld) 5.6 % Normal 2.0-10.0 [facility] Comment on above: Performed By: #### 5 7021-8 #### LUCIANO LOVING (19756) [facility] ([facility]) [address] [place] [address] 85234 Neutrophils (Bld) [#/Vol] 6.64 x10*3/uL Normal 1.20-7.70 [facility] Comment on above: Result Comment: Perc ent differential counts (%) should be interpreted in the context of the absolute cell counts (cells/uL). Performed By: #### 5 7021-8 #### LUCIANO LOVING ([id number]) [facility] ([facility]) [address] [place] [address] Neutrophils/100 WBC (Bld) 63.5 % Normal 40.0-80.0 [facility] Comment on above: Performed By: #### 5 7021-8 #### LUCIANO LOVING ([id number]) [facility] ([facility]) [address] [place] [address] 29410 Nucleated RBC/100 WBC (Bld) [Ratio] 0.0 /100 WBCs Normal 0.0-0.0 [facility] Comment on above: Performed By: #### 5 7021-8 #### LUCIANO LOVING ([id number]) [facility] ([facility]) [address] [place] [address] 47626 Platelets (Bld) [#/Vol] 221 x10*3/uL Normal 150-450 [facility] Comment on above: Performed By: #### 5 7021-8 #### LUCIANO LOVING ([id number]) [facility] ([facility]) [address] [place] [address] RBC (Bld) [#/Vol] 4.36 x10*6/uL Normal 4.00-5.20 [facility] Comment on above: Performed By: #### 5 7021-8 #### LUCIANO LOVING ([id number]) [facility] ([facility]) [address] [place] [address] WBC (Bld) [#/Vol] 10.4 x10*3/uL Normal 4.4-11.3 [facility] Comment on above: Performed By: #### 5 7021-8 #### LUCIANO LOVING ([id number]) [facility] ([facility]) [address] [place] [address]26[address] Basophils (Bld) [#/Vol] 0.05 10*3/uL [facility] Basophils/100 WBC (Bld) 0.5 % 0.0 - 2.0 % [facility] Eosinophils (Bld) [#/Vol] 0.26 10*3/uL [facility] Eosinophils/100 WBC (Bld) 2.5 % 0.0 - 6.0 % [facility] Erythrocyte distribution width (RBC) [Ratio] 11.8 % 11.5 - 14.5 % [facility] Hematocrit (Bld) [Volume fraction] 37.4 % 36.0 - 46.0 % [facility] Hemoglobin (Bld) [Mass/Vol] 13.4 g/dL 12.0 - 16.0 g/dL [facility] Immature granulocytes (Bld) [#/Vol] 0.04 10*3/uL [facility] Immature granulocytes/100 WBC (Bld) 0.4 % 0.0 - 0.9 % [facility] Comment on above: Immature Granulocyte Count (IG) includes promyelocytes, myelocytes and metamyelocytes but does not include bands. Percent differential counts (%) should be interpreted in the context of the absolute cell counts (cells/UL). Lymphocytes (Bld) [#/Vol] 2.87 10*3/uL [facility] Lymphocytes/100 WBC (Bld) 27.5 % 13.0 - 44.0 % [facility] MCH (RBC) [Entitic mass] 30.7 pg 26.0 - 34.0 pg [facility] MCHC (RBC) [Mass/Vol] 35.8 g/dL 32.0 - 36.0 g/dL [facility] MCV (RBC) [Entitic vol] 86 fL 80 - 100 fL [facility] Monocytes (Bld) [#/Vol] 0.58 10*3/uL [facility] Monocytes/100 WBC (Bld) 5.6 % 2.0 - 10.0 % [facility] Neutrophils (Bld) [#/Vol] 6.64 10*3/uL [facility] Comment on above: Percent differential counts (%) should be interpreted in the context of the absolute cell counts (cells/uL). Neutrophils/100 WBC (Bld) 63.5 % 40.0 - 80.0 % [facility] Nucleated RBC/100 WBC (Bld) [Ratio] 0.0 % [facility] Platelets (Bld) [#/Vol] 221 10*3/uL [facility] RBC (Bld) [#/Vol] 4.36 10*6/uL [facility] WBC (Bld) [#/Vol] 10.4 10*3/uL [facility] metabolic 2000 panelon 06-26-2023 Albumin BCP dye [Mass/Vol] 4.4 g/dL Normal 3.4-5.0 [facility] Comment on above: Performed By: #### 2 4323-8 #### LUCIANO LOVING ([id number]) [facility] ([facility]) [address] [place] [address] 30713 ALP [Catalytic activity/Vol] 45 U/L Normal 33-110 [facility] Comment on above: Performed By: #### 2 4323-8 #### LUCIANO LOVING ([id number]) [facility] ([facility]) [address] [place] [address] 33396 ALT With P-5'-P [Catalytic activity/Vol] 22 U/L Normal 7-45 [facility] Comment on above: Result Comment: Nedra ents treated with Sulfasalazine may generate falsely decreased results for ALT. Performed By: #### 2 4323-8 #### LUCIANO LOVING ([id number]) [facility] ([facility]) [address] [place] [address] Anion gap [Moles/Vol] 12 mmol/L Normal 10-20 [facility] Comment on above: Performed By: #### 2 4323-8 #### LUCIANO LOVING ([id number]) [facility] ([facility]) [address] [place] [address] AST With P-5'-P [Catalytic activity/Vol] 13 U/L Normal 9-39 [facility] Comment on above: Performed By: #### 2 432-8 #### LUCIANO LOVING ([id number]) [facility] ([facility]) [address] [place] [address] Bilirubin [Mass/Vol] 0.4 mg/dL Normal 0.0-1.2 [facility] Comment on above: Performed By: #### 2 4322-8 #### LUCIANO LOVING ([id number]) [facility] ([facility]) [address] [place] [address] Calcium [Mass/Vol] 9.3 mg/dL Normal 8.6-10.3 [facility] Comment on above: Performed By: #### 2 4323-8 #### LUCIANO LOVING ([id number]) [facility] ([facility]) [address] [place] [address] Chloride [Moles/Vol] 104 mmol/L Normal 98-107 [facility] Comment on above: Performed By: #### 2 4323-8 #### LUCIANO LOVING ([id number]) [facility] ([facility]) [address] [place] [address] CO2 [Moles/Vol] 26 mmol/L Normal 21-32 [facility] Comment on above: Performed By: #### 2 4323-8 #### LUCIANO LOVING ([id number]) [facility] ([facility]) [address] [place] [address] Creatinine [Mass/Vol] 0.79 mg/dL Normal 0.50-1.05 [facility] Comment on above: Performed By: #### 2 4323-8 #### LUCIANO LOVING ([id number]) [facility] ([facility]) [facility] [place] [address] GFR/1.73 sq M.predicted MDRD (S/P/Bld) [Vol rate/Area] mL/min/{1.73_m2} Normal >60 [facility] Comment on above: Result Comment: Calc ulations of estimated GFR are performed using the 2020 CKD-EPI Study Refit equation without the race variable for the IDMS-Traceable creatinine methods. https://jasn.asnjournals.org/content/early/ASN.469981102 8 Performed By: #### 2 4323-8 #### LUCIANO LOVING ([id number]) [facility] ([facility]) [facility] [place] [address] Glucose [Mass/Vol] 94 mg/dL Normal 74-99 [facility] Comment on above: Performed By: #### 2 4323-8 #### LUCIANO LOVING ([id number]) [facility] ([facility]) [address] [place] [address] 65[address] Potassium [Moles/Vol] 3.6 mmol/L Normal 3.5-5.3 [facility] Comment on above: Performed By: #### 2 4323-8 #### LUCIANO LOVING ([id number]) [facility] ([facility]) [address] [place] [address] 16139 Protein [Mass/Vol] 6.7 g/dL Normal 6.4-8.2 [facility] Comment on above: Performed By: #### 2 4323-8 #### LUCIANO LOVING ([id number]) [facility] ([facility]) [address] [place] [address] 95784 Sodium [Moles/Vol] 138 mmol/L Normal 136-145 [facility] Comment on above: Performed By: #### 2 4323-8 #### LUCIANO FABIENNE ([id number]) [facility] ([facility]) [facility] [place] [address] Urea nitrogen [Mass/Vol] 13 mg/dL Normal 6-23 [facility] Comment on above: Performed By: #### 2 4323-8 #### WOLF FABIENNE ([id number]) [facility] ([facility]) [address] [place] [address] Albumin BCP dye [Mass/Vol] 4.4 g/dL 3.4 - 5.0 g/dL [facility] ALP [Catalytic activity/Vol] 45 U/L 33 - 110 U/L [facility] ALT With P-5'-P [Catalytic activity/Vol] 22 U/L 7 - 45 U/L [facility] Comment on above: Patients treated wit h Sulfasalazine may generate falsely decreased results for ALT. Anion gap [Moles/Vol] 12 mmol/L 10 - 20 mmol/L [facility] AST With P-5'-P [Catalytic activity/Vol] 13 U/L 9 - 39 U/L [facility] Bilirubin [Mass/Vol] 0.4 mg/dL 0.0 - 1.2 mg/dL [facility] Calcium [Mass/Vol] 9.3 mg/dL 8.6 - 10. 3 mg/dL [facility] Chloride [Moles/Vol] 104 mmol/L 98 - 107 mmol/L [facility] CO2 [Moles/Vol] 26 mmol/L 21 - 32 mmol/L [facility] Creatinine [Mass/Vol] 0.79 mg/dL 0.50 - 1.05 mg/dL [facility] GFR/1.73 sq M.predicted MDRD (S/P/Bld) [Vol rate/Area] - PINF [facility] Comment on above: Calculations of terra mated GFR are performed using the 2020 CKD-EPI Study Refit equation without the race variable for the IDMS-Traceable creatinine methods. https://jasn.asnjournals.org/content/early//ASN.064620129 8 Glucose [Mass/Vol] 94 mg/dL 74 - 99 mg/dL [facility] Interpretation and review of laboratory results Normal [facility] Potassium [Moles/Vol] 3.6 mmol/L 3.5 - 5.3 mmol/L [facility] Protein [Mass/Vol] 6.7 g/dL 6.4 - 8.2 g/dL [facility] Sodium [Moles/Vol] 138 mmol/L 136 - 145 mmol/L [facility] Urea nitrogen [Mass/Vol] 13 mg/dL 6 - 23 mg/dL [facility] Lactateon 06-26-2023 Lactate [Moles/Vol] 0.9 mmol/L Normal 0.4-2.0 [facility] Comment on above: Order Comment: Venip uncture immediately after or during the administration of Metamizole may lead to falsely low results. Testing should be performed immediately prior to Metamizole dosing. Performed By: #### 2 524-7 #### WOLF FABIENNE ([id number]) [facility] ([facility]) [address] [place] [address] Lactate [Moles/Vol] 0.9 mmol/L 0.4 - 2.0 mmol/L [facility] Lactate [Moles/Vol]on 2022 Interpretation and review of laboratory results Normal [facility] Venipuncture immedia tely after or during the administration of Metamizole may lead to falsely low results. Testing should be performed immediately prior to Metamizole dosing. [facility] XR HAND LEFT 3+ VIEWS (STAND [...] history is not well defined by radiographs. ROWAN/orquidea Workstation ID: [id number] Dictated by: AAMNDA DOBSON on TueMar 11, 2023 1:17:47 PM EDT Transcribed by: BERKLEY MOCK on TueMar 11, 2023 1:36:39 PM EDT Finalized by: AMANDA DOBSON on TueMar 11, 2023 1:47:41 PM EDT [facility] Comment on above: Order Comment: Injur y/Trauma or Illness?:Injury/Trauma How long have you had these symptoms (acute/chronic)?:Acute Reason for exam?:Pt dropped a bread knife at work today and has lac over 5th metacarpal /MTPjoint History of cancer?:no Surgeries, chemotherapy, or radiation?:no Type of Exam?:Initial Mechanism of injury?:laceration XR FOOT RIGHT 3+ VIEWS (CAPRI QUINTERO)on 08-08-2022 XR FOOT RIGHT 3+ VIEWS (STANDARD) [...] AM EST Transcribed by: EUGENIA COLORADO on Erwin Aug 08, 2022 10:31:13 AM EST Finalized by: EUGENIA COLORADO on Erwin Aug 08, 2022 10:31:13 AM EST [facility] Comment on above: Order Comment: Injur y/Trauma [...] Alert and oriented x4, GCS 15 , transitional care manager II-XII grossly intact. Sensation and motor function [...] Ovidio Nichole) References: 1. Data Referenced From Triage - ED 01-Feb-2022 23:[address] [facility] Risk Screen - Adult Emergenc yon 02-02-2022 Risk Screen - Adult Emergency Preferred Language: Preferred Language: Preferred Language for Discussing Health Care (patient/designee)Bhutanese Advanced Directives: Advance Directive/DNRno Family Violence Adult: Abuse Screen: Are you or have you been threatened or abused physically, emotionally, or sexually by anyoneno Learning Assessment (Patient): Learning Assessment (Patient): Patient is Able to be Assessed for Learningyes Factors Influencing Readiness to Learnacuteness of illness Factors that Impact Ability to Learnnone Devices/Methods Used to Communicatenone Learning Preferencesaudio Cultural Considerationsnone Developmental Considerationsnone Faith Considerationsnone Learning Assessment (Other Learner): Learning Assessment [...] an injured patient at a Trauma Center ([facility]/[place]/ [place]): no Electronic Signatures: Suyapa Toro (ERIKA) (Signed 01-Feb-2022 23:24) Authored: Preferred Language, Advanced Directives, Family Violence Adult, Learning Assessment (Patient), Learning Assessment (Other Learner), Pressure Injury/TB/Substance, Pressure Injury, CAGE Last Updated: 01-Feb-2022 23:24 by Suyapa Toro (ERIKA) Normal [facility] Triage - EDon 02-02-2022 Triage - ED Quick Triage: Are You no Have You Given In The Last 6 Weeksno Are You Currently Breastfeedingno Chart Review: PRIMARY ASSESSMENT UNIQUE HOGAN's primary assessment is Within Defined Limits. The airway is open and patent. Breathing spontaneous and unlabored with clear breath sounds bilaterally. Circulation is normal with good peripheral pulses. Skin is warm and dry and color is normal for race. ARRIVAL INFORMATION Means of Arrival: Ambulatory Mode of Arrival: private vehicle Arrival From: home Accompanied By: self Language: Spoken Language Preferred: Bhutanese Reading Language Preferred: Bhutanese Roof Service Technician Requested: no manager cardiac was requested MDRO: History of MDRO: no [...] 01-Feb-2022 23:24 by Suyapa Toro (ERIKA) Normal [facility] BASIC METABOLIC PANELon 11-1 Anion gap [Moles/Vol] 12 mmol/L Normal 10 - 20 [facility] Comment on above: Performed By: #### B MP ####[place] [address] Calcium [Mass/Vol] 9.0 mg/dL Normal 8.6 - 10.3 [facility] Comment on above: Performed By: #### B MP ####[place] [address] Chloride [Moles/Vol] 107 mmol/L Normal 98 - 107 [facility] Comment on above: Performed By: #### B MP ####[place] [address] Creatinine [Mass/Vol] 0.83 mg/dL Normal 0.50 - 1.05 [facility] Comment on above: Performed By: #### B MP ####[place] [address] GFR- AM. >60 Normal >60 [facility] Comment on above: Result Comment: CALC ULATIONS OF ESTIMATED GFR ARE PERFORMED USING THE MDRD STUDY EQUATION FOR THE IDMS-TRACEABLE CREATININE METHODS. CLIN CHEM 2007;53:766-72 Performed By: #### B MP ####[place] [address] GFR-NON AM. >60 Normal >60 [facility] Comment on above: Performed By: #### B MP ####[place] [address] Glucose [Mass/Vol] 129 mg/dL High 74 - 99 [facility] Comment on above: Performed By: #### B MP ####[address] [address] HCO3 (Bld) [Moles/Vol] 24 mmol/L Normal 21 - 32 [facility] Comment on above: Performed By: #### B MP ####[address] [address] Potassium [Moles/Vol] 3.7 mmol/L Normal 3.5 - 5.3 [facility] Comment on above: Performed By: #### B MP ####[address] [address] Sodium [Moles/Vol] 139 mmol/L Normal 136 - 145 [facility] Comment on above: Performed By: #### B MP ####[address] [address] Urea nitrogen [Mass/Vol] 16 mg/dL Normal 6 - 23 [facility] Comment on above: Performed By: #### B MP ####[address] [address] CBC AND DIFFERENTIALon 06-14 Basophils (Bld) [#/Vol] 0.10 10*3/uL Normal 0.00 - 0.10 [facility] Comment on above: Performed By: #### C BCDF #### [address] [address] Basophils/100 WBC (Bld) 0.9 % Normal 0.0 - 2.0 [facility] Comment on above: Performed By: #### C BCDF #### [address] [address] Eosinophils (Bld) [#/Vol] 0.30 10*3/uL Normal 0.00 - 0.70 [facility] Comment on above: Performed By: #### C BCDF #### [address] [address] Eosinophils/100 WBC (Bld) 3.6 % Normal 0.0 - 6.0 [facility] Comment on above: Performed By: #### C BCDF #### [address] [address] Erythrocyte distribution width (RBC) [Ratio] 13.0 % Normal 11.5 - 14.5 [facility] Comment on above: Performed By: #### C BCDF #### [address] [address] Hematocrit (Bld) [Volume fraction] 44.7 % Normal 36.0 - 46.0 [facility] Comment on above: Performed By: #### C BCDF #### [address] [address] Hemoglobin (Bld) [Mass/Vol] 15.1 g/dL Normal 12.0 - 16.0 [facility] Comment on above: Performed By: #### C BCDF #### [address] [address] Lymphocytes (Bld) [#/Vol] 2.30 10*3/uL Normal 1.20 - 4.80 [facility] Comment on above: Performed By: #### C BCDF #### [address] [address] Lymphocytes/100 WBC (Bld) 26.5 % Normal 13.0 - 44.0 [facility] Comment on above: Performed By: #### C BCDF #### [address] [address] MCHC (RBC) [Mass/Vol] 33.8 g/dL Normal 32.0 - 36.0 [facility] Comment on above: Performed By: #### C BCDF #### [address] [address] MCV (RBC) [Entitic vol] 90 fL Normal 80 - 100 [facility] Comment on above: Performed By: #### C BCDF #### [address] [address] Monocytes (Bld) [#/Vol] 0.40 10*3/uL Normal 0.10 - 1.00 [facility] Comment on above: Performed By: #### C BCDF #### [address] [address] Monocytes/100 WBC (Bld) 4.4 % Normal 2.0 - 10.0 [facility] Comment on above: Performed By: #### C BCDF #### [address] [address] Neutrophils (Bld) [#/Vol] 5.50 10*3/uL Normal 1.20 - 7.70 [facility] Comment on above: Result Comment: Perc ent differential counts (%) should be interpreted in the context of the absolute cell counts (cells/L). Performed By: #### C BCDF #### [address] [address] Neutrophils/100 WBC (Bld) 64.6 % Normal 40.0 - 80.0 [facility] Comment on above: Performed By: #### C BCDF #### [address] [address] Platelets (Bld) [#/Vol] 253 10*3/uL Normal 150 - 450 [facility] Comment on above: Performed By: #### C BCDF #### [address] [address] RBC 4.95 x10E12/L Normal 4.00 - 5.20 [facility] Comment on above: Performed By: #### C BCDF #### [address] [address] WBC (Bld) [#/Vol] 8.6 10*3/uL Normal 4.4 - 11.3 [facility] Comment on above: Performed By: #### C BCDF #### [address] [address] [address] ABDOMEN AND PELVIS W IV C [facility] 06-14-2021 CT ABDOMEN AND PELVIS W IV CONTRAST Patient Name: UNIQUE HOGAN STUDY: CT ABDOMEN AND PELVIS W IV CONTRAST; 06/14/2021 10:56 am INDICATION: LOWER ABD PAIN R/O APPENDICITIS/OVARIAN CYST . COMPARISON: CT abdomen pelvis 11/08/2018 ACCESSION NUMBER(S): [id number] ORDERING CLINICIAN: AMANDA RALPH TECHNIQUE: CT of [...] Electronically signed by: PAULO HART MD Normal [facility] HCG,URINEon 06-14-2021 Beta HCG ( test) Ql (U) Negative Normal Negative [facility] Comment on above: Performed By: #### H CGU ####[address] [place] [address] HEPATIC FUNCTION PANELon Albumin [Mass/Vol] 4.4 g/dL Normal 3.4 - 5.0 [facility] Comment on above: Performed By: #### H EPFP #### [address] [address] ALP [Catalytic activity/Vol] 57 U/L Normal 33 - 110 [facility] Comment on above: Performed By: #### H EPFP #### [address] [address] ALT [Catalytic activity/Vol] 29 U/L Normal 7 - 45 [facility] Comment on above: Result Comment: Nedra ents treated with Sulfasalazine may generate falsely decreased results for ALT. Performed By: #### H EPFP #### [address] [address] AST [Catalytic activity/Vol] 16 U/L Normal 9 - 39 [facility] Comment on above: Performed By: #### H EPFP #### [address] [address] Bilirubin [Mass/Vol] 0.7 mg/dL Normal 0.0 - 1.2 [facility] Comment on above: Performed By: #### H EPFP #### [address] [address] Bilirubin.indirect [Mass/Vol] 0.1 mg/dL Normal 0.0 - 0.3 [facility] Comment on above: Performed By: #### H EPFP #### [address] [address] Protein [Mass/Vol] 7.0 g/dL Normal 6.4 - 8.2 [facility] Comment on above: Performed By: #### H EPFP #### [address] [address] LIPASEon 06-14-2021 Lipase [Catalytic activity/Vol] 20 U/L Normal 9 - 82 [facility] Comment on above: Result Comment: Marilia puncture immediately after or during the administration of Metamizole may lead to falsely low results. Testing should be performed immediately prior to Metamizole dosing. G-eotqor-o-benzoquinone imine (metabolite of Acetaminophen) will generate erroneously low results in samples for patients that have taken toxic doses of acetaminophen. Performed By: #### L IPAS #### [facility] [address] [id number] Provider Note - ED v2on 06-01 Provider [...] a day SIGNIFICANT EVENTS: No documented data. COOK FROZEN DESSERT: Is : no(1) Is : no(1) REVIEW [...] Reference Range: STRAW,YELLOW Appearance, Urine CLEAR Specific [place], Urine 1.020 pH, Urine 5.0 Protein, Urine NEGATIVE Glucose, Urine NEGATIVE Blood, Urine NEGATIVE Ketones, Urine NEGATIVE Bilirubin, Urine NEGATIVE Urobilinogen, Urine <2.0 Nitrite, Urine Negative Leukocyte Esterase, Urine NEGATIVE Radiology Results: Impression: 1. Unremarkable appendix. 2. Probablesmall cyst or prominent folli (more content not included)... Normal [facility] Triage - EDon 06-14-2021 Triage - ED [...] BMI (kg/m2): 33.742 Calculated BSA (m2) 2.01 [place] Coma Scale: Best Eye Response: (E4) spontaneous Best Motor Response: (M6) obeys commands Best Verbal Response: (V5) oriented [place] Score: 15 Cough lasting greater than 3 [...] 14-Jun-2021 09:14 by Sherry Maldonado (ERIKA) Normal [facility] URINALYSISon 06-14-2021 Appearance (U) CLEAR Normal CLEAR [facility] Comment on above: Performed By: #### U A ####[address] [address] Bilirubin Ql (U) Negative Normal NEGATIVE [facility] Comment on above: Performed By: #### U A ####[address] [address] Color (U) Yellow Normal STRAW,YELLOW [facility] Comment on above: Performed By: #### [place] ####[place] [address] Glucose Ql (U) Negative Normal NEGATIVE [facility] Comment on above: Performed By: #### [place] ####[place] [address] Hemoglobin Ql (U) Negative Normal NEGATIVE [facility] Comment on above: Performed By: #### [place] ####[place] [address] Ketones Ql (U) Negative Normal NEGATIVE [facility] Comment on above: Performed By: #### [place] ####[place] [address] Leukocyte esterase Test strip Ql (U) Negative Normal NEGATIVE [facility] Comment on above: Performed By: #### [place] ####[place] [address] Nitrite Ql (U) Negative Normal NEGATIVE [facility] Comment on above: Performed By: #### [place] ####[place] [address] pH (U) 5.0 [pH] Normal 5.0 - 8.0 [facility] Comment on above: Performed By: #### [place] ####[place] [address] Protein Ql (U) Negative Normal NEGATIVE [facility] Comment on above: Performed By: #### [place] ####[place] [address] Specific gravity (U) [Rel density] 1.020 Normal 1.005 - 1.035 [facility] Comment on above: Performed By: #### U A ####[place] [address] Urobilinogen (U) [Mass/Vol] mg/dL Normal 0.0 - 1.9 [facility] Comment on above: Performed By: #### U A ####[place] [address] Provider Note - ED v2on 11-0 Provider [...] Alert and oriented x4, GCS 15 , transitional care manager II-XII grossly intact. Sensation and motor function [...] 10 days SIGNIFICANT EVENTS: No documented data. COOK FROZEN DESSERT: Is : no(1) Is : no(1) RESULTS/VITAL SIGNS VITAL SIGNS: T PRBP SpO2O2(LPM) %FiO2 Method 06-Jun-2021 20:08:[id number] 88 room air, no respiratory support MEDICAL [...] Scores Last Updated: 06-Jun-2021 20:50 by Ovidio Nichole) References: 1. Data Referenced From Triage - ED 06-Jun-2021 20:08 [facility] Triage - EDon 06-06-2021 Triage - [...] BMI (kg/m2): 28.340 Calculated BSA (m2) 1.97 [place] Coma Scale: Best Eye Response: (E4) spontaneous Best Motor Response: (M6) obeys commands Best Verbal Response: (V5) oriented Kadi Score: 15 Allergies: yes Last menstrual period: unknown COOK FROZEN DESSERT History: control Patient has homicidal thoughts: no [...] Medical History Reviewedyes Electronic Signatures: Charo Gimenez (RN) (Signed 06-Jun-2021 20:15) Entered: Risk Screens, Pain, Travel History, Chart Review, Past Medical History Authored: Quick Triage, Risk Screens, Pain, Travel History, Chart Review, Past Medical History Last Updated: 06-Jun-2021 20:15 by Charo Gimenez) [facility] Provider Note - ED v3on 03-03 Provider Note - ED v3 Provider Note: Chart Review: HISTORY OF PRESENTING ILLNESS UNQIUE is a 30 year old Female and was seen by me at 31-Mar-2021 21:16 for a chief complaint of dental pain/injury (PT TO ED WITH C/O I BROKE A TOOTH ON MY LEFT LOWER JAW ON TUESDAY AND NOW I HAVE SOME SWELLING AND INCREASED PAIN)(1). Triage Information: Most recent Vital Sign Value [...] 10 days SIGNIFICANT EVENTS: No documented data. [facility] MDM/ED COURSE: PMH: Reviewed PSH: Reviewed Social [...] ill patient: no Electronic Signatures: Anette Bardales (CALL CENTER DIRECTOR-VESSEL LINER) (Signed 31-Mar-2021 21:39) Authored: HPI, PMH, MDM/ED Course, Clinical Impression, Attestation, Chart Review, Scores Last Updated: 31-Mar-2021 21:39 by Anette Bardales (CALL CENTER DIRECTOR-VESSEL LINER) References: 1. Data Referenced From Triage - ED 31-Mar-2021 21:19 [facility] Risk Screen - Adult Emergenc yon 03-31-2021 Risk Screen - Adult Emergency Preferred Language: Preferred Language: Preferred Language for Discussing Health Care (patient/designee)Bhutanese Advanced Directives: Advance Directive/DNRno Family Violence Adult: [...] instruction; written material Cultural Considerationsnone Developmental Considerationsnone Faith Considerationsnone Learning Assessment (Other Learner): Learning Assessment [...] an injured patient at a Trauma Center ([facility]/[place]/ [place]): no Electronic Signatures: Erika Alanis (ERIKA) (Signed 31-Mar-2021 21:23) Authored: Preferred Language, Advanced Directives, Family Violence Adult, Learning Assessment (Patient), Learning Assessment (Other Learner), Pressure Injury/TB/Substance, Pressure Injury, CAGE Last Updated: 31-Mar-2021 21:23 by Erika Alanis (RN) [facility] Triage - EDon 03-31-2021 Triage - ED Quick Triage: Are You no Have You Given In The Last 6 Weeksno Are You Currently Breastfeedingno The patient and/or guardian verbally acknowledges placement for services into the following (when Urgent Care Service hours are operating):emergency department Chart Review: PRIMARY ASSESSMENT UNIQUE HOGAN's primary assessment is Within Defined Limits. The airway is open and patent. Breathing spontaneous and unlabored with clear breath sounds bilaterally. Circulation is normal with good peripheral pulses. Skin is warm and dry and color is normal for race. ARRIVAL INFORMATION Means of Arrival: Ambulatory Mode of Arrival: private vehicle Arrival From: home Accompanied By: self Language: Spoken Language Preferred: Bhutanese Reading Language Preferred: Bhutanese Roof Service Technician Requested: no manager cardiac was requested MDRO: History of MDRO: no Present on Arrival: Device Present on Arrival to ED: no CHIEF COMPLAINT UNIQUE HOGAN is a Female patient with a chief complaint of dental pain/injury (PT TO ED WITH C/O I BROKE A TOOTH ON MY LEFT LOWER JAW ON TUESDAY AND NOW I HAVE SOME SWELLING AND INCREASED PAIN). Triage Date/Time: 31-Mar-2021 21:10 MOISÉS: 4 Pain Rating (0-10): 9 = Severe Pain location: JAW Vital Signs: Temperature: 98.7F ( 37.0C) taken oral Blood Pressure: 173/109 Mean: Heart Rate: 73 Respiratory Rate: 16 Pulse Oximetry: 98% on room air, no respiratory support. Height: 5 feet 4 inches. 162.5 CM Weight: 200.6 pounds. Calculated 91.0 kg. Calculated BMI (kg/m2): 34.461 Calculated BSA (m2) 2.03 [place] Coma Scale: Best Eye Response: (E4) spontaneous Best Motor Response: (M6) obeys commands Best Verbal Response: (V5) oriented [place] Score: 15 Cough lasting greater than 3 weeks: no Patient immunocompromised related to: N/A Allergies: yes COOK FROZEN DESSERT History: control Patient has homicidal thoughts: no [...] Medical History Reviewedyes Electronic Signatures: Erika Alanis (RN) (Signed 31-Mar-2021 21:22) Entered: Risk Screens, Pain, Arrival, ABCD, Immunizations, Travel History, Chart Review, Scores, Past Medical History Authored: Quick Triage, Risk Screens, Pain, Arrival, ABCD, Immunizations, Travel History, Chart Review, Scores, Past Medical History Last Updated: 31-Mar-2021 21:22 by Erkia Alanis (ERIKA) Normal [facility] CT Abdomen/Pelvis w/ Contras ton 11-08-2018 CT Abdomen/Pelvis w/ Contrast Exam Date/Time: 11/08/2018 08:47 EDT Reason for Exam: ABD PAIN;Pain Report STUDY: CT Abdomen/Pelvis w/ Contrast; 11/08/2018 8:47 am INDICATION: Pain COMPARISON: No available comparisons. ACCESSION NUMBER(S): [id number] ORDERING CLINICIAN: Deborah Loaiza TECHNIQUE: CT of [...] pm Signed by: Marv Bright MD Technologist: [facility] Lab Miscellaneouson 10-20-19 19 Status See Ref Lab Report Normal [facility] Comment on above: Performed By: #### 2 [id number] #### [employer] [address] [place] [address] NM Hepatobiliary Duct System Imaging w/EFon 10-18-2018 NM Hepatobiliary Duct System Imaging w/EF Exam Date/Time: 10/18/2018 13:06 EDT Reason for Exam: RIGHT UPPER QUADRANT PAIN;Abdominal pain Report STUDY: NM Hepatobiliary Duct System Imaging w/EF; 10/18/2018 1:06 pm INDICATION: Abdominal pain. 5.6 COMPARISON: ACCESSION NUMBER(S): [id number] ORDERING CLINICIAN: Deborah Loaiza TECHNIQUE: DIVISION OF [...] biliary dyskinesia. This study was interpreted at [facility]. FINAL REPORT Dictated: 10/18/2018 1:36 pm Scarlet Howe MD Signed (Electronic Signature): 10/18/2018 1:36 pm Signed by: Scarlet Howe MD Technologist: CORDELIA Normal [facility] Lab Miscellaneouson 10-17-19 Test Name Celiac panel [facility] Comment on above: Performed By: #### 2 [id number] #### [employer] [address] [place] [address] PROGRESSon 09-25-2018 Protein mass conc HNO ID: [id number] Author: Mao Chiu II Service: (none) Author Type: OUTSIDE RIGGER Type: Progress Notes Filed: 09/25/2018 4:27 PM [...] relevant components. Mao Chiu, II, OD Normal [facility] US Abdomen, Limitedon 2018 US Abdomen, Limited Exam Date/Time: 08/14/2018 07:26 EST Reason for Exam: BILIARY COLIC Report STUDY: US Abdomen, Limited 08/14/2018 7:26 am INDICATION: 27 y/o F with BILIARY COLIC. COMPARISON: None. ACCESSION NUMBER(S): [id number] ORDERING CLINICIAN: Shannon Aguilera TECHNIQUE: Routine ultrasound [...] am Signed by: Huber Peña MD Technologist: BS Normal [facility] Amylaseon 08-11-2018 Amylase enzyme act/vol 32 U/L Normal 25-115 [facility] Comment on above: Performed By: #### L IPASE, CBCDIF, ERIKA, CMET ####Unless otherwise noted, all testing performed by [address] [phone]: [id number] Director: Natanael Martin M.D. CBC with Diffon 08-11-2018 Basophils Auto #/vol (Bld) 0.1 K/mcL Normal 0-0.2 [facility] Comment on above: Performed By: #### L IPASE, CBCDIF, ERIKA, CMET ####Unless otherwise noted, all testing performed by [address] [phone]: [id number] Director: Natanael Martin M.D. Basophils/100 WBC Auto (Bld) 1.4 % Normal [facility] Comment on above: Performed By: #### L IPASE, CBCDIF, ERIKA, CMET ####Unless otherwise noted, all testing performed by [address] [phone]: [id number] Director: Natanael Martin M.D. Eosinophils Auto #/vol (Bld) 0.4 K/mcL Normal 0-0.5 [facility] Comment on above: Performed By: #### L IPASE, CBCDIF, ERIKA, CMET ####Unless otherwise noted, all testing performed by [address] [phone]: [id number] Director: Natanael Martin M.D. Eosinophils/100 WBC Auto (Bld) 6.7 % Normal [facility] Comment on above: Performed By: #### L IPASE, CBCDIF, ERIKA, CMET ####Unless otherwise noted, all testing performed by [address] [phone]: [id number] Director: Natanael Martin M.D. Erythrocyte distribution width Auto Ratio (RBC) 12.7 % Normal 10.0-14.4 [facility] Comment on above: Performed By: #### L IPASE, CBCDIF, ERIKA, CMET ####Unless otherwise noted, all testing performed by [address] [phone]: [id number] Director: Natanael Martin M.D. Hematocrit Auto Volume Fraction (Bld) 45.3 % High 34.4-44.8 [facility] Comment on above: Performed By: #### L IPASE, CBCDIF, ERIKA, CMET ####Unless otherwise noted, all testing performed by [address] [phone]: [id number] Director: Natanael Martin M.D. Hemoglobin mass conc (Bld) 15.6 g/dL High 11.6-15.4 [facility] Comment on above: Performed By: #### L IPASE, CBCDIF, ERIKA, CMET ####Unless otherwise noted, all testing performed by [address] [phone]: [id number] Director: Natanael Martin M.D. Lymphocytes Auto #/vol (Bld) 2.0 K/mcL Normal 1.0-3.7 [facility] Comment on above: Performed By: #### L IPASE, CBCDIF, ERIKA, CMET ####Unless otherwise noted, all testing performed by [address] [phone]: [id number] Director: Natanael Mratin M.D. Lymphocytes/100 WBC Auto (Bld) 33.4 % Normal [facility] Comment on above: Performed By: #### L IPASE, CBCDIF, ERIKA, CMET ####Unless otherwise noted, all testing performed by [address] [phone]: [id number] Director: Natanael Martin M.D. MCH Auto Entitic mass (RBC) 30.5 pg Normal 27.9-33.9 [facility] Comment on above: Performed By: #### L IPASE, CBCDIF, ERIKA, CMET ####Unless otherwise noted, all testing performed by [address] [phone]: [id number] Director: Natanael Martin M.D. MCHC Auto mass conc (RBC) 34.3 g/dL Normal 33.1-35.1 [facility] Comment on above: Performed By: #### L IPASE, CBCDIF, ERIKA, CMET ####Unless otherwise noted, all testing performed by [address] [phone]: [id number] Director: Natanael Martin M.D. MCV Auto Entitic volume (RBC) 88.8 fL Normal 82.6-98.9 [facility] Comment on above: Performed By: #### L IPASE, CBCDIF, ERIKA, CMET ####Unless otherwise noted, all testing performed by [address] [phone]: [id number] Director: Natanael Martin M.D. Monocytes Auto #/vol (Bld) 0.4 K/mcL Normal 0.1-0.6 [facility] Comment on above: Performed By: #### L IPASE, CBCDIF, ERIKA, CMET ####Unless otherwise noted, all testing performed by [address] [phone]: [id number] Director: Natanael Martin M.D. Monocytes/100 WBC Auto (Bld) 6.1 % Normal [facility] Comment on above: Performed By: #### L IPASE, CBCDIF, ERIKA, CMET ####Unless otherwise noted, all testing performed by [address] [phone]: [id number] Director: Natanael Martin M.D. Neutrophils Auto #/vol (Bld) 3.2 K/mcL Normal 1.2-6.9 [facility] Comment on above: Performed By: #### L IPASE, CBCDIF, ERIKA, CMET ####Unless otherwise noted, all testing performed by [address] [phone]: [id number] Director: Natanael Martin M.D. Platelet mean volume Auto Entitic volume (Bld) 9.3 fL Normal 7.0-10.6 [facility] Comment on above: Performed By: #### L IPASE, CBCDIF, ERIKA, CMET ####Unless otherwise noted, all testing performed by [address] [phone]: [id number] Director: Natanael Martin M.D. Platelets Auto #/vol (Bld) 229 K/mcL Normal 162-402 [facility] Comment on above: Performed By: #### L IPASE, CBCDIF, ERIKA, CMET ####Unless otherwise noted, all testing performed by [address] [phone]: [id number] Director: Natanael Martin M.D. RBC Auto #/vol (Bld) 5.11 M/mcL High 3.7-5.0 [facility] Comment on above: Performed By: #### L IPASE, CBCDIF, ERIKA, CMET ####Unless otherwise noted, all testing performed by [address] [phone]: [id number] Director: Natanael Martin M.D. Segmented Neut % 52.4 % Normal [facility] Comment on above: Performed By: #### L IPASE, CBCDIF, ERIKA, CMET ####Unless otherwise noted, all testing performed by [address] [phone]: [id number] Director: Natanael Martin M.D. WBC Auto #/vol (Bld) 6.1 K/mcL Normal 3.4-10.6 [facility] Comment on above: Performed By: #### L IPASE, CBCDIF, ERIKA, CMET ####Unless otherwise noted, all testing performed by [address] [phone]: [id number] Director: Natanael Martin M.D. Comprehensive Metabolic Pane [facility] 08-11-2018 Albumin mass conc 4.1 g/dL Normal 3.2-5.2 [facility] Comment on above: Performed By: #### L IPASE, CBCDIF, ERIKA, CMET ####Unless otherwise noted, all testing performed by [address] [phone]: [id number] Director: Natanael Martin M.D. ALP enzyme act/vol 82 U/L Normal 40-140 [facility] Comment on above: Performed By: #### L IPASE, CBCDIF, ERIKA, CMET ####Unless otherwise noted, all testing performed by [address] [phone]: [id number] Director: Natanael Martin M.D. ALT enzyme act/vol 53 U/L Normal 14-65 [facility] Comment on above: Result Comment: This test result might be falsely depressed or falsely elevated onsamples drawn from patients taking Sulfasalazine and Sulfapyridine.Venipuncture should occur prior to taking either of these drugs. Performed By: #### L IPASE, CBCDIF, ERIKA, CMET ####Unless otherwise noted, all testing performed by [address] [phone]: [id number] Director: Natanael Martin M.D. AST enzyme act/vol 21 U/L Normal 0-45 [facility] Comment on above: Result Comment: This test result might be falsely depressed or falsely elevated onsamples drawn from patients taking Sulfasalazine and Sulfapyridine.Venipuncture should occur prior to taking either of these drugs. Performed By: #### L IPASE, CBCDIF, ERIKA, CMET ####Unless otherwise noted, all testing performed by [address] [phone]: [id number] Director: Natanael Martin M.D. Bilirubin mass conc 0.9 mg/dL Normal 0.3-1.2 [facility] Comment on above: Performed By: #### L IPASE, CBCDIF, ERIKA, CMET ####Unless otherwise noted, all testing performed by [address] [phone]: [id number] Director: Natanael Martin M.D. Calcium mass conc 9.2 mg/dL Normal 8.4-10.2 [facility] Comment on above: Performed By: #### L IPASE, CBCDIF, ERIKA, CMET ####Unless otherwise noted, all testing performed by [address] [phone]: [id number] Director: Natanael Martin M.D. Chloride molar conc 106 mmol/L Normal 98-108 [facility] Comment on above: Performed By: #### L IPASE, CBCDIF, ERIKA, CMET ####Unless otherwise noted, all testing performed by [place] [phone]: [id number] Director: Natanael Martin M.D. CO2 molar conc 30 mmol/L Normal 21-32 [facility] Comment on above: Performed By: #### L IPASE, CBCDIF, ERIKA, CMET ####Unless otherwise noted, all testing performed by [phone]: [id number] Director: Natanael Martin M.D. Creatinine mass conc 0.97 mg/dL Normal 0.40-1.10 [facility] Comment on above: Performed By: #### L IPASE, CBCDIF, ERIKA, CMET ####Unless otherwise noted, all testing performed by [phone]: [id number] Director: Natanael Martin M.D. GFR/1.73 sq M predicted among blacks MDRD vol rate/area (S/P/Bld) mL/min/{1.73_m2} Normal [facility] Comment on above: Result Comment: Afri can Israeli GFR Calc Performed By: #### L IPASE, CBCDIF, ERIKA, CMET ####Unless otherwise noted, all testing performed by [address] [phone]: [id number] Director: Natanael Martin M.D. GFR/1.73 sq M predicted among non-blacks MDRD vol rate/area (S/P/Bld) mL/min/{1.73_m2} Normal [facility] Comment on above: Result Comment: Non- [...] ####Unless otherwise noted, all testing performed by [address] [phone]: [id number] Director: Natanael Martin M.D. Glucose mass conc 81 mg/dL Normal 70-99 [facility] Comment on above: Result Comment: This test result might be falsely depressed or falsely elevated onsamples drawn from patients taking Sulfasalazine and Sulfapyridine.Venipuncture should occur prior to taking either of these drugs. Performed By: #### L IPASE, CBCDIF, ERIKA, CMET ####Unless otherwise noted, all testing performed by [address] [phone]: [id number] Director: Natanael Martin M.D. Potassium molar conc 4.5 mmol/L Normal 3.5-5.1 [facility] Comment on above: Performed By: #### L IPASE, CBCDIF, ERIKA, CMET ####Unless otherwise noted, all testing performed by [address] [id number]: [id number] Director: Natanael Martin M.D. Protein mass conc 7.7 g/dL Normal 6.0-8.0 [facility] Comment on above: Performed By: #### L IPASE, CBCDIF, ERIKA, CMET ####Unless otherwise noted, all testing performed by [address] [id number]: [id number] Director: Natanael Martin M.D. Sodium molar conc 139 mmol/L Normal 135-145 [facility] Comment on above: Performed By: #### L IPASE, CBCDIF, ERIKA, CMET ####Unless otherwise noted, all testing performed by [place] [id number]: [id number] Director: Natanael Martin M.D. Urea nitrogen mass conc 11 mg/dL Normal 8-25 [facility] Comment on above: Performed By: #### L IPASE, CBCDIF, ERIKA, CMET ####Unless otherwise noted, all testing performed by [place] [id number]: [id number] Director: Natanael Martin M.D. Culture, Urineon 08-11-2018 Culture, Urine Test Name: Culture, Urine Culture Status: Final Culture Report: No significant growth. Micro Source: Urine Normal [facility] Comment on above: Performed By: #### U RCUL ####Unless otherwise noted, all testing performed by [place] [id number]: [id number] Director: Natanael Martin M.D. Lipaseon 08-11-2018 Lipase enzyme act/vol 88 U/L Normal 73-393 [facility] Comment on above: Performed By: #### L IPASE, CBCDIF, ERIKA, CMET ####Unless otherwise noted, all testing performed by [place] [address] [address] [place], [place] [id number]: [id number] Director: Natanael Martin M.D. POC , Urineon 08-11 HCG ( test) Ql (U) Negative Invalid Interpretation Code Negative [facility] Internal Control Pass Invalid Interpretation Code [facility] Interpretation and review of laboratory results Normal Invalid Interpretation Code [facility] Specific gravity Relative Density (U) Invalid Interpretation Code [facility] POC Urinalysis Dipstickon Bilirubin Ql (U) Small Abnormal Negative [facility] th Glucose Ql (U) Negative Invalid Interpretation Code Normal, Negative mg/dL [facility] Hemoglobin Test strip Ql (U) Negative Invalid Interpretation Code Negative [facility] Interpretation and review of laboratory results Abnormal Invalid Interpretation Code [facility] Ketones Ql (U) Negative Invalid Interpretation Code Negative mg/dL [facility] Leukocyte esterase Test strip Ql (U) Negative Invalid Interpretation Code Negative [facility] Nitrite Test strip Ql (U) Negative Invalid Interpretation Code Negative [facility] pH Test strip (U) 6.0 [pH] Invalid Interpretation Code [facility] Protein Test strip Ql (U) 100 Abnormal Negative mg/dL [facility] Specific gravity Relative Density (U) 1.030 Abnormal [facility] Urobilinogen Test strip Qn (U) 0.2 mg/dL Invalid Interpretation Code <2.0, 0.2, Normal, Negative, 1.0, 2.0, <1.0 [facility] .Manual Abson 07-17-2018 Basophil Abs Man 0.0 10x3/ Normal 0.0-0.2 [facility] Comment on above: Order Comment: Order Added by Discern Expert. Performed By: #### 3 [id number] #### [facility] RemHemo [address] [place] [address] Eos Abs Man 0.1 10x3/ Normal 0.0-0.5 [facility] Comment on above: Order Comment: Order Added by Discern Expert. Performed By: #### 3 [id number] #### [facility] RemHemo [address] [place] [address] Lymphocytes #/vol (Bld) 0.6 10x3/ Low 1.2-3.4 [facility] Comment on above: Order Comment: Order Added by Discern Expert. Performed By: #### 3 [id number] #### [facility] Vazquezo [address] [place] [id number] Ector Abs Man 0.1 10x3/ Normal 0.0-0.7 [facility] Comment on above: Order Comment: Order Added by Discern Expert. Performed By: #### 3 [id number] #### [facility] Vazquezo [facility] [place] [id number] Segs Abs Man 10.3 10x3/ High 1.4-6.5 [facility] Comment on above: Order Comment: Order Added by Discern Expert. Performed By: #### 3 [id number] #### [facility] Vazquezo [address] [place], [place] [address] BMPon 07-17-2018 Anion gap molar conc 10 mmol/L Normal 10-20 [facility] Comment on above: Performed By: #### 2 [id number] #### [facility] [employer]ink [address] [place] [address] Calcium mass conc 9.7 mg/dL Normal 8.6-10.3 [facility] Comment on above: Performed By: #### 2 [id number] #### [facility] Datalink [address] [place] [address] Chloride molar conc 104 mmol/L Normal 98-107 [facility] Comment on above: Performed By: #### 2 [id number] #### [facility] [employer] [address] [place], [place] [address] CO2 molar conc 27.0 mmol/L Normal 21.0-32.0 [facility] Comment on above: Performed By: #### 2 [id number] #### [facility] [employer] [address] [place] [address] Creatinine mass conc 0.8 mg/dL Normal 0.5-1.1 [facility] Comment on above: Performed By: #### 2 [id number] #### [facility] [employer] [address] [place], [place] [address] Glucose mass conc 88 mg/dL Normal 70-99 [facility] Comment on above: Performed By: #### 2 [id number] #### [facility] [employer] [address] [place] [address] Potassium molar conc 4.0 mmol/L Normal 3.5-5.3 [facility] Comment on above: Performed By: #### 2 [id number] #### [facility] [employer] [address] [place] [address] 49468 Sodium molar conc 137 mmol/L Normal 136-145 [facility] Comment on above: Performed By: #### 2 [id number] #### [facility] [employer] [address] [place], [place] [address] Urea nitrogen mass conc 11 mg/dL Normal 6-23 [facility] Comment on above: Performed By: #### 2 [id number] #### [facility] D[employer] [address] [place], [place] [address] Urea nitrogen/Creatinin e mass ratio 13.8 ratio Normal 5.4-30.0 [facility] Comment on above: Performed By: #### 2 [id number] #### [facility] D[employer] [address] [place], [place] [address] CBC w/ Auto Diffon 8 Erythrocyte distribution width Ratio (RBC) 12.4 % Normal 11.5-14.5 [facility] Comment on above: Performed By: #### 2 [id number] #### [facility] RemHemo [address] [place], [place] [address] Hematocrit Volume Fraction (Bld) 46.8 % Normal 36.0-48.0 [facility] Comment on above: Performed By: #### 2 712430 #### [facility] RemHemo [address] [place] [address] Hemoglobin mass conc (Bld) 16.3 g/dL High 12.0-16.0 [facility] Comment on above: Performed By: #### 2 151774 #### [facility] RemHemo [address] [place] [address] 51223 MCH Entitic mass (RBC) 31.1 pg High 27.0-31.0 [facility] Comment on above: Performed By: #### 2 [id number] #### [facility] RemHemo [address] [place], [place] [address] MCHC mass conc (RBC) 34.8 g/dL Normal 33.0-37.0 [facility] Comment on above: Performed By: #### 2 [id number] #### [facility] NogueiraHemo [address] [place] [address] MCV Entitic volume (RBC) 89.5 fL Normal 78.0-100.0 [facility] Comment on above: Performed By: #### 2 [id number] #### [facility] MirlandeHemo [address] [place] [address] Platelet mean volume Entitic volume (Bld) 8.6 fL Normal 7.4-11.0 [facility] Comment on above: Performed By: #### 2 926224 #### [facility] RemHemo [facility] [place] [address] Platelets #/vol (Bld) 241 E3/mcL Normal 130-400 [facility] Comment on above: Performed By: #### 2 [id number] #### [facility] RemHemo [facility] [place] [address] RBC #/vol (Bld) 5.24 E6/mcL Normal 3.90-5.40 [facility] Comment on above: Performed By: #### 2 [id number] #### [facility] RemHemo [address] [place] [address] WBC #/vol (Bld) 11.3 E3/mcL High 3.6-11.0 [facility] Comment on above: Performed By: #### 2 [id number] #### [facility] RemHemo [facility] [place] [address] Hep Func Panelon 07-17-2018 Albumin mass conc 5.0 g/dL Normal 3.4-5.0 [facility] Comment on above: Performed By: #### 2 139729 #### [facility] [employer] [address] [place] [address]013 Albumin/Globulin mass ratio 2.1 {ratio} High 1.1-1.9 [facility] Comment on above: Performed By: #### 2 [id number] #### [facility] D[employer]ink [facility] [place] [address] Alk Phos 84 Int._Unit/L Normal 33-110 [facility] Comment on above: Performed By: #### 2 [id number] #### [facility] [employer] [address] [place] [address] 21561 ALT enzyme act/vol 36 Int._Unit/L Normal 7-45 [facility] Comment on above: Performed By: #### 2 800124 #### [facility] [employer] [address] [place] [address] 63490 AST enzyme act/vol 16 Int._Unit/L Normal 9-39 [facility] Comment on above: Performed By: #### 2 [id number] #### [facility] [employer] [address] [place] [address] 97863 Bili Direct 0.08 mg/dL Normal 0.00-0.30 [facility] Comment on above: Performed By: #### 2 155452 #### [facility] [employer] [address] [place] [address] Bili Indirect 0.76 mg/dL Normal [facility] Comment on above: Result Comment: No e stablished ranges available for the indirect bilirubin Performed By: #### 2 [id number] #### [facility] D[employer]ink [address] [place] [address] 18147 Bili Total 0.84 mg/dL Normal 0.00-1.20 [facility] Comment on above: Performed By: #### 2 [id number] #### [facility] [employer] [address] [place] [address] 62077 Globulin mass conc (S) 2.0 g/dL Normal 2.0-4.0 [facility] Comment on above: Performed By: #### 2 [id number] #### [facility] [employer] [address] [place] [address] 55759 Protein mass conc 7.4 g/dL Normal 6.4-8.2 [facility] Comment on above: Performed By: #### 2 [id number] #### [facility] [employer] [address] [place] [address] 57337 Lipase Levelon 07-17-2018 Lipase Lvl 10 Int._Unit/L Normal 9-82 [facility] Comment on above: Performed By: #### 2 [id number] #### [facility] [employer] [address] [place] [address] Manual Diffon 07-17-2018 Band form neutrophils/100 WBC (Bld) 2 High 0-1 [facility] Comment on above: Order Comment: Order Added by Discern Expert. Performed By: #### 2 [id number] #### [facility] RemHemo [address] [place] [address] Basophils/100 WBC (Bld) 0 % Normal 0-1 [facility] Comment on above: Order Comment: Order Added by Discern Expert. Performed By: #### 2 [id number] #### [facility] RemHemo [address] [place] [address] Eosinophils/100 WBC (Bld) 1 % Normal 0-5 [facility] Comment on above: Order Comment: Order Added by Discern Expert. Performed By: #### 2 [id number] #### [facility] RemHemo [facility] [place] [address] Lymphocytes/100 WBC (Bld) 5 % Low 14-48 [facility] Comment on above: Order Comment: Order Added by Discern Expert. Performed By: #### 2 [id number] #### [facility] RemHemo [address] [place] [address] Monocytes/100 WBC (Bld) 1 % Normal 1-11 [facility] Comment on above: Order Comment: Order Added by Dagoberto Expert. Performed By: #### 2 [id number] #### [facility] RemHemo [address] [place] [address] RBC morphology finding Nom (Bld) NORMAL Normal [facility] Comment on above: Order Comment: Order Added by Dagoberto Expert. Performed By: #### 2 [id number] #### [facility] RemHemo [address] [place] [address] Segs Man 91 % High 37-75 [facility] Comment on above: Order Comment: Order Added by Dagoberto Expert. Performed By: #### 2 [id number] #### [facility] RemHemo [address] [place] [address] UA Completeon 07-17-2018 Color Nom (U) Yellow Normal Yellow [facility] Comment on above: Performed By: #### 8 [id number] #### [facility] Urinalysis Automated Subsection [facility] [place] [address] Glucose mass conc (U) Negative Normal Negative [facility] Comment on above: Performed By: #### 8 [id number] #### [facility] Urinalysis Automated Subsection [facility] [place] [address] Ketones Ql (U) Negative Normal Negative [facility] Comment on above: Performed By: #### 8 [id number] #### [facility] Urinalysis Automated Subsection [address] [place] [address] UA Blood Negative Normal Negative [facility] Comment on above: Performed By: #### 8 [id number] #### [facility] Urinalysis Automated Subsection [address] [place] [address] UA Amorph Shannan 3+ /HPF Abnormal None [facility] Comment on above: Performed By: #### 8 [id number] #### [facility] Urinalysis Automated Subsection [facility] [place] [address] UA Clarity SltCloudy Abnormal Clear [facility] Comment on above: Performed By: #### 8 [id number] #### [facility] Urinalysis Automated Subsection [facility] [place] [address] UA Leuk Est Negative Normal Negative [facility] Comment on above: Performed By: #### 8 [id number] #### [facility] Urinalysis Automated Subsection [facility] [place] [address] UA Nitrite Negative Normal Negative [facility] Comment on above: Performed By: #### 8 [id number] #### [facility] Urinalysis Automated [employer]section [address] [place] [address] UA pH 5.5 Normal 4.6-8.0 [facility] Comment on above: Performed By: #### 8 [id number] #### [facility] Urinalysis Automated Subsection [facility] [place] [address] UA Protein 1+ Abnormal Negative [facility] Comment on above: Performed By: #### 8 [id number] #### [facility] Urinalysis Automated Subsection [facility] [place] [id number] UA Spec Grav >1.030 Normal 1.003-1.030 [facility] Comment on above: Performed By: #### 8 [id number] #### [facility] Urinalysis Automated Subsection [facility] [place] [address] UA Squam Epithelial 0-5 Normal 0-5 [facility] Comment on above: Performed By: #### 8 [id number] #### [facility] Urinalysis Automated Subsection [address] [place] [address] UA Urobilinogen Negative Normal [facility] Comment on above: Result Comment: Due to a manufacturing issue, low positive urobilinogen results may be fasely positive. Correlate with urine bilirubin and additional clinical/laboratory findings to assess the risk of hemolytic anemia or liver disease. If clinically indicated, repeat testing with an alternate method is available by contacting the laboratory within 24 hours. Performed By: #### 8 [id number] #### [facility] Urinalysis Automated [employer]section [address] [place] [address] Urobilinogen Qn (U) Negative Normal Negative [facility] Comment on above: Performed By: #### 8 [id number] #### [facility] Urinalysis Automated Subsection [address] [place] [address] eGFRon 07-17-2018 GFR/1.73 sq M predicted among non-blacks MDRD vol rate/area (S/P/Bld) mL/min/{1.73_m2} Normal [facility] Comment on above: Order Comment: Order added by Discern Expert. Performed By: #### 1 [id number] #### [facility] [employer] [address] [place] [address] zzplt morphon 07-17-2018 Platelet morphology finding Nom (Bld) NORMAL Normal [facility] Comment on above: Performed By: #### 9 [id number] #### [facility] RemHemo [address] [place] [address] Platelets #/vol (Bld) NORMAL Normal [facility] Comment on above: Performed By: #### 9 [id number] #### [facility] RemHemo [facility] [place] [address] POC Urinalysis Dipstickon Bilirubin Ql (U) Negative Negative mg/dL [facility] Work Phone: Glucose Ql (U) Negative Normal, Negative mg/dL [facility] Work Phone: Hemoglobin Ql (U) Negative Negative RBC/uL [facility] Work Phone: Interpretation and review of laboratory results Abnormal [facility] Work Phone: Ketones Ql (U) Negative Negative mg/dL [facility] Work Phone: Leukocyte esterase Test strip Ql (U) Negative Negative WBC/uL [facility] Work Phone: Nitrite Ql (U) Negative Negative [facility] Work Phone: pH (U) 6.0 [pH] 5.0 - 7.0 [facility] Work Phone: Protein Ql (U) Negative Negative mg/dL [facility] Phone: Specific gravity Relative Density (U) 1.030 1 Abnormal 1.005 - 1.025 [facility] Phone: Urobilinogen Qn (U) 0.2 mg/dL <2.0, 0.2, Normal, Negative, 1.0, 2.0, <1.0 [facility] Phone: Vital Signs Date Time Vital Sign Value Performing Clinician Facility 10-27-2024 21:48-0400 Body height 162.56 cm No Primary Care Physician [facility] 10-27-2024 21:48-0400 Body mass index (BMI) [Ratio] 38.1 kg/m2 No Primary Care Physician [facility] 10-27-2024 21:48-0400 Body temperature 97.6 [degF] No Primary Care Physician [facility] 10-27-2024 21:48-0400 Body weight 100.74 kg No Primary Care Physician [facility] 10-27-2024 21:48-0400 Diastolic blood pressure 102 mm[Hg] No Primary Care Physician [facility] 10-27-2024 21:48-0400 Heart rate 102 /min No Primary Care Physician [facility] 10-27-2024 21:48-0400 Respiratory rate 16 /min No Primary Care Physician [facility] 10-27-2024 21:48-0400 SaO2% (BldA) [Mass fraction] 99 % No Primary Care Physician [facility] 10-27-2024 21:48-0400 Systolic blood pressure 140 mm[Hg] No Primary Care Physician [facility] 09-21-2023 18:30-0500 Diastolic blood pressure 87 mm[Hg] Merlin Ramsey DO Work Phone: [facility] 09-21-2023 18:30-0500 Heart rate 80 /min Merlin Ramsey DO Work Phone: [facility] 09-21-2023 18:30-0500 Respiratory rate 17 /min Merlin Ramsey DO Work Phone: [facility] 09-21-2023 18:30-0500 SaO2% (BldA) [Mass fraction] 97 % Merlin Ramsey DO Work Phone: [facility] 09-21-2023 18:30-0500 Systolic blood pressure 121 mm[Hg] Merlin Ramsey DO Work Phone: [facility] 09-21-2023 16:00-0500 Body height 162.6 cm Merlin Ramsey DO Work Phone: [facility] 09-21-2023 16:00-0500 Body mass index (BMI) [Ratio] 31.76 kg/m2 Merlin Ramsey DO Work Phone: [facility] 09-21-2023 16:00-0500 Body temperature 98.71 [degF] Merlin Ramsey DO Work Phone: [facility] 09-21-2023 16:00-0500 Body weight 83.92 kg Merlin Ramsey DO Work Phone: [facility] 09-20-2023 17:43-0500 SaO2% (BldA) [Mass fraction] 99 % Clayton Bello DO Work Phone: [facility] 09-20-2023 17:39-0500 Body height 162.6 cm Clayton Bello DO Work Phone: [facility] 09-20-2023 17:39-0500 Body mass index (BMI) [Ratio] 31.76 kg/m2 Clayton Bello DO Work Phone: [facility] 09-20-2023 17:39-0500 Body temperature 99 [degF] Clayton Bello DO Work Phone: [facility] 09-20-2023 17:39-0500 Body weight 83.92 kg Clayton Bello DO Work Phone: [facility] 09-20-2023 17:39-0500 Diastolic blood pressure 85 mm[Hg] Clayton Bello DO Work Phone: [facility] 09-20-2023 17:39-0500 Heart rate 109 /min Clayton Bello DO Work Phone: [facility] 09-20-2023 17:39-0500 Respiratory rate 16 /min Clayton Bello DO Work Phone: [facility] 09-20-2023 17:39-0500 Systolic blood pressure 152 mm[Hg] Clayton Bello DO Work Phone: [facility] 06-29-2023 20:24-0500 Body height 162.56 cm [facility] 06-29-2023 20:24-0500 Body mass index (BMI) [Ratio] 34.5 kg/m2 [facility] 06-29-2023 20:24-0500 Body temperature 97.8 [degF] [facility] 06-29-2023 20:24-0500 Body weight 91.31 kg [facility] 06-29-2023 20:24-0500 Diastolic blood pressure 96 mm[Hg] [facility] 06-29-2023 20:24-0500 Heart rate 97 /min [facility] 06-29-2023 20:24-0500 Respiratory rate 18 /min [facility] 06-29-2023 20:24-0500 SaO2% (BldA) [Mass fraction] 100 % [facility] 06-29-2023 20:24-0500 Systolic blood pressure 145 mm[Hg] [facility] 06-26-2023 21:33-0500 Diastolic blood pressure 72 mm[Hg] Mathew Waddell DO Work Phone: 8(397)097-918738 [place] [address] 06-26-2023 21:33-0500 Heart rate 70 /min Mathew Waddell DO Work Phone: 7(939)702-471238 [place] [address] 06-26-2023 21:33-0500 Respiratory rate 16 /min Mathew Waddell DO Work Phone: 4(551)062-245338 [place] [address] 06-26-2023 21:33-0500 SaO2% (BldA) [Mass fraction] 98 % Mathew Waddell DO Work Phone: 9(873)796-748038 [place] [address] 06-26-2023 21:33-0500 Systolic blood pressure 132 mm[Hg] Mathew Waddell DO Work Phone: 0(370)160-380863 [address] 06-26-2023 19:46-0500 Body height 162.6 cm Mathew Waddell DO Work Phone: 1(197)619-183038 [place] [address] 06-26-2023 19:46-0500 Body mass index (BMI) [Ratio] 31.76 kg/m2 Mathew Waddell DO Work Phone: 2(182)220-562738 [place] [address] 06-26-2023 19:46-0500 Body temperature 98.2 [degF] Mathew Waddell DO Work Phone: 7(486)075-273538 [place] [address] 06-26-2023 19:46-0500 Body weight 83.92 kg Mathew Waddell DO Work Phone: 5(190)054-403238 [place] [address] 02-02-2022 01:22-0400 Body height 162.5 cm Amanda Schmidt Other Phone: [facility] 02-02-2022 01:22-0400 Body temperature 98.06 [degF] Amanda Schmidt Other Phone: [facility] 02-02-2022 01:22-0400 Body weight 84 kg Amanda Schmidt Other Phone: [facility] 02-02-2022 01:22-0400 Diastolic blood pressure 90 mm[Hg] Amanda Roxana Other Phone: [facility] 02-02-2022 01:22-0400 Heart rate 85 /min Amanda Roxana Other Phone: [facility] 02-02-2022 01:22-0400 Respiratory rate 16 /min Amanda Roxana Other Phone: [facility] 02-02-2022 01:22-0400 SaO2% (BldA) [Mass fraction] 97 % Amanda Roxana Other Phone: [facility] 02-02-2022 01:22-0400 Systolic blood pressure 145 mm[Hg] Amanda Salgadona Other Phone: [facility] 06-14-2021 13:53-0500 Diastolic blood pressure 97 mm[Hg] Amanda Salgadona Other Phone: [facility] 06-14-2021 13:53-0500 Heart rate 71 /min Amanda Salgadona Other Phone: [facility] 06-14-2021 13:53-0500 Respiratory rate 16 /min Amanda Salgadona Other Phone: [facility] 06-14-2021 13:53-0500 SaO2% (BldA) [Mass fraction] 96 % Amanda Salgadona Other Phone: [facility] 06-14-2021 13:53-0500 Systolic blood pressure 119 mm[Hg] Amanda Roxana Other Phone: [facility] 06-14-2021 11:03-0500 Body height 162.5 cm Amanda Salgadona Other Phone: [facility] 06-14-2021 11:03-0500 Body temperature 97.88 [degF] Amanda Salgadona Other Phone: [facility] 06-14-2021 11:03-0500 Body weight 89.1 kg Amanda Roxana Other Phone: [facility] 06-06-2021 22:08-0400 Body height 170.1 cm Amanda Salgadona Other Phone: [facility] 06-06-2021 22:08-0400 Body temperature 97.7 [degF] Amanda Salgadona Other Phone: [facility] 06-06-2021 22:08-0400 Body weight 82 kg Amanda Salgadona Other Phone: [facility] 06-06-2021 22:08-0400 Diastolic blood pressure 86 mm[Hg] Amanda Salgadona Other Phone: [facility] 06-06-2021 22:08-0400 Heart rate 99 /min Amanda Salgadona Other Phone: [facility] 06-06-2021 22:08-0400 Respiratory rate 16 /min Amanda Schmidt Other Phone: [facility] 06-06-2021 22:08-0400 SaO2% (BldA) [Mass fraction] 88 % Amanda Salgadona Other Phone: [facility] 06-06-2021 22:08-0400 Systolic blood pressure 135 mm[Hg] Amanda Schmidt Other Phone: [facility] 03-31-2021 23:19-0400 Body height 162.5 cm Amanda Salgadona Other Phone: [facility] 03-31-2021 23:19-0400 Body temperature 98.6 [degF] Amanda Salgadona Other Phone: [facility] 03-31-2021 23:19-0400 Body weight 91 kg Amanda Schmidt Other Phone: [facility] 03-31-2021 23:19-0400 Diastolic blood pressure 109 mm[Hg] Amanda Roxana Other Phone: [facility] 03-31-2021 23:19-0400 Heart rate 73 /min Amanda Schmidt Other Phone: [facility] 03-31-2021 23:19-0400 Respiratory rate 16 /min Amanda Salgadona Other Phone: [facility] 03-31-2021 23:19-0400 SaO2% (BldA) [Mass fraction] 98 % Amanda Roxana Other Phone: [facility] 03-31-2021 23:19-0400 Systolic blood pressure 173 mm[Hg] Amanda Schmidt Other Phone: [facility] 12-18-2020 00:40-0400 Diastolic blood pressure 82 mm[Hg] Amanda Schmidt Other Phone: [facility] 12-18-2020 00:40-0400 Heart rate 90 /min Amanda Schmidt Other Phone: [facility] 12-18-2020 00:40-0400 Respiratory rate 18 /min Amanda Schmidt Other Phone: [facility] 12-18-2020 00:40-0400 SaO2% (BldA) [Mass fraction] 97 % Amanda Schmidt Other Phone: [facility] 12-18-2020 00:40-0400 Systolic blood pressure 128 mm[Hg] Amanda Schmidt Other Phone: [facility] 12-17-2020 23:26-0400 Body height 154.9 cm Amanda Schmidt Other Phone: [facility] 12-17-2020 23:26-0400 Body temperature 98.42 [degF] Amanda Roxana Other Phone: [facility] 12-17-2020 23:26-0400 Body weight 93 kg Amanda Roxana Other Phone: [facility] 10-07-2020 10:30-0500 BMI (Body Mass Index) 36.05 kg/m2 [facility] 10-07-2020 10:30-0500 Body Temperature 98.1 [degF] [facility] 10-07-2020 10:30-0500 Body weight 95.25 kg [facility] 10-07-2020 10:30-0500 BP Diastolic 107 mm[Hg] [facility] 10-07-2020 10:30-0500 BP Systolic 146 mm[Hg] [facility] 10-07-2020 10:30-0500 Height 162.6 cm [facility] 10-07-2020 10:30-0500 Pulse (Heart Rate) 83 /min [facility] 10-07-2020 10:30-0500 Pulse Oximetry 98 % [facility] 10-07-2020 10:30-0500 Respiratory Rate 15 /min [facility] 08-11-2018 08:04-0500 BMI (Body Mass Index) 29.6 kg/m2 [facility] 08-11-2018 08:04-0500 Body Temperature 98.29 [degF] [facility] 08-11-2018 08:04-0500 BP Diastolic 86 mm[Hg] [facility] 08-11-2018 08:04-0500 BP Systolic 117 mm[Hg] [facility] 08-11-2018 08:04-0500 Height 170.2 cm [facility] 08-11-2018 08:04-0500 Pulse (Heart Rate) 88 /min [facility] 08-11-2018 08:04-0500 Pulse Oximetry 97 % [facility] 08-11-2018 08:04-0500 Respiratory Rate 18 /min [facility] 08-11-2018 08:04-0500 Weight 85.73 kg [facility] 02-21-2017 13:08-0400 BMI (Body Mass Index) 31.01 kg/m2 Amanda Schmidt [facility] Work Phone: 02-21-2017 13:08-0400 Body Temperature 98.6 [degF] Amnada Shcmidt [facility] Work Phone: 02-21-2017 13:08-0400 BP Diastolic 94 mm[Hg] Amanda [facility] Work Phone: 02-21-2017 13:08-0400 BP Systolic 132 mm[Hg] Amanda [facility] Work Phone: 02-21-2017 13:08-0400 Height 170.2 cm Amanda Schmidt [facility] Work Phone: 02-21-2017 13:08-0400 Pulse (Heart Rate) 79 /min Amanda [facility] Work Phone: 02-21-2017 13:08-0400 Pulse Oximetry 98 % Amanda [facility] Work Phone: 02-21-2017 13:08-0400 Respiratory Rate 16 /min Amanda [facility] Work Phone: 02-21-2017 13:08-0400 Weight 89.81 kg Amanda [facility] Work Phone: Encounters Encounter Date Encounter Type Care Provider Facility Start: 06-25-2025 ambulatory No Primary Car e Physician Facility:[facility] Start: 06-10-2025 End: 06-10-2025 ambulatory No Primary Care Physician Facility:[facility] Start: 06-09-2025 End: 06-09-2025 [facility] Start: 10-27-2024 End: 10-27-2024 Emergency department patient visit No Primary Care Physician -Emergency Department Work Phone: Start: 09-21-2023 End: 09-21-2023 Emergency department patient visit MERLIN RAMSEY [facility] Start: 09-21-2023 End: 09-21-2023 Emergency department patient visit Merlin Ramsey DO Work Phone: [facility] Comment on above: Right lower quadrant abdominal pain (Primary Dx) Start: 09-21-2023 End: 09-21-2023 ambulatory CLAYTON BELLO [facility] Start: 09-20-2023 End: 09-20-2023 Emergency department patient visit CLAYTON BELLO [facility] Start: 09-20-2023 End: 09-20-2023 Subsequent hospital visit by physician Jonnie Rosav1 [employer] [facility] Comment on above: Arrived Start: 09-20-2023 End: 09-20-2023 Emergency department patient visit Clayton Bello DO Work Phone: [facility] Comment on above: Influenza (Primary D x) Start: 06-29-2023 End: 06-29-2023 Emergency department patient visit [facility] Work Phone: Start: 06-26-2023 End: 06-26-2023 Emergency department patient visit MATHEW WADDELL [facility] Start: 06-26-2023 End: 06-26-2023 Emergency department patient visit Mathew Waddell DO Work Phone: [facility] Comment on above: Infected pilonidal c yst (Primary Dx) Start: 03-11-2023 End: 03-11-2023 Emergency department patient visit MAYANK CALDERON [facility] Start: 08-08-2022 End: 08-08-2022 Emergency department patient visit NORBERTZULEYKA NICOL CARRERO [facility] Start: 07-21-2022 End: 07-21-2022 Emergency department patient visit DEANA [facility] Start: 06-13-2022 End: 06-13-2022 Emergency department patient visit LUÍS XIE [facility] Start: 02-02-2022 End: 02-02-2022 Emergency department patient visit Ovidio Nichole [facility] Emergency 10 Start: 06-14-2021 End: 06-14-2021 Emergency department patient visit Amanda Ralph [facility] Emergency 14 Start: 06-06-2021 End: 06-06-2021 Emergency department patient visit Ovidio Nichole [facility] Emergency 13 Start: 03-31-2021 End: 04-01-2021 Emergency department patient visit Anette Bardales [facility] Emergency 07 Start: 12-17-2020 End: 12-18-2020 Emergency department patient visit Wang Yas Asia [facility] Emergency 11 Start: 10-07-2020 End: 10-07-2020 Emergency department patient visit Marleen Gonsalez Work Phone: [facility] Emergency Department Start: 11-15-2018 End: 11-16-2018 Patient encounter procedure Deborah Majorawat Facility:[facility] Start: 11-08-2018 End: 11-09-2018 Patient encounter procedure Deborah Jaysonhlawat Facility:[facility] Start: 10-19-2018 End: 10-20-2018 Patient encounter procedure Deborah Majorawat Facility:[facility] Start: 10-18-2018 End: 10-19-2018 [facility] Start: 10-16-2018 End: 10-17-2018 [facility] Start: 10-11-2018 Patient encounter procedure DUSTIN GALLEGOS [facility] Start: 10-10-2018 End: 10-10-2018 [facility] Start: 09-25-2018 Encounter for genera l adult medical examination without abnormal findings MAO CHIU [facility] Start: 09-25-2018 End: 09-26-2018 Patient encounter procedure MAO CHIU [facility] Start: 09-21-2018 End: 09-22-2018 Patient encounter procedure Deborah Majorawat [facility] Start: 08-25-2018 Patient encounter procedure KARISHMA OSBORNE [facility] Start: 08-21-2018 Patient encounter procedure FAWN PEÑA [facility] Start: 08-14-2018 End: 08-15-2018 Patient encounter procedure Shannon Aguilera Facility:[facility] Start: 08-11-2018 End: 08-15-2018 Patient encounter procedure Shannon Aguilera Facility:[place] Start: 08-11-2018 End: 08-11-2018 Office outpatient visit 25 minutes Shannon Aguilera Work Phone: [facility] Comment on above: Right upper quadrant abdominal pain (Primary Dx); Irritable bowel syndrome, unspecified type Start: 07-18-2018 Patient encounter procedure AMANDA SCHMIDT [facility] Start: 07-17-2018 End: 07-17-2018 Emergency department patient visit Amanda Schmidt Facility:[facility] Start: 05-24-2017 ERRONEOUS ENCOUNTER-DISREGARD Amanda Schmidt Work Phone: [facility] Start: 02-21-2017 End: 02-21-2017 Office outpatient visit 25 minutes Amanda Schmidt Work Phone: [facility] Comment on above: Abdominal [...] BELLO Start: 06-26-2023 Comprehensive metabolic panel Mathew W Swi ft DO Work Phone: Start: 09-25-2018 Ophthalmic examination and evaluation Marleen Gonsalez Start: 08-11-2018 End: 08-11-2018 Choriogonadotropin ( test) [Presence] in Urine Shannon Aguilera Work Phone: Start: 08-11-2018 End: 08-11-2018 Urinalysis macro (dipstick) panel - Urine Shannon Aguilera Work Phone: Plan of Treatment Date Care Activity Detail Author Start: 2042 Zoster Vaccines (1 of 2) Zoste r Vaccines (1 of 2) [facility] Start: 10-27-2024 [facility] Start: 04-01-2023 Influenza vaccination Influenza Vacc ine (#1) [facility] Start: 04-01-2020 Influenza vaccinatio n given Sequential Influenza Vaccine (#1) [facility] Start: 02-12-2020 DTaP/Tdap/Td Vaccine s (6 - Td or Tdap) DTaP/Tdap/Td Vaccines (6 - Td or Tdap) [facility] Start: 02-12-2020 Tetanus vaccination [facility] Work Phone: Start: 09-25-2019 Ophthalmic examinati on and evaluation Ophthalmology Exam [facility] Start: 04-01-2018 Influenza vaccinatio n given SEQUENTIAL INFLUENZA VACCINE (#1) [facility] Start: 05-24-2017 Ambulatory 05/24/2017 Off ice Visit Primary Care Amanda Schmidt MD [address] [place] [address] [phone] [facility] Start: 04-01-2017 Influenza vaccination SEQUENTI AL INFLUENZA VACCINE (#1) [facility] Work Phone: Start: 04-01-2017 SEQUENTIAL INFLUENZA VACCINE (#1) SEQUENTIAL INFLUENZA VACCINE (#1) [facility] Work Phone: Start: 2013 Screening for malign ant neoplasm of cervix [facility] Start: 2010 Hepatitis C antibody , confirmatory test Hepatitis C Screening [facility] Start: 2010 Hepatitis C screening Hepatitis C [facility] Start: 04-08-2010 HPV VACCINES (2 of 3 - Female 3 Dose Series) HPV VACCINES (2 of 3 - Female 3 Dose Series) [facility] Work Phone: Start: 04-08-2010 Vaccination for prince n papillomavirus [facility] Work Phone: Start: 03-11-2010 HPV Vaccines (2 - 3- dose series) HPV Vaccines (2 - 3-dose series) [facility] Start: 2008 COVID-19 Vaccine (1 of 2) COVID-19 Vaccine (1 of 2) [facility] Start: 12-16-2007 HIV screening HIV Screening [facility] Start: 05-17-2005 Adolescent depressio n screening assessment Depression Screening (PHQ9) [facility] Start: 12-16-1995 History and physical examination, annual for health maintenance Wellness Visit [facility] Start: 07-07-1994 Varicella vaccination Varicell a Vaccines (1 of 2 - 2-dose childhood series) [facility] Start: 06-17-1993 COVID-19 Vaccine (#1) COVID-19 Vacci ne (#1) [facility] Start: 1992 HIV screening HIV Screening [facility] Start: 1992 Lipid panel Lipid Panel [facility] Start: 1992 Microscopic observat ion Cyto stain Nom (Cvx) PAP SMEAR [facility] Work Phone: Start: 1992 Screening for malign ant neoplasm of cervix PAP SMEAR [facility] Work Phone: Start: 1992 TETANUS EVERY 10 YR TETANUS EVERY 10 YR [facility] Work Phone: Start: 1992 [facility] End: 08-11-2019 Amylase measurement, body fluid Amylase Routine Right upper quadrant abdominal pain 1 Occurrences starting 08/11/2018 until 08/11/2019 [facility] Comment on above: 1 Occurrences starti ng 08/11/2018 until 08/11/2019 End: 08-11-2019 Bacteria identified Aer cx Nom (Unsp spec) Urine Aerobic Culture Routine Right upper quadrant abdominal pain 1 Occurrences starting 08/11/2018 until 08/11/2019 [facility] Comment on above: 1 Occurrences starti ng 08/11/2018 until 08/11/2019 End: 08-11-2019 Complete blood count with white cell differential, manual CBC and Differential Routine Right upper quadrant abdominal pain 1 Occurrences starting 08/11/2018 until 08/11/2019 [facility] Comment on above: 1 Occurrences starti ng 08/11/2018 until 08/11/2019 End: 08-11-2019 Comprehensive metabolic 2000 panel Comprehensive Metabolic Panel Routine Right upper quadrant abdominal pain 1 Occurrences starting 08/11/2018 until 08/11/2019 [facility] Comment on above: 1 Occurrences starti ng 08/11/2018 until 08/11/2019 End: 09-20-2023 ECG 12 lead [facility] Work Phone: Comment on above: Once for 1 Occurrenc es starting 09/20/2023 until 09/20/2023 End: 09-21-2023 Extra Urine Lemons Tube [facility] Work Phone: Comment on above: Once for 1 Occurrenc es starting 09/21/2023 until 09/21/2023 End: 08-11-2019 Lipase enzyme act/vol Lipase Routine Right upper quadrant abdominal pain 1 Occurrences starting 08/11/2018 until 08/11/2019 [facility] Comment on above: 1 Occurrences starti ng 08/11/2018 until 08/11/2019 Patient Education Concussion Dc ED Soft Tissue Contusion ED Neck Sprain or Strain [facility] Work Phone: Patient referral [facility] Work Phone: End: 09-20-2023 Streptococcus pyogenes [Presence] in Throat by Organism specific culture [facility] Area Work Phone: Comment on above: STAT (Lab) for 1 Occ urrences starting 09/20/2023 until 09/20/2023 End: 09-21-2023 Urinalysis complete W Reflex Culture panel - Urine [facility] Work Phone: Comment on above: STAT (Lab) for 1 Occ urrences starting 09/21/2023 until 09/21/2023 Immunizations Immunization Date Immunization Notes Care Provider Claudette sánchez 02-11-2010 human papilloma viru s vaccine, quadrivalent [facility] Work Phone: 02-11-2010 meningococcal ACWY vaccine, unspecified formulation [facility] Work Phone: 02-11-2010 meningococcal polysaccharide (groups A, C, Y and W-135) diphtheria toxoid conjugate vaccine ([facility]V4P) [facility] 02-11-2010 tetanus toxoid, redu eduard diphtheria toxoid, and acellular pertussis vaccine, adsorbed [facility] Work Phone: 02-11-2010 HPV, unspecified formulation [facility] Work Phone: 03-14-1996 diphtheria, tetanus toxoids and acellular pertussis vaccine [facility] Work Phone: 03-14-1996 trivalent poliovirus vaccine, live, oral Amanda [facility] Work Phone: 06-09-1994 haemophilus influenz ae type b vaccine, PRP-T conjugate [facility] Work Phone: 06-09-1994 measles, mumps and r ubella virus vaccine [facility] Work Phone: 03-24-1994 hepatitis B vaccine, pediatric or pediatric/adolescent dosage [facility] Work Phone: 07-08-1993 diphtheria, tetanus toxoids and acellular pertussis vaccine [facility] Work Phone: 07-08-1993 haemophilus influenz ae type b vaccine, PRP-T conjugate [facility] Work Phone: 06-17-1993 hepatitis B vaccine, pediatric or pediatric/adolescent dosage [facility] Work Phone: 04-29-1993 diphtheria, tetanus toxoids and acellular pertussis vaccine [facility] Work Phone: 04-29-1993 haemophilus influenz ae type b vaccine, PRP-T conjugate [facility] Work Phone: 04-29-1993 trivalent poliovirus vaccine, live, oral Amanda [facility] Work Phone: 03-25-1993 hepatitis B vaccine, pediatric or pediatric/adolescent dosage [facility] Work Phone: 02-25-1993 diphtheria, tetanus toxoids and acellular pertussis vaccine [facility] Work Phone: 02-25-1993 haemophilus influenz ae type b vaccine, PRP-T conjugate [facility] Work Phone: 02-25-1993 trivalent poliovirus vaccine, live, oral [facility] Work Phone: Payers Date Payer Category Payer Self-pay [id number] 2023 Worker's Compensation [id number] 2018 Unknown 2016 Medicaid [id number] 2.16. [id number] 2015 Unknown [id number] 2. [id number] 2015 Unknown [id number] 1992 Unknown [id number] 2.16.8 40.1.415150.3.579.2.903 1992 Unknown [id number] 2.16.8 40.1.415296.3.579.2. 1992 Unknown [id number] 2.16.8 40.1.408730.3.579.2.3 1992 Unknown [id number] 2.16.8 40.1.596324.3.579.2.3 1992 Unknown [id number] 2.16.8 40.1.966952.3.579.2.903 1992 Unknown [id number] 2.16.8 40.1.813302.3.579.2.903 1992 Unknown [id number] 2.16.84 0.1.239143.3.579.2. 1992 Unknown [id number] 2.16.84 0.1.721872.3.579.2. 1992 Unknown [id number] 2.16.84 0.1.487580.3.579.2. 1992 Unknown [id number] 2.16.84 0.1.311596.3.579.2. 1992 Unknown [id number] 2.16.84 0.1.865055.3.579.2.717 1992 Unknown [id number] 2.16.84 0.1.143400.3.579.2.7 1992 Unknown [id number] 2.16.84 0.1.423187.3.579.2.7 1992 Unknown [id number] 2.16.84 0.1.735959.3.579.2. 1992 Unknown [id number] 2.16.84 0.1.626899.3.579.2. 1992 Unknown [id number] 2.16.84 0.1.738014.3.579.2. 1992 Unknown [id number] 2.16. 840.1.237935.3.579.2.902 Unknown [id number] 2.16.8 40.1.123025.3.579.2.462 Unknown [id number] 2.16.8 40.1.804177.3.579.2.462 Unknown [id number] 2.16.8 40.1.285868.3.579.2.462 Unknown [id number] 2.16.8 40.1.115250.3.579.2.462 Social History Date Type Detail Facility Start: 07-10-2017 End: 12-17-2020 Tobacco smoking status NYIS Current every day smoker [facility] Phone: History of tobacco use Cigarette Smoker [facility] Phone: Start: 07-10-2017 End: 06-26-2023 Cigarettes smoked current (pack per day) - Reported [facility] Phone: Start: 1990 Sex Assigned At Not on file [facility] Phone: Start: 10-07-2020 End: 06-26-2023 Tobacco use and exposure Never used [facility] Start: 10-07-2020 Alcohol intake Current non-dr kier pleater of alcohol (finding) [facility] Start: 06-16-2023 End: 09-21-2023 Exposure to SARS-CoV-2 (event) Not sure [facility] Start: 06-29-2023 Tobacco smokin g consumption unknown [facility] Start: 06-26-2023 End: 10-27-2024 Tobacco smoking status NHIS Never smoked tobacco [facility] Work Phone: Start: 06-26-2023 Alcohol intake Lifetime non-d shauna (finding) [facility] Work Phone: Start: 06-26-2023 Tobacco use panel [facility] Work Phone: Start: 1990 Sex Assigned At Female [facility] Start: 10-27-2024 Sex Female (finding) [facility] Medical Equipment Procedure Code Equipment Code Equipment Origin al Text Equipment Identifier Dates fluorescein ophthalmic strip 1 strip [id number] Start: 10-07-2020 End: 10-07-2020 Clinical Notes 06-26-2023 to 10-27-2024 Consultation (Routine) - Authorized Note Date & Type Note Facility 10-27-2024 Radiology Diagnostic study note [facility] Imaging Services [address], [place] [address] Cerv Spine 2 or 3 Views MR#: [id number] Acct: [id number] Name: UNIQUE HOGAN Rep #: [id number] : 1990 F 33 From: Lisandra Saleh MD PCP: Care Physician,No Primary Status: REG ER Study:Cerv Spine 2 or 3 Views Date of Exam: 10/27/24 Exam# [id number] Ordering Dr: Nathan Conley DO PROCEDURE: CERV [...] Conley DO; No Primary Care Physician ~ Project Manager/Team Coach: Signed [facility] 10-27-2024 Radiology Diagnostic study note [facility] Imaging Services [address] [place], [place] [address] Tibia & Fibula 2 Views MR#: [id number] Acct: [id number] Name: UNIQUE HOGAN Rep #: [id number] : 1990 F 33 From: Lisandra Saleh MD PCP: Care Physician,No Primary Status: REG ER Study:Tibia & Fibula 2 Views Date of Exam: 10/27/24 Exam# [id number] Ordering Dr: Nathan Conley DO EXAM: EXAM [...] Conley DO; No Primary Care Physician ~ Project Manager/Team Coach: Signed [facility] 09-21-2023 Reason for referr al (narrative) Specialty Diagnoses / Procedures Referred By Marga aguilar Referred To Contact Family Medicine / Primary Care Merlin Ramsey DO [address] [place] [address] Referral ID Status Reason Start Date Expiration Date Visits Requested Visits Authorized [id number] Authorized Specialty Services Required 09/21/2023 09/20/2024 1 1 [facility] Work Phone: 1(645) 343-179902-20-2024 Emergency department Note* Clayton Bello DO - 09/20/2023 5:32 PM EST HPI Chief Complaint Patient presents with Sore Throat Sore throat, cough, sore ears, chest pain when coughing and talking, 6/10 Patient presents to the emergency department with a chief complaint of sore throat. Secondary complaints include bilateral ear pain, nasal congestion, fatigue, malaise, cough, shortness of breath, and chest pain. History provided by: Patient trim mechanic used: No No data recorded Patient History [...] Clayton Bello DO 09/20/231846 documented in this [facility] Work Phone: 1(386) 358-446102-20-2024 Physician Emergency department Note* Clayton Bello DO [...] and chest pain. History provided by: Patient trim mechanic used: No No data recorded Patient History [...] worse. Procedure Procedures Clayton Bello DO 09/20/231846 [facility] Work Phone: 1(199) 704-171411-26-2023 Emergency department Note* Mathew Waddell DO - 06/26/2023 7:42 PM EST HPI Chief [...] return to ED. History provided by: Patient [place] Coma Scale Score: 15 Patient History History [...] of her menstrual cycle. documented in this [facility] Work Phone: 1(115) 960-355711-26-2023 Emergency department Triage note* NIDA Saenz - 06/26/2023 7:42 PM EST [...] with the start of her menstrual cycle. [facility] Work Phone: 1(382) 800-145411-26-2023 Physician Emergency department Note* Mathew Waddell, DO - 06/26/2023 7:42 PM EST HPI Chief [...] return to ED. History provided by: Patient [place] Coma Scale Score: 15 Patient History History [...] days. Procedure Procedures Mathew Waddell DO 06/26/232103 [facility] Work Phone: Evaluation note* Diagnosis Infected pilonidal cyst- Primary Pilonidal cyst without mention of abscess documented in this encounter [facility] Work Phone: Evaluation noteNo assessment information available [facility] Work Phone: Evaluation note* Diagnosis Influenza- Primary Influenza with other respiratory manifestations documented in this encounter [facility] Work Phone: Evaluation note* Diagnosis Right lower quadrant abdominal pain- Primary documented in this encounter [facility] Work Phone: Hospital Discharge instructions Additional Instructions Please use warm compresses. You may use sitz bath's. Please take the Percocet, doxycycline. You need to follow-up with surgery. Of course return here for worsening pain fever chills [facility] Work Phone: Hospital Discharge instructions Additional Instructions X-ray of your right leg and cervical spine negative. Continue Tylenol up to 1 g every 6 hours as needed.[facility] Work Phone: Reason for referral (narrative)No reason for referral information availableWMem[facility] Work Phone: Assessments Diagnosis ERRONEOUS ENCOUNTER--DISREGA [...] Log into your personal health record on [email or web address] [email or web address] and enter E907 in the Education box to learn more about Abdominal Pain: Care Instructions. Current as of: April 23, 2018 Content Version: 11.9 7335-6080 [employer]. Care instructions adapted under license by your healthcare professional. If you have questions about a medical condition or this instruction, always ask your healthcare professional. tagga, [email or web address] disclaims any warranty or liability for your [...] squatting position. Your doctor may recommend an toyt-jhk-jvfucqw laxative to relieve your constipation. Examples are [...] Log into your personal health record on [email or web address]://[email or web address] and enter P343 in the Education box to learn more about Constipation: Care Instructions. Current as of: April 23, 2018 Content Version: 06.09 [employer]. Care instructions adapted under license by your healthcare professional. If you have questions about a medical condition or this instruction, always ask your healthcare professional. [employer] disclaims any warranty or liability for your [...] Do not take any other medicine, including jpqf-mqq-aacuafm pain relievers, without talking to your doctor first. If your doctor recommends ltgc-ezh-xidtmnu medicine to reduce stomach acid, such as [...] Log into your personal health record on [email or web address] and enter Z536 in the Education box to learn more about Gastritis: Care Instructions. Current as of: October 25, 2017 Content Version: .20054624-9107 [employer]. Care instructions adapted under license by your healthcare professional. If you have questions about a medical condition or this instruction, always ask your healthcare professional. [employer] disclaims any warranty or liability for your use of this information. Learning About Acute Cholecystitis What is cholecystitis? Cholecystitis (say gik-rsc-dfw-TY-tus) is inflammation of the gallbladder. The gallbladder [...] Log into your personal health record on https://[email or web address] and enter T940 in the Education box to learn more about Learning About Acute Cholecystitis. Current as of: October 25, 2017 Content Version: .20052886-2607 [employer]. Care instructions adapted under license by your healthcare professional. If you have questions about a medical condition or this instruction, always ask your healthcare professional. [employer] disclaims any warranty or liability for your [...] Log into your personal health record on https://T[email or web address]ago and enter Z797 in the Education box to learn more about Low-Fat Diet for Gallbladder Disease: Care Instructions. Current as of: October 26, 2017 Content Version: .20054323-2047 [employer]. Care instructions adapted under license by your healthcare professional. If you have questions about a medical condition or this instruction, always ask your healthcare professional. [employer] disclaims any warranty or liability for your [...] Log into your personal health record on https://Terra[email or web address]Satago and enter Y447 in the Education box to learn more about Irritable Bowel Syndrome: Care Instructions. Current as of: October 25, 2017 Content Version: 11.9 8104-6193 [employer]. Care instructions adapted under license by your healthcare professional. If you have questions about a medical condition or this instruction, always ask your healthcare professional. [employer] disclaims any warranty or liability for your [...] Weight: 85.7 kg (189 lb) Height: 5' 7 Past Medical History: Diagnosis Date Abdominal pain 05/17/2017 [facility] ED/Asuncion Young MD Contusion, forearm [facility]/Trena Coon MD History of hepatomegaly 05/17/2017 [facility]/Asuncion Young MD Hypertension During ; childhood MRSA (methicillin resistant Staphylococcus aureus) Has MRSA/staff Retroverted uterus 05/17/2017 [facility]/Asuncion Young MD Ureteral dilatation 05/17/2017 [facility]/Asuncion Young MD Calcification/dilatation Vomiting 05/17/2017 [facility] Asuncion Young MD Past Surgical History: Procedure [...] of the medications. .me in this encounter* Amadna Schmidt MD - 02/21/2017 1:09 PM EDT [...] Weight: 89.8 kg (198 lb) Height: 5' 7 Physical Exam Constitutional: She is oriented to [...] FoundDocuments on File Type Date Recorded Patient Handstitching Machine Armhole Feller Expl anation Advance Directives and Gwendolyn schaefer Will 10/07/2020 10:45 AM Advance Directive Response Recorded Date/ Time Living Will No June 29, 023 8:44pm Power of Stripping Shovel Operator No June 29, 2023 8:44pm Advance Directive Response Recorded Date/ Time Living Will No October 27, 2024 10:03pm Do you have a Healthcare Power of Stripping Shovel Operator? No October 27, 2024 10:03pm Discharge Instructions [...] sent through Care Everywhere. * Corneal Scratches (Bhutanese) documented in this encounter Chief Complaint and [...] chest pain when coughing and talking, 01/08 Reason Comments Abdominal Pain Patient to ED refere nce right sided lower abdominal pain with nausea, [...] section and content) DATE CREATED AUTHOR 08/16/2018 [facility] DATE CREATED AUTHOR AUTHOR'S ORGANIZ ATION 09/26/2018 [facility] DATE CREATED AUTHOR AUTHOR'S ORGANIZ ATION 10/12/2018 [facility] DATE CREATED AUTHOR AUTHOR'S ORGANIZ ATION 11/16/2018 [facility] DATE CREATED AUTHOR AUTHOR'S ORGANIZ ATION 02/05/2022 [facility] DATE CREATED AUTHOR AUTHOR'S ORGANIZ ATION 03/17/2023 [facility] DATE CREATED AUTHOR AUTHOR'S ORGANIZ ATION 07/02/2023 [facility] DATE CREATED AUTHOR AUTHOR'S ORGANIZ ATION 09/28/2023 [facility] DATE CREATED AUTHOR AUTHOR'S ORGANIZ ATION 09/28/2023 [facility] [place] DATE CREATED AUTHOR AUTHOR'S ORGANIZ ATION 06/12/2025 [facility] Marleen Gonsalez MD - 10/07/2020 10:59 AM Kayla Orellana CNP - 10/07/2020 10:33 AM EST ED Notes (unrecognized secti on and content) ED PROVIDER NOTE [facility] EMERGENCY DEPARTMENT NAME: Unique Hogan AGE: 29 y.o. : 1990 VISIT DATE: 10/07/2020 CSN: [id number] PCP: Physician No Chief Complaint Patient presents [...] Medical History: Diagnosis Date Abdominal pain 05/17/2017 [facility] ED/Asuncion Young MD Contusion, forearm [facility] ED/Trena Coon MD Enlarged liver 08/14/2018 [facility] Radiology/Huber Peña MD 18.8cm Eye exam, routine 09/25/2018 Info Gained From : [facility] --- Mao Chiu, II, OD History of hepatomegaly 05/17/2017 [facility] ED/Asuncion Young MD Hyperopia, bilateral 09/25/2018 Info Gained From : [facility] --- Mao Chiu, II, OD (eye exam) Hypertension During ; childhood MRSA (methicillin resistant Staphylococcus aureus) Has MRSA/staff Regular astigmatism, bilateral 09/25/2018 Info Gained From : [facility] --- Mao Chiu, II, OD (eye exam) Retroverted uterus 05/17/2017 [facility]/Asuncion Young MD Ureteral dilatation 05/17/2017 [facility]/Asuncion Young MD Calcification/dilatation Vomiting 05/17/2017 [facility] Asuncion Young MD Past Surgical History: Procedure Laterality Date COLONOSCOPY 10/10/2018 Dr Cabrera- ESOPHAGOGASTR[facility]ODENOS[facility] Has glass removed from [...] file Gets together: Not on file Attends christianity service: Not on file Active member of [...] C) Oral 83 15 98 % 5' 4 95.3 kg (210 lb) Physical Exam Vitals [...] not been specified. Marleen Gonsalez MD 10/07/20 1137 Pt c/o right eye irritation, swelling, and tearing starting 2 hours ago while driving home from [place]. Pt denies any injury or trauma. documented [...] 15 mg, intravenous, Once, On 06/26/23 at 2050, For 1 dose 2126 (Given - Provid [...] pain scores based on patient preference? Yes 1812 (Given - Provid er: Tracy Mohan) Scheduled [...] 1820 (New Bag - Prov ider: Phyllis Anderson, RN)1856 (Stopped - Provider: Phyllis Anderson RN) Care Teams (unrecognized sec tion and content) Team Status: Active Member Role Status Dates No Primary Care Physician Family Provider Active No Primary Care Physician Primary Care Provider Active Team Status: Inactive Member Role Status Dates No Primary Care Physician Primary Care Provider Active Gregorio Kuo MD Emergency Provider Active Plumbing Mechanic Relationship Specialty Start Date End Date Generic Provider, No Assigned [address] [address] [place] [address] PCP - General 09/20/23 Plumbing Mechanic Relationship Specialty Start Date End Date Generic Provider, No Assigned [address] [address] [place] [address] PCP - General 09/20/23 Plumbing Mechanic Relationship Specialty Start Date End Date Generic Provider, No Assigned [address] [address] [place] [address] PCP - General 09/20/23 Team Status: Active Member Role Status Dates No Primary Care Physician Primary Care Provider Active Team Status: Inactive Member Role Status Dates No Primary Care Physician Primary Care Provider Active Start: October 27, 2024 End: October 27, 2024 Dr. Nathan Conley , Emergency Provider Active Start : October 27, [...] BE BASED ON THE PRIMARY CLINICAL RECORDS. [facility]. provides no warranty or guarantee of the accuracy or completeness of information in this document.
[2025-06-25] MEDS: Lactated Ringers 1,000 ML 15 ML IV (07:49)
[2025-06-25 07:55] LABS: Internal QC Validated? YES +Cl - CLEAR BKGD; Pregnancy, Urine Negative Negative; Record Kit Lot#,Urine Preg 9800607
--- NOTE | 2025-06-25 08:08 | PRE.ANES_ITS ---
ASA Classification* ASA Classification ASA Classification: 2 Assessment & Plan Anesthesia* Anesthesia Assessment Anesthesia Assessment: Discussed sedation and/or anesthesia options, risks, benefits, and alternatives with patient/parents/legal guardian/POA. Questions invited. The patient/parents/legal guardian/POA seems to understand and agrees to proceed with anesthesia plan. Reviewed the physical assessment, medical history, allergy history and patient home medications list prior to surgery/procedure/anesthetic and documented any changes. Performed airway and anesthesia risk assessments. Anesthesia Type Anesthesia Type: General History Source History Obtained from:: Patient and Chart Anesthesia Focused Assessment* Temperature: 97.1 F Pulse Rate: 78 Blood Pressure: 129/95 Respiratory Rate: 16 Pulse Ox: 97 Oxygen Delivery Method: Room Air Airway Assessment Mouth opens: >3 cm Mallampati Score: III Teeth Condition: Intact Neck Range of motion (ROM): Full ROM Labs Anesthesia Preop lab: CBC WBC, (4.4-11.0) 8.8 K/mm3 05/10/24, 20:57 RBC, (4.2-5.4) 4.39 M/mm3 05/10/24, 20:57 Hgb, (12.0-15.0) 13.2 g/dL 05/10/24, 20:57 Hct, (37-47) 37.9 % 05/10/24, 20:57 Plt Count, (150-450) 228 K/mm3 05/10/24, 20:57 CHEMISTRY Potassium, (3.5-5.1) 3.4 mmol/L L 05/10/24, 20:57 Sodium, (136-145) 139 mmol/L 05/10/24, 20:57 BUN, (7-18) 12 mg/dL 05/10/24, 20:57 Creatinine, (0.55-1.02) 0.91 mg/dL 05/10/24, 20:57 Glucose, (74-106) 124 mg/dL H 05/10/24, 20:57 TSH, (0.358-3.74) 1.18 uIU/mL 02/16/17, 16:27 COAG PT, (11.7-14.9) 12.5 SECONDS 15, 09:43 HCG, Quant, (<9 non-preg) < 1 mIU/mL 02/16/17, 16:2 7 Urine Test Negative Negative Today, 07:47 Pre-Assessment Diagnosis/Proposed Procedure Planned Operative Procedure(s): (N/A) Excision, Pilonidal Cyst Anesthesia History Anesthesia History - medicaid billing clerk: Anesthesia History - medicaid billing clerk Hx Hospitalization Yes: PostOp Appy 06/24/25 08:23 Any Problems With Anesthesia No 06/24/25 08:23 Cholinesterase deficiency No 06/24/25 08:23 You/Your Family Experience No 06/24/25 08:23 fever (hyperthermia) with Relationship Recent Exposure to Contagious No 06/25/25 07:41 Disease Does patient have nerve No 06/24/25 08:23 stimulator Patient instructed to have device shut off --Does patient have Pacemaker No 06/25/25 07:41 or ICD? When Was Last Pacemaker Check QUESTION #4 FULL TEXT: You/Your Family Experience fever (hyperthermia) with Anesthesia Last Oral Intake Last Oral intake: Last Oral Intake NPO since 19:30 06/25/25 07:41 Meds taken in AM with sips of water? Meds patient instructed to take am of surgery PONV PONV - medicaid billing clerk: PONV - medicaid billing clerk Female Yes 06/24/25 08:23 HX of Motion Sickness No 06/24/25 08:23 HX of N/V After Surgery No 06/24/25 08:23 Non-Smoker Yes 06/24/25 08:23 Duration of Surgery greater Yes 06/24/25 08:23 than 60 minutes Number of Risk Factors 3 06/24/25 08:23 PONV Score Moderate Risk 06/24/25 08:23 Height & Weight Height & Weight: Anesthesia: Height & Weight Height 5 ft 4 in 06/25/25 07:41 Weight: 102.2 kg 06/25/25 07:41 Body Mass Index (BMI) 38.7 06/25/25 07:41 Respiratory Assessment Respiratory Assessment - medicaid billing clerk: Respiratory Tract Infection Hx - medicaid billing clerk Hx Respiratory Tract Infection No 06/24/25 08:23 STOP Sleep Apnea STOP Sleep Apnea - medicaid billing clerk: STOP Sleep Apnea - medicaid billing clerk Hx Hypertension No 06/24/25 08:23 Hx Sleep Apnea No 06/24/25 08:23 CPAP BIPAP Do you snore loudly (louder No 06/24/25 08:23 than talking or can be heard Do you often feel tired/ No 06/24/25 08:23 fatigued/ sleepy during daytime? Has anyone observed you stop No 06/24/25 08:23 breathing during sleep? STOP Results Negative 06/24/25 08:23 QUESTION #5 FULL TEXT : Do you snore loudly (louder than talking or can be heard through closed doors)? 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 Specify any problems Hx of Preganancy in last 3 No 06/24/25 08:23 Months Nurse Filling Out Transfusion MGRICHARIS 06/24/25 08:23 & Questions: Date: 06/24/25 06/24/25 08:23 Time: 08:26 06/24/25 08:23 Patient unable to answer at this time (ie. confused, unrespo /Reproduction History /Reproductive History - medicaid billing clerk: /Reproductive Hx- medicaid billing clerk Hx Now No 06/24/25 08:23 Gestational Age (in weeks): EDC: Hx Hx Para Hx Section SAB No 06/24/25 08:23 Does the father of the baby or his family experience fever w Father of the baby Malignant Hypertension history comment Active Medications Active Medications: Current Medications Generic Name Dose Route Start Last Admin Trade Name Freq PRN Reason Stop Dose Admin Lactated Ringer's 1,000 mls @ 15 mls/hr 06/25/25 07:30 06/25/25 07:49 IV 15 mls/hr .Q48H CHEMA Administration PFSH Medical History Wears dentures History of MRSA infection Heartburn Former smoker Allergy/AdvReac Type Severity Reaction Status Date / Time amoxicillin Allergy Rash Verified 06/25/25 07:39 cefotetan disodium (From Allergy Rash Verified 06/25/25 07:39 Cefotan) erythromycin base Allergy Rash Verified 06/25/25 07:39 Sulfa (Sulfonamide Allergy Rash Verified 06/25/25 07:39 Antibiotics) Family History (Updated 06/10/25 @ 09:59 by Siria Mcgee) Mother Asthma Diabetes Daughter Asthma Surgical History (Updated 06/24/25 @ 08:23 by Sara Garcia) History of appendectomy Hx of tonsillectomy Social History (Updated 06/10/25 @ 09:59 by Siria Mcgee) household members: significant other and children Smoking Status: Former smoker alcohol intake: never Review of Systems (Anesthesia) ROS Narrative System reviewed and no additional complaints, except as documented. Physical Exam Const alert and oriented x3 Nutritional Appearance: obese Resp normal respiratory effort, normal air movement and clear to auscultation bilaterally Cardio regular rate, regular rhythm and no murmurs; Negative for diaphoretic
--- NOTE | 2025-06-25 09:00 | PILCYST_PTH ---
PATIENT: XIANG MALDONADO LOC: [facility] U#:[id number] AGE/SX: 34/F ROOM: RE06/25/[address]: Dr. Elmer Burdick MD : 1990 BED: DIS: 06/25/2025 SPEC #: [id number] RECD: 06/25/25 11:06 STATUS: JEANNIE RERenetta #: [id number] DEO: 06/25/25 09:[address]: Elmer Burdick DEPT: SURGICAL PATHOLOGY RECD BY: Gume Bean ENTERED: 06/25/25 11:24 SP TYPE: Pilonidal OTHR DR: Ghislaine Primary Care Phys Tissues: PILONIDAL TISSUE Procedures: Surgery Specimen Level III HEADER OPERATION: Excision pilonidal cyst PRE-OP DIAGNOSIS: Pilonidal cyst TISSUE SUBMITTED: A- Pilonidal cyst MICROSCOPIC DIAGNOSIS A. Soft tissue, gluteal region, excision: * Fibroadipose tissue with areas of acute and chronic inflammation with granulation tissue MICROSCOPIC DESCRIPTION Slides are reviewed. GROSS DESCRIPTION A. Received in formalin labeled with the patient's name and date of . Designated as pilonidal cyst is a 2.4 x 2.0 x 0.8 cm aggregate of mitchell-pink to red, cauterized irregular tissue fragments. No skin is identified. Entirely submitted in 1 cassette. ND 06/25/2025PT:[id number]
--- NOTE | 2025-06-25 09:16 | HP.PCM_ITS ---
HPI - General General Date of Admission: 06/25/25 Date of Service: 06/25/25 Chief Complaint: Pilonidal cyst HPI Narrative XIANG MALDONADO, is a 34 F who presents for excision of a pilonidal cyst. She has had issues with this pilonidal cyst off and on for several years. She was recently seen in my office with a right sided abscess. She wished to have this definitively addressed surgically [facility] Medical History Wears dentures History of MRSA infection Heartburn Former smoker Allergy/AdvReac Type Severity Reaction Status Date / Time amoxicillin Allergy Rash Verified 06/25/25 07:39 cefotetan disodium (From Allergy Rash Verified 06/25/25 07:39 Cefotan) erythromycin base Allergy Rash Verified 06/25/25 07:39 Sulfa (Sulfonamide Allergy Rash Verified 06/25/25 07:39 Antibiotics) Family History (Updated 06/10/25 @ 09:59 by Siria Mcgee) Mother Asthma Diabetes Daughter Asthma Surgical History (Updated 06/24/25 @ 08:23 by Sara Garcia) History of appendectomy Hx of tonsillectomy Social History (Updated 06/10/25 @ 09:59 by Siria Mcgee) household members: significant other and children Smoking Status: Former smoker alcohol intake: never Vital Signs Vital Signs Vital Signs: 06/25/25 07:41 06/25/25 07:41 06/25/25 07:41 Temperature 97.1 F L Temperature Source Temporal Pulse Rate 78 Respiratory Rate 16 Respiratory Pattern Normal Blood Pressure 129/95 H Blood Pressure Mean 106 Blood Pressure Source Monitor Blood Pressure Position Semi-Fowlers Blood Pressure Location Left Arm Baseline BP 129/95 Pulse Ox 97 Oxygen Delivery Method Room Air 06/25/25 08:10 Temperature 97.1 F L Temperature Source Pulse Rate 78 Respiratory Rate 16 Respiratory Pattern Blood Pressure 129/95 H Blood Pressure Mean Blood Pressure Source Blood Pressure Position Blood Pressure Location Baseline BP Pulse Ox 97 Oxygen Delivery Method Room Air Weight Weight: 225 lb 4.999 oz Body Mass Index (BMI) 38.7 Physical Exam Const alert, oriented x3 and no apparent distress Results Lab / Micro Data Labs: Laboratory Results - last 24 hr 06/25/25 07:47: Urine Test Negative Assessment & Plan Assessment/Plan (1) Pilonidal cyst: PLAN: Plan Excision of a pilonidal cyst planned for today.
[2025-06-25] MEDS: Midazolam 2 MG/2 ML Syringe IV (09:27)
[2025-06-25] MEDS: Lactated Ringers 1,000 ML 1000 ML IV (09:27)
[2025-06-25] MEDS: Lidocaine 1% (5 ml sdv) 5 ML Vial IV (09:32)
[2025-06-25] MEDS: fentaNYL 100 MCG/2 ML Ampul IV (09:32)
[2025-06-25] MEDS: Bupiv/Epi 0.25% 30 ML Vial (09:51)
--- NOTE | 2025-06-25 10:25 | PCM.POST.ANE ---
Anesthesia: Postop Eval I Current Vital Signs Temperature: 97.0 F Pulse Rate: 107 Blood Pressure: 132/87 Respiratory Rate: 20 Pulse Ox: 95 Oxygen Delivery Method: Room Air Assessment Airway patent: Yes Spontaneous unlabored respirations: Yes Mental status: Awake and Calm nausea: No Vomiting: No Anesthesia Complication: No Fluid Hydration Crystalloid volume administer (ml): 700 Total IV fluid infused: 700 Progress Note Anesthesia document: Postop Eval 1 completed: Yes
--- NOTE | 2025-06-25 10:35 | DCINST_ITS ---
Discharge Instructions Diet Discharge Diet: Light diet - advance as tolerated Activity Discharge Activity: Return to Normal Activity and May Shower May shower in (days): 1 Ice area for (Minutes): 30 Dressing / Incision Call your doctor if your incision/area has: Continuous Slow Oozing, Sudden Increased Bleeding, Increased Pain/ Swelling, Increased Redness, Foul Smelling Discharge and Swelling at the incision site Call your doctor if you observe: Fever of 101 or Higher Remove Dressing in: 1 day Cleanse incision/area with: Soap & Water Follow Up Care Please Follow Up With: Elmer Burdick MD When: 2 weeks for suture removal. Please call office to schedule appointment Test Results: Test results from this visit will be discussed in further detail at your follow- up appointment, if applicable. Discharge Plan Admission Primary Reason for Your Visit: Pilonidal cyst excision Attending Provider: Elmer Burdick Primary Care Provider: Care Physician,No Primary Instructions Print Language: Danish Discharge Orders/Prescriptions Prescriptions: New oxycodone 5 mg tablet 5 mg PO Q8H PRN (Reason: pain) 3 Days Qty: 10 0RF Other Ambulatory Orders: ,Urine (Routine) Timeframe: 20250625 Facility: [facility] - Location: Laboratory Ordered By: Dr. Eduardo Villanueva Referrals / Follow Up: Care Physician,No Primary [Primary Care Provider, Medical] Disposition Disposition (needs filled in before D/C Order can be placed): Home, Self Care
--- NOTE | 2025-06-25 10:39 | PCM.OPRPT ---
Procedures Integumentary [id number]: [id number] Remove pilonidal cyst exten Operative Report (Standard) Operative Information Date of Procedure: 06/25/25 Pre-Operative Diagnosis: Pilonidal cyst Post-Operative Diagnosis: Same Surgery/Procedure Performed: Excision of pilonidal cyst with primary closure integrated circuit ic layout designer: Yes Primer Inserting Machine Operator: Cathie Almonte Tasks completed by director of first impressions: Retracting and Other Type of Anesthesia: General and Local RN Documented Start/Stop Times: Operation Date: 06/25/25 09:00 Case Time Into Pre-Op 06/25/25 07:22 Out of Pre-Op 06/25/25 09:19 Anesthesia Start 06/25/25 09:27 Into Room 06/25/25 09:27 Procedure Start 06/25/25 09:51 Procedure End 06/25/25 10:09 Anesthesia End 06/25/25 10:19 Out of Room 06/25/25 10:19 Into Recovery 06/25/25 10:22 Procedure Start Time: 09:51 Procedure Stop Time: 10:09 Select all DRAINS/GRAFTS/IMPLANTS that apply: None Estimated Blood Loss: Minimal Specimen collected: Yes Description of specimen(s) removed: Pilonidal cyst Description of surgery: Patient is a 34-year-old female recently seen through the office with recurring issues related to a pilonidal cyst with abscess. I drained an abscess in the office recently. She wished at that point to discuss having this issue definitively treated. I offered excisional surgery. We discussed the details of the planned procedure including the risks benefits and alternatives and she wished to proceed. She was brought to the op room today following informed consent. Preoperative antibiotics were given and a timeout was performed. She was placed supine on the operative table with arms outstretched and arm boards. General anesthesia was induced. She was then rolled into a prone position. Appropriate padding was performed. The area was then prepped and draped in the usual sterile manner. There were 2 small skin punctum along the midline which tunneled in a cephalad direction. The skin overlying this area was injected with local anesthetic. #15 blade was then used to make skin incision overlying this area. Bovie electrocautery was then used dissect down further through the subcutaneous tissues onto the level of the lacrimal duct probe. The surrounding cyst was excised back to good healthy subcutaneous tissues. The surrounding areas were also explored as she had had previous I&D's laterally. Wanted to make sure that there were no obvious areas of tunneling to these vicinity's or other previous cavities which might harbor infection. This was all excised. The wound was copiously irrigated. Hemostasis was excellent. The few areas were cauterized to ensure hemostasis. The wound was then closed using 3-0 Vicryl in the subdermal layer. And then 2-0 nylon was then placed in the overlying skin in a vertical mattress manner. Dressing was then applied. She was awakened anesthesia and taken recovery in good condition. Surgical Findings: See operative note Complications Complications: No Admit VTE Documentation VTE Present on Admission: No VTE Mechan Device Prophylaxis: SCD's
--- NOTE | 2025-06-25 13:38 | POSTOPAN2_ITS ---
Anesthesia Postop Eval I Sum Postop Eval Completion status Anesthesia document: Postop Eval 1 completed: Yes Anesthesia Postop Eval I Summary Anesthesia Postop Eval I Summary: Anesthesia Postop Eval I: Assessment Summary Airway patent Yes 06/25/25 10:26 LABORATORY EQUIPMENT [email or web address] Spontaneous unlabored Yes 06/25/25 10:26 LABORATORY EQUIPMENT [email or web address] respirations Mental status Awake,Calm 06/25/25 10:26 LABORATORY EQUIPMENT [email or web address] nausea No 06/25/25 10:26 LABORATORY EQUIPMENT [email or web address] Vomiting No 06/25/25 10:26 LABORATORY EQUIPMENT [email or web address] Anesthesia Postop Eval I: Fluid Summary Crystalloid volume administer 700 06/25/25 10:26 LABORATORY EQUIPMENT [email or web address] (ml) Colloids volume administered ( ml) Blood Product volume administered (ml) Total IV fluid infused 700 06/25/25 10:26 LABORATORY EQUIPMENT [email or web address] Anesthesia Postop Eval I: Summary Notes Anesthesia Complication No 06/25/25 10:26 LABORATORY EQUIPMENT [email or web address] Anesthesia Complication Comment: Post-operative progress note Anesthesia: Postop Eval II Evaluation Mental status: Awake Pain Level: 0 nausea: No Vomiting: No Complications Anesthesia Complication: No
--- NOTE | 2025-06-25 13:38 | PCM.POSTANE2 ---
Anesthesia Postop Eval I Sum Postop Eval Completion status Anesthesia document: Postop Eval 1 completed: Yes Anesthesia Postop Eval I Summary Anesthesia Postop Eval I Summary: Anesthesia Postop Eval I: Assessment Summary Airway patent Yes 06/25/25 10:26 [email or web address] [email or web address] Spontaneous unlabored Yes 06/25/25 10:26 [email or web address] [email or web address] respirations Mental status Awake,Calm 06/25/25 10:26 [email or web address] [email or web address] nausea No 06/25/25 10:26 [email or web address] [email or web address] Vomiting No 06/25/25 10:26 [email or web address] Anesthesia Postop Eval I: Fluid Summary Crystalloid volume administer 700 06/25/25 10:26 [email or web address] (ml) Colloids volume administered ( ml) Blood Product volume administered (ml) Total IV fluid infused 700 06/25/25 10:26 [email or web address] Anesthesia Postop Eval I: Summary Notes Anesthesia Complication No 06/25/25 10:26 [email or web address] Anesthesia Complication Comment: Post-operative progress note Anesthesia: Postop Eval II Evaluation Mental status: Awake Pain Level: 0 nausea: No Vomiting: No Complications Anesthesia Complication: No
== END 2025-06-25 11:43 | disposition home or self-care (01) ==
LOC: SDC 07:16 → AC 07:19
PROVIDERS: Student in an Organized Health Care Education/Training Program; Referring Provider Surgery; Visit Provider Surgery
PROC: (CPT 11771; principal; 2025-06-25 08:45)
DX: L05.01 Pilonidal cyst with abscess (principal); Z87.891 Personal history of nicotine dependence
CPT/HCPCS: 11771; 00300; 81025; 88304; J2405